=== PATIENT | female | born 1965 | race Caucasian/White ===

== ENCOUNTER → 2017-10-14 | Outpatient (CLI) | payer OTHER ==
[~2017-10-14] MED LIST: BUSP15TA60 PO; GABA-488 PO; HYDR-2856 PO; HYDR1TAB PO; LISI1TAB8 PO; MULT-974 PO; NAPR-243 PO; NAPR-689 PO; NITR-65 PO; OMEG1CAP74 PO
--- NOTE | 2017-10-14 13:56 | Diagnostic Imaging Report ---
PROCEDURE: US left lower extremity venous. TECHNIQUE: Multiple real-time grayscale images were obtained over the left lower extremity in various projections. Additional duplex Doppler and color Doppler images were also obtained. INDICATION: Left leg bruising from recent trauma. There is no evidence of a left lower extremity DVT. Left lower extremity deep venous system demonstrates normal compressibility with normal response to augmentation and Valsalva. There does appear to be a complex fluid collection in the soft tissues of the posterior upper thigh measuring 9.4 x 2.6 x 2.4 cm. No internal vascularity is seen. Findings are most consistent with a hematoma. IMPRESSION: 1. No evidence of left lower extremity DVT. 2. Large soft tissue hematoma posterior upper left thigh. Dictated by: Dictated on workstation # [id number]
== END ==
LOC: RAD 13:05
PROVIDERS: ATTEND Nurse Practitioner Family
DX: S70.12XA Contusion of left thigh, initial encounter (principal)

== ENCOUNTER 2018-07-23 19:33 | Emergency (ER) | payer SELFPAY ==
[~2018-07-23] VITALS: Ht 160 cm; Wt 122.0 kg
[2018-07-23] MEDS ORDERED: ONDANSETRON 4 MG/2 ML (SDV) Z0FRAN ONE (19:37)
[2018-07-23] MEDS ORDERED: NS IV 1000 ML 1,000 ML ONE (19:37)
[2018-07-23] MEDS ORDERED: NS IV 1000 ML 1,000 ML IV STA (19:39)
--- OUTSIDE RECORDS SUMMARY | 2018-07-23 19:40 | XMS REPORT ---
Author Author KHLOE FOX Organization [facility] Address [address] [place] [address] Care Team Providers Care Material Handler Name Role Phone KHLOE FOX Unavailable PROBLEMS Type Condition ICD9-CM Code GWI20-TD Code Onset Dates Condition Status SNOMED Code Problem Bipolar II disorder F31.81 Active 36554264 Problem Essential (primary) hypertension I10 Active 04159457 Problem Mixed hyperlipidemia E78.2 Active 849432846 Problem Abnormal LFTs R94.5 Active 044032891 Problem Essential hypertension I10 Active 52537777 Problem AVILA (generalized anxiety disorder) F41.1 Active 59502663 Problem 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 Active 29204228 Problem Hyperinsulinemia E16.1 Active 98515575 Problem Morbid obesity due to excess calories E66.01 Active 171855472 Problem Simple chronic bronchitis J41.0 Active 26875573 Problem Tobacco abuse Z72.0 Active 719256966 Problem Obstructive sleep apnea syndrome G47.33 Active 43804340 Problem Tremor R25.1 Active 14026666 ALLERGIES No Information ENCOUNTERS Encounter Location Date Diagnosis [facility] [id number] [place] [address] 95904- 4117 Apr, [facility] [id number] [place] [address] 79788- 8813 Mar, [facility] [id number] [place] [address] 63776- 4307 Feb, Bipolar II disorder F31.81 ; AVILA (generalized anxiety disorder) F41.1 and BMI 45.0-49.9, adult Z68.42 [facility] [address] [place] [address] 83901- 7397 Jan, [facility] [address] 92338- 1773 Jan, [facility] [id number] [place] [address] 54195- 3049 November, Abnormal LFTs R94.5 [facility] [id number] [place] [address] 37702- 1957 Oct, [facility] [id number] [place] [address] 63865- 9435 Oct, [facility] [id number] [place] [address] 13502 -2545 Oct, Left hip pain M25.552 ; Left leg pain M79.605 and BMI 45.0- 49.9, adult Z68.42 [facility] [id number] [place] [address] 21877- 8287 Oct, [facility] [address] 14712- 5667 Aug, BMI 45.0-49.9, adult Z68.42 ; Bipolar II disorder F31.81 and AVILA (generalized anxiety disorder) F41.1 [facility] [id number] [place] [address] 41356- 0138 Jul, Abnormal LFTs R94.5 [facility] [id number] [place] [address] 26369- 4550 Jul, Essential (primary) hypertension I10 ; Mixed hyperlipidemia E78.2 and Bipolar II disorder F31.81 [facility] [id number] [place] [address] 79377- 0555 Jul, [facility] [id number] [place] [address] 62784- 9262 Jul, [facility] [id number] [place] [address] 25635- 3297 Jul, [facility] [id number] [place] [address] 68901- 3356 Apr, [facility] [address] [address]- 2365 Mar, [facility] [id number] [place] [address] 40331- 3836 Mar, [facility] [address] [address]- 3518 Feb, [facility] [id number] [place] [address] 15762- 8474 Feb, Bipolar II disorder F31.81 and AVILA (generalized anxiety disorder) F41.1 [facility] [id number] [place] [address] 74637- 0042 Feb, [facility] [id number] [place] [address] 42195- 5139 Jan, Bipolar II disorder F31.81 ; AVILA (generalized anxiety disorder) F41.1 ; Essential hypertension I10 and Encounter for screening mammogram for breast cancer Z12.31 [facility] [address] [place] [address] 42273- 9833 November, AVILA (generalized anxiety disorder) F41.1 [facility] [address] [place] [address] 51976- 5529 November, [facility] [address] [place] [address] 41727- 5307 Sep, [facility] [address] [place] [address] 07674- 2540 Sep, [facility] [address] [place] [address] 51514- 2988 Sep, Hyperinsulinemia E16.1 [facility] [id number] [place] [address] 69414- 0445 Sep, AVILA (generalized anxiety disorder) F41.1 and Hyperinsulinemia E16.1 [facility] [address] [place] [address] 32884- 1326 08 Feb, 2017 Hyperinsulinemia E16.1 [place] [address] [place] [address] 92588- 3987 07 Aug, 2016 Bipolar II disorder F31.81 ; AVILA (generalized anxiety disorder) F41.1 and 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 [place] [id number] [place] [address] 96133- 9443 Jul, Obstructive sleep apnea syndrome G47.33 [place] [address] 80703- 1486 Jul, [place] [address] 44386- 0269 Jul, Hyperinsulinemia E16.1 ; Obstructive sleep apnea syndrome G47.33 and Morbid obesity due to excess calories E66.01 [place] [id number] [place] [address] 41090- 3369 Jul, Morbid obesity due to excess calories E66.01 and Mixed hyperlipidemia E78.2 [place] [id number] [place] [address] 65492- 9838 Jul, Low back pain M54.5 ; Mixed hyperlipidemia E78.2 ; Obstructive sleep apnea syndrome G47.33 and Morbid obesity due to excess calories E66.01 [place] [address] [place] [address] 35380- 7237 Jun, [place] [id number] [place] [address] 32292- 6675 May, [place] [id number] [place] [address] 17778- 2070 Jan, Bipolar II disorder F31.81 ; AVILA (generalized anxiety disorder) F41.1 and 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 [place] [id number] [place] [address] 96090- 1046 Dec, [place] [id number] [place] [address] 62256- 3338 13 Danny, 2016 Tobacco abuse Z72.0 ; Tremor R25.1 ; Simple chronic bronchitis J41.0 ; Mixed hyperlipidemia E78.2 and Essential (primary) hypertension I10 [place] [address] 98917- 2716 November, Establishing care with new doctor, encounter for Z71.89 ; Other emphysema J43.8 ; Tremor R25.1 ; Essential (primary) hypertension I10 ; Mixed hyperlipidemia E78.2 ; 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 ; AVILA ( generalized anxiety disorder) F41.1 and Bipolar II disorder F31.81 [place] [address] 49930- 2863 Oct, Bipolar II disorder F31.81 ; AVILA (generalized anxiety disorder) F41.1 and 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 [place] [address] 21025- 5162 Oct, [place] [address] 98326- 1631 Sep, [place] [address] 60261- 3953 Jun, Essential (primary) hypertension I10 and Mixed hyperlipidemia E78.2 [place] [address] 82849- 9304 Jun, Essential hypertension I10 [place] [address] 07388- 1613 Jun, Bipolar II disorder F31.81 ; AVILA (generalized anxiety disorder) F41.1 and 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 [place] [address] 77210- 7458 May, Essential hypertension I10 [place] [address] 73680- 7738 May, [place] [address] 95230- 1398 Apr, Bipolar II disorder F31.81 ; AVILA (generalized anxiety disorder) F41.1 and 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 [facility] [id number] [place] [address] 59061- 0059 Apr, Generalized anxiety disorder F41.1 and Depressive disorder, not elsewhere classified F32.9 [facility] [address] [place] [address] 64097- 1796 Mar, Dysuria 788.1 and Chronic UTI 599.0 [facility] [id number] [place] [address] 85798- 7846 Mar, Hematuria 599.70 and Chronic UTI 599.0 [facility] [id number] [place] [address] 36587- 3326 Mar, [facility] [id number] [place] [address] 22792- 4068 Feb, Urinary tract infection 599.0 [facility] [id number] [place] [address] 92715- 1850 Feb, Urinary tract infection 599.0 [facility] [address] [place] [address] 32992- 2454 Feb, Dysuria 788.1 [facility] [address] [place] [address] 51860 2546 Feb, Dysuria 788.1 [facility] [address] [place] [address] 29442 2546 Feb, Dysuria 788.1 [facility] [address] [place] [address] 93597- 9706 Feb, Dysuria 788.1 [facility] [address] [place] [address] 33267- 2546 Jan, Dysuria 788.1 [facility] [address] [place] [address] 22161- 8125 Jan, [facility] [place] [address] [facility] [id number] [address]- 4168 15 Dec, 2014 Urinary tract infection 599.0 ; Anxiety state, unspecified 300.00 and Chronic low back pain 724.2 [facility] [address] [facility] [id number] [address]- 6186 08 Dec, 2014 [facility] [address] [facility] [id number] [place] [address], [place] [address]- 3890 November, [facility] [address] [id number] [place] [address]- 5664 Oct, [facility] [address] [facility] [id number] [place] [address], [place] [address]- 2313 Oct, [facility] [address] [place] [address]- 7135 Sep, [facility] [id number] [address]- 3646 Sep, [facility] [id number] [address]- 2223 Jul, [facility] [id number] [address]- 1720 Jul, [facility] [id number] [address]- 8807 Jul, [facility] [address] [facility] [id number] [address]- 0353 Jul, [facility] [address] [facility] [id number] [address]- 1611 Jul, [facility] [address] [facility] [id number] [address]- 8128 Jul, [facility] [address] [facility] [id number] [address]- 7042 Jul, [facility] [address] [address]- 2185 13 Jul, 2014 [facility] [place] [facility] [address] [id number] [place] [address]- 8594 23 Jun, 2014 [facility] [place] [facility] [address] [id number] [place] [address]- 3864 23 Jun, 2014 [facility] [place] [facility] [address] [id number] [place] [address]- 8012 18 Jun, 2014 [facility] [place] [facility] [address] [id number] [place] [address]- 4457 18 Jun, 2014 [facility] [place] [facility] [address] [id number] [place] [address]- 4114 17 Jun, 2014 [facility] [place] [facility] [address] [id number] [place] [address]- 2509 17 Jun, 2014 [facility] [place] [facility] [address] [id number] [place] [address]- 8300 17 Jun, 2014 [facility] [place] [facility] [address] [id number] [place] [address]- 2462 17 Jun, 2014 [facility] [place] [facility] [address] [id number] [place] [address]- 8570 16 Jun, 2014 [facility] [place] [facility] [address] [id number] [place] [address]- 0717 16 Jun, 2014 [facility] [place] [facility] [address] [id number] [place] [address]- 4492 16 Jun, 2014 [facility] [place] [facility] [address] [id number] [place] [address]- 1037 16 Jun, 2014 [facility] [place] [facility] [address] [id number] [place] [address]- 1527 12 Jun, 2014 [facility] [place] [facility] [address] [id number] [place] [address]- 6521 12 Jun, 2014 [facility] [place] [facility] [address] [id number] [place] [address]- 8437 11 Jun, 2014 [facility] [place] [facility] [address] [id number] [place] [address]- 2606 Jun, [facility] [place] [facility] [address] [id number] [place] [address]- 3871 May, [facility] [place] [facility] [address] [id number] [place] [address]- 3874 May, [facility] [place] [facility] [address] [id number] [place] [address]- 1446 May, [facility] [place] [facility] [address] [id number] [place] [address]- 3219 May, [facility] [place] [facility] [address] [id number] [place] 3873 Mar, [facility] [place] [facility] [address] [id number] [place] [address]- 3825 Mar, [facility] [place] [facility] [address] [id number] [place] [address]- 7094 Mar, [facility] [place] [facility] [address] [id number] [place] [address]- 7331 Mar, [facility] [place] [facility] [address] [id number] [place] [address]- 8952 Feb, [facility] [place] [facility] [address] [id number] [place] [address]- 5189 Feb, [facility] [place] [facility] [address] [id number] [place] [address]- 6775 Feb, [facility] [place] [facility] [address] [id number] [place] [address]- 8984 Jan, [facility] [place] [facility] [address] [id number] [place] [address]- 4629 Dec, [facility] [place] [facility] [address] [id number] [place] [address]- 3878 Dec, [facility] [place] [facility] [address] [id number] [place] [address]- 3241 November, [facility] [place] [facility] [address] [id number] [place] [address]- 0055 November, [facility] [place] [facility] [address] [id number] [place] [address]- 4290 November, [facility] [place] [facility] [address] [id number] [place] [address]- 7449 November, [facility] [place] [facility] [address] [id number] [place] [address]- 5720 Oct, [facility] [place] [facility] [address] [id number] [place] [address]- 5383 Oct, [facility] [place] [facility] [address] [id number] [place] [address]- 4766 Sep, [facility] [place] [facility] [address] [id number] [place] [address]- 6155 Sep, [facility] [place] [facility] [address] [id number] [place] [address]- 6052 Sep, [facility] [place] [facility] [address] [id number] [place] [address]- 2870 Sep, [facility] [place] [facility] [address] [id number] [place] [address]- 1336 Aug, [facility] [place] [facility] [address] [id number] [place] [address]- 4834 Aug, [facility] [place] [facility] [address] [id number] [place] [address]- 3851 Aug, [facility] [place] [facility] [address] [id number] [place] [address]- 0190 Aug, [facility] [place] [facility] [address] [id number] [place] [address]- 1741 Aug, [facility] [place] [facility] [address] [id number] [place] 2331 Aug, [facility] [place] [facility] [address] [address]- 5461 Aug, [facility] [address] [address]- 1752 Jul, [facility] [address] [address]- 2994 Jul, [facility] [address] [address]- 0430 Jul, [facility] [address] [address]- 8564 Jul, [facility] [id number] [place] [address] 33391- 6106 Jun, [facility] [address] [address]- 2432 Jun, [facility] [address] [address]- 3144 Jun, [facility] [address] [address]- 0940 Jun, [facility] [address] [address]- 6684 Jun, [facility] [address] [address]- 3099 Jun, [facility] [address], [place] [address]- 7872 Apr, [facility] [id number] [address]- 6369 Apr, IMMUNIZATIONS No Known Immunizations SOCIAL HISTORY Never Assessed REASON FOR VISIT Refill request PLAN OF CARE VITAL SIGNS MEDICATIONS Medication Instructions Dosage Frequency Start Date End Date Duration Status Lisinopril 20 mg Orally Once a day (MUST HAVE APPT FOR REFILL) 1 tablet 30 days Active RESULTS No Results PROCEDURES No Known procedures INSTRUCTIONS MEDICATIONS ADMINISTERED No Known Medications MEDICAL (GENERAL) HISTORY Type Description Date Medical History Hypertension Medical History Post cholecystectomy 1989 Medical History Arthritis Medical History Degenerative disk disease Medical History hand tremor diagnosed in 2016. Was not on a SGA Surgical History section 1992 Surgical History Laparoscopy-cysts on ovaries 1992 Surgical History Elbow and wrist surgery as a child Surgical History Lumpectomy on Left breast-benign 1992 Hospitalization History past surgeries
--- OUTSIDE RECORDS SUMMARY | 2018-07-23 19:40 | XMS REPORT ---
Author Author GRISEL ANTONIO [facility] Address [address] [place] [address] Care Team Providers Care Insurance Premium Auditor Name Role Phone GRISEL ANTONIO Unavailable PROBLEMS Type Condition ICD9-CM Code IOU73-RN Code Onset Dates Condition Status SNOMED Code Problem Bipolar II disorder F31.81 Active 04244917 Problem Essential (primary) hypertension I10 Active 90943038 Problem Mixed hyperlipidemia E78.2 Active 653827275 Problem Abnormal LFTs R94.5 Active 389768162 Problem Essential hypertension I10 Active 63127417 Problem AVILA (generalized anxiety disorder) F41.1 Active 30999603 Problem 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 Active 03909912 Problem Hyperinsulinemia E16.1 Active 01747639 Problem Morbid obesity due to excess calories E66.01 Active 637372555 Problem Simple chronic bronchitis J41.0 Active 70502921 Problem Tobacco abuse Z72.0 Active 135427442 Problem Obstructive sleep apnea syndrome G47.33 Active 20791972 Problem Tremor R25.1 Active 28076956 ALLERGIES No Information ENCOUNTERS Encounter Location Date Diagnosis [facility] [id number] [place] [address] 91269- 8874 Apr, [facility] [id number] [place] [address] 77172- 9500 Mar, [facility] [id number] [place] [address] 83714- 0641 Feb, Bipolar II disorder F31.81 ; AVILA (generalized anxiety disorder) F41.1 and BMI 45.0-49.9, adult Z68.42 [facility] [id number] [place] [address] 83190- 2381 Jan, [facility] [id number] [place] [address] 22535- 6401 Jan, [facility] [id number] [place] [address] 82359- 2209 November, Abnormal LFTs R94.5 [facility] [id number] [place] [address] 20242- 3248 Oct, [facility] [id number] [place] [address] 22922- 8772 Oct, [facility] [address] [address] -[address]11 Oct, Left hip pain M25.552 ; Left leg pain M79.605 and BMI 45.0- 49.9, adult Z68.42 [facility] [address] 05677- 3030 Oct, [facility] [id number] [place] [address] 36970- 4096 Aug, BMI 45.0-49.9, adult Z68.42 ; Bipolar II disorder F31.81 and AVILA (generalized anxiety disorder) F41.1 [facility] [id number] [place] [address] 02503- 0537 Jul, Abnormal LFTs R94.5 [facility] [id number] [place] [address] 79402- 8602 Jul, Essential (primary) hypertension I10 ; Mixed hyperlipidemia E78.2 and Bipolar II disorder F31.81 [facility] [id number] [place] [address] 35821- 9686 Jul, [facility] [id number] [place] [address] 37261- 3588 Jul, [facility] [id number] [place] [address] 57042- 5438 Jul, [facility] [id number] [place] [address] 21455- 9580 Apr, [facility] [id number] [address]- 1253 Mar, [facility] [id number] [place] [address] 28987- 1890 Mar, [facility] [id number] [place] [address] 73698- 3265 Feb, [facility] [id number] [place] [address] 18828- 9356 Feb, Bipolar II disorder F31.81 and AVILA (generalized anxiety disorder) F41.1 [facility] [id number] [place] [address] 90310- 1589 Feb, [facility] [id number] [place] [address] 15668- 6562 Jan, Bipolar II disorder F31.81 ; AVILA (generalized anxiety disorder) F41.1 ; Essential hypertension I10 and Encounter for screening mammogram for breast cancer Z12.31 [facility] [id number] [address] 4077 November, AVILA (generalized anxiety disorder) F41.1 [facility] [id number] [place] [address] 32638- 0948 November, [facility] [id number] [place] [address] 08018- 4931 Sep, [facility] [id number] [place] [address] 97576- 6938 Sep, [facility] [id number] [place] [address] 70555- 3534 Sep, Hyperinsulinemia E16.1 [facility] [id number] [place] [address] 80417- 4045 Sep, AVILA (generalized anxiety disorder) F41.1 and Hyperinsulinemia E16.1 [facility] [address] [address]- 2546 Aug, Hyperinsulinemia E16.1 [facility] [id number] [address] 0324 07 Aug, 2016 Bipolar II disorder F31.81 ; AVILA (generalized anxiety disorder) F41.1 and 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 [facility] [id number] [place] [address] 72160- 2837 Jul, Obstructive sleep apnea syndrome G47.[address] 69932- 6907 Jul, [facility] [id number] [place] [address] 72688- 3793 Jul, Hyperinsulinemia E16.1 ; Obstructive sleep apnea syndrome G47.33 and Morbid obesity due to excess calories E66.01 [address] [address] [id number] [place] [address] 00390- 4910 Jul, Morbid obesity due to excess calories E66.01 and Mixed hyperlipidemia E78.2 [address] [id number] [place] [address] 46438- 0999 Jul, Low back pain M54.5 ; Mixed hyperlipidemia E78.2 ; Obstructive sleep apnea syndrome G47.33 and Morbid obesity due to excess calories E66.01 [facility] [id number] [place] [address] 33123- 5859 Jun, [place] [id number] [place] [address] 44073- 0486 May, [facility] [id number] [place] [address] 82966- 8216 Jan, Bipolar II disorder F31.81 ; AVILA (generalized anxiety disorder) F41.1 and 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 [facility] [id number] [place] [address] 62308- 4881 Dec, [address] [id number] [place] [address] 68680- 8764 Dec, Tobacco abuse Z72.0 ; Tremor R25.1 ; Simple chronic bronchitis J41.0 ; Mixed hyperlipidemia E78.2 and Essential (primary) hypertension I10 [facility] [address] 38006- 8694 November, Establishing care with new doctor, encounter for Z71.89 ; Other emphysema J43.8 ; Tremor R25.1 ; Essential (primary) hypertension I10 ; Mixed hyperlipidemia E78.2 ; 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 ; AVILA ( generalized anxiety disorder) F41.1 and Bipolar II disorder F31.81 [facility] [address] 53649- 1722 Oct, Bipolar II disorder F31.81 ; AVILA (generalized anxiety disorder) F41.1 and 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 [facility] [address] 01936- 3905 Oct, [facility] [address] 42716- 1654 Sep, [facility] [address] 15417- 2862 Jun, Essential (primary) hypertension I10 and Mixed hyperlipidemia E78.2 [facility] [address] 47625- 2866 Jun, Essential hypertension I10 [facility] [address] 31948- 2445 Jun, Bipolar II disorder F31.81 ; AVILA (generalized anxiety disorder) F41.1 and 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 [facility] [address] 59230- 3035 May, Essential hypertension I10 [facility] [id number] [place] [address] 83273- 2432 May, [facility] [address] 33872- 3769 Apr, Bipolar II disorder F31.81 ; AVILA (generalized anxiety disorder) F41.1 and 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 [facility] [id number] [place] [address] 77613- 5686 Apr, Generalized anxiety disorder F41.1 and Depressive disorder, not elsewhere classified F32.9 [facility] [id number] [place] [address] 64289 2546 Mar, Dysuria 788.1 and Chronic UTI 599.0 [facility] [id number] [place] [address] 15187 2546 Mar, Hematuria 599.70 and Chronic UTI 599.0 [facility] [id number] [place] [address] 45085- 5036 Mar, [facility] [id number] [place] [address] 18147- 4082 Feb, Urinary tract infection 599.0 [facility] [id number] [place] [address] 08420 2546 Feb, Urinary tract infection 599.0 [facility] [id number] [place] [address] 50835 2546 Feb, Dysuria 788.1 [facility] [id number] [place] [address] 36906 2546 Feb, Dysuria 788.1 [facility] [id number] [place] [address] 19531 2546 Feb, Dysuria 788.1 [facility] [id number] [place] [address] 02796 2546 Feb, Dysuria 788.1 [facility] [id number] [place] [address] 89803 2546 Jan, Dysuria 788.1 [facility] [id number] [place] [address] 51407 2546 Jan, [facility] [address] [facility] [id number] [place] [address]- 2240 15 Dec, 2014 Urinary tract infection 599.0 ; Anxiety state, unspecified 300.00 and Chronic low back pain 724.2 [facility] [address] [id number] [place] [address]- 0316 08 Dec, 2014 [facility] [address] [facility] [id number] [place] [address]- 1796 November, [facility] [address] [id number] [place] [address]- 5808 Oct, [facility] [address] [facility] [id number] [place] [address]- 8789 Oct, [facility] [address] [facility] [id number] [place] [address]- 0617 Sep, [facility] [id number] [place] [address]- 9765 Sep, [facility] [id number] [place] [address]- 3766 Jul, [facility] [id number] [place] [address]- 7465 Jul, [facility] [id number] [place] [address]- 1284 Jul, [facility] [id number] [place] [address]- 0555 Jul, [facility] [address] [facility] [id number] [address]- 5217 Jul, [facility] [address] [facility] [id number] [place] [address]- 7121 Jul, [facility] [address] [facility] [id number] [place] [address]- 8206 Jul, [facility] [address] [id number] [address]- 9976 13 Jul, 2014 [facility] [place] [facility] [address] [id number] [place] [address]- 0693 23 Jun, 2014 [facility] [place] [facility] [address] [id number] [place] [address]- 9115 23 Jun, 2014 [facility] [place] [facility] [address] [id number] [place] [address]- 4479 18 Jun, 2014 [facility] [place] [facility] [address] [id number] [place] [address]- 4625 18 Jun, 2014 [facility] [place] [facility] [address] [id number] [place] [address]- 6951 17 Jun, 2014 [facility] [place] [facility] [address] [id number] [place] [address]- 7433 17 Jun, 2014 [facility] [place] [facility] [address] [id number] [place] [address]- 3673 17 Jun, 2014 [facility] [place] [facility] [address] [id number] [place] [address]- 1315 17 Jun, 2014 [facility] [place] [facility] [address] [id number] [place] [address]- 2793 16 Jun, 2014 [facility] [place] [facility] [address] [id number] [place] [address]- 3123 16 Jun, 2014 [facility] [place] [facility] [address] [id number] [place] [address]- 3689 16 Jun, 2014 [facility] [place] [facility] [address] [id number] [place] [address]- 1620 16 Jun, 2014 [facility] [place] [facility] [address] [id number] [place] [address]- 6283 12 Jun, 2014 [facility] [place] [facility] [address] [id number] [place] [address]- 3187 12 Jun, 2014 [facility] [place] [facility] [address] [id number] [place] [address]- 1685 11 Jun, 2014 [facility] [place] [facility] [address] [id number] [place] [address]- 2981 Jun, [facility] [place] [facility] [address] [id number] [place] [address]- 4095 May, [facility] [place] [facility] [address] [id number] [place] [address]- 6918 May, [facility] [place] [facility] [address] [id number] [place] [address]- 1227 May, [facility] [place] [facility] [address] [id number] [place] [address]- 6532 May, [facility] [place] [facility] [address] [id number] [place] [address]- 3098 Mar, [facility] [place] [facility] [address] [id number] [place] [address]- 3669 Mar, [facility] [place] [facility] [address] [id number] [place] [address]- 4146 Mar, [facility] [place] [facility] [address] [id number] [place] [address]- 5450 Mar, [facility] [place] [facility] [address] [id number] [place] [address]- 6967 Feb, [facility] [place] [facility] [address] [id number] [place] [address]- 1413 Feb, [facility] [place] [facility] [address] [id number] [place] [address]- 1182 Feb, [facility] [place] [facility] [address] [id number] [place] [address]- 9474 Jan, [facility] [place] [facility] [address] [id number] [place] [address]- 6450 Dec, [facility] [place] [facility] [address] [id number] [place] [address]- 8264 Dec, [facility] [place] [facility] [address] [id number] [place] [address]- 5712 November, [facility] [place] [facility] [address] [id number] [place] [address]- 0879 November, [facility] [place] [facility] [address] [id number] [place] [address]- 9417 November, [facility] [place] [facility] [address] [id number] [place] [address]- 5867 November, [facility] [place] [facility] [address] [id number] [place] [address]- 7150 Oct, [facility] [place] [facility] [address] [id number] [place] [address]- 7200 Oct, [facility] [place] [facility] [address] [id number] [place] [address]- 7315 Sep, [facility] [place] [facility] [address] [id number] [place] [address]- 4722 Sep, [facility] [place] [facility] [address] [id number] [place] [address]- 9719 Sep, [facility] [place] [facility] [address] [id number] [place] [address]- 2663 Sep, [facility] [place] [facility] [address] [id number] [place] [address]- 5434 Aug, [facility] [place] [facility] [address] [id number] [place] [address]- 8435 Aug, [facility] [place] [facility] [address] [id number] [place] [address]- 4967 Aug, [facility] [place] [facility] [address] [id number] [place] [address]- 6852 Aug, [facility] [place] [facility] [address] [id number] [place] [address]- 9580 Aug, [facility] [place] [facility] [address] [id number] [place] [address]- 5309 Aug, [facility] [place] [facility] [id number] [address]- 7296 Aug, [facility] [address] [address]- 9360 Jul, [facility] [id number] [address]- 3758 Jul, [facility] [id number] [address]- 4772 Jul, [facility] [address] [address]- 6786 Jul, [facility] [id number] [place] [address] 45291- 2768 Jun, [facility] [id number] [place] [address] 40700- 3940 Jun, [facility] [id number] [place] [address] 07671- 5994 Jun, [facility] [address] [address]- 0547 Jun, [facility] [id number] [place] [address] 57611- 4980 Jun, [facility] [address], [place] [address]- 6420 Jun, [facility] [id number] [address]- 5903 Apr, [facility] [id number] [address]- 6343 Apr, IMMUNIZATIONS No Known Immunizations SOCIAL HISTORY Never Assessed REASON FOR VISIT PALS PLAN OF CARE VITAL SIGNS MEDICATIONS Unknown Medications RESULTS No Results PROCEDURES No Known procedures [...]
--- OUTSIDE RECORDS SUMMARY | 2018-07-23 19:41 | XMS REPORT ---
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 Role Phone BROOKLYN HASSAN Unavailable PROBLEMS Type Condition ICD9-CM Code ECB92-OG Code Onset Dates Condition Status SNOMED Code Problem Bipolar II disorder F31.81 Active 20956308 Problem Essential (primary) hypertension I10 Active 67730892 Problem Mixed hyperlipidemia E78.2 Active 903443752 Problem Abnormal LFTs R94.5 Active 103385702 Problem Essential hypertension I10 Active 72100080 Problem AVILA (generalized anxiety disorder) F41.1 Active 90663227 Problem 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 Active 25956678 Problem Hyperinsulinemia E16.1 Active 80190737 Problem Morbid obesity due to excess calories E66.01 Active 327005248 Problem Simple chronic bronchitis J41.0 Active 71093043 Problem Tobacco abuse Z72.0 Active 035192598 Problem Obstructive sleep apnea syndrome G47.33 Active 69868979 Problem Tremor R25.1 Active 54414621 ALLERGIES No Information ENCOUNTERS Encounter Location Date Diagnosis [facility], [place] [id number] [place] [address] 82071- 3117 Apr, [facility], [place] [id number] [place] [address] 36789- 4216 Mar, [facility], [place] [id number] [place] [address] 38743- 1125 Feb, Bipolar II disorder F31.81 ; AVILA (generalized anxiety disorder) F41.1 and BMI 45.0-49.9, adult Z68.42 [facility], [place] [id number] [place] [address] 35220- 5895 Jan, [facility], [place] [id number] [place] [address] 77731- 5805 Jan, [facility], [place] [id number] [place] [address] 56188- 4225 November, Abnormal LFTs R94.5 [facility], [place] [id number] [place] [address] 50399- 9734 Oct, [facility], [place] [id number] [place] [address] 18588- 4102 Oct, [facility] [address] [address]09 -3724 Oct, Left hip pain M25.552 ; Left leg pain M79.605 and BMI 45.0- 49.9, adult Z68.42 [facility], [place] [address] 71561- 5700 Oct, [facility], [place] [id number] [place] [address] 61173- 5443 Aug, BMI 45.0-49.9, adult Z68.42 ; Bipolar II disorder F31.81 and AVILA (generalized anxiety disorder) F41.1 [facility], [place] [id number] [place] [address] 26246- 4169 Jul, Abnormal LFTs R94.5 [facility], [place] [id number] [place] [address] 50662- 6066 Jul, Essential (primary) hypertension I10 ; Mixed hyperlipidemia E78.2 and Bipolar II disorder F31.81 [facility], [place] [id number] [place] [address] 71306- 7202 Jul, [facility], [place] [id number] [place] [address] 64013- 9214 Jul, [facility], [place] [id number] [place] [address] 42778- 8612 Jul, [facility], [place] [id number] [place] [address] 13783- 3725 Apr, [facility], [place] [address] [address] 3020 Mar, [facility], [place] [id number] [place] [address] 58849- 1273 Mar, [facility], [place] [id number] [place] [address] 66757- 5086 Feb, [facility], [place] [id number] [place] [address] 54479- 4921 Feb, Bipolar II disorder F31.81 and AVILA (generalized anxiety disorder) F41.1 [facility], [place] [id number] [place] [address] 20580- 8036 Feb, [facility], [place] [id number] [place] [address] 37813- 7696 Jan, Bipolar II disorder F31.81 ; AVILA (generalized anxiety disorder) F41.1 ; Essential hypertension I10 and Encounter for screening mammogram for breast cancer Z12.31 [facility], [place] [id number] [address] 1796 November, AVILA (generalized anxiety disorder) F41.1 [facility], [place] [id number] [place] [address] 10264- 8050 November, [facility], [place] [id number] [place] [address] 67189- 4940 Sep, [facility], [place] [id number] [place] [address] 94103- 5475 Sep, [facility], [place] [id number] [place] [address] 12474- 1531 Sep, Hyperinsulinemia E16.1 [facility], [place] [id number] [place] [address] 61802- 9638 Sep, AVILA (generalized anxiety disorder) F41.1 and Hyperinsulinemia E16.1 [facility], [place] [address] [address]- 2546 Aug, Hyperinsulinemia E16.1 [place] [id number] [address]- 9193 07 Aug, 2016 Bipolar II disorder F31.81 ; AVILA (generalized anxiety disorder) F41.1 and 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 [place] [id number] [place] [address] 04609- 1501 Jul, Obstructive sleep apnea syndrome G47.[address] 00764- 5419 Jul, [place] [facility] [id number] [place] [address] 43875- 6144 Jul, Hyperinsulinemia E16.1 ; Obstructive sleep apnea syndrome G47.33 and Morbid obesity due to excess calories E66.01 [place] [id number] [place] [address] 55248- 4109 Jul, Morbid obesity due to excess calories E66.01 and Mixed hyperlipidemia E78.2 [place] [id number] [place] [address] 96240- 6649 Jul, Low back pain M54.5 ; Mixed hyperlipidemia E78.2 ; Obstructive sleep apnea syndrome G47.33 and Morbid obesity due to excess calories E66.01 [place] [id number] [place] [address] 73901- 9071 Jun, [place] [id number] [place] [address] 28870- 4812 May, [place] [id number] [place] [address] 34890- 2228 Jan, Bipolar II disorder F31.81 ; AVILA (generalized anxiety disorder) F41.1 and 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 [place] [id number] [place] [address] 13783- 7751 Dec, [place] [id number] [place] [address] 81154- 0425 Dec, Tobacco abuse Z72.0 ; Tremor R25.1 ; Simple chronic bronchitis J41.0 ; Mixed hyperlipidemia E78.2 and Essential (primary) hypertension I10 [place] [address] 30471- 4225 November, Establishing care with new doctor, encounter for Z71.89 ; Other emphysema J43.8 ; Tremor R25.1 ; Essential (primary) hypertension I10 ; Mixed hyperlipidemia E78.2 ; 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 ; AVILA ( generalized anxiety disorder) F41.1 and Bipolar II disorder F31.81 [place] [address] 15179- 3821 Oct, Bipolar II disorder F31.81 ; AVILA (generalized anxiety disorder) F41.1 and 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 [place] [address] 32589- 8881 Oct, [place] [address] 05666- 2003 Sep, [place] [address] 58433- 2812 Jun, Essential (primary) hypertension I10 and Mixed hyperlipidemia E78.2 [place] [address] 93030- 0621 Jun, Essential hypertension I10 [place] [address] 17322- 7665 Jun, Bipolar II disorder F31.81 ; AVILA (generalized anxiety disorder) F41.1 and 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 [place] [address] 76408- 7171 May, Essential hypertension I10 [place] [id number] [place] [address] 07012- 5147 May, [place] [address] 40375- 2431 Apr, Bipolar II disorder F31.81 ; AVILA (generalized anxiety disorder) F41.1 and 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 [facility], [place] [id number] [place] [address] 40244- 2036 Apr, Generalized anxiety disorder F41.1 and Depressive disorder, not elsewhere classified F32.9 [facility], [place] [id number] [place] [address] 06394 2546 Mar, Dysuria 788.1 and Chronic UTI 599.0 [facility], [place] [id number] [place] [address] 67860 2546 Mar, Hematuria 599.70 and Chronic UTI 599.0 [facility], [place] [id number] [place] [address] 87412- 6456 Mar, [facility], [place] [id number] [place] [address] 46866- 4889 Feb, Urinary tract infection 599.0 [facility], [place] [id number] [place] [address] 67358 2546 Feb, Urinary tract infection 599.0 [facility], [place] [id number] [place] [address] 94354 2546 Feb, Dysuria 788.1 [facility], [place] [id number] [place] [address] 93426 2546 Feb, Dysuria 788.1 [facility], [place] [id number] [place] [address] 33646 2546 Feb, Dysuria 788.1 [facility], [place] [id number] [place] [address] 74029 2546 Feb, Dysuria 788.1 [facility], [place] [id number] [place] [address] 57486 2546 Jan, Dysuria 788.1 [facility], [place] [id number] [place] [address] 79612 2546 Jan, [facility] [place] [address] [facility] [id number] [place] [address]- 1742 15 Dec, 2014 Urinary tract infection 599.0 ; Anxiety state, unspecified 300.00 and Chronic low back pain 724.2 [facility] [place] [address] [id number] [place] [address]- 9456 08 Dec, 2014 [facility] [place] [address] [facility] [id number] [place] [address]- 2286 November, [facility] [address] [id number] [place] [address]- 4491 Oct, [facility] [address] [facility] [id number] [place] [address]- 6773 Oct, [facility] [place] [address] [facility] [id number] [place] [address]- 8249 Sep, [facility] [place] [id number] [place] [address]- 9746 Sep, [facility] [id number] [place] [address]- 3293 Jul, [facility] [id number] [place] [address]- 9969 Jul, [facility] [place] [id number] [place] [address]- 6423 Jul, [facility] [place] [id number] [place] [address]- 4803 Jul, [facility] [address] [facility] [id number] [address]- 3337 Jul, [facility] [address] [facility] [id number] [place] [address]- 0098 Jul, [facility] [address] [facility] [id number] [place] [address]- 0746 Jul, [facility] [id number] [address]- 9287 13 Jul, 2014 [facility] [place] [facility] [address] [id number] [place] [address]- 2077 23 Jun, 2014 [facility] [place] [facility] [address] [id number] [place] [address]- 6652 23 Jun, 2014 [facility] [place] [facility] [address] [id number] [place] [address]- 2224 18 Jun, 2014 [facility] [place] [facility] [address] [id number] [place] [address]- 5904 18 Jun, 2014 [facility] [place] [facility] [address] [id number] [place] [address]- 4426 17 Jun, 2014 [facility] [place] [facility] [address] [id number] [place] [address]- 3117 17 Jun, 2014 [facility] [place] [facility] [address] [id number] [place] [address]- 3395 17 Jun, 2014 [facility] [place] [facility] [address] [id number] [place] [address]- 9287 17 Jun, 2014 [facility] [place] [facility] [address] [id number] [place] [address]- 2859 16 Jun, 2014 [facility] [place] [facility] [address] [id number] [place] [address]- 5760 16 Jun, 2014 [facility] [place] [facility] [address] [id number] [place] [address]- 0753 16 Jun, 2014 [facility] [place] [facility] [address] [id number] [place] [address]- 9144 16 Jun, 2014 [facility] [place] [facility] [address] [id number] [place] [address]- 2461 12 Jun, 2014 [facility] [place] [facility] [address] [id number] [place] [address]- 8112 12 Jun, 2014 [facility] [place] [facility] [address] [id number] [place] [address]- 5009 11 Jun, 2014 [facility] [place] [facility] [address] [id number] [place] [address]- 6459 Jun, [facility] [place] [facility] [address] [id number] [place] [address]- 4304 May, [facility] [place] [facility] [address] [id number] [place] [address]- 7655 May, [facility] [place] [facility] [address] [id number] [place] [address]- 9602 May, [facility] [place] [facility] [address] [id number] [place] [address]- 5916 May, [facility] [place] [facility] [address] [id number] [place] [address]- 7235 Mar, [facility] [place] [facility] [address] [id number] [place] [address]- 6346 Mar, [facility] [place] [facility] [address] [id number] [place] [address]- 9149 Mar, [facility] [place] [facility] [address] [id number] [place] [address]- 1433 Mar, [facility] [place] [facility] [address] [id number] [place] [address]- 4809 Feb, [facility] [place] [facility] [address] [id number] [place] [address]- 7757 Feb, [facility] [place] [facility] [address] [id number] [place] [address]- 2317 Feb, [facility] [place] [facility] [address] [id number] [place] [address]- 5093 Jan, [facility] [place] [facility] [address] [id number] [place] [address]- 3150 Dec, [facility] [place] [facility] [address] [id number] [place] [address]- 6129 Dec, [facility] [place] [facility] [address] [id number] [place] [address]- 3390 November, [facility] [place] [facility] [address] [id number] [place] [address]- 3965 November, [facility] [place] [facility] [address] [id number] [place] [address]- 3945 November, [facility] [place] [facility] [address] [id number] [place] [address]- 4410 November, [facility] [place] [facility] [address] [id number] [place] [address]- 5022 Oct, [facility] [place] [facility] [address] [id number] [place] [address]- 4538 Oct, [facility] [place] [facility] [address] [id number] [place] [address]- 3405 Sep, [facility] [place] [facility] [address] [id number] [place] [address]- 3799 Sep, [facility] [place] [facility] [address] [id number] [place] [address]- 7534 Sep, [facility] [place] [facility] [address] [id number] [place] [address]- 6179 Sep, [facility] [place] [facility] [address] [id number] [place] [address]- 6503 Aug, [facility] [place] [facility] [address] [id number] [place] [address]- 4799 Aug, [facility] [place] [facility] [address] [id number] [place] [address]- 4610 Aug, [facility] [place] [facility] [address] [id number] [place] [address]- 6854 Aug, [facility] [place] [facility] [address] [id number] [place] [address]- 0223 Aug, [facility] [place] [facility] [address] [id number] [place] [address]- 0402 Aug, [facility] [place] [facility] [id number] [address]- 7482 Aug, [facility] [place] [address] [address]- 5928 Jul, [facility] [place] [address] [address]- 6468 Jul, [facility] [place] [address] [address]- 2684 Jul, [facility] [place] [address] [address]- 3579 Jul, [facility] [place] [id number] [place] [address] 23436- 8539 Jun, [facility] [place] [id number] [place] [address] 57521- 1301 Jun, [facility] [place] [id number] [place] [address] 10037- 0665 Jun, [facility] [place] [address] [address]- 8238 Jun, [facility] [place] [id number] [place] [address] 866885- 9153 Jun, [facility] [place] [id number] [address]- 7491 Jun, [facility] [place] [address] [address]- 5091 Apr, [facility] [place] [address] [address]- 4906 Apr, IMMUNIZATIONS No Known Immunizations SOCIAL HISTORY Never Assessed REASON FOR VISIT PALS-latuda PLAN OF CARE VITAL SIGNS MEDICATIONS Medication Instructions Dosage Frequency Start Date End Date Duration Status Latuda 40 mg Orally Once in the evening with 350 calories 1 tablet Feb 90 days Active RESULTS No Results PROCEDURES No [...]
--- OUTSIDE RECORDS SUMMARY | 2018-07-23 19:41 | XMS REPORT ---
Author Author GRISEL ANTONIO [facility] Address [address] [place] [address] Care Team Providers Care Greenskeeper Supervisor Name Role Phone GRISEL ANTONIO Unavailable PROBLEMS Type Condition ICD9-CM Code HLL90-VD Code Onset Dates Condition Status SNOMED Code Problem Bipolar II disorder F31.81 Active 11358108 Problem Essential (primary) hypertension I10 Active 48283270 Problem Mixed hyperlipidemia E78.2 Active 595349417 Problem Abnormal LFTs R94.5 Active 263509849 Problem Essential hypertension I10 Active 37117570 Problem AVILA (generalized anxiety disorder) F41.1 Active 97288502 Problem 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 Active 54837644 Problem Hyperinsulinemia E16.1 Active 37993124 Problem Morbid obesity due to excess calories E66.01 Active 792645575 Problem Simple chronic bronchitis J41.0 Active 91464769 Problem Tobacco abuse Z72.0 Active 757909608 Problem Obstructive sleep apnea syndrome G47.33 Active 97926391 Problem Tremor R25.1 Active 75360736 ALLERGIES Substance Reaction Event Type Date Status Codeine vomiting Drug Allergy Feb, Active ENCOUNTERS Encounter Location Date Diagnosis [facility] [address] [address] Apr, [facility] [id number] [place] [address]40- 2773 Mar, [facility] [address] [place] [address] 28331- 2321 Feb, Bipolar II disorder F31.81 ; AVILA (generalized anxiety disorder) F41.1 and BMI 45.0-49.9, adult Z68.42 [facility] [address] [address] Jan, [facility] [address] [place] [address] 1980 Jan, [facility] [id number] [place] [address] 92728- 2736 November, Abnormal LFTs R94.5 [facility] [id number] [place] [address] 26887- 3271 Oct, [facility] [id number] [place] [address] 31626- 5883 Oct, [facility] [id number] [place] [address] 49606 -3961 Oct, Left hip pain M25.552 ; Left leg pain M79.605 and BMI 45.0- 49.9, adult Z68.42 [facility] [id number] [place] [address] 25072- 6553 Oct, [facility] [id number] [place] [address] 08837- 5831 Aug, BMI 45.0-49.9, adult Z68.42 ; Bipolar II disorder F31.81 and AVILA (generalized anxiety disorder) F41.1 [facility] [id number] [place] [address] 65608- 2935 Jul, Abnormal LFTs R94.5 [facility] [id number] [place] [address] 55717- 2542 Jul, Essential (primary) hypertension I10 ; Mixed hyperlipidemia E78.2 and Bipolar II disorder F31.81 [facility] [id number] [place] [address] 82409- 3781 Jul, [facility] [id number] [place] [address] 58378- 9594 Jul, [facility] [id number] [place] [address] 82351- 9304 Jul, [facility] [id number] [place] [address] 71415- 3902 Apr, [facility] [address] [address] 1643 Mar, [facility] [id number] [place] [address] 31839- 8976 Mar, [facility] [address] [place] [address] 01478- 8065 Feb, [facility] [id number] [place] [address] 19729- 3292 Feb, Bipolar II disorder F31.81 and AVILA (generalized anxiety disorder) F41.1 [facility] [id number] [place] [address] 20808- 2606 Feb, [facility] [id number] [place] [address] 17034- 8587 Jan, Bipolar II disorder F31.81 ; AVILA (generalized anxiety disorder) F41.1 ; Essential hypertension I10 and Encounter for screening mammogram for breast cancer Z12.31 [facility] [address] [place] [address] 67648- 9061 November, AVILA (generalized anxiety disorder) F41.1 [facility] [address] [place] [address] 12339- 3694 November, [facility] [id number] [place] [address] 15741- 2837 Sep, [facility] [address] [place] [address] 42601- 8133 Sep, [facility] [address] [place] [address] 27955- 5513 Sep, Hyperinsulinemia E16.1 [facility] [address] [place] [address] 48082- 2300 Sep, AVILA (generalized anxiety disorder) F41.1 and Hyperinsulinemia E16.1 [facility] [address] [place] [address] 53755- 7485 08 Aug, 2016 Hyperinsulinemia E16.1 [facility] [address] [place] [address] 86564- 7188 07 Aug, 2016 Bipolar II disorder F31.81 ; AVILA (generalized anxiety disorder) F41.1 and 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 [facility] [id number] [place] [address] 35894- 9074 Jul, Obstructive sleep apnea syndrome G47.33 [facility] [id number] [place] [address] 53955- 2858 Jul, [facility] [id number] [place] [address] 67100- 7275 Jul, Hyperinsulinemia E16.1 ; Obstructive sleep apnea syndrome G47.33 and Morbid obesity due to excess calories E66.01 [facility] [id number] [place] [address] 27143- 2689 Jul, Morbid obesity due to excess calories E66.01 and Mixed hyperlipidemia E78.2 [facility] [id number] [place] [address] 64776- 6895 Jul, Low back pain M54.5 ; Mixed hyperlipidemia E78.2 ; Obstructive sleep apnea syndrome G47.33 and Morbid obesity due to excess calories E66.01 [facility] [address] [place] [address] 28098- 3041 Jun, [facility] [id number] [place] [address] 69216- 7298 May, [facility] [id number] [place] [address] 55613- 7998 Jan, Bipolar II disorder F31.81 ; AVILA (generalized anxiety disorder) F41.1 and 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 [facility] [address] [address]- 0665 Dec, [facility] [id number] [place] [address] 28231- 0177 Dec, Tobacco abuse Z72.0 ; Tremor R25.1 ; Simple chronic bronchitis J41.0 ; Mixed hyperlipidemia E78.2 and Essential (primary) hypertension I10 [facility] [address] 29521- 6638 November, Establishing care with new doctor, encounter for Z71.89 ; Other emphysema J43.8 ; Tremor R25.1 ; Essential (primary) hypertension I10 ; Mixed hyperlipidemia E78.2 ; 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 ; AVILA ( generalized anxiety disorder) F41.1 and Bipolar II disorder F31.81 [facility] [address] 76452- 8537 Oct, Bipolar II disorder F31.81 ; AVILA (generalized anxiety disorder) F41.1 and 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 [facility] [address] 20963- 3711 Oct, [facility] [address] 64565- 5358 Sep, [facility] [address] 50693- 8081 Jun, Essential (primary) hypertension I10 and Mixed hyperlipidemia E78.2 [facility] [address] 34802- 1351 Jun, Essential hypertension I10 [facility] [address] 71579- 2173 Jun, Bipolar II disorder F31.81 ; AVILA (generalized anxiety disorder) F41.1 and 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 [facility] [address] 14932- 0637 May, Essential hypertension I10 [facility] [address] 77788- 9325 May, [facility] [address] 91346- 4623 Apr, Bipolar II disorder F31.81 ; AVILA (generalized anxiety disorder) F41.1 and 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 [facility] [address] [place] [address] 36895- 0838 Apr, Generalized anxiety disorder F41.1 and Depressive disorder, not elsewhere classified F32.9 [facility] [id number] [place] [address] 02732- 2367 16 Mar, 2015 Dysuria 788.1 and Chronic UTI 599.0 [facility] [id number] [place] [address] 99689- 2241 Mar, Hematuria 599.70 and Chronic UTI 599.0 [facility] [id number] [place] [address] 02115- 9465 Mar, [facility] [id number] [place] [address] 08338- 9875 Feb, Urinary tract infection 599.0 [facility] [address] [place] [address] 56564- 0799 Feb, Urinary tract infection 599.0 [facility] [address] [place] [address] 14754- 3636 Feb, Dysuria 788.1 [facility] [address] [place] [address] 36793- 0417 Feb, Dysuria 788.1 [facility] [address] [place] [address] 06038 2540 Feb, Dysuria 788.1 [facility] [id number] [place] [address] 34939- 6801 Feb, Dysuria 788.1 [facility] [address] [place] [address] 44896- 5289 Jan, Dysuria 788.1 [facility] [id number] [place] [address] 45698- 3237 Jan, [facility] [address] [facility] [id number] [address]- 4352 Dec, Urinary tract infection 599.0 ; Anxiety state, unspecified 300.00 and Chronic low back pain 724.2 [facility] [id number] [address]- 9937 Dec, [facility] [address] [facility] [id number], [place] [address]- 0909 November, [facility] [address] [facility] [id number], [place] [address]- 1834 Oct, [facility] [address] [facility] [id number], [place] [address]- 8038 Oct, [facility] [address], [place] [address]- 6742 Sep, [facility] [id number], [place] [address]- 7318 Sep, [facility] [id number], [place] [address]- 1990 Jul, [facility] [id number], [place] [address]- 9249 Jul, [facility] [id number], [place] [address]- 0465 Jul, [facility] [address] [facility] [id number], [place] [address]- 0381 Jul, [facility] [address] [facility] [id number], [place] [address]- 4215 Jul, [facility] [address] [facility] [id number], [place] [address]- 3776 Jul, [facility] [id number], [place] [address]- 1382 Jul, [facility] [address] [facility] [id number] [place] [address]- 3808 13 Jul, 2014 [facility] [address] [id number] [place] [address]- 1732 23 Jun, 2014 [facility] [place] [facility] [address] [id number] [place] [address]- 3018 23 Jun, 2014 [facility] [place] [facility] [address] [id number] [place] [address]- 3296 18 Jun, 2014 [facility] [place] [facility] [address] [id number] [place] [address]- 1447 18 Jun, 2014 [facility] [place] [facility] [address] [id number] [place] [address]- 0677 17 Jun, 2014 [facility] [place] [facility] [address] [id number] [place] [address]- 6182 17 Jun, 2014 [facility] [place] [facility] [address] [id number] [place] [address]- 5297 17 Jun, 2014 [facility] [place] [facility] [address] [id number] [place] [address]- 2685 17 Jun, 2014 [facility] [place] [facility] [address] [id number] [place] [address]- 1359 16 Jun, 2014 [facility] [place] [facility] [address] [id number] [place] [address]- 8632 16 Jun, 2014 [facility] [place] [facility] [address] [id number] [place] [address]- 8846 16 Jun, 2014 [facility] [place] [facility] [address] [id number] [place] [address]- 8874 16 Jun, 2014 [facility] [place] [facility] [address] [id number] [place] [address]- 5500 12 Jun, 2014 [facility] [place] [facility] [address] [id number] [place] [address]- 9541 12 Jun, 2014 [facility] [place] [facility] [address] [id number] [place] [address]- 6055 Jun, [facility] [place] [facility] [address] [id number] [place] [address]- 0401 Jun, [facility] [place] [facility] [address] [id number] [place] 7667 May, [facility] [place] [facility] [address] [id number] [place] [address]- 8732 May, [facility] [place] [facility] [address] [id number] [place] [address]- 9818 May, [facility] [place] [facility] [address] [id number] [place] [address]- 8778 May, [facility] [place] [facility] [address] [id number] [place] [address]- 4106 Mar, [facility] [place] [facility] [address] [id number] [place] [address]- 3657 Mar, [facility] [place] [facility] [address] [id number] [place] [address]- 1028 Mar, [facility] [place] [facility] [address] [id number] [place] [address]- 8409 Mar, [facility] [place] [facility] [address] [id number] [place] [address]- 7825 Feb, [facility] [place] [facility] [address] [id number] [place] [address]- 9276 Feb, [facility] [place] [facility] [address] [id number] [place] [address]- 2559 Feb, [facility] [place] [facility] [address] [id number] [place] [address]- 2760 Jan, [facility] [place] [facility] [address] [id number] [place] [address]- 7136 Dec, [facility] [place] [facility] [address] [id number] [place] [address]- 4745 Dec, [facility] [place] [facility] [address] [id number], [place] [address]- 8206 November, [facility] [place] [facility] [address] [id number] [place] [address]- 0434 November, [facility] [place] [facility] [address] [id number] [place] [address]- 2584 November, [facility] [place] [facility] [address] [id number] [place] [address]- 5174 November, [facility] [place] [facility] [address] [id number] [place] [address]- 7016 Oct, [facility] [place] [facility] [address] [id number] [place] [address]- 1648 Oct, [facility] [place] [facility] [address] [id number] [place] [address]- 0527 Sep, [facility] [place] [facility] [address] [id number] [place] [address]- 0497 Sep, [facility] [place] [facility] [address] [id number] [place] [address]- 3015 Sep, [facility] [place] [facility] [address] [id number] [place] [address]- 7599 Sep, [facility] [place] [facility] [address] [facility] [id number] [place] [address]- 6282 Aug, [facility] [place] [facility] [address] [id number] [place] [address]- 3488 Aug, [facility] [place] [facility] [address] [id number] [place] [address]- 5491 Aug, [facility] [place] [facility] [address] [id number] [place] [address]- 7254 Aug, [facility] [place] [facility] [address] [id number] [place] [address]- 1278 Aug, [facility] [place] [facility] [address] [id number] [place] [address]- 1362 Aug, [facility] [address] [address]- 1311 Aug, [facility] [address], [place] [address]- 6031 Jul, [facility] [address], [place] [address]- 4091 Jul, [facility] [address], [place] [address]- 6409 Jul, [facility] [address], [place] [address]- 1986 Jul, [facility] [address], [place] [address]- 0033 Jun, [facility] [address], [place] [address]- 8072 Jun, [facility] [address], [place] [address]- 9994 Jun, [facility] [address], [place] [address]- 5680 Jun, [facility] [address], [place] [address]- 2966 Jun, [facility] [address], [place] [address]- 1743 Jun, [facility] [address], [place] [address]- 6601 Apr, [facility] [address] [id number], [place] [address]- 2455 Apr, IMMUNIZATIONS No Known Immunizations SOCIAL HISTORY Never Assessed REASON FOR VISIT JEFF f/u Wilfredo PLAN OF CARE Activity Details Follow Up 6 -8 Weeks Reason: VITAL SIGNS Height 64 in 2018-02-09 Weight 273.8 lbs 2018-02-09 Heart Rate 84 bpm 2018-02-09 Respiratory Rate 20 2018-02-09 BMI 46.99 kg/m2 2018-02-09 Blood pressure systolic 138 mmHg 2018-02-09 Blood pressure diastolic 72 mmHg 2018-02-09 MEDICATIONS Medication Instructions Dosage Frequency Start Date End Date Duration Status Naproxen 500 MG TAKE ONE TABLET BY MOUTH TWICE DAILY NEEDED 90 Active Lamotrigine 200 MG TAKE ONE (1) TABLET BY MOUTH ONCE DAILY Active Latuda 40 mg Orally Once in the evening with 350 calories 1 tablet Feb Active Albuterol Sulfate HFA 108 (90 Base) MCG/ACT Inhalation every 4 hrs 2 puffs as needed 4h Dec, 30 Active Toprol XL 50 MG Orally Once a day 1 tablet at bedtime 24h 30 Active BusPIRone HCl 15 mg Orally 1 tablet in AM and 8pm and 2 tabs at 2pm 1 tablet Active Zoloft 100 mg Orally Once a day for depression and anxiety 1.5 tablet Active Lisinopril 20 mg Orally Once a day 1 tablet 24h 30 Active Gabapentin 300 MG Orally 3 times a day 1 capsule 8h 30 Active Hydrochlorothiazide 12.5 MG Orally Once a day 1 capsule 24h 30 Active RESULTS No Results PROCEDURES No Known procedures INSTRUCTIONS MEDICATIONS ADMINISTERED No Known Medications MEDICAL (GENERAL) HISTORY Type Description Date Medical History Hypertension Medical History Post cholecystectomy 1989 Medical History Arthritis Medical History Degenerative disk disease Medical History hand tremor diagnosed in 2015. Was not on a [facility] Surgical History section 1992 Surgical History Laparoscopy-cysts on ovaries 1992 Surgical History Elbow and wrist surgery as a child Surgical History Lumpectomy on Left breast-benign 1992 Hospitalization History past surgeries
--- OUTSIDE RECORDS SUMMARY | 2018-07-23 19:41 | XMS REPORT ---
Author Author BROOKLYN HASSAN [facility] Address [address] [place] [address] Care Team Providers Care Attendance Secretary Name Role Phone BROOKLYN HASSAN Unavailable PROBLEMS Type Condition ICD9-CM Code PDH33-ON Code Onset Dates Condition Status SNOMED Code Problem Bipolar II disorder F31.81 Active 80681253 Problem Essential (primary) hypertension I10 Active 66785230 Problem Mixed hyperlipidemia E78.2 Active 126381341 Problem Abnormal LFTs R94.5 Active 025641767 Problem Essential hypertension I10 Active 55941618 Problem AVILA (generalized anxiety disorder) F41.1 Active 25693160 Problem 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 Active 33456819 Problem Hyperinsulinemia E16.1 Active 13913947 Problem Morbid obesity due to excess calories E66.01 Active 053211902 Problem Simple chronic bronchitis J41.0 Active 78630624 Problem Tobacco abuse Z72.0 Active 716056387 Problem Obstructive sleep apnea syndrome G47.33 Active 81381589 Problem Tremor R25.1 Active 10821167 ALLERGIES No Information ENCOUNTERS Encounter Location Date Diagnosis [facility] [id number] [place] [address] 93250- 8599 Apr, [facility] [id number] [place] [address] 28086- 7252 Feb, Bipolar II disorder F31.81 ; AVILA (generalized anxiety disorder) F41.1 and BMI 45.0-49.9, adult Z68.42 [facility] [id number] [place] [address] 15637- 4850 Jan, [facility] [id number] [place] [address] 41842- 5420 Jan, [facility] [id number] [place] [address] 90038- 2375 November, Abnormal LFTs R94.5 [facility] [id number] [address] 6161 Oct, [facility] [id number] [place] [address] 22262- 4397 Oct, [facility] [id number] [place] [address] 42084 -2823 Oct, Left hip pain M25.552 ; Left leg pain M79.605 and BMI 45.0- 49.9, adult Z68.42 [facility] [id number] [place] [address] 61530- 3252 Oct, [facility] [id number] [place] [address] 44800- 9784 Aug, BMI 45.0-49.9, adult Z68.42 ; Bipolar II disorder F31.81 and AVILA (generalized anxiety disorder) F41.1 [facility] [id number] [place] [address] 04333- 6339 Jul, Abnormal LFTs R94.5 [facility] [id number] [place] [address] 31813- 0511 Jul, Essential (primary) hypertension I10 ; Mixed hyperlipidemia E78.2 and Bipolar II disorder F31.81 [facility] [id number] [place] [address] 54084- 1256 Jul, [facility] [id number] [place] [address] 83042- 4631 Jul, [facility] [id number] [place] [address] 74716- 8862 Jul, [facility] [id number] [place] [address] 44167- 0844 Apr, [facility] [id number] [place] [address] 80365- 3766 Mar, [facility] [address] [address] 7927 Mar, [facility] [id number] [place] [address] 45143- 2762 Feb, [facility] [id number] [place] [address] 84358- 4547 Feb, Bipolar II disorder F31.81 and AVILA (generalized anxiety disorder) F41.1 [facility] [id number] [place] [address] 17726- 9224 Feb, [facility] [id number] [place] [address] 34631- 5332 Jan, Bipolar II disorder F31.81 ; AVILA (generalized anxiety disorder) F41.1 ; Essential hypertension I10 and Encounter for screening mammogram for breast cancer Z12.31 [facility] [id number] [place] [address] 52223- 5815 November, AVILA (generalized anxiety disorder) F41.1 [facility] [id number] [place] [address] 03487- 9830 November, [facility] [id number] [place] [address] 80771- 1376 Sep, [facility] [id number] [place] [address] 07154- 1196 Sep, [facility] [id number] [place] [address] 11964- 8128 Sep, Hyperinsulinemia E16.1 [facility] [id number] [place] [address] 27477- 7705 Sep, AVILA (generalized anxiety disorder) F41.1 and Hyperinsulinemia E16.1 [facility] [id number] [place] [address] 22002- 1866 Aug, Hyperinsulinemia E16.1 [facility] [id number] [place] [address] 27531- 2546 07 Feb, 2017 Bipolar II disorder F31.81 ; AVILA (generalized anxiety disorder) F41.1 and 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 [facility] [address] 16412- 4898 Jul, Obstructive sleep apnea syndrome G47.33 [facility] [address] 49515- 6072 Jul, [facility] [address] 96009- 0824 Jul, Hyperinsulinemia E16.1 ; Obstructive sleep apnea syndrome G47.33 and Morbid obesity due to excess calories E66.01 [facility] [address] 16209- 0368 Jul, Morbid obesity due to excess calories E66.01 and Mixed hyperlipidemia E78.[address] 00830- 9047 Jul, Low back pain M54.5 ; Mixed hyperlipidemia E78.2 ; Obstructive sleep apnea syndrome G47.33 and Morbid obesity due to excess calories E66.01 [facility] [address] 03285- 5345 Jun, [facility] [address] 56312- 0866 May, [facility] [address] 19789- 1452 Jan, Bipolar II disorder F31.81 ; AVILA (generalized anxiety disorder) F41.1 and 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 [facility] [address] 55101- 4273 Dec, [facility] [address] 76841- 8916 Dec, Tobacco abuse Z72.0 ; Tremor R25.1 ; Simple chronic bronchitis J41.0 ; Mixed hyperlipidemia E78.2 and Essential (primary) hypertension I10 [facility] [id number] [place] [address] 82140- 4560 November, Establishing care with new doctor, encounter for Z71.89 ; Other emphysema J43.8 ; Tremor R25.1 ; Essential (primary) hypertension I10 ; Mixed hyperlipidemia E78.2 ; 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 ; AVILA ( generalized anxiety disorder) F41.1 and Bipolar II disorder F31.81 [facility] [address] 86393- 2888 Oct, Bipolar II disorder F31.81 ; AVILA (generalized anxiety disorder) F41.1 and 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 [facility] [id number] [place] [address] 23939- 7492 Oct, [facility] [address] 68044- 4895 Sep, [facility] [address] 58612- 0081 Jun, Essential (primary) hypertension I10 and Mixed hyperlipidemia E78.[address] 41496- 5797 Jun, Essential hypertension I10 [address] [id number] [place] [address] 79573- 4083 Jun, Bipolar II disorder F31.81 ; AVILA (generalized anxiety disorder) F41.1 and 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 [facility] [id number] [place] [address] 70141- 9701 May, Essential hypertension I10 [facility] [id number] [place] [address] 57107- 5692 May, [facility] [id number] [place] [address] 71355- 4074 Apr, Bipolar II disorder F31.81 ; AVILA (generalized anxiety disorder) F41.1 and 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 [facility] [address] [address]- 2647 05 Apr, 2015 Generalized anxiety disorder F41.1 and Depressive disorder, not elsewhere classified F32.9 [facility] [id number] [place] [address] 51853- 8226 16 Mar, 2015 Dysuria 788.1 and Chronic UTI 599.0 [facility] [id number] [place] [address] 55546 2546 Mar, Hematuria 599.70 and Chronic UTI 599.0 [facility] [id number] [place] [address] 74374- 3876 Mar, [facility] [id number] [place] [address] 18648- 4098 Feb, Urinary tract infection 599.0 [facility] [id number] [place] [address] 74256- 7096 Feb, Urinary tract infection 599.0 [facility] [id number] [place] [address] 07667- 9321 Feb, Dysuria 788.1 [facility] [id number] [place] [address] 36169 2546 Feb, Dysuria 788.1 [facility] [address] [address] 2546 Feb, Dysuria 788.1 [facility] [id number] [place] [address] 16335 2546 Feb, Dysuria 788.1 [facility] [id number] [place] [address] 50331- 0046 Jan, Dysuria 788.1 [facility] [address], [place] [address] 2546 Jan, [facility] [id number] [place] [address] 76123- 9254 Dec, Urinary tract infection 599.0 ; Anxiety state, unspecified 300.00 and Chronic low back pain 724.2 [facility] [address] [address]- 6004 08 Dec, 2014 [facility] [address] [facility] [id number] [place] [address]- 0606 November, [facility] [address] [facility] [id number] [place] [address]- 4645 Oct, [facility] [address] [facility] [id number] [place] [address]- 3315 Oct, [facility] [address] [place] [address]- 8955 Sep, [facility] [id number] 7956 Sep, [facility] [address] [place] [address]- 5163 Jul, [facility] [id number] [address]- 9681 Jul, [facility] [address], [place] [address]- 1424 Jul, [facility] [id number] [address]- 3325 Jul, [facility] [id number] [address]- 6764 Jul, [facility] [id number], [place] [address]- 3562 Jul, [facility] [address] 7364 Jul, [facility] [address] [facility] [id number], [place] [address]- 0762 Jul, [facility] [id number], [place] [address]- 2278 23 Jun, 2014 [facility] [place] [facility] [address] [id number] [place] [address]- 5676 23 Jun, 2014 [facility] [place] [facility] [address] [id number] [place] [address]- 3753 18 Jun, 2014 [facility] [place] [facility] [address] [id number] [place] [address]- 7208 18 Jun, 2014 [facility] [place] [facility] [address] [id number] [place] [address]- 1386 17 Jun, 2014 [facility] [place] [facility] [address] [id number] [place] [address]- 5219 17 Jun, 2014 [facility] [place] [facility] [address] [id number] [place] [address]- 1317 17 Jun, 2014 [facility] [place] [facility] [address] [id number] [place] [address]- 1641 17 Jun, 2014 [facility] [place] [facility] [address] [id number] [place] [address]- 6670 16 Jun, 2014 [facility] [place] [facility] [address] [id number] [place] [address]- 6148 16 Jun, 2014 [facility] [place] [facility] [address] [id number] [place] [address]- 4062 16 Jun, 2014 [facility] [place] [facility] [address] [id number] [place] [address]- 4180 16 Jun, 2014 [facility] [place] [facility] [address] [id number] [place] [address]- 8362 12 Jun, 2014 [facility] [place] [facility] [address] [id number] [place] [address]- 5372 12 Jun, 2014 [facility] [place] [facility] [address] [id number] [place] [address]- 9898 11 Jun, 2014 [facility] [place] [facility] [address] [id number] [place] [address]- 9259 11 Jun, 2014 [facility] [place] [facility] [address] [id number] [place] [address]- 1257 May, [facility] [place] [facility] [address] [id number] [place] [address]- 0319 May, [facility] [place] [facility] [address] [id number] [place] [address]- 9524 May, [facility] [place] [facility] [address] [id number] [place] [address]- 8587 May, [facility] [place] [facility] [address] [id number] [place] [address]- 9931 Mar, [facility] [place] [facility] [address] [id number] [place] [address]- 5689 Mar, [facility] [place] [facility] [address] [id number] [place] [address]- 7549 Mar, [facility] [place] [facility] [address] [id number] [place] [address]- 9180 Mar, [facility] [place] [facility] [address] [id number] [place] [address]- 5225 Feb, [facility] [place] [facility] [address] [id number] [place] [address]- 2790 Feb, [facility] [place] [facility] [address] [id number] [place] [address]- 7150 Feb, [facility] [place] [facility] [address] [id number] [place] [address]- 6106 Jan, [facility] [place] [facility] [address] [id number] [place] [address]- 0651 Dec, [facility] [place] [facility] [address] [id number] [place] [address]- 3173 Dec, [facility] [place] [facility] [address] [id number] [place] [address]- 8875 November, [facility] [place] [facility] [address] [id number] [place] [address]- 8928 November, [facility] [place] [facility] [address] [id number] [place] [address]- 8767 November, [facility] [place] [facility] [address] [id number] [place] [address]- 7943 November, [facility] [place] [facility] [address] [id number] [place] [address]- 8866 Oct, [facility] [place] [facility] [address] [id number] [place] [address]- 0601 Oct, [facility] [place] [facility] [address] [id number] [place] [address]- 9165 Sep, [facility] [place] [facility] [address] [id number] [place] [address]- 8290 Sep, [facility] [place] [facility] [address] [id number] [place] [address]- 6911 Sep, [facility] [place] [facility] [address] [id number] [place] [address]- 8730 Sep, [facility] [place] [facility] [address] [id number] [place] [address]- 6448 Aug, [facility] [place] [facility] [address] [id number] [place] [address]- 2427 Aug, [facility] [place] [facility] [address] [id number] [place] [address]- 0687 Aug, [facility] [place] [facility] [address] [id number] [place] [address]- 3418 Aug, [facility] [place] [facility] [address] [id number] [place] [address]- 7202 Aug, [facility] [place] [facility] [address] [id number] [place] [address]- 6509 Aug, [facility] [place] [facility] [address] [id number] [place] [address]- 4554 Aug, [facility] [place] [facility] [address], [place] [address]- 9767 Jul, [facility] [address], [place] [address]- 7801 Jul, [facility] [address], [place] [address]- 1461 Jul, [facility] [address], [place] [address]- 2201 Jul, [facility] [address], [place] [address]- 7537 Jun, [facility] [address] [place] [address] 68600- 6736 Jun, [facility] [address], [place] [address]- 4923 Jun, [facility] [address] [place] [address] 27103- 0569 Jun, [facility] [address], [place] [address]- 6954 Jun, [facility] [address] 4041 Jun, [facility] [address], [place] [address]- 1856 Apr, [facility] [id number] 1953 Apr, IMMUNIZATIONS No Known Immunizations SOCIAL HISTORY Never Assessed [facility] VITAL SIGNS MEDICATIONS Unknown [...]
--- OUTSIDE RECORDS SUMMARY | 2018-07-23 19:42 | XMS REPORT ---
Author [facility] Address [address] [place] [address] Care Team Providers Care Manager Assembly Name Role Phone LUCERO RUSSO Unavailable PROBLEMS Type Condition ICD9-CM Code [id number] Code Onset Dates Condition Status SNOMED Code Problem Bipolar II disorder F31.81 Active 47933252 Problem Essential (primary) hypertension I10 Active 92811958 Problem Mixed hyperlipidemia E78.2 Active 563380238 Problem Abnormal LFTs R94.5 Active 856485378 Problem Essential hypertension I10 Active 59500607 Problem AVILA (generalized anxiety disorder) F41.1 Active 13517180 Problem 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 Active 08625479 Problem Hyperinsulinemia E16.1 Active 61119866 Problem Morbid obesity due to excess calories E66.01 Active 004667582 Problem Simple chronic bronchitis J41.0 Active 58539600 Problem Tobacco abuse Z72.0 Active 622674467 Problem Obstructive sleep apnea syndrome G47.33 Active 34341076 Problem Tremor R25.1 Active 29567374 ALLERGIES No Information ENCOUNTERS Encounter Location Date Diagnosis [facility] [address] [address] Feb, [facility] [address], [place] [address] Jan, [facility] [id number] [place] [address] 00156- 1783 November, Abnormal LFTs R94.5 [facility] [id number] [place] [address] 63258- 8124 Oct, [facility] [address] [address] Oct, [facility] [address] [place] [address]2245 Oct, Left hip pain M25.552 ; Left leg pain M79.605 and BMI 45.0- 49.9, adult Z68.42 [facility] [address] [address] Oct, [facility] [address] [address] Aug, BMI 45.0-49.9, adult Z68.42 ; Bipolar II disorder F31.81 and AVILA (generalized anxiety disorder) F41.1 [facility] [address] [address] 1052 Jul, Abnormal LFTs R94.5 [facility] [address] [address]- 1780 Jul, Essential (primary) hypertension I10 ; Mixed hyperlipidemia E78.2 and Bipolar II disorder F31.81 [facility] [address] [address]- [address] Jul, [facility] [address] 80[address]- 6138 Jul, [facility] [address] 66687- 3131 Jul, [facility] [id number] [place] [address] 61706- 0153 Apr, [facility] [id number] [place] [address] 88427- 4601 Mar, [facility] [address] 10278- 6167 Mar, [facility] [address] 20105- 3977 Feb, [facility] [id number] [place] [address] 17978- 5903 Feb, Bipolar II disorder F31.81 and AVILA (generalized anxiety disorder) F41.1 [facility] [id number] [place] [address] 22090- 0515 Feb, [facility] [id number] [place] [address] 46817- 4650 Jan, Bipolar II disorder F31.81 ; AVILA (generalized anxiety disorder) F41.1 ; Essential hypertension I10 and Encounter for screening mammogram for breast cancer Z12.31 [facility] [address] [address]- 3897 November, AVILA (generalized anxiety disorder) F41.1 [facility] [address] 11159- 6548 November, [facility] [id number] [place] [address] 35263- 8367 Sep, [facility] [address] 32021- 1256 Sep, [facility] [id number] [place] [address] 70769- 9872 Sep, Hyperinsulinemia E16.1 [facility] [id number] [place] [address] 77735- 4202 Sep, AVILA (generalized anxiety disorder) F41.1 and Hyperinsulinemia E16.1 [place] [id number] [place] [address] 26411- 9993 08 Aug, 2016 Hyperinsulinemia E16.1 [facility] [id number] [place] [address] 15106- 5455 07 Aug, 2016 Bipolar II disorder F31.81 ; AVILA (generalized anxiety disorder) F41.1 and 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 [facility] [id number] [place] [address] 53617- 4855 Jul, Obstructive sleep apnea syndrome G47.33 [place] [id number] [place] [address] 13584- 1066 Jul, [facility] [id number] [place] [address] 72692- 8680 Jul, Hyperinsulinemia E16.1 ; Obstructive sleep apnea syndrome G47.33 and Morbid obesity due to excess calories E66.01 [facility] [id number] [place] [address] 49018- 6334 Jul, Morbid obesity due to excess calories E66.01 and Mixed hyperlipidemia E78.2 [facility] [address] 31428- 9861 Jul, Low back pain M54.5 ; Mixed hyperlipidemia E78.2 ; Obstructive sleep apnea syndrome G47.33 and Morbid obesity due to excess calories E66.01 [facility] [id number] [place] [address] 86222- 0056 Jun, [address] 67[address]- 5273 May, [place] [id number] [place] [address] 45028- 4051 Jan, Bipolar II disorder F31.81 ; AVILA (generalized anxiety disorder) F41.1 and 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 [facility] [id number] [place] [address] 86460- 1108 Dec, [place] [id number] [place] [address] 79643- 8740 Dec, Tobacco abuse Z72.0 ; Tremor R25.1 ; Simple chronic bronchitis J41.0 ; Mixed hyperlipidemia E78.2 and Essential (primary) hypertension I10 [place] [id number] [place] [address] 80186- 3153 November, Establishing care with new doctor, encounter for Z71.89 ; Other emphysema J43.8 ; Tremor R25.1 ; Essential (primary) hypertension I10 ; Mixed hyperlipidemia E78.2 ; 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 ; AVILA ( generalized anxiety disorder) F41.1 and Bipolar II disorder F31.81 [facility] [id number] [place] [address] 70524- 4623 Oct, Bipolar II disorder F31.81 ; AVILA (generalized anxiety disorder) F41.1 and 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 [facility] [id number] [place] [address] 80016- 9614 Oct, [facility] [address] 76260- 4167 Sep, [facility] [address] 94515- 2051 Jun, Essential (primary) hypertension I10 and Mixed hyperlipidemia E78.2 [facility] [address] 32356- 0978 Jun, Essential hypertension I10 [facility] [address] 92759- 1895 Jun, Bipolar II disorder F31.81 ; AVILA (generalized anxiety disorder) F41.1 and 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 [facility] [address] 61436- 8590 May, Essential hypertension I10 [facility] [address] 88841- 2305 May, [facility] [address] 29291- 7670 Apr, Bipolar II disorder F31.81 ; AVILA (generalized anxiety disorder) F41.1 and 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 [facility] [address] 92033- 7885 05 Apr, 2015 Generalized anxiety disorder F41.1 and Depressive disorder, not elsewhere classified F32.9 [facility] [id number] [place] [address] 55189- 0202 16 Mar, 2015 Dysuria 788.1 and Chronic UTI 599.0 [facility] [address] [address] 0604 Mar, Hematuria 599.70 and Chronic UTI 599.0 [facility] [address], [place] [address] 2546 Mar, [facility] [address], [place] [address] 2546 Feb, Urinary tract infection 599.0 [facility] [address], [place] [address] 2546 Feb, Urinary tract infection 599.0 [facility] [id number] [place] [address] 85695- 3556 Feb, Dysuria 788.1 [facility] [address], [place] [address] 4865 Feb, Dysuria 788.1 [facility] [id number] [place] [address] 31914- 0117 Feb, Dysuria 788.1 [facility] [address] [place] [address] 38173- 0771 Feb, Dysuria 788.1 [facility] [address], [place] [address]- 9422 Jan, Dysuria 788.1 [facility] [address], [place] [address] 2546 Jan, [facility] [id number] [address]- 254 Dec, Urinary tract infection 599.0 ; Anxiety state, unspecified 300.00 and Chronic low back pain 724.2 [facility] [id number], [place] [address]- 7380 Dec, [facility] [address], [place] [address]- 6869 November, [facility] [address] [id number] [place] [address]- 1608 14 Oct, 2014 [facility] [place] [facility] [address] [id number] [place] [address]- 0676 13 Oct, 2014 [facility] [place] [facility] [address] [id number] [place] [address]- 3446 17 Sep, 2014 [facility] [place] [facility] [address] [id number] [place] [address]- 4933 17 Sep, 2014 [facility] [place] [facility] [address] [id number] [place] [address]- 3168 13 Jul, 2014 [facility] [place] [facility] [address] [id number] [place] [address]- 1893 13 Jul, 2014 [facility] [place] [facility] [address] [id number] [place] [address]- 6312 13 Jul, 2014 [facility] [place] [facility] [address] [id number] [place] [address]- 6379 Jul, [facility] [place] [facility] [address] [id number] [place] [address]- 3639 Jul, [facility] [place] [facility] [address] [id number] [place] [address]- 8697 Jul, [facility] [place] [facility] [address] [id number] [place] [address]- 0367 Jul, [facility] [place] [facility] [address] [id number] [place] [address]- 5963 Jul, [facility] [place] [facility] [address] [id number] [place] [address]- 4602 Jun, [facility] [place] [facility] [address] [id number] [place] [address]- 3690 Jun, [facility] [place] [facility] [address] [id number] [place] [address]- 3296 18 Jun, 2014 [facility] [place] [facility] [address] [id number] [place] [address]- 2018 18 Jun, 2014 [facility] [place] [facility] [address] [id number] [place] [address]- 0981 17 Jun, 2014 [facility] [place] [facility] [address] [id number] [place] [address]- 3743 17 Jun, 2014 [facility] [place] [facility] [address] [id number] [place] 7024 17 Jun, 2014 [facility] [place] [facility] [address] [id number] [place] [address]- 5452 17 Jun, 2014 [facility] [place] [facility] [address] [id number] [place] [address]- 6243 16 Jun, 2014 [facility] [place] [facility] [address] [id number] [place] [address]- 8605 16 Jun, 2014 [facility] [place] [facility] [address] [id number] [place] [address]- 1611 16 Jun, 2014 [facility] [place] [facility] [address] [id number] [place] [address]- 5429 16 Jun, 2014 [facility] [place] [facility] [address] [id number] [place] [address]- 0017 12 Jun, 2014 [facility] [place] [facility] [address] [id number] [place] [address]- 6009 12 Jun, 2014 [facility] [place] [facility] [address] [id number] [place] [address]- 4304 11 Jun, 2014 [facility] [place] [facility] [address] [id number] [address]- 0991 11 Jun, 2014 [facility] [place] [facility] [address] [id number] [place] [address]- 3153 18 May, 2014 [facility] [place] [facility] [address] [id number] [place] [address]- 9766 18 May, 2014 [facility] [place] [facility] [address] [id number] [place] [address]- 8235 18 May, 2014 [facility] [place] [facility] [address] [id number] [place] [address]- 9420 May, [facility] [place] [facility] [address] [id number] [place] [address]- 7848 Mar, [facility] [place] [facility] [address] [id number] [place] [address]- 4636 Mar, [facility] [place] [facility] [address] [id number] [place] [address]- 4348 Mar, [facility] [place] [facility] [address] [id number] [place] [address]- 6813 Mar, [facility] [place] [facility] [address] [id number] [place] [address]- 3377 Feb, [facility] [place] [facility] [address] [id number] [place] [address]- 6828 Feb, [facility] [place] [facility] [address] [id number] [place] [address]- 7058 Feb, [facility] [place] [facility] [address] [id number] [place] [address]- 1884 Jan, [facility] [place] [facility] [address] [id number] [place] [address]- 6081 Dec, [facility] [place] [facility] [address] [id number] [place] [address]- 7866 Dec, [facility] [place] [facility] [address] [id number] [place] [address]- 2998 November, [facility] [place] [facility] [address] [id number] [place] [address]- 3094 November, [facility] [place] [facility] [address] [id number] [place] [address]- 2132 November, [facility] [place] [facility] [address] [id number] [place] [address]- 7768 November, [facility] [place] [facility] [address] [id number] [place] [address]- 4847 Oct, [facility] [place] [facility] [address] [id number] [place] [address]- 7041 Oct, [facility] [place] [facility] [address] [id number] [place] [address]- 0131 Sep, [facility] [place] [facility] [address] [id number] [place] [address]- 5563 Sep, [facility] [place] [facility] [address] [id number] [place] [address]- 9974 Sep, [facility] [place] [facility] [address] [id number] [place] [address]- 3252 Sep, [facility] [place] [facility] [address] [id number] [place] [address]- 9139 Aug, [facility] [place] [facility] [address] [id number] [place] [address]- 0242 Aug, [facility] [place] [facility] [address] [id number] [place] [address]- 7228 Aug, [facility] [place] [facility] [address] [id number] [place] [address]- 8104 Aug, [facility] [place] [facility] [address] [id number] [place] [address]- 4832 Aug, [facility] [place] [facility] [address] [id number] [place] [address]- 5888 Aug, [facility] [place] [facility] [address] [id number] [place] [address]- 6925 Aug, [facility] [place] [facility] [address] [id number] [place] [address]- 7582 Jul, [facility] [place] [facility] [address] [id number] [place] [address]- 8096 Jul, [facility] [place] [facility] [address] [id number] [place] [address]- 1412 Jul, [facility] [place] [facility] [address] [facility] [id number] [address]- 6878 Jul, [facility] [address] [address]30 Jun, [facility] [id number] 6262 Jun, [facility] [address] 4452 Jun, [facility] [address] 0588 Jun, [facility] [address] [place] [address] 284013- 8292 Jun, [facility] [address] 1739 Jun, [facility] [address] 69[address] Apr, [facility] [id number], [place] [address]- 5668 Apr, IMMUNIZATIONS No Known Immunizations SOCIAL HISTORY Never Assessed REASON FOR VISIT lab results PLAN OF CARE VITAL SIGNS MEDICATIONS Unknown [...]
--- OUTSIDE RECORDS SUMMARY | 2018-07-23 19:42 | XMS REPORT ---
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 Name Role Phone KHLOE FOX Unavailable PROBLEMS Type Condition ICD9-CM Code CPO55-NS Code Onset Dates Condition Status SNOMED Code Problem Bipolar II disorder F31.81 Active 25801793 Problem Essential (primary) hypertension I10 Active 52170889 Problem Mixed hyperlipidemia E78.2 Active 620755152 Problem Abnormal LFTs R94.5 Active 447193610 Problem Essential hypertension I10 Active 39426549 Problem AVILA (generalized anxiety disorder) F41.1 Active 02430016 Problem 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 Active 66634684 Problem Hyperinsulinemia E16.1 Active 27885888 Problem Morbid obesity due to excess calories E66.01 Active 314509977 Problem Simple chronic bronchitis J41.0 Active 58309723 Problem Tobacco abuse Z72.0 Active 199589837 Problem Obstructive sleep apnea syndrome G47.33 Active 61457035 Problem Tremor R25.1 Active 96985594 ALLERGIES No Information ENCOUNTERS Encounter Location Date Diagnosis [facility] [address] [address] Feb, [facility] [id number] [place] [address] 37177- 2772 Jan, [facility] [id number] [place] [address] 44675- 7793 Jan, [facility] [id number] [place] [address] 54211- 3003 November, Abnormal LFTs R94.5 [facility] [address] [address] 0562 Oct, [facility] [id number] [place] [address] 29871- 3308 Oct, [facility] [id number] [place] [address] 23836 -6184 Oct, Left hip pain M25.552 ; Left leg pain M79.605 and BMI 45.0- 49.9, adult Z68.42 [facility] [address] [address]- [address] Oct, [facility] [address] 27923- 9108 Aug, BMI 45.0-49.9, adult Z68.42 ; Bipolar II disorder F31.81 and AVILA (generalized anxiety disorder) F41.1 [facility] [address] [address]- 2770 Jul, Abnormal LFTs R94.5 [facility] [address] 54255- 9434 Jul, Essential (primary) hypertension I10 ; Mixed hyperlipidemia E78.2 and Bipolar II disorder F31.81 [facility] [address] 86316- 3599 Jul, [facility] [id number] [place] [address] 49776- 3117 Jul, [facility] [id number] [place] [address] 72002- 7017 Jul, [facility] [id number] [place] [address] 81176- 8761 Apr, [facility] [address] 97285- 0968 Mar, [facility] [address] 00003- 6933 Mar, [facility] [id number] [place] [address] 22832- 1740 Feb, [facility] [id number] [place] [address] 69787- 6785 Feb, Bipolar II disorder F31.81 and AVILA (generalized anxiety disorder) F41.1 [facility] [id number] [place] [address] 51065- 3916 Feb, [facility] [id number] [place] [address] 72822- 1631 Jan, Bipolar II disorder F31.81 ; AVILA (generalized anxiety disorder) F41.1 ; Essential hypertension I10 and Encounter for screening mammogram for breast cancer Z12.31 [facility] [address] 0[address]60- 8824 November, AVILA (generalized anxiety disorder) F41.1 [facility] [id number] [place] [address] 07314- 6884 November, [facility] [address] 26247- 4376 Sep, [facility] [id number] [place] [address] 66933- 5446 Sep, [facility] [id number] [place] [address] 17603- 8191 Sep, Hyperinsulinemia E16.1 [facility] [id number] [place] [address] 67173- 8151 Sep, AVILA (generalized anxiety disorder) F41.1 and Hyperinsulinemia E16.1 [facility] [id number] [place] [address] 72260- 2547 08 Aug, 2016 Hyperinsulinemia E16.1 [facility] [id number] [place] [address] 11155- 1539 07 Aug, 2016 Bipolar II disorder F31.81 ; AVILA (generalized anxiety disorder) F41.1 and 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 [facility] [id number] [place] [address] 43835- 2859 Jul, Obstructive sleep apnea syndrome G47.33 [facility] [id number] [place] [address] 02739- 0231 Jul, [facility] [address] 01637- 8911 Jul, Hyperinsulinemia E16.1 ; Obstructive sleep apnea syndrome G47.33 and Morbid obesity due to excess calories E66.01 [facility] [address] 69855- 2501 Jul, Morbid obesity due to excess calories E66.01 and Mixed hyperlipidemia E78.[address] 91351- 9228 Jul, Low back pain M54.5 ; Mixed hyperlipidemia E78.2 ; Obstructive sleep apnea syndrome G47.33 and Morbid obesity due to excess calories E66.01 [facility] [address] 49460- 2058 Jun, [facility] [id number] [place] [address] 92761- 6161 May, [place] [id number] [place] [address] 92697- 1371 Jan, Bipolar II disorder F31.81 ; AVILA (generalized anxiety disorder) F41.1 and 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 [place] [id number] [place] [address] 22048- 8350 Dec, [place] [id number] [place] [address] 13838- 2922 Dec, Tobacco abuse Z72.0 ; Tremor R25.1 ; Simple chronic bronchitis J41.0 ; Mixed hyperlipidemia E78.2 and Essential (primary) hypertension I10 [place] [id number] [place] [address] 84195- 9223 November, Establishing care with new doctor, encounter for Z71.89 ; Other emphysema J43.8 ; Tremor R25.1 ; Essential (primary) hypertension I10 ; Mixed hyperlipidemia E78.2 ; 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 ; AVILA ( generalized anxiety disorder) F41.1 and Bipolar II disorder F31.81 [facility] [id number] [place] [address] 30734- 1435 Oct, Bipolar II disorder F31.81 ; AVILA (generalized anxiety disorder) F41.1 and 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 [facility] [id number] [place] [address] 83399- 8693 Oct, [facility] [id number] [place] [address] 21128- 4041 Sep, [facility] [id number] [place] [address] 60166- 6866 Jun, Essential (primary) hypertension I10 and Mixed hyperlipidemia E78.2 [facility] [id number] [place] [address] 48980- 7459 Jun, Essential hypertension I10 [facility] [id number] [place] [address] 38045- 4672 Jun, Bipolar II disorder F31.81 ; AVILA (generalized anxiety disorder) F41.1 and 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 [facility] [id number] [place] [address] 02855- 9591 May, Essential hypertension I10 [facility] [id number] [place] [address] 20422- 4532 May, [facility] [id number] [place] [address] 81853- 5436 Apr, Bipolar II disorder F31.81 ; AVILA (generalized anxiety disorder) F41.1 and 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 [facility] [id number] [place] [address] 66485- 1250 05 Apr, 2015 Generalized anxiety disorder F41.1 and Depressive disorder, not elsewhere classified F32.9 [facility] [address] [address] [address]- 4742 Mar, Dysuria 788.1 and Chronic UTI 599.0 [facility] [id number] [place] [address] 45876- 5502 Mar, Hematuria 599.70 and Chronic UTI 599.0 [facility] [id number] [place] [address] 73785- 9318 Mar, [facility] [id number] [place] [address] 22171- 1401 Feb, Urinary tract infection 599.0 [facility] [id number] [place] [address] 28380- 8082 Feb, Urinary tract infection 599.0 [facility] [id number] [place] [address] 81428- 5090 Feb, Dysuria 788.1 [facility] [id number] [place] [address] 07138- 5928 Feb, Dysuria 788.1 [facility] [id number] [place] [address] 19484- 5729 Feb, Dysuria 788.1 [facility] [id number] [place] [address] 11206- 6164 Feb, Dysuria 788.1 [facility] [id number] [place] [address] 14901- 4756 Jan, Dysuria 788.1 [facility] [id number] [place] [address] 46728- 3681 Jan, [facility] [id number] [place] [address] 22608- 5811 Dec, Urinary tract infection 599.0 ; Anxiety state, unspecified 300.00 and Chronic low back pain 724.2 [facility] [address] [address]- 5723 Dec, [facility] [address] [id number] [place] [address]- 0278 November, [facility] [place] [facility] [address] [id number] [place] [address]- 8707 14 Oct, 2014 [facility] [place] [facility] [address] [id number] [place] [address]- 8033 Oct, [facility] [place] [facility] [address] [id number] [place] [address]- 9925 Sep, [facility] [place] [facility] [address] [id number] [place] [address]- 2802 Sep, [facility] [place] [facility] [address] [id number] [place] [address]- 4959 Jul, [facility] [place] [facility] [address] [id number] [place] [address]- 2528 Jul, [facility] [place] [facility] [address] [id number] [place] [address]- 2327 Jul, [facility] [place] [facility] [address] [id number] [place] [address]- 0071 Jul, [facility] [place] [facility] [address] [id number] [place] [address]- 4020 Jul, [facility] [place] [facility] [address] [id number] [place] [address]- 1112 Jul, [facility] [place] [facility] [address] [id number] [place] [address]- 6779 Jul, [facility] [place] [facility] [address] [id number] [place] [address]- 2605 Jul, [facility] [place] [facility] [address] [id number] [place] [address]- 5377 Jun, [facility] [place] [facility] [address] [id number] [place] [address]- 5934 Jun, [facility] [place] [facility] [address] [id number] [place] [address]- 6816 18 Jun, 2014 [facility] [place] [facility] [address] [id number] [place] [address]- 2575 18 Jun, 2014 [facility] [place] [facility] [address] [id number] [place] 5030 17 Jun, 2014 [facility] [place] [facility] [address] [id number] [place] [address]- 9569 17 Jun, 2014 [facility] [place] [facility] [address] [id number] [place] [address]- 8202 17 Jun, 2014 [facility] [place] [facility] [address] [id number] [place] [address]- 0578 17 Jun, 2014 [facility] [place] [facility] [address] [id number] [place] [address]- 4875 16 Jun, 2014 [facility] [place] [facility] [address] [id number] [place] [address]- 8878 16 Jun, 2014 [facility] [place] [facility] [address] [id number] [place] [address]- 2739 16 Jun, 2014 [facility] [place] [facility] [address] [id number] [place] [address]- 3300 16 Jun, 2014 [facility] [place] [facility] [address] [id number] [place] [address]- 2769 12 Jun, 2014 [facility] [place] [facility] [address] [id number] [place] [address]- 8168 12 Jun, 2014 [facility] [place] [facility] [address] [id number] [place] [address]- 7295 11 Jun, 2014 [facility] [place] [facility] [address] [id number] [place] [address]- 3590 11 Jun, 2014 [facility] [place] [facility] [address] [id number] [place] [address]- 4156 18 May, 2014 [facility] [place] [facility] [address] [id number] [place] [address]- 9285 18 May, 2014 [facility] [place] [facility] [address] [id number] [place] [address]- 7410 May, [facility] [place] [facility] [address] [id number] [place] [address]- 5464 May, [facility] [place] [facility] [address] [id number] [place] [address]- 7764 Mar, [facility] [place] [facility] [address] [id number] [place] [address]- 9163 Mar, [facility] [place] [facility] [address] [id number] [place] [address]- 6230 Mar, [facility] [place] [facility] [address] [id number] [place] [address]- 4634 Mar, [facility] [place] [facility] [address] [id number] [place] [address]- 9341 Feb, [facility] [place] [facility] [address] [id number] [place] [address]- 3637 Feb, [facility] [place] [facility] [address] [id number] [place] [address]- 9207 Feb, [facility] [place] [facility] [address] [id number] [place] [address]- 2466 Jan, [facility] [place] [facility] [address] [id number] [place] [address]- 2226 Dec, [facility] [place] [facility] [address] [id number] [place] [address]- 9054 Dec, [facility] [place] [facility] [address] [id number] [place] [address]- 1577 November, [facility] [place] [facility] [address] [id number] [place] [address]- 1897 November, [facility] [place] [facility] [address] [id number] [place] [address]- 8620 November, [facility] [place] [facility] [address] [id number] [place] [address]- 4050 November, [facility] [place] [facility] [address] [id number] [place] [address]- 2726 Oct, [facility] [place] [facility] [address] [id number] [place] [address]- 1371 Oct, [facility] [place] [facility] [address] [id number] [place] [address]- 4533 Sep, [facility] [place] [facility] [address] [id number] [place] [address]- 5749 Sep, [facility] [place] [facility] [address] [id number] [place] [address]- 1730 Sep, [facility] [place] [facility] [address] [id number] [place] [address]- 3380 Sep, [facility] [place] [facility] [address] [facility] [id number] [place] [address]- 4136 Aug, [facility] [place] [facility] [address] [id number] [place] [address]- 6129 Aug, [facility] [place] [facility] [address] [id number] [place] [address]- 4430 Aug, [facility] [place] [facility] [address] [facility] [id number] [place] [address]- 4267 Aug, [facility] [place] [facility] [address] [id number] [place] [address]- 6930 Aug, [facility] [place] [facility] [address] [id number] [address]- 4999 Aug, [facility] [place] [facility] [address] [id number] [place] [address]- 0866 Aug, [facility] [place] [facility] [address] [id number] [place] [address]- 6048 Jul, [facility] [place] [facility] [address] [id number] [place] [address]- 7318 Jul, [facility] [place] [facility] [id number] [address]- 4499 Jul, [facility] [address] [address]- 4521 Jul, [facility] [address] [address]- 1735 Jun, [facility] [id number] [address]- 4241 Jun, [facility] [address] [address]- 0784 Jun, [facility] [id number] [place] [address] 614478- 0210 Jun, [facility] [address] [address]- 3171 Jun, [facility] [address] 9380 Jun, [facility] [address] [address]- 4573 Apr, [facility] [address] [address]- 8453 Apr, IMMUNIZATIONS No Known Immunizations SOCIAL HISTORY Never Assessed REASON FOR VISIT [facility] PLAN OF CARE VITAL SIGNS MEDICATIONS Unknown [...]
--- OUTSIDE RECORDS SUMMARY | 2018-07-23 19:42 | XMS REPORT ---
Author Author KHLOE FOX [facility] Address [address] [place] [address] Care Team Providers Care Plastic Maker Name Role Phone KHLOE FOX Unavailable PROBLEMS Type Condition ICD9-CM Code BRC20-GW Code Onset Dates Condition Status SNOMED Code Problem Bipolar II disorder F31.81 Active 22246930 Problem Essential (primary) hypertension I10 Active 46639289 Problem Mixed hyperlipidemia E78.2 Active 396585031 Problem Abnormal LFTs R94.5 Active 677335248 Problem Essential hypertension I10 Active 67026219 Problem AVILA (generalized anxiety disorder) F41.1 Active 38129862 Problem 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 Active 17281334 Problem Hyperinsulinemia E16.1 Active 34711415 Problem Morbid obesity due to excess calories E66.01 Active 554175236 Problem Simple chronic bronchitis J41.0 Active 32823691 Problem Tobacco abuse Z72.0 Active 511955205 Problem Obstructive sleep apnea syndrome G47.33 Active 34646950 Problem Tremor R25.1 Active 57174918 ALLERGIES No Information ENCOUNTERS Encounter Location Date Diagnosis [place] [id number] [place] [address] 65746- 8574 Apr, [facility] [place] [id number] [place] [address] 72847- 0029 Feb, Bipolar II disorder F31.81 ; AVILA (generalized anxiety disorder) F41.1 and BMI 45.0-49.9, adult Z68.42 [facility] [place] [id number] [place] [address] 61114- 5648 Jan, [facility] [place] [id number] [place] [address] 49274- 9875 Jan, [facility] [place] [address] 38270- 3492 November, Abnormal LFTs R94.5 [facility] [place] [id number] [place] [address] 09223- 5961 Oct, [facility] [place] [id number] [place] [address] 30863- 5107 Oct, [facility] [id number] [place] [address] 39706 -9740 Oct, Left hip pain M25.552 ; Left leg pain M79.605 and BMI 45.0- 49.9, adult Z68.42 [facility] [place] [id number] [place] [address] 29214- 4308 Oct, [facility] [place] [id number] [place] [address] 20479- 5467 Aug, BMI 45.0-49.9, adult Z68.42 ; Bipolar II disorder F31.81 and AVILA (generalized anxiety disorder) F41.1 [facility] [place] [id number] [place] [address] 59849- 6237 Jul, Abnormal LFTs R94.5 [facility] [place] [id number] [place] [address] 71158- 0130 Jul, Essential (primary) hypertension I10 ; Mixed hyperlipidemia E78.2 and Bipolar II disorder F31.81 [facility] [place] [id number] [place] [address] 20512- 8782 Jul, [facility] [place] [id number] [place] [address] 59162- 8170 Jul, [facility] [place] [id number] [place] [address] 47500- 3563 Jul, [facility] [place] [id number] [place] [address] 64464- 5344 Apr, [facility] [place] [id number] [place] [address] 73533- 4995 Mar, [facility] [place] [address] [address]- 1502 Mar, [facility] [place] [id number] [place] [address] 27544- 0936 Feb, [facility] [place] [id number] [place] [address] 41612 2543 Feb, Bipolar II disorder F31.81 and AVILA (generalized anxiety disorder) F41.1 [facility] [place] [id number] [place] [address] 74042- 4092 Feb, [facility] [place] [id number] [place] [address] 90541- 7701 Jan, Bipolar II disorder F31.81 ; AVILA (generalized anxiety disorder) F41.1 ; Essential hypertension I10 and Encounter for screening mammogram for breast cancer Z12.31 [place] [place] [id number] [place] [address] 29094- 6227 November, AVILA (generalized anxiety disorder) F41.1 [facility] [place] [id number] [place] [address] 50316- 1509 November, [facility] [place] [id number] [place] [address] 37574- 9086 Sep, [facility] [place] [id number] [place] [address] 16584- 7709 Sep, [facility] [place] [id number] [place] [address] 15135- 2545 Sep, Hyperinsulinemia E16.1 [facility] [place] [address] [place] [address] 94867- 2542 Sep, AVILA (generalized anxiety disorder) F41.1 and Hyperinsulinemia E16.1 [facility] [place] [id number] [place] [address] 69585- 2546 08 Aug, 2016 Hyperinsulinemia E16.1 [facility] [place] [id number] [place] [address] 68838 2546 07 Aug, 2016 Bipolar II disorder F31.81 ; AVILA (generalized anxiety disorder) F41.1 and 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 [place] [address] 76520- 7971 Jul, Obstructive sleep apnea syndrome G47.33 [place] [address] 62694- 9225 Jul, [place] [address] 33932- 2100 Jul, Hyperinsulinemia E16.1 ; Obstructive sleep apnea syndrome G47.33 and Morbid obesity due to excess calories E66.01 [place] [address] 37628- 7294 Jul, Morbid obesity due to excess calories E66.01 and Mixed hyperlipidemia E78.[address] 14003- 7362 Jul, Low back pain M54.5 ; Mixed hyperlipidemia E78.2 ; Obstructive sleep apnea syndrome G47.33 and Morbid obesity due to excess calories E66.01 [place] [address] 17300- 3582 Jun, [place] [address] 34693- 1388 May, [place] [address] 35784- 1033 Jan, Bipolar II disorder F31.81 ; AVILA (generalized anxiety disorder) F41.1 and 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 [place] [address] 88026- 4543 Dec, [place] [address] 31798- 6324 Dec, Tobacco abuse Z72.0 ; Tremor R25.1 ; Simple chronic bronchitis J41.0 ; Mixed hyperlipidemia E78.2 and Essential (primary) hypertension I10 [place] [id number] [place] [address] 94854- 9905 November, Establishing care with new doctor, encounter for Z71.89 ; Other emphysema J43.8 ; Tremor R25.1 ; Essential (primary) hypertension I10 ; Mixed hyperlipidemia E78.2 ; 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 ; AVILA ( generalized anxiety disorder) F41.1 and Bipolar II disorder F31.81 [place] [address] 97103- 3604 Oct, Bipolar II disorder F31.81 ; AVILA (generalized anxiety disorder) F41.1 and 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 [place] [address] 58037- 6115 Oct, [place] [address] 94772- 7284 Sep, [place] [address] 38499- 5390 Jun, Essential (primary) hypertension I10 and Mixed hyperlipidemia E78.[address] 59281- 0643 Jun, Essential hypertension I10 [place] [address] 78624- 6807 Jun, Bipolar II disorder F31.81 ; AVILA (generalized anxiety disorder) F41.1 and 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 [place] [id number] [place] [address] 52195- 6993 May, Essential hypertension I10 [place] [address] 52186- 8887 May, [place] [address] 28784- 5388 Apr, Bipolar II disorder F31.81 ; AVILA (generalized anxiety disorder) F41.1 and 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 [facility] [place] [address] [address]- 3841 05 Apr, 2015 Generalized anxiety disorder F41.1 and Depressive disorder, not elsewhere classified F32.9 [facility] [place] [id number] [place] [address] 13161 2546 16 Mar, 2015 Dysuria 788.1 and Chronic UTI 599.0 [facility] [place] [id number] [place] [address] 31257 2546 Mar, Hematuria 599.70 and Chronic UTI 599.0 [facility] [place] [id number] [place] [address] 65897 2546 Mar, [facility] [place] [id number] [place] [address] 14690- 7666 Feb, Urinary tract infection 599.0 [facility] [place] [id number] [place] [address] 67339 2546 Feb, Urinary tract infection 599.0 [facility] [place] [id number] [place] [address] 56947 2546 Feb, Dysuria 788.1 [facility] [place] [id number] [place] [address] 78831 2546 Feb, Dysuria 788.1 [facility] [place] [id number] [place] [address] 71608 2546 Feb, Dysuria 788.1 [facility] [place] [id number] [place] [address] 02420 2546 Feb, Dysuria 788.1 [facility] [place] [id number] [place] [address] 36042 2546 Jan, Dysuria 788.1 [facility] [place] [address] [address] 2546 Jan, [facility] [place] [id number] [place] [address] 71896- 0152 Dec, Urinary tract infection 599.0 ; Anxiety state, unspecified 300.00 and Chronic low back pain 724.2 [facility] [address] [address]- 6472 08 Dec, 2014 [facility] [address] [facility] [id number] [address]- 2966 November, [facility] [address] [facility] [id number] [place] [address], [place] [address]- 2970 Oct, [facility] [id number] [place] [address] 26982- 0495 Oct, [facility] [address] [facility] [id number] [place] [address], [place] [address]- 9219 Sep, [facility] [id number] [place] [address]- 2584 Sep, [facility] [id number] [place] [address] 63087- 4807 Jul, [facility] [id number] [address]- 8482 Jul, [facility] [address] [address]- 4109 Jul, [facility] [id number] [address]- 9283 Jul, [facility] [address] [facility] [id number] [address]- 0591 Jul, [facility] [address] [facility] [id number] [address]- 1693 Jul, [facility] [address] [facility] [id number] [place] [address]- 3181 Jul, [facility] [address] [facility] [id number] [address]- 2791 Jul, [facility] [address] [address]- 5607 23 Jun, 2014 [facility] [place] [facility] [address] [id number] [place] [address]- 4643 23 Jun, 2014 [facility] [place] [facility] [address] [id number] [place] [address]- 4080 18 Jun, 2014 [facility] [place] [facility] [address] [id number] [place] [address]- 1563 18 Jun, 2014 [facility] [place] [facility] [address] [id number] [place] [address]- 0882 17 Jun, 2014 [facility] [place] [facility] [address] [id number] [place] [address]- 8847 17 Jun, 2014 [facility] [place] [facility] [address] [id number] [place] [address]- 4926 17 Jun, 2014 [facility] [place] [facility] [address] [id number] [place] [address]- 3018 17 Jun, 2014 [facility] [place] [facility] [address] [id number] [place] [address]- 5975 16 Jun, 2014 [facility] [place] [facility] [address] [id number] [place] [address]- 9103 16 Jun, 2014 [facility] [place] [facility] [address] [id number] [place] [address]- 0214 16 Jun, 2014 [facility] [place] [facility] [address] [id number] [place] [address]- 3882 16 Jun, 2014 [facility] [place] [facility] [address] [id number] [place] [address]- 5013 12 Jun, 2014 [facility] [place] [facility] [address] [id number] [place] [address]- 5715 12 Jun, 2014 [facility] [place] [facility] [address] [id number] [place] [address]- 1107 11 Jun, 2014 [facility] [place] [facility] [address] [id number] [place] [address]- 3330 11 Jun, 2014 [facility] [place] [facility] [address] [id number] [place] [address]- 5562 May, [facility] [place] [facility] [address] [id number] [place] [address]- 9770 May, [facility] [place] [facility] [address] [id number] [place] [address]- 7715 May, [facility] [place] [facility] [address] [id number] [place] [address]- 5020 May, [facility] [place] [facility] [address] [id number] [place] [address]- 4958 Mar, [facility] [place] [facility] [address] [id number] [place] [address]- 9468 Mar, [facility] [place] [facility] [address] [id number] [place] [address]- 3012 Mar, [facility] [place] [facility] [address] [id number] [place] [address]- 6756 Mar, [facility] [place] [facility] [address] [id number] [place] [address]- 6539 Feb, [facility] [place] [facility] [address] [id number] [place] [address]- 7944 Feb, [facility] [place] [facility] [address] [id number] [place] [address]- 1302 Feb, [facility] [place] [facility] [address] [id number] [place] [address]- 3310 Jan, [facility] [place] [facility] [address] [id number] [place] [address]- 0935 Dec, [facility] [place] [facility] [address] [id number] [place] [address]- 4290 Dec, [facility] [place] [facility] [address] [id number] [place] [address]- 9104 November, [facility] [place] [facility] [address] [id number] [place] [address]- 6596 November, [facility] [place] [facility] [address] [id number] [place] [address]- 4925 November, [facility] [place] [facility] [address] [id number] [place] [address]- 4868 November, [facility] [place] [facility] [address] [id number] [place] [address]- 4043 Oct, [facility] [place] [facility] [address] [id number] [place] [address]- 9844 Oct, [facility] [place] [facility] [address] [id number] [place] [address]- 6372 Sep, [facility] [place] [facility] [address] [id number] [place] [address]- 0159 Sep, [facility] [place] [facility] [address] [id number] [place] [address]- 9449 Sep, [facility] [place] [facility] [address] [id number] [place] [address]- 3148 Sep, [facility] [place] [facility] [address] [id number] [place] [address]- 8566 Aug, [facility] [place] [facility] [address] [id number] [place] [address]- 0680 Aug, [facility] [place] [facility] [address] [id number] [place] [address]- 1220 Aug, [facility] [place] [facility] [address] [id number] [place] [address]- 1627 Aug, [facility] [place] [facility] [address] [id number] [place] 7281 Aug, [facility] [place] [facility] [address] [id number] [place] 2680 Aug, [facility] [place] [facility] [address] [id number] [place] [address]- 3724 Aug, [facility] [place] [facility] [address] [address]- 6691 Jul, [facility] [place] [address] [address]- 8192 Jul, [facility] [place] [address] [address]- 1694 Jul, [facility] [place] [address] [address]- 1895 Jul, [facility] [place] [address] [address]- 6907 Jun, [facility] [place] [address] [address]- 1452 Jun, [facility] [place] [address] [address]- 0611 Jun, [facility] [place] [address] [address]- 6711 Jun, [facility] [place] [address] [address]- 4184 Jun, [facility] [place] [address] [address]- 6503 Jun, [facility] [place] [address] [address]- 0201 Apr, [facility] [place] [address] [address] 2935 Apr, IMMUNIZATIONS No Known Immunizations SOCIAL HISTORY Never Assessed REASON FOR VISIT Lab (walk-in) PLAN OF CARE VITAL SIGNS MEDICATIONS Unknown Medications RESULTS No Results PROCEDURES Procedure Date Ordered Result Body Site COMPREHEN METABOLIC PANEL November 04, 2017 INSTRUCTIONS MEDICATIONS ADMINISTERED No Known Medications MEDICAL [...]
--- OUTSIDE RECORDS SUMMARY | 2018-07-23 19:43 | XMS REPORT ---
Author Author LUCERO RUSSO [facility] Address [address] [place] [address] Care Team Providers Care Cotton Factor Name Role Phone KARAN LUCERO Unavailable PROBLEMS Type Condition ICD9-CM Code KSN15-CD Code Onset Dates Condition Status SNOMED Code Problem Bipolar II disorder F31.81 Active 51977340 Problem Essential (primary) hypertension I10 Active 28188312 Problem Mixed hyperlipidemia E78.2 Active 249894295 Problem Abnormal LFTs R94.5 Active 128612733 Problem Essential hypertension I10 Active 49060949 Problem AVILA (generalized anxiety disorder) F41.1 Active 84168467 Problem 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 Active 35792522 Problem Hyperinsulinemia E16.1 Active 51049298 Problem Morbid obesity due to excess calories E66.01 Active 050285545 Problem Simple chronic bronchitis J41.0 Active 67851549 Problem Tobacco abuse Z72.0 Active 260257299 Problem Obstructive sleep apnea syndrome G47.33 Active 61907884 Problem Tremor R25.1 Active 12436533 ALLERGIES Substance Reaction Event Type Date Status Codeine vomiting Drug Allergy Oct, Active ENCOUNTERS Encounter Location Date Diagnosis [facility] [id number], [place] [address] Feb, [facility] [id number] [place] [address]17[address] 7288 Jan, [facility] [id number], [place] [address] November, Abnormal LFTs R94.5 [facility] [address], [place] [address] Oct, [facility] [id number], [place] [address] Oct, [facility] [id number] [place] [address] Oct, Left hip pain M25.552 ; Left leg pain M79.605 and BMI 45.0- 49.9, adult Z68.42 [facility] [id number] [place] [address] 33302- 8474 Oct, [facility] [address] [address] 13 Aug, 2017 BMI 45.0-49.9, adult Z68.42 ; Bipolar II disorder F31.81 and AVILA (generalized anxiety disorder) F41.1 [facility] [address] [address] Jul, Abnormal LFTs R94.5 [facility] [address] [address] Jul, Essential (primary) hypertension I10 ; Mixed hyperlipidemia E78.2 and Bipolar II disorder F31.81 [facility] [id number] [place] [address] 62496- 0867 Jul, [facility] [id number] [place] [address] 57580- 4085 Jul, [facility] [id number] [place] [address] 56061- 5665 Jul, [facility] [id number] [place] [address] 60117- 6569 Apr, [facility] [id number] [place] [address] 98026- 1730 Mar, [facility] [address] 87[address]- 2294 Mar, [facility] [id number] [place] [address] 75086- 3007 Feb, [facility] [address] [address] 3[address] Feb, Bipolar II disorder F31.81 and AVILA (generalized anxiety disorder) F41.1 [facility] [id number] [place] [address] 25499- 8894 Feb, [facility] [id number] [place] [address] 63132- 5013 Jan, Bipolar II disorder F31.81 ; AVILA (generalized anxiety disorder) F41.1 ; Essential hypertension I10 and Encounter for screening mammogram for breast cancer Z12.31 [facility] [id number] [place] [address] 55750- 0329 November, AVILA (generalized anxiety disorder) F41.1 [facility] [id number] [place] [address] 08478- 7710 November, [facility] [id number] [place] [address] 00866- 4134 Sep, [facility] [id number] [place] [address] 34109- 8739 Sep, [facility] [id number] [place] [address] 43137- 9862 Sep, Hyperinsulinemia E16.1 [facility] [id number] [place] [address] 40987- 5693 06 Sep, 2016 AVILA (generalized anxiety disorder) F41.1 and Hyperinsulinemia E16.1 [facility] [id number] [place] [address] 87152- 5047 08 Aug, 2016 Hyperinsulinemia E16.1 [facility] [id number] [place] [address] 08167- 9304 07 Aug, 2016 Bipolar II disorder F31.81 ; AVILA (generalized anxiety disorder) F41.1 and 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 [facility] [id number] [place] [address] 10491- 3060 Jul, Obstructive sleep apnea syndrome G47.33 [facility] [address] [place] [address]- 6253 Jul, [facility] [id number] [place] [address] 05815- 8260 Jul, Hyperinsulinemia E16.1 ; Obstructive sleep apnea syndrome G47.33 and Morbid obesity due to excess calories E66.01 [facility] [id number] [place] [address] 30519- 5469 Jul, Morbid obesity due to excess calories E66.01 and Mixed hyperlipidemia E78.2 [facility] [id number] [place] [address] 85714- 7339 Jul, Low back pain M54.5 ; Mixed hyperlipidemia E78.2 ; Obstructive sleep apnea syndrome G47.33 and Morbid obesity due to excess calories E66.01 [facility] [id number] [place] [address] 76749- 4140 Jun, [facility] [id number] [place] [address] 45454- 1080 May, [facility] [id number] [place] [address] 54113- 9279 Jan, Bipolar II disorder F31.81 ; AVILA (generalized anxiety disorder) F41.1 and 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 [facility] [id number] [place] [address] 45949- 1602 Dec, [id number] [place] [address] 58848- 6042 Dec, Tobacco abuse Z72.0 ; Tremor R25.1 ; Simple chronic bronchitis J41.0 ; Mixed hyperlipidemia E78.2 and Essential (primary) hypertension I10 [id number] [place] [address] 05911- 9085 November, Establishing care with new doctor, encounter for Z71.89 ; Other emphysema J43.8 ; Tremor R25.1 ; Essential (primary) hypertension I10 ; Mixed hyperlipidemia E78.2 ; 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 ; AVILA ( generalized anxiety disorder) F41.1 and Bipolar II disorder F31.81 [facility] [id number] [place] [address] 58445- 6930 Oct, Bipolar II disorder F31.81 ; AVILA (generalized anxiety disorder) F41.1 and 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 [facility] [id number] [place] [address] 83396- 9739 Oct, [facility] [address] 67531- 5130 Sep, [facility] [address] 02994- 4779 Jun, Essential (primary) hypertension I10 and Mixed hyperlipidemia E78.2 [facility] [facility] [address] 80172- 5656 Jun, Essential hypertension I10 [facility] [address] 64459- 6343 Jun, Bipolar II disorder F31.81 ; AVILA (generalized anxiety disorder) F41.1 and 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 [facility] [id number] [place] [address] 75478- 3000 May, Essential hypertension I10 [facility] [id number] [place] [address] 30191- 0808 May, [facility] [facility] [address] 68821- 5716 Apr, Bipolar II disorder F31.81 ; AVILA (generalized anxiety disorder) F41.1 and 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 [facility] [id number] [place] [address] 27116- 2060 05 Apr, 2015 Generalized anxiety disorder F41.1 and Depressive disorder, not elsewhere classified F32.9 [facility] [id number] [place] [address] 78887- 5824 Mar, Dysuria 788.1 and Chronic UTI 599.0 [facility] [address], [place] [address] 3518 Mar, Hematuria 599.70 and Chronic UTI 599.0 [facility] [address], [place] [address] 0946 Mar, [facility] [id number] [place] [address] 14988- 6584 Feb, Urinary tract infection 599.0 [facility] [address], [place] [address]- 8831 Feb, Urinary tract infection 599.0 [facility] [address] [place] [address] 10614- 0223 Feb, Dysuria 788.1 [facility] [address] [place] [address] 92456- 3370 Feb, Dysuria 788.1 [facility] [address], [place] [address]- 5825 Feb, Dysuria 788.1 [facility] [address], [place] [address]- 6146 Feb, Dysuria 788.1 [facility] [address], [place] [address]- 6166 Jan, Dysuria 788.1 [facility] [address], [place] [address]- 5605 Jan, [facility] [id number], [place] [address]- 8873 Dec, Urinary tract infection 599.0 ; Anxiety state, unspecified 300.00 and Chronic low back pain 724.2 [facility] [id number], [place] [address]- 4286 Dec, [facility] [address] [place] [address] 92828- 4816 November, [facility] [place] [facility] [address] [id number] [place] [address]- 6798 14 Oct, 2014 [facility] [place] [facility] [address] [id number] [place] [address]- 6582 Oct, [facility] [place] [facility] [address] [id number] [place] [address]- 7340 Sep, [facility] [place] [facility] [address] [id number] [place] [address]- 7883 17 Sep, 2014 [facility] [place] [facility] [address] [id number] [place] [address]- 3417 Jul, [facility] [place] [facility] [address] [id number] [place] [address]- 3624 Jul, [facility] [place] [facility] [address] [id number] [place] [address]- 7082 Jul, [facility] [place] [facility] [address] [id number] [place] [address]- 2295 Jul, [facility] [place] [facility] [address] [id number] [place] [address]- 4219 Jul, [facility] [place] [facility] [address] [id number] [place] [address]- 2672 Jul, [facility] [place] [facility] [address] [id number], [place] [address]- 6757 Jul, [facility] [place] [facility] [address] [id number], [place] [address]- 6817 Jul, [facility] [place] [facility] [address] [id number] [place] [address]- 2840 Jun, [facility] [place] [facility] [address] [id number] [place] [address]- 1543 Jun, [facility] [place] [facility] [address] [id number] [place] [address]- 7732 Jun, [facility] [place] [facility] [address] [id number] [place] [address]- 5778 18 Jun, 2014 [facility] [address] [id number] [place] [address]- 6752 17 Jun, 2014 [facility] [place] [facility] [address] [id number] [place] [address]- 6989 17 Jun, 2014 [facility] [address] [id number] [place] [address]- 5078 17 Jun, 2014 [facility] [place] [facility] [address] [id number] [place] [address]- 5371 17 Jun, 2014 [facility] [address] [id number] [place] [address]- 9906 16 Jun, 2014 [facility] [place] [facility] [address] [id number] [place] [address]- 1927 16 Jun, 2014 [facility] [place] [facility] [address] [id number] [place] [address]- 1242 16 Jun, 2014 [facility] [place] [facility] [address] [id number] [place] [address]- 9050 16 Jun, 2014 [facility] [place] [facility] [address] [id number] [place] [address]- 9247 12 Jun, 2014 [facility] [address] [id number] [place] [address]- 7518 12 Jun, 2014 [facility] [place] [facility] [address] [id number] [place] [address]- 8119 11 Jun, 2014 [facility] [place] [facility] [address] [id number] [place] [address]- 7041 11 Jun, 2014 [facility] [place] [facility] [address] [id number] [place] [address]- 7077 18 May, 2014 [facility] [place] [facility] [address] [id number] [place] [address]- 9461 18 May, 2014 [facility] [place] [facility] [address] [id number] [place] [address]- 2813 May, [facility] [place] [facility] [address] [id number] [place] [address]- 1588 May, [facility] [place] [facility] [address] [id number] [place] [address]- 8990 Mar, [facility] [place] [facility] [address] [id number] [place] [address]- 0548 Mar, [facility] [place] [facility] [address] [id number] [place] [address]- 1777 Mar, [facility] [place] [facility] [address] [id number] [place] 0193 Mar, [facility] [place] [facility] [address] [id number] [place] [address]- 3046 Feb, [facility] [place] [facility] [address] [id number] [place] [address]- 9848 Feb, [facility] [place] [facility] [address] [id number] [place] [address]- 0257 Feb, [facility] [place] [facility] [address] [id number] [place] [address]- 2907 Jan, [facility] [place] [facility] [address] [id number] [place] [address]- 4765 Dec, [facility] [place] [facility] [address] [id number] [place] [address]- 4639 Dec, [facility] [place] [facility] [address] [id number] [place] [address]- 9707 November, [facility] [place] [facility] [address] [id number] [place] [address]- 3837 November, [facility] [place] [facility] [address] [id number] [place] [address]- 9650 November, [facility] [place] [facility] [address] [id number] [place] 7310 November, [facility] [place] [facility] [address] [id number] [place] [address]- 2293 15 Oct, 2013 [facility] [place] [facility] [address] [id number] [place] [address]- 9469 Oct, [facility] [place] [facility] [address] [id number] [place] [address]- 4563 Sep, [facility] [place] [facility] [address] [facility] [id number] [place] [address]- 2118 Sep, [facility] [place] [facility] [address] [id number] [place] [address]- 8409 Sep, [facility] [place] [facility] [address] [id number] [place] [address]- 1923 Sep, [facility] [place] [facility] [address] [id number] [place] [address]- 5125 Aug, [facility] [place] [facility] [address] [facility] [id number] [place] [address]- 0233 Aug, [facility] [place] [facility] [address] [facility] [id number] [place] [address]- 6314 Aug, [facility] [place] [facility] [address] [facility] [id number] [place] [address]- 2271 Aug, [facility] [place] [facility] [address] [facility] [id number] [place] [address]- 7312 Aug, [facility] [place] [facility] [address] [facility] [id number] [place] [address]- 1916 Aug, [facility] [place] [facility] [address] [facility] [id number] [place] [address]- 7802 Aug, [facility] [place] [facility] [address] [id number] [place] [address]- 6244 Jul, [facility] [place] [facility] [address] [facility] [id number] [place] [address]- 8237 Jul, [facility] [place] [facility] [address] [facility] [id number] [place] [address]- 9494 Jul, [facility] [id number], [place] [address]- 5096 Jul, [facility] [id number], [place] [address]- 5243 Jun, [facility] [id number], [place] [address]- 6683 Jun, [facility] [address], [place] [address]- 5535 Jun, [facility] [address], [place] [address]- 3373 Jun, [facility] [address], [place] [address]- 0369 Jun, [facility] [address], [place] [address]- 9244 Jun, [facility] [address] [place] [address]- 8051 Apr, [facility] [id number], [place] [address]- 4097 Apr, IMMUNIZATIONS No Known Immunizations SOCIAL HISTORY Never Assessed REASON FOR VISIT leg pain Pt c/o L leg pain after falling at [employer] and then again on Thursday when she fell in the tub Pain starts in Hip and radiates down leg DARLENE Sharp PLAN OF CARE Activity Details Follow Up prn Reason: VITAL SIGNS Height 64 in 2017-10-14 Weight 274.2 lbs 2017-10-14 Temperature 96.3 degrees Fahrenheit 2017-10-14 Heart Rate 88 bpm 2017-10-14 Respiratory Rate 20 2017-10-14 BMI 47.06 kg/m2 2017-10-14 Blood pressure systolic 148 mmHg 2017-10-14 Blood pressure diastolic 90 mmHg 2017-10-14 MEDICATIONS Medication Instructions Dosage Frequency Start Date End Date Duration Status Latuda 40 mg Orally Once in the evening with 350 calories 1 tablet Feb Active Lisinopril 20 mg Orally Once a day 1 tablet 24h 30 Active Naproxen 500 MG TAKE ONE TABLET BY MOUTH TWICE DAILY NEEDED 90 Active Toprol XL 50 MG Orally Once a day 1 tablet at bedtime 24h 30 Active Zoloft 100 mg TAKE ONE TABLET BY MOUTH ONCE DAILY FOR DEPRESSION AND ANXIETY Active Gabapentin 300 MG Orally 3 times a day 1 capsule 8h 30 Active BusPIRone HCl 15 mg Orally 1 tablet in AM and 8pm and 2 tabs at 2pm 1 tablet Active Lamotrigine 200 mg TAKE ONE TABLET BY MOUTH ONCE DAILY Active Albuterol Sulfate HFA 108 (90 Base) MCG/ACT Inhalation every 4 hrs 2 puffs as needed 4h 13 Dec, 2015 30 Active Hydrochlorothiazide 12.5 MG Orally Once a day 1 capsule 24h 30 Active RESULTS Name Result Date Reference Range Xray : Hip, Left 2 views (IN HOUSE) 2017-10-14 Ultrasound : Venous Doppler (DVT EVAL) 2017-10-14 PROCEDURES Procedure Date Ordered Result Body Site X-RAY EXAM HIP UNI 2-3 VIEWS October 14, 2017 INSTRUCTIONS MEDICATIONS ADMINISTERED No Known Medications [...]
--- OUTSIDE RECORDS SUMMARY | 2018-07-23 19:43 | XMS REPORT ---
Author Author PHOEBE DON Organization [employer] Address Unknown Phone Unavailable Care Team Providers Care Lay Out Carpenter Name Role Phone PHOEBE DON CP Unavailable Allergies No Known Allergies Problems Problem Type Condition ICD-9 Code Onset Dates Condition Status Problem Anxiety state, unspecified 300.00 Active Problem Sciatica 724.3 Active Problem Rash and other nonspecific skin eruption 782.1 Active Problem Urinary tract infection 599.0 Active Problem Abdominal pain, unspecified site 789.00 Active Problem Dysuria 788.1 Active Problem Need for prophylactic vaccination and inoculation, Influenza V04.81 Active Problem Routine general medical examination at health care facility V70.0 Active Problem Unspecified myalgia and myositis 729.1 Active Problem Unspecified dermatitis due to sun 692.70 Active Assessment Dysuria 788.1 Active Problem Essential hypertension, benign 401.1 Active Assessment Chronic UTI 599.0 Active Problem Special screening examination, human papillomavirus [HPV] V73.81 Active Problem Unspecified breast screening V76.10 Active Problem Lumbago 724.2 Active Problem Routine gynecological examination V72.31 Active Problem Screening for malignant neoplasm of the cervix V76.2 Active Problem Counseling on substance use and abuse V65.42 Active Medications No Known Medications Results No Known Results Summary Purpose [employer] Submission
--- OUTSIDE RECORDS SUMMARY | 2018-07-23 19:43 | XMS REPORT ---
Author Author GRISEL ANTONIO [facility] Address [address] [place] [address] Care Team Providers Care Flue Blower Name Role Phone GRISEL ANTONIO Unavailable PROBLEMS Type Condition ICD9-CM Code NVX52-KN Code Onset Dates Condition Status SNOMED Code Problem Bipolar II disorder F31.81 Active 91255751 Problem Essential (primary) hypertension I10 Active 43316101 Problem Mixed hyperlipidemia E78.2 Active 528254295 Problem Abnormal LFTs R94.5 Active 419675680 Problem Essential hypertension I10 Active 77015004 Problem AVILA (generalized anxiety disorder) F41.1 Active 19138727 Problem 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 Active 93311672 Problem Hyperinsulinemia E16.1 Active 55523530 Problem Morbid obesity due to excess calories E66.01 Active 066690094 Problem Simple chronic bronchitis J41.0 Active 05367312 Problem Tobacco abuse Z72.0 Active 641129072 Problem Obstructive sleep apnea syndrome G47.33 Active 29137267 Problem Tremor R25.1 Active 54916266 ALLERGIES No Information ENCOUNTERS Encounter Location Date Diagnosis [facility] [id number] [place] [address] 53615- 0215 Feb, [facility] [id number] [place] [address] 71492- 0951 Jan, [facility] [id number] [place] [address] 16329- 8370 November, Abnormal LFTs R94.5 [facility] [id number] [place] [address] 47158- 1850 Oct, [facility] [id number] [place] [address] 72924- 0344 Oct, [facility] [id number] [place] [address] 86503 -0109 Oct, Left hip pain M25.552 ; Left leg pain M79.605 and BMI 45.0- 49.9, adult Z68.42 [facility] [id number] [place] [address] 41377- 1095 Oct, [facility] [address] 12880- 0627 Aug, BMI 45.0-49.9, adult Z68.42 ; Bipolar II disorder F31.81 and AVILA (generalized anxiety disorder) F41.1 [facility] [id number] [place] [address] 31837- 7527 Jul, Abnormal LFTs R94.5 [facility] [id number] [place] [address] 13699- 4663 Jul, Essential (primary) hypertension I10 ; Mixed hyperlipidemia E78.2 and Bipolar II disorder F31.81 [facility] [id number] [place] [address] 51963- 4925 Jul, [facility] [id number] [place] [address] 78697- 6672 Jul, [facility] [id number] [place] [address] 19841- 6060 Jul, [facility] [id number] [place] [address] 46836- 2794 Apr, [facility] [id number] [place] [address] 76088- 9612 Mar, [facility] [id number] [place] [address] 61757- 2109 Mar, [facility] [id number] [place] [address] 64166- 6260 Feb, [facility] [id number] [place] [address] 29697- 0484 Feb, Bipolar II disorder F31.81 and AVILA (generalized anxiety disorder) F41.1 [facility] [id number] [place] [address] 26026- 3420 Feb, [facility] [id number] [place] [address] 19054- 0533 Jan, Bipolar II disorder F31.81 ; AVILA (generalized anxiety disorder) F41.1 ; Essential hypertension I10 and Encounter for screening mammogram for breast cancer Z12.31 [facility] [facility] [address] 35428- 5592 November, AVILA (generalized anxiety disorder) F41.1 [facility] [facility] [address] 22846- 2217 November, [facility] [id number] [place] [address] 56456- 4650 Sep, [facility] [facility] [address] 85325- 4680 Sep, [facility] [id number] [place] [address] 65204- 2774 Sep, Hyperinsulinemia E16.1 [facility] [id number] [place] [address] 15050- 3828 Sep, AVILA (generalized anxiety disorder) F41.1 and Hyperinsulinemia E16.1 [place] [id number] [place] [address] 96591- 2849 08 Aug, 2016 Hyperinsulinemia E16.1 [facility] [facility] [id number] [place] [address] 74040- 4651 07 Aug, 2016 Bipolar II disorder F31.81 ; AVILA (generalized anxiety disorder) F41.1 and 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 [facility] [facility] [id number] [place] [address] 70562- 3889 Jul, Obstructive sleep apnea syndrome G47.33 [place] [id number] [place] [address] 47658- 5582 Jul, [facility] [facility] [id number] [place] [address] 12397- 9351 Jul, Hyperinsulinemia E16.1 ; Obstructive sleep apnea syndrome G47.33 and Morbid obesity due to excess calories E66.01 [facility] [facility] [address] [address]- 6485 Jul, Morbid obesity due to excess calories E66.01 and Mixed hyperlipidemia E78.2 [facility] [id number] [place] [address] 42418- 7473 Jul, Low back pain M54.5 ; Mixed hyperlipidemia E78.2 ; Obstructive sleep apnea syndrome G47.33 and Morbid obesity due to excess calories E66.01 [facility] [facility] [id number] [place] [address] 98693- 0284 Jun, [place] [id number] [place] [address] 19369- 0283 May, [place] [id number] [place] [address] 11166- 7825 Jan, Bipolar II disorder F31.81 ; AVILA (generalized anxiety disorder) F41.1 and 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 [address] [place] [address] 10594- 0756 Dec, [place] [id number] [place] [address] 84956- 2675 Dec, Tobacco abuse Z72.0 ; Tremor R25.1 ; Simple chronic bronchitis J41.0 ; Mixed hyperlipidemia E78.2 and Essential (primary) hypertension I10 [place] [id number] [place] [address] 44515- 6951 November, Establishing care with new doctor, encounter for Z71.89 ; Other emphysema J43.8 ; Tremor R25.1 ; Essential (primary) hypertension I10 ; Mixed hyperlipidemia E78.2 ; 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 ; AVILA ( generalized anxiety disorder) F41.1 and Bipolar II disorder F31.81 [facility] [id number] [place] [address] 49937- 3118 Oct, Bipolar II disorder F31.81 ; AVILA (generalized anxiety disorder) F41.1 and 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 [facility] [facility] [id number] [place] [address] 95349- 5052 Oct, [place] [address] 60606- 6718 Sep, [facility] [facility] [address] 88312- 2953 Jun, Essential (primary) hypertension I10 and Mixed hyperlipidemia E78.2 [facility] [facility] [address] 51232- 2442 Jun, Essential hypertension I10 [facility] [facility] [address] 38490- 5697 Jun, Bipolar II disorder F31.81 ; AVILA (generalized anxiety disorder) F41.1 and 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 [facility] [facility] [address] 20034- 3274 May, Essential hypertension I10 [facility] [id number] [place] [address] 01022- 6646 May, [facility] [facility] [address] 08263- 8900 Apr, Bipolar II disorder F31.81 ; AVILA (generalized anxiety disorder) F41.1 and 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 [facility] [id number] [place] [address] 73447- 7712 05 Apr, 2015 Generalized anxiety disorder F41.1 and Depressive disorder, not elsewhere classified F32.9 [facility] [id number] [place] [address] 49016- 8010 16 Mar, 2015 Dysuria 788.1 and Chronic UTI 599.0 [place] [address] [address]- 2896 Mar, Hematuria 599.70 and Chronic UTI 599.0 [facility] [id number] [place] [address] 13101 2546 Mar, [facility] [address] [address]- 6886 Feb, Urinary tract infection 599.0 [facility] [id number] [place] [address] 17991- 9396 Feb, Urinary tract infection 599.0 [facility] [id number] [place] [address] 96003- 7253 Feb, Dysuria 788.1 [facility] [id number] [place] [address] 85330- 2563 Feb, Dysuria 788.1 [facility] [id number] [place] [address] 13463- 8788 Feb, Dysuria 788.1 [facility] [address] [place] [address] 07240- 3466 Feb, Dysuria 788.1 [facility] [address] [address]- 9748 Jan, Dysuria 788.1 [facility] [id number] [place] [address] 36713- 3106 Jan, [facility] [address] [address]- 1284 Dec, Urinary tract infection 599.0 ; Anxiety state, unspecified 300.00 and Chronic low back pain 724.2 [facility] [address] [address]- 9525 Dec, [facility] [address] [address]- 8389 November, [facility] [address] [id number] [place] [address]- 6122 14 Oct, 2014 [facility] [place] [facility] [address] [id number] [place] [address]- 9063 13 Oct, 2014 [facility] [place] [facility] [address] [id number] [place] [address]- 9196 17 Sep, 2014 [facility] [place] [facility] [address] [id number] [place] [address]- 1546 17 Sep, 2014 [facility] [place] [facility] [address] [id number] [place] [address]- 3768 13 Jul, 2014 [facility] [place] [facility] [address] [id number] [place] [address]- 4062 13 Jul, 2014 [facility] [place] [facility] [address] [id number] [place] [address]- 3894 13 Jul, 2014 [facility] [place] [facility] [address] [id number] [place] [address]- 7508 Jul, [facility] [place] [facility] [address] [id number] [place] [address]- 0008 Jul, [facility] [place] [facility] [address] [id number] [place] [address]- 1358 Jul, [facility] [place] [facility] [address] [id number] [place] [address]- 3913 Jul, [facility] [place] [facility] [address] [id number] [place] [address]- 6117 Jul, [facility] [place] [facility] [address] [id number] [place] [address]- 9884 Jun, [facility] [place] [facility] [address] [id number] [place] [address]- 7106 Jun, [facility] [place] [facility] [address] [id number] [place] [address]- 5706 Jun, [facility] [place] [facility] [address] [id number] [place] [address]- 1456 18 Jun, 2014 [facility] [place] [facility] [address] [id number] [place] [address]- 1618 17 Jun, 2014 [facility] [place] [facility] [address] [id number] [place] [address]- 0046 17 Jun, 2014 [facility] [place] [facility] [address] [id number] [place] [address]- 0339 17 Jun, 2014 [facility] [place] [facility] [address] [id number] [place] [address]- 6997 17 Jun, 2014 [facility] [place] [facility] [address] [id number] [place] [address]- 2372 16 Jun, 2014 [facility] [place] [facility] [address] [id number] [place] [address]- 3113 16 Jun, 2014 [facility] [place] [facility] [address] [id number] [place] [address]- 4224 16 Jun, 2014 [facility] [place] [facility] [address] [id number] [place] [address]- 3627 16 Jun, 2014 [facility] [place] [facility] [address] [id number] [place] [address]- 2496 12 Jun, 2014 [facility] [place] [facility] [address] [id number] [place] [address]- 9486 12 Jun, 2014 [facility] [place] [facility] [address] [id number] [place] [address]- 2261 11 Jun, 2014 [facility] [place] [facility] [address] [id number] [place] [address]- 7802 11 Jun, 2014 [facility] [place] [facility] [address] [id number] [place] [address]- 4655 18 May, 2014 [facility] [place] [facility] [address] [id number] [place] [address]- 2568 18 May, 2014 [facility] [place] [facility] [address] [id number] [place] [address]- 9636 18 May, 2014 [facility] [place] [facility] [address] [id number] [place] [address]- 0063 May, [facility] [place] [facility] [address] [id number] [place] [address]- 2983 Mar, [facility] [place] [facility] [address] [id number] [place] [address]- 9436 Mar, [facility] [place] [facility] [address] [id number] [place] [address]- 5036 Mar, [facility] [place] [facility] [address] [id number] [place] [address]- 4277 Mar, [facility] [place] [facility] [address] [id number] [place] [address]- 6247 Feb, [facility] [place] [facility] [address] [id number] [place] [address]- 4003 Feb, [facility] [place] [facility] [address] [id number] [place] [address]- 9682 Feb, [facility] [place] [facility] [address] [id number] [place] [address]- 0913 Jan, [facility] [place] [facility] [address] [id number] [place] [address]- 4572 Dec, [facility] [place] [facility] [address] [id number] [place] [address]- 3923 Dec, [facility] [place] [facility] [address] [id number] [place] [address]- 6220 November, [facility] [place] [facility] [address] [id number] [place] [address]- 7711 November, [facility] [place] [facility] [address] [id number] [place] [address]- 0817 November, [facility] [place] [facility] [address] [id number] [place] [address]- 0849 November, [facility] [place] [facility] [address] [id number] [place] [address]- 1404 Oct, [facility] [place] [facility] [address] [id number] [place] [address]- 2531 Oct, [facility] [place] [facility] [address] [id number] [place] [address]- 5582 Sep, [facility] [place] [facility] [address] [id number] [place] [address]- 4278 Sep, [facility] [place] [facility] [address] [id number] [place] [address]- 6226 Sep, [facility] [place] [facility] [address] [id number] [place] [address]- 4239 Sep, [facility] [place] [facility] [address] [id number] [place] [address]- 0321 Aug, [facility] [place] [facility] [address] [id number] [place] [address]- 3983 Aug, [facility] [place] [facility] [address] [id number] [place] [address]- 0596 Aug, [facility] [place] [facility] [address] [id number] [place] [address]- 8728 Aug, [facility] [place] [facility] [address] [id number] [place] [address]- 7479 Aug, [facility] [place] [facility] [address] [id number] [place] [address]- 3194 Aug, [facility] [place] [facility] [address] [id number] [place] [address]- 0202 Aug, [facility] [place] [facility] [address] [id number] [place] [address]- 7082 Jul, [facility] [place] [facility] [address] [id number] [place] [address]- 5281 Jul, [facility] [place] [facility] [address] [id number] [place] [address]- 4596 Jul, [facility] [place] [facility] [id number] [address]- 1226 Jul, [facility] [id number] [address]- 8185 Jun, [facility] [id number] [address]- 7396 Jun, [facility] [id number] [address]- 7616 Jun, [facility] [address] [place] [address]- 1632 Jun, [facility] [address] [place] [address] 91636- 5136 Jun, [facility] [address] [place] [address]- 6026 Jun, [facility] [address] [place] [address]- 8316 Apr, [facility] [id number] [address]- 9146 Apr, IMMUNIZATIONS No Known Immunizations SOCIAL HISTORY Never Assessed REASON FOR VISIT Medication refill request PLAN OF CARE VITAL SIGNS MEDICATIONS Medication Instructions Dosage Frequency Start Date End Date Duration Status Zoloft 100 mg TAKE ONE TABLET BY MOUTH ONCE DAILY FOR DEPRESSION AND ANXIETY Active BusPIRone HCl 15 mg Orally 1 tablet in AM and 8pm and 2 tabs at 2pm 1 tablet Active Lamotrigine 200 mg TAKE ONE TABLET BY MOUTH ONCE DAILY Active RESULTS No Results PROCEDURES No Known [...]
--- OUTSIDE RECORDS SUMMARY | 2018-07-23 19:44 | XMS REPORT ---
Author Author GRISEL ANTONIO [facility] Address [address] [place] [address] Care Team Providers Care Dental Assistant Instructor Name Role Phone GRISEL ANTONIO Unavailable PROBLEMS Type Condition ICD9-CM Code VKW53-MG Code Onset Dates Condition Status SNOMED Code Problem Bipolar II disorder F31.81 Active 88729113 Problem Essential (primary) hypertension I10 Active 15544584 Problem Mixed hyperlipidemia E78.2 Active 742330102 Problem Abnormal LFTs R94.5 Active 132859839 Problem Essential hypertension I10 Active 88299478 Problem AVILA (generalized anxiety disorder) F41.1 Active 97045615 Problem 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 Active 10441771 Problem Hyperinsulinemia E16.1 Active 90986264 Problem Morbid obesity due to excess calories E66.01 Active 295145889 Problem Simple chronic bronchitis J41.0 Active 96879532 Problem Tobacco abuse Z72.0 Active 434036805 Problem Obstructive sleep apnea syndrome G47.33 Active 37849617 Problem Tremor R25.1 Active 87922887 ALLERGIES No Information ENCOUNTERS Encounter Location Date Diagnosis [facility] [address], [place] [address] Jan, [facility] [id number] [place] [address]5915- 9966 November, Abnormal LFTs R94.5 [facility] [address] [place] [address] 23691- 3555 Oct, [facility] [id number] [place] [address] 99011- 1235 Oct, [facility] [address], [place] [address] Oct, Left hip pain M25.552 ; Left leg pain M79.605 and BMI 45.0- 49.9, adult Z68.42 [facility] [id number] [place] [address] 32742- 2354 Oct, [facility] [address] [address]- [address] Aug, BMI 45.0-49.9, adult Z68.42 ; Bipolar II disorder F31.81 and AVILA (generalized anxiety disorder) F41.1 [facility] [address] [address]227- 7718 Jul, Abnormal LFTs R94.5 [facility] [address] 48322- 4149 Jul, Essential (primary) hypertension I10 ; Mixed hyperlipidemia E78.2 and Bipolar II disorder F31.81 [facility] [address] 79284- 5122 Jul, [facility] [address] 40647- 3051 Jul, [facility] [address] 92318- 5782 Jul, [facility] [id number] [place] [address] 32461- 6137 Apr, [facility] [id number] [place] [address] 16592- 7588 Mar, [facility] [id number] [place] [address] 98336- 8953 Mar, [facility] [id number] [place] [address] 11527- 0234 Feb, [facility] [id number] [place] [address] 83620- 3835 Feb, Bipolar II disorder F31.81 and AVILA (generalized anxiety disorder) F41.1 [facility] [address] 79616- 5891 Feb, [facility] [id number] [place] [address] 11947- 4922 Jan, Bipolar II disorder F31.81 ; AVILA (generalized anxiety disorder) F41.1 ; Essential hypertension I10 and Encounter for screening mammogram for breast cancer Z12.31 [facility] [id number] [place] [address] 19294- 1534 November, AVILA (generalized anxiety disorder) F41.1 [facility] [address] 32674- 4629 November, [facility] [address] 59654- 8851 Sep, [facility] [address] 89047- 8986 Sep, [facility] [address] 38307- 7575 Sep, Hyperinsulinemia E16.1 [facility] [address] 19939- 2813 06 Sep, 2016 AVILA (generalized anxiety disorder) F41.1 and Hyperinsulinemia E16.1 [facility] [id number] [place] [address] 07903- 7006 08 Aug, 2016 Hyperinsulinemia E16.1 [id number] [place] [address] 75448- 3417 07 Aug, 2016 Bipolar II disorder F31.81 ; AVILA (generalized anxiety disorder) F41.1 and 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 [facility] [id number] [place] [address] 78863- 8702 Jul, Obstructive sleep apnea syndrome G47.33 [facility] [id number] [place] [address] 82701- 2263 Jul, [address] 84104- 4346 Jul, Hyperinsulinemia E16.1 ; Obstructive sleep apnea syndrome G47.33 and Morbid obesity due to excess calories E66.01 [facility] [id number] [place] [address] 60561- 2566 Jul, Morbid obesity due to excess calories E66.01 and Mixed hyperlipidemia E78.2 [facility] [address] 74654- 2690 Jul, Low back pain M54.5 ; Mixed hyperlipidemia E78.2 ; Obstructive sleep apnea syndrome G47.33 and Morbid obesity due to excess calories E66.01 [facility] [id number] [place] [address] 77772- 5846 Jun, [facility] [address] 86416- 1525 May, [facility] [address] 97887- 5894 Jan, Bipolar II disorder F31.81 ; AVILA (generalized anxiety disorder) F41.1 and 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 [facility] [address] 24166- 6266 Dec, [facility] [address] 74502- 6934 Dec, Tobacco abuse Z72.0 ; Tremor R25.1 ; Simple chronic bronchitis J41.0 ; Mixed hyperlipidemia E78.2 and Essential (primary) hypertension I10 [facility] [id number] [place] [address] 57231- 7829 November, Establishing care with new doctor, encounter for Z71.89 ; Other emphysema J43.8 ; Tremor R25.1 ; Essential (primary) hypertension I10 ; Mixed hyperlipidemia E78.2 ; 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 ; AVILA ( generalized anxiety disorder) F41.1 and Bipolar II disorder F31.81 [facility] [id number] [place] [address] 17872- 2152 Oct, Bipolar II disorder F31.81 ; AVILA (generalized anxiety disorder) F41.1 and 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 [facility] [id number] [place] [address] 11681- 5357 Oct, [facility] [id number] [place] [address] 38970- 8266 Sep, [facility] [address] 31229- 6333 Jun, Essential (primary) hypertension I10 and Mixed hyperlipidemia E78.2 [facility] [address] 36442- 8826 Jun, Essential hypertension I10 [facility] [address] 62539- 9098 Jun, Bipolar II disorder F31.81 ; AVILA (generalized anxiety disorder) F41.1 and 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 [facility] [id number] [place] [address] 04364- 1710 May, Essential hypertension I10 [facility] [address] 74574- 7839 May, [facility] [id number] [place] [address] 91274- 6529 Apr, Bipolar II disorder F31.81 ; AVILA (generalized anxiety disorder) F41.1 and 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 [facility] [id number] [place] [address] 96696- 5873 05 Apr, 2015 Generalized anxiety disorder F41.1 and Depressive disorder, not elsewhere classified F32.9 [facility] [id number] [place] [address] 56349- 5033 16 Mar, 2015 Dysuria 788.1 and Chronic UTI 599.[address] 48195- 9923 Mar, Hematuria 599.70 and Chronic UTI 599.0 [facility] [address], [place] [address]- 7[address] Mar, [facility] [id number] [place] [address] 60551- 0066 Feb, Urinary tract infection 599.0 [facility] [id number] [place] [address] 48266- 5996 Feb, Urinary tract infection 599.0 [facility] [id number] [place] [address] 28985- 7303 Feb, Dysuria 788.1 [facility] [id number] [place] [address] 18189- 3700 Feb, Dysuria 788.1 [facility] [id number] [place] [address] 82631- 5764 Feb, Dysuria 788.1 [facility] [id number] [place] [address] 67728- 8268 Feb, Dysuria 788.1 [facility] [id number] [place] [address] 10149- 5383 Jan, Dysuria 788.1 [facility] [address] [place] [address] 13251- 4018 Jan, [facility] [address] [place] [address] 39397- 5576 Dec, Urinary tract infection 599.0 ; Anxiety state, unspecified 300.00 and Chronic low back pain 724.2 [facility] [address] [place] [address] 44097- 7903 Dec, [facility] [id number] [place] [address] 28247- 6761 November, [facility] [address] [place] [address] 10500- 3839 Oct, [facility] [address] [id number] [place] [address]- 2546 13 Oct, 2014 [facility] [place] [facility] [address] [id number] [place] [address]- 6526 17 Sep, 2014 [facility] [place] [facility] [address] [id number] [place] [address]- 2546 17 Sep, 2014 [facility] [place] [facility] [address] [id number] [place] [address]- 2936 13 Jul, 2014 [facility] [place] [facility] [address] [id number] [place] [address]- 6386 13 Jul, 2014 [facility] [place] [facility] [address] [id number] [place] [address]- 2409 Jul, [facility] [place] [facility] [address] [id number] [place] [address]- 1366 Jul, [facility] [place] [facility] [address] [id number] [place] [address]- 7386 Jul, [facility] [place] [facility] [address] [id number] [place] [address]- 4139 Jul, [facility] [place] [facility] [address] [id number] [place] [address]- 7664 Jul, [facility] [place] [facility] [address] [id number] [place] [address]- 4265 Jul, [facility] [place] [facility] [address] [id number] [place] [address]- 7383 Jun, [facility] [place] [facility] [address] [id number] [place] [address]- 8996 Jun, [facility] [place] [facility] [address] [id number] [place] [address]- 5226 Jun, [facility] [place] [facility] [address] [id number] [place] [address]- 2546 Jun, [facility] [place] [facility] [address] [id number] [place] [address]- 3780 17 Jun, 2014 [facility] [place] [facility] [address] [id number] [place] [address]- 4477 17 Jun, 2014 [facility] [place] [facility] [address] [id number] [place] [address]- 3769 17 Jun, 2014 [facility] [place] [facility] [address] [id number] [place] [address]- 7841 17 Jun, 2014 [facility] [place] [facility] [address] [id number] [place] [address]- 8108 16 Jun, 2014 [facility] [place] [facility] [address] [id number] [place] [address]- 4217 16 Jun, 2014 [facility] [place] [facility] [address] [id number] [place] [address]- 2316 16 Jun, 2014 [facility] [place] [facility] [address] [id number] [place] [address]- 7469 16 Jun, 2014 [facility] [place] [facility] [address] [id number] [place] [address]- 6824 12 Jun, 2014 [facility] [place] [facility] [address] [id number] [place] [address]- 1987 12 Jun, 2014 [facility] [place] [facility] [address] [id number] [place] [address]- 5947 11 Jun, 2014 [facility] [place] [facility] [address] [id number] [place] [address]- 3527 11 Jun, 2014 [facility] [place] [facility] [address] [id number], [place] [address]- 7755 18 May, 2014 [facility] [place] [facility] [address] [id number] [place] [address]- 1952 18 May, 2014 [facility] [place] [facility] [address] [id number] [place] [address]- 6412 18 May, 2014 [facility] [place] [facility] [address] [id number] [place] [address]- 7600 18 May, 2014 [facility] [place] [facility] [address] [id number] [place] [address]- 8370 25 Mar, 2014 [facility] [place] [facility] [address] [id number] [place] [address]- 0131 25 Mar, 2014 [facility] [place] [facility] [address] [id number] [place] [address]- 9406 Mar, [facility] [place] [facility] [address] [id number] [place] [address]- 0476 Mar, [facility] [place] [facility] [address] [id number] [place] [address]- 3912 Feb, [facility] [place] [facility] [address] [id number] [place] [address]- 9898 Feb, [facility] [place] [facility] [address] [id number] [place] [address]- 0244 Feb, [facility] [place] [facility] [address] [id number] [place] [address]- 4582 Jan, [facility] [place] [facility] [address] [id number] [place] [address]- 8382 Dec, [facility] [place] [facility] [address] [id number] [place] [address]- 2601 Dec, [facility] [place] [facility] [address] [id number] [place] [address]- 8060 November, [facility] [place] [facility] [address] [id number] [place] [address]- 9964 November, [facility] [place] [facility] [address] [id number] [place] [address]- 0052 November, [facility] [place] [facility] [address] [id number] [place] [address]- 6236 November, [facility] [place] [facility] [address] [id number] [place] [address]- 4700 Oct, [facility] [place] [facility] [address] [id number] [place] [address]- 4716 Oct, [facility] [place] [facility] [address] [id number] [place] [address]- 8661 Sep, [facility] [place] [facility] [address] [id number] [place] [address]- 9356 Sep, [facility] [place] [facility] [address] [id number] [place] [address]- 7916 Sep, [facility] [place] [facility] [address] [id number] [place] [address]- 3643 Sep, [facility] [place] [facility] [address] [id number] [place] [address]- 8012 Aug, [facility] [place] [facility] [address] [id number] [place] [address]- 1624 Aug, [facility] [place] [facility] [address] [id number] [place] [address]- 3335 Aug, [facility] [place] [facility] [address] [id number] [place] [address]- 1536 Aug, [facility] [place] [facility] [address] [id number] [place] [address]- 9796 Aug, [facility] [place] [facility] [address] [id number] [place] [address]- 1404 Aug, [facility] [place] [facility] [address] [id number] [place] [address]- 4668 Aug, [facility] [place] [facility] [address] [id number] [place] [address]- 3534 Jul, [facility] [place] [facility] [address] [id number] [place] [address]- 2626 Jul, [facility] [place] [facility] [address] [id number] [place] [address]- 3712 Jul, [facility] [place] [facility] [address] [id number] [place] [address]- 9799 Jul, [facility] [place] [facility] [address] [facility] [id number], [place] [address]- 2776 Jun, [facility] [id number] [address]- 2225 Jun, [facility] [id number] [address]- 3638 Jun, [facility] [id number] [address]- 9526 Jun, [facility] [address] [place] [address]- 2541 Jun, [facility] [address], [place] [address]- 8216 Jun, [facility] [address], [place] [address]- 2468 Apr, [facility] [id number] [address]- 4944 Apr, IMMUNIZATIONS No Known Immunizations SOCIAL HISTORY Never Assessed REASON FOR VISIT Latuda PLAN OF CARE VITAL SIGNS MEDICATIONS Medication Instructions Dosage Frequency Start Date End Date Duration Status Latuda 40 mg Orally Once in the evening with 350 calories 1 tablet Feb 10 days Active RESULTS No Results PROCEDURES No [...]
--- OUTSIDE RECORDS SUMMARY | 2018-07-23 19:44 | XMS REPORT ---
Author Author GRISEL ANTONIO [facility] Address [address] [place] [address] Care Team Providers Care Scientific Diver Name Role Phone MARISELA GRISEL Unavailable PROBLEMS Type Condition ICD9-CM Code SVE75-CQ Code Onset Dates Condition Status SNOMED Code Problem Bipolar II disorder F31.81 Active 40047716 Problem Essential (primary) hypertension I10 Active 71340425 Problem Mixed hyperlipidemia E78.2 Active 555052492 Problem Abnormal LFTs R94.5 Active 464322472 Problem Essential hypertension I10 Active 46161643 Problem AVILA (generalized anxiety disorder) F41.1 Active 19671771 Problem 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 Active 99379592 Problem Hyperinsulinemia E16.1 Active 35259002 Problem Morbid obesity due to excess calories E66.01 Active 388432534 Problem Simple chronic bronchitis J41.0 Active 10087147 Problem Tobacco abuse Z72.0 Active 026397028 Problem Obstructive sleep apnea syndrome G47.33 Active 40364813 Problem Tremor R25.1 Active 10986212 ALLERGIES Substance Reaction Event Type Date Status Codeine vomiting Drug Allergy Aug, Active ENCOUNTERS Encounter Location Date Diagnosis [facility] [address] [address] Jan, [facility] [id number] [place] [address]- 3798 November, Abnormal LFTs R94.5 [facility] [id number] [place] [address] 11519- 1442 Oct, [facility] [id number] [place] [address] 78096- 7337 Oct, [facility] [id number] [address] Oct, Left hip pain M25.552 ; Left leg pain M79.605 and BMI 45.0- 49.9, adult Z68.42 [facility] [address] [address] Oct, [facility] [id number] [place] [address]15- 2801 13 Aug, 2017 BMI 45.0-49.9, adult Z68.42 ; Bipolar II disorder F31.81 and AVILA (generalized anxiety disorder) F41.1 [facility] [address] [address]- [address] Jul, Abnormal LFTs R94.5 [facility] [address] [address]- 4733 Jul, Essential (primary) hypertension I10 ; Mixed hyperlipidemia E78.2 and Bipolar II disorder F31.81 [facility] [address] [address]- [address]60 Jul, [facility] [address] 59279- 7225 Jul, [facility] [id number] [place] [address] 15145- 3941 Jul, [facility] [id number] [place] [address] 81425- 6715 Apr, [facility] [id number] [place] [address] 94008- 0537 Mar, [facility] [id number] [place] [address] 80467- 3672 Mar, [facility] [address] 8[address]- 12[address] Feb, [facility] [id number] [place] [address]80- 0803 Feb, Bipolar II disorder F31.81 and AVILA (generalized anxiety disorder) F41.1 [facility] [id number] [place] [address] 37489- 9978 Feb, [place] [address] 8[address]- 5360 Jan, Bipolar II disorder F31.81 ; AVILA (generalized anxiety disorder) F41.1 ; Essential hypertension I10 and Encounter for screening mammogram for breast cancer Z12.31 [place] [address] 56043- 8953 November, AVILA (generalized anxiety disorder) F41.1 [place] [address] 98803- 2441 November, [place] [address] 56489- 6986 Sep, [place] [address] 88271- 8858 Sep, [place] [address] 06182- 9253 Sep, Hyperinsulinemia E16.1 [place] [address] 04903- 0775 Sep, AVILA (generalized anxiety disorder) F41.1 and Hyperinsulinemia E16.1 [place] [address] 36616- 7932 08 Aug, 2016 Hyperinsulinemia E16.1 [place] [address] 41133- 2694 07 Aug, 2016 Bipolar II disorder F31.81 ; AVILA (generalized anxiety disorder) F41.1 and 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 [place] [address] 33552- 6123 Jul, Obstructive sleep apnea syndrome G47.33 [place] [address] 83345- 9831 Jul, [place] [address] [place] [address] 64[address] Jul, Hyperinsulinemia E16.1 ; Obstructive sleep apnea syndrome G47.33 and Morbid obesity due to excess calories E66.01 [place] [id number] [place] [address] 55274- 1251 Jul, Mixed hyperlipidemia E78.2 and Morbid obesity due to excess calories E66.01 [place] [address] 42392- 7864 Jul, Low back pain M54.5 ; Mixed hyperlipidemia E78.2 ; Obstructive sleep apnea syndrome G47.33 and Morbid obesity due to excess calories E66.01 [place] [address] 15833- 8349 Jun, [place] [address] 41482- 6832 May, [place] [address] 89155- 6840 Jan, Bipolar II disorder F31.81 ; AVILA (generalized anxiety disorder) F41.1 and 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 [place] [id number] [place] [address] 45072- 5044 Dec, [place] [id number] [place] [address] 81275- 0197 Dec, Tobacco abuse Z72.0 ; Tremor R25.1 ; Simple chronic bronchitis J41.0 ; Mixed hyperlipidemia E78.2 and Essential (primary) hypertension I10 [place] [id number] [place] [address] 48003- 0117 November, Establishing care with new doctor, encounter for Z71.89 ; Other emphysema J43.8 ; Tremor R25.1 ; Essential (primary) hypertension I10 ; Mixed hyperlipidemia E78.2 ; 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 ; AVILA ( generalized anxiety disorder) F41.1 and Bipolar II disorder F31.81 [place] [address] [place] [address] 24[address] Oct, Bipolar II disorder F31.81 ; AVILA (generalized anxiety disorder) F41.1 and 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 [place] [id number] [place] [address] 30316- 3715 Oct, [facility] [address] 74040- 0970 Sep, [place] [address] 41425- 8261 Jun, Essential (primary) hypertension I10 and Mixed hyperlipidemia E78.2 [place] [address] 53812- 0837 Jun, Essential hypertension I10 [place] [address] 79442- 0985 Jun, Bipolar II disorder F31.81 ; AVILA (generalized anxiety disorder) F41.1 and 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 [place] [address] 57847- 8466 May, Essential hypertension I10 [place] [address] 62950- 5136 May, [place] [id number] [place] [address] 01215- 9659 Apr, Bipolar II disorder F31.81 ; AVILA (generalized anxiety disorder) F41.1 and 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 [place] [id number] [place] [address] 64729- 4062 05 Apr, 2015 Generalized anxiety disorder F41.1 and Depressive disorder, not elsewhere classified F32.9 [place] [id number] [place] [address] 63280- 7969 16 Mar, 2015 Dysuria 788.1 and Chronic UTI 599.0 [place] [address] 43050- 4785 Mar, Hematuria 599.70 and Chronic UTI 599.0 [facility] [address] [place] [address] 23423- 0953 Mar, [facility] [id number] [place] [address] 08040- 4708 Feb, Urinary tract infection 599.0 [facility] [id number] [place] [address] 52695- 9177 Feb, Urinary tract infection 599.0 [facility] [address] [place] [address] 62043- 1893 Feb, Dysuria 788.1 [facility] [id number] [place] [address] 98245- 7036 Feb, Dysuria 788.1 [facility] [id number] [place] [address] 35485- 0585 Feb, Dysuria 788.1 [facility] [id number] [place] [address] 31397- 5750 Feb, Dysuria 788.1 [facility] [id number] [place] [address] 03471- 9214 Jan, Dysuria 788.1 [facility] [id number] [place] [address] 06684- 4932 Jan, [facility] [address] [place] [address] 23517- 9887 Dec, Anxiety state, unspecified 300.00 ; Urinary tract infection 599.0 and Chronic low back pain 724.2 [facility] [address] [place] [address] 54977- 6505 Dec, [facility] [address] [place] [address] 72315- 0186 November, [facility] [id number] [place] [address] 72947- 4018 14 Oct, 2014 [facility] [place] [facility] [address] [id number] [place] [address]- 7089 13 Oct, 2014 [facility] [place] [facility] [address] [id number] [place] [address]- 6386 17 Sep, 2014 [facility] [place] [facility] [address] [id number] [place] [address]- 7463 17 Sep, 2014 [facility] [place] [facility] [address] [id number] [place] [address]- 4352 13 Jul, 2014 [facility] [place] [facility] [address] [id number] [place] [address]- 3744 Jul, [facility] [place] [facility] [address] [id number] [place] [address]- 8748 Jul, [facility] [place] [facility] [address] [id number] [place] [address]- 8782 Jul, [facility] [place] [facility] [address] [id number] [place] [address]- 2008 Jul, [facility] [place] [facility] [address] [id number] [place] [address]- 0118 Jul, [facility] [place] [facility] [address] [id number] [place] [address]- 0675 Jul, [facility] [place] [facility] [address] [id number] [address]- 8301 Jul, [facility] [place] [facility] [address] [id number] [address]- 3864 Jun, [facility] [place] [facility] [address] [id number] [place] [address]- 8664 Jun, [facility] [place] [facility] [address] [id number] [place] [address]- 4693 Jun, [facility] [place] [facility] [address] [id number] [place] [address]- 4747 Jun, [facility] [place] [facility] [address] [id number] [place] [address]- 1445 17 Jun, 2014 [facility] [address] [id number] [place] [address]- 8121 17 Jun, 2014 [facility] [place] [facility] [address] [id number] [place] [address]- 8463 17 Jun, 2014 [facility] [address] [id number] [place] [address]- 0981 17 Jun, 2014 [facility] [place] [facility] [address] [id number] [place] [address]- 1929 16 Jun, 2014 [facility] [place] [facility] [address] [id number] [place] [address]- 3741 16 Jun, 2014 [facility] [place] [facility] [address] [id number] [place] [address]- 3438 16 Jun, 2014 [facility] [address] [id number] [place] [address]- 7967 16 Jun, 2014 [facility] [place] [facility] [address] [id number] [place] [address]- 8980 12 Jun, 2014 [facility] [place] [facility] [address] [id number] [place] [address]- 8862 12 Jun, 2014 [facility] [place] [facility] [address] [id number] [place] [address]- 0417 11 Jun, 2014 [facility] [place] [facility] [address] [id number] [place] [address]- 2085 11 Jun, 2014 [facility] [place] [facility] [address] [id number] [place] [address]- 8673 18 May, 2014 [facility] [place] [facility] [address] [id number] [place] [address]- 7341 18 May, 2014 [facility] [place] [facility] [address] [id number] [place] [address]- 7458 18 May, 2014 [facility] [place] [facility] [address] [id number] [place] [address]- 5737 May, [facility] [place] [facility] [address] [id number] [place] [address]- 5885 Mar, [facility] [place] [facility] [address] [id number] [place] [address]- 3437 Mar, [facility] [place] [facility] [address] [id number] [place] [address]- 7630 Mar, [facility] [place] [facility] [address] [id number] [place] [address]- 4796 Mar, [facility] [place] [facility] [address] [id number] [place] [address]- 2360 Feb, [facility] [place] [facility] [address] [id number] [place] [address]- 8180 Feb, [facility] [place] [facility] [address] [id number] [place] [address]- 3568 Feb, [facility] [place] [facility] [address] [id number] [place] [address]- 5070 Jan, [facility] [place] [facility] [address] [id number] [place] [address]- 8659 Dec, [facility] [place] [facility] [address] [id number] [place] [address]- 2500 Dec, [facility] [place] [facility] [address] [id number] [place] [address]- 9595 November, [facility] [place] [facility] [address] [id number] [place] [address]- 9644 November, [facility] [place] [facility] [address] [id number] [place] [address]- 2431 November, [facility] [place] [facility] [address] [id number] [place] [address]- 3237 November, [facility] [place] [facility] [address] [id number] [place] [address]- 1881 Oct, [facility] [place] [facility] [address] [id number] [place] [address]- 1731 Oct, [facility] [place] [facility] [address] [id number] [place] [address]- 7981 Sep, [facility] [place] [facility] [address] [id number] [place] [address]- 2998 Sep, [facility] [place] [facility] [address] [id number] [place] [address]- 3766 Sep, [facility] [place] [facility] [address] [id number] [place] [address]- 6855 Sep, [facility] [place] [facility] [address] [id number] [place] [address]- 1373 Aug, [facility] [place] [facility] [address] [id number] [place] [address]- 8028 Aug, [facility] [place] [facility] [address] [facility] [id number] [place] [address]- 4012 Aug, [facility] [place] [facility] [address] [id number] [place] [address]- 9937 Aug, [facility] [place] [facility] [address] [id number] [place] [address]- 6262 Aug, [facility] [place] [facility] [address] [facility] [id number] [place] [address]- 2521 Aug, [facility] [place] [facility] [address] [facility] [id number] [place] [address]- 9501 Aug, [facility] [place] [facility] [address] [id number] [place] [address]- 0486 Jul, [facility] [place] [facility] [address] [id number] [place] [address]- 2222 Jul, [facility] [place] [facility] [address] [facility] [id number] [place] [address]- 4325 Jul, [facility] [place] [facility] [address] [id number] [place] [address]- 3131 Jul, [facility] [id number] 9963 Jun, [facility] [address] [address] 4708 Jun, [facility] [address] [address] 7732 Jun, [facility] [address] [address]- 3415 Jun, [facility] [address] [address]- 3709 Jun, [facility] [address] [address]- 4760 Jun, [facility] [address] [address]- 1434 Apr, [facility] [address] [address]- 7058 Apr, IMMUNIZATIONS No Known Immunizations SOCIAL HISTORY Never Assessed REASON FOR VISIT f/u PLAN OF CARE Activity Details Follow Up 4 Months Reason: VITAL SIGNS Height 64 in 2017-08-18 Weight 267.1 lbs 2017-08-18 Heart Rate 60 bpm 2017-08-18 Respiratory Rate 20 2017-08-18 BMI 45.84 kg/m2 2017-08-18 Blood pressure systolic 140 mmHg 2017-08-18 Blood pressure diastolic 86 mmHg 2017-08-18 MEDICATIONS Medication Instructions Dosage Frequency Start Date [...] a day 1 capsule 8h 30 Active Lamotrigine 200 mg TAKE ONE TABLET BY MOUTH ONCE DAILY Active Latuda 40 mg Orally Once in the evening with 350 calories 1 tablet Feb Active Albuterol Sulfate HFA 108 (90 Base) MCG/ACT Inhalation every 4 hrs 2 puffs as needed 4h Dec, 30 Active BusPIRone HCl 15 mg Orally 1 tablet in AM and 8pm and 2 tabs at 2pm 1 tablet Active Hydrochlorothiazide 12.5 MG Orally Once a day 1 capsule 24h 30 Active Lisinopril 20 mg Orally Once a day 1 tablet 24h 30 Active RESULTS No Results PROCEDURES [...]
--- OUTSIDE RECORDS SUMMARY | 2018-07-23 19:44 | XMS REPORT ---
Author Author PHOEBE DON Organization [employer] Address Unknown Phone Unavailable Care Team Providers Care Fitness Professional Name Role Phone PHOEBE DON CP Unavailable [...] dermatitis due to sun 692.70 Active Assessment Hematuria 599.70 Active Problem Essential hypertension, benign 401.1 Active [...]
--- OUTSIDE RECORDS SUMMARY | 2018-07-23 19:44 | XMS REPORT ---
Author Author KHLOE FOX [facility] Address [address] [place] [address] Care Team Providers Care Revenue Coordinator Name Role Phone KHLOE FOX Unavailable PROBLEMS Type Condition ICD9-CM Code [id number] Code Onset Dates Condition Status SNOMED Code Problem Bipolar II disorder F31.81 Active 74580298 Problem Essential (primary) hypertension I10 Active 99090717 Problem Mixed hyperlipidemia E78.2 Active 851116542 Problem Essential hypertension I10 Active 58379504 Problem AVILA (generalized anxiety disorder) F41.1 Active 91978415 Problem 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 Active 65771727 Problem Hyperinsulinemia E16.1 Active 52213822 Problem Morbid obesity due to excess calories E66.01 Active 041815842 Problem Simple chronic bronchitis J41.0 Active 68184095 Problem Tobacco abuse Z72.0 Active 431606286 Problem Obstructive sleep apnea syndrome G47.33 Active 43312586 Problem Tremor R25.1 Active 54369198 ALLERGIES Unknown Allergies SOCIAL HISTORY No smoking Hx information available PLAN OF CARE VITAL SIGNS MEDICATIONS Unknown Medications RESULTS Name Result Date Reference Range A1C (IN HOUSE) 2016-07-10 A1C IN HOUSE 5.6 4.3 - 5.6 % Previous A1c n/a Lot [id number] Exp date 04/2018 INSULIN LEVEL 2016-07-10 Insulin 32.5 2.6-24.9 LIPID PANEL 2016-07-10 Cholesterol, Total 194 100-199 Triglycerides 180 0-149 HDL Cholesterol 29 >39 VLDL Cholesterol Zain 36 5-40 LDL Cholesterol Calc 129 0-99 CMP 2016-07-10 Glucose, Serum 108 65-99 BUN 8 6-24 Creatinine, Serum 0.78 0.57-1.00 eGFR If NonAfricn Am 90 >59 eGFR If Africn Am 104 >59 BUN/Creatinine Ratio 10 9-23 Sodium, Serum 142 134-144 Potassium, Serum 4.3 3.5-5.2 Chloride, Serum 101 96-106 Carbon Dioxide, Total 25 18-29 Calcium, Serum 9.0 8.7-10.2 Protein, Total, Serum 7.0 6.0-8.5 Albumin, Serum 4.0 3.5-5.5 Globulin, Total 3.0 1.5-4.5 A/G Ratio 1.3 1.1-2.5 Bilirubin, Total 0.3 0.0-1.2 Alkaline Phosphatase, S 74 39-117 AST (SGOT) 32 0-40 ALT (SGPT) 29 0-32 PROCEDURES Procedure Date Ordered Related Diagnosis Body Site ASSAY OF INSULIN Jul 10, 2016 LIPID PANEL Jul 10, 2016 GLYCATED HEMOGLOBIN TEST Jul 10, 2016 COMPREHEN METABOLIC PANEL Jul 10, 2016 VENIPUNCT, ROUTINE* Jul 10, 2016 IMMUNIZATIONS No Known Immunizations
--- OUTSIDE RECORDS SUMMARY | 2018-07-23 19:44 | XMS REPORT ---
Author Author PHOEBE DON [facility] [employer] Address Unknown Phone Unavailable Care Team Providers Care Tank Calibrator Name Role Phone PHOEBE DON CP Unavailable Allergies No Known Allergies Problems Problem Type Condition Code Onset Dates Condition Status Problem Need for prophylactic vaccination and inoculation, Influenza V04.81 Active Assessment Mixed hyperlipidemia E78.2 Active Problem Unspecified dermatitis due to sun 692.70 Active Assessment Essential (primary) hypertension I10 Active Problem Unspecified myalgia and myositis 729.1 Active Problem Urinary tract infection 599.0 Active Problem Abdominal pain, unspecified site 789.00 Active Problem Mixed hyperlipidemia E78.2 Active Problem Bipolar II disorder F31.81 Active Problem Screening for malignant neoplasm of the cervix V76.2 Active Problem Lumbago 724.2 Active Problem Essential (primary) hypertension I10 Active Problem Essential hypertension, benign 401.1 Active Problem Essential hypertension I10 Active Problem Dysuria 788.1 Active Problem AVILA (generalized anxiety disorder) F41.1 Active Problem 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 Active Problem Routine gynecological examination V72.31 Active Problem Counseling on substance use and abuse V65.42 Active Problem Special screening examination, human papillomavirus [HPV] V73.81 Active Problem Unspecified breast screening V76.10 Active Problem Sciatica 724.3 Active Problem Routine general medical examination at health care facility V70.0 Active Problem Anxiety state, unspecified 300.00 Active Problem Rash and other nonspecific skin eruption 782.1 Active Medications No Known Medications Results No Known Results Summary Purpose eClinicalWorks Submission
--- OUTSIDE RECORDS SUMMARY | 2018-07-23 19:44 | XMS REPORT ---
Author GRISEL Gutierrez [employer] Address Unknown Phone Unavailable Care Team Providers Care Marketing Admin Name Role Phone GRISEL ANTONIO CP Unavailable Allergies, Adverse Reactions, Alerts Substance Reaction Event Type Codeine vomiting Drug Allergy Problems Problem Type Condition Code Onset Dates Condition Status Assessment 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 Active Assessment AVILA (generalized anxiety disorder) F41.1 Active Assessment Bipolar II disorder F31.81 Active Problem Essential hypertension, benign 401.1 Active Problem Abdominal pain, unspecified site 789.00 Active Problem Lumbago 724.2 Active Problem Urinary tract infection 599.0 Active Problem Screening for malignant neoplasm of the cervix V76.2 Active Problem Dysuria 788.1 Active Problem 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 Active Problem Essential hypertension I10 Active Problem Tremor R25.1 Active Problem Simple chronic bronchitis J41.0 Active Problem Routine gynecological examination V72.31 Active Problem Unspecified breast screening V76.10 Active Problem Tobacco abuse Z72.0 Active Problem Special screening examination, human papillomavirus [HPV] V73.81 Active Problem Bipolar II disorder F31.81 Active Problem AVILA (generalized anxiety disorder) F41.1 Active Problem Essential (primary) hypertension I10 Active Problem Mixed hyperlipidemia E78.2 Active Problem Rash and other nonspecific skin eruption 782.1 Active Problem Sciatica 724.3 Active Problem Counseling on substance use and abuse V65.42 Active Problem Anxiety state, unspecified 300.00 Active Problem Unspecified dermatitis due to sun 692.70 Active Problem Unspecified myalgia and myositis 729.1 Active Problem Routine general medical examination at health care facility V70.0 Active Problem Need for prophylactic vaccination and inoculation, Influenza V04.81 Active Medications Medication Code System Code Instructions Start Date End Date Status Dosage Naproxen [facility] 21583434577 500 MG Orally 2 times a day 1 tablet as needed One-A-Day Womens Formula [facility] 07461-36178 18 mg iron-400 mcg-500 mg Ca Aug 26, 2013 1 Tablet 1 time per day Zoloft [facility] [address]-66 50 mg Orally Once a day 1 tablet Lamotrigine [facility] [address]-80 200 mg Orally Once a day May 03, 2015 1 tablet Gabapentin [facility] 10821521688 300 MG Orally 3 times a day 1 capsule Lisinopril [facility] [address]-42 20 mg Orally Once a day November 13, 2015 1 tablet Toprol XL [facility] [address]-06 25 MG Orally Once a day at bedtime November 13, 2015 1 tablet Fish Oil [facility] [address]-14 1000 MG Orally Once a day 1 capsule Red Yeast Rice [facility] 75075-42857 600 MG Orally Once a day 2 capsules BusPIRone HCl [facility] [address]-84 15 MG Orally 1 tablet in AM and 8pm and 2 tabs at 2pm 1 tablet Albuterol Sulfate HFA [facility] [address]-38 108 (90 Base) MCG/ACT Inhalation every 4 hrs December 17, 2015 2 puffs as needed Hydrochlorothiazide [facility] 15689620569 12.5 MG Orally Once a day 1 capsule Procedures Procedure Coding System Code Date Office Visit, Est Pt., Level 4 CPT-4 41005 January 22, 2016 Vital Signs Date/Time: January 22, 2016 Cardiac Monitoring Heart Rate 72 bpm Weight 265.2 lbs Height 64 in Blood Pressure Diastolic 66 mmHg Blood Pressure Systolic 104 mmHg Results No Known Results Summary Purpose [employer] Submission
[2018-07-23] MEDS ORDERED: ASPIRIN 81 MG CHEW (CHILDREN'S ASA) PO ONE (19:45)
[2018-07-23] MEDS ORDERED: ONDANSETRON 4 MG/2 ML (SDV) Z0FRAN IVP ONE (19:45)
--- OUTSIDE RECORDS SUMMARY | 2018-07-23 19:45 | XMS REPORT ---
Author GRISEL Gutierrez [employer] Address Unknown Phone Unavailable Care Team Providers Care Cat Operator Name Role Phone GRISEL ANTONIO CP Unavailable Allergies No Known Allergies Problems Problem Type Condition Code Onset Dates Condition Status Assessment 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 Active Problem Need for prophylactic vaccination and inoculation, Influenza V04.81 Active Assessment AVILA (generalized anxiety disorder) F41.1 Active Problem Unspecified dermatitis due to sun 692.70 Active Assessment Bipolar II disorder F31.81 Active Problem Unspecified myalgia and myositis 729.1 [...] other nonspecific skin eruption 782.1 Active Medications Medication Code System Code Instructions Start Date End Date Status Dosage Naproxen [facility] [address]-45 500 MG Orally 2 times a day 1 tablet as needed Zoloft [facility] [address]-05 50 mg Orally Once a day 1 tablet Gabapentin [facility] [address]-43 300 MG Orally 3 times a day 1 capsule One-A-Day Womens Formula [facility] 01554-07924 18 mg iron-400 mcg-500 mg Ca Aug 26, 2013 1 Tablet 1 time per day Lisinopril [facility] [address]-92 30 MG Orally Once a day 1 tablet BusPIRone HCl [facility] [address]-20 15 MG Orally Take 1 tablet in the AM, 12n & 5pm for anxiety 1 tablet Red Yeast Rice [facility] 33664-14426 600 MG Orally Once a day 2 capsules Fish Oil [facility] [address]-24 1000 MG Orally Once a day 1 capsule Lamotrigine [facility] [address]-42 200 MG Orally Once a day May 03, 2015 1 tablet Procedures Procedure Coding System Code Date Office Visit, Est Pt., Level 4 CPT-4 02336 October 30, 2015 Vital Signs Date/Time: October 30, 2015 Cardiac Monitoring Heart Rate 80 bpm Weight 263.2 lbs Height 64 in BMI 45.17 Index Blood Pressure Diastolic 78 mmHg Blood Pressure Systolic 132 mmHg Results No Known Results Summary Purpose [employer] Submission
--- OUTSIDE RECORDS SUMMARY | 2018-07-23 19:45 | XMS REPORT ---
Author Author KHLOE FOX [facility] Address [address] [place] [address] Care Team Providers Care Resource Recovery Specialist Name Role Phone KHLOE FOX Unavailable PROBLEMS Type Condition ICD9-CM Code [id number] Code Onset Dates Condition Status SNOMED Code Problem Bipolar II disorder F31.81 Active 31699800 Problem Essential (primary) hypertension I10 Active 47817478 Problem Mixed hyperlipidemia E78.2 Active 334961781 Problem Essential hypertension I10 Active 89065106 Problem AVILA (generalized anxiety disorder) F41.1 Active 52842736 Problem 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 Active 01514272 Problem Hyperinsulinemia E16.1 Active 93871000 Problem Morbid obesity due to excess calories E66.01 Active 177219025 Problem Simple chronic bronchitis J41.0 Active 64690702 Problem Tobacco abuse Z72.0 Active 130448018 Problem Obstructive sleep apnea syndrome G47.33 Active 09372191 Problem Tremor R25.1 Active 71858298 ALLERGIES Substance Reaction Event Type Date Status Codeine vomiting Drug Allergy Sep, Active SOCIAL HISTORY Never Assessed PLAN OF CARE Activity Details Follow Up 2 Months Reason:hyperinsulin VITAL SIGNS Height 64 in 2016-09-08 Weight 272.3 lbs 2016-09-08 Temperature 98.4 degrees Fahrenheit 2016-09-08 Heart Rate 78 bpm 2016-09-08 Respiratory Rate 20 2016-09-08 Oximetry 94 % 2016-09-08 BMI 46.74 kg/m2 2016-09-08 Blood pressure systolic 128 mmHg 2016-09-08 Blood pressure diastolic 84 mmHg 2016-09-08 MEDICATIONS Medication Instructions Dosage Frequency Start Date End Date Duration Status Hydrochlorothiazide 12.5 MG Orally Once a day 1 capsule 24h 90 Active Lisinopril 20 mg Orally Once a day 1 tablet 24h 30 Active Gabapentin 300 MG Orally 3 times a day 1 capsule 8h 30 Active BusPIRone HCl 15 MG Orally 1 tablet in AM and 8pm and 2 tabs at 2pm 1 tablet Active Naproxen 500 MG Orally 2 times a day 1 tablet as needed 12h 90 Active Toprol XL 50 MG TAKE ONE TABLET BY MOUTH AT BEDTIME Active Zoloft 50 MG Orally Once a day for depression and anxiety 1 tablet Active Albuterol Sulfate HFA 108 (90 Base) MCG/ACT Inhalation every 4 hrs 2 puffs as needed 4h 13 Dec, 2015 Active Trulicity 0.75 MG/0.5ML Subcutaneous Once a day 0.5 ml 24h Jul, 30 day(s) Active Lamotrigine 200 mg Orally Once a day 1 tablet 24h Active RESULTS No Results PROCEDURES Procedure Date Ordered Result Body Site MEASURE BLOOD OXYGEN LEVEL September 08, 2016 IMMUNIZATIONS No Known Immunizations MEDICAL (GENERAL) HISTORY Type Description Date Medical History Hypertension Medical History Post cholecystectomy 1989 Medical History Arthritis Medical History Degenerative disk disease Surgical History section 1992 Surgical History Laparoscopy-cysts on ovaries 1992 Surgical History Elbow and wrist surgery as a child Surgical History Lumpectomy on Left breast-benign 1992 Hospitalization History past surgeries
--- OUTSIDE RECORDS SUMMARY | 2018-07-23 19:45 | XMS REPORT ---
Author Author GRISEL ANTONIO Organization [employer] Address Unknown Phone Unavailable Care Team Providers Care Director Of Early Childhood Education Name Role Phone GRISEL ANTONIO CP Unavailable Allergies No Known Allergies Problems Problem Type Condition Code Onset Dates Condition Status Problem Essential hypertension, benign 401.1 Active Problem [...] Instructions Start Date End Date Status Dosage BusPIRone HCl [facility] [address]-02 15 MG Orally 1 tablet in AM and 8pm and 2 tabs at 2pm 1 tablet Results No Known Results Summary Purpose [employer] Submission
--- OUTSIDE RECORDS SUMMARY | 2018-07-23 19:45 | XMS REPORT ---
Author Author KHLOE FOX [facility] Address [address] [place] [address] Care Team Providers Care Revenue Tax Specialist Name Role Phone KHLOE FOX Unavailable PROBLEMS Type Condition ICD9-CM Code [id number] Code Onset Dates Condition Status SNOMED Code Problem Bipolar II disorder F31.81 Active 44414557 Problem Essential (primary) hypertension I10 Active 12640303 Problem Mixed hyperlipidemia E78.2 Active 159647611 Problem Essential hypertension I10 Active 47045006 Problem AVILA (generalized anxiety disorder) F41.1 Active 77440570 Problem 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 Active 07830506 Problem Hyperinsulinemia E16.1 Active 39453798 Problem Morbid obesity due to excess calories E66.01 Active 763720725 Problem Simple chronic bronchitis J41.0 Active 39106694 Problem Tobacco abuse Z72.0 Active 378303855 Problem Obstructive sleep apnea syndrome G47.33 Active 31330567 Problem Tremor R25.1 Active 39982594 ALLERGIES Unknown Allergies SOCIAL HISTORY No smoking Hx information available PLAN OF CARE VITAL SIGNS MEDICATIONS Unknown Medications RESULTS No Results PROCEDURES No Known procedures IMMUNIZATIONS No Known Immunizations
--- OUTSIDE RECORDS SUMMARY | 2018-07-23 19:45 | XMS REPORT ---
Author Author GRISEL ANTONIO Organization [employer] Address Unknown Phone Unavailable Care Team Providers Care Mine Laborer Name Role Phone GRISEL ANTONIO CP Unavailable Allergies No Known Allergies Problems Problem Type Condition Code Onset Dates Condition Status Problem Anxiety [...] dermatitis due to sun 692.70 Active Problem Essential hypertension, benign 401.1 Active Problem Special screening examination, human papillomavirus [HPV] V73.81 Active Problem Unspecified breast screening V76.10 Active Problem Lumbago 724.2 Active Problem Routine gynecological examination V72.31 Active Problem Screening for malignant neoplasm of the cervix V76.2 Active Problem Counseling on substance use and abuse V65.42 Active Medications Medication Code System Code Instructions Start Date End Date Status Dosage Lamotrigine [facility] [address]-12 25 MG Orally 1 tab at AM for 14 days; On day 15 increase to 2 tabs in the AM and continue for bipolar depression May 03, 2015 3 tablets Results No Known Results Summary Purpose [employer]ClinicalWorks Submission
--- OUTSIDE RECORDS SUMMARY | 2018-07-23 19:45 | XMS REPORT ---
Author Author BROOKLYN HASSAN [facility] Address [address] [place] [address] Care Team Providers Care Store Sales Leader Name Role Phone BROOKLYN HASSAN Unavailable PROBLEMS Type Condition ICD9-CM Code SDT36-CR Code Onset Dates Condition Status SNOMED Code Problem Bipolar II disorder F31.81 Active 97354347 Problem Essential (primary) hypertension I10 Active 17916504 Problem Mixed hyperlipidemia E78.2 Active 091314230 Problem Abnormal LFTs R94.5 Active 699668847 Problem Essential hypertension I10 Active 58918504 Problem AVILA (generalized anxiety disorder) F41.1 Active 09786952 Problem 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 Active 16669665 Problem Hyperinsulinemia E16.1 Active 18771080 Problem Morbid obesity due to excess calories E66.01 Active 686589751 Problem Simple chronic bronchitis J41.0 Active 92324682 Problem Tobacco abuse Z72.0 Active 701395101 Problem Obstructive sleep apnea syndrome G47.33 Active 09157917 Problem Tremor R25.1 Active 31478848 ALLERGIES No Information ENCOUNTERS Encounter Location Date Diagnosis [facility] [place] [id number] [place] [address] 99008- 4087 Dec, [facility] [place] [id number] [place] [address] 73686- 0245 2017 [facility] [place] [id number] [place] [address] 12541- 3536 13 Oct, 2017 [facility] [address] [address] Oct, Left hip pain M25.552 ; Left leg pain M79.605 and BMI 45.0- 49.9, adult Z68.42 [facility] [place] [address] [address]- 66[address] Oct, [facility] [place] [id number] [place] [address] 83009- 5243 Aug, BMI 45.0-49.9, adult Z68.42 ; Bipolar II disorder F31.81 and AVILA (generalized anxiety disorder) F41.1 [facility] [place] [id number] [place] [address] 81579- 2526 Jul, Abnormal LFTs R94.5 [facility] [place] [address] 8[address]05- 1513 Jul, Essential (primary) hypertension I10 ; Mixed hyperlipidemia E78.2 and Bipolar II disorder F31.81 [facility] [place] [address] 93903- 6508 Jul, [facility] [place] [id number] [place] [address] 12515- 3006 Jul, [facility] [place] [address] 62795- 3006 Jul, [facility] [place] [id number] [place] [address] 45863- 0841 Apr, [facility] [place] [id number] [place] [address] 59911- 6954 Mar, [facility] [place] [id number] [place] [address] 73355- 8971 Mar, [facility] [place] [id number] [place] [address] 49145- 9826 Feb, [facility] [place] [id number] [place] [address] 88011- 7796 Feb, Bipolar II disorder F31.81 and AVILA (generalized anxiety disorder) F41.1 [facility] [place] [id number] [place] [address] 74137- 1775 Feb, [facility] [place] [id number] [place] [address] 59160- 4893 Jan, Bipolar II disorder F31.81 ; AVILA (generalized anxiety disorder) F41.1 ; Essential hypertension I10 and Encounter for screening mammogram for breast cancer Z12.31 [place] [id number] [place] [address] 27587- 6936 November, AVILA (generalized anxiety disorder) F41.1 [place] [id number] [place] [address] 32491- 2563 November, [facility] [place] [id number] [place] [address] 51653- 8636 Sep, [place] [id number] [place] [address] 17179- 0429 Sep, [place] [address] 39766- 6596 Sep, Hyperinsulinemia E16.1 [place] [address] 79653- 4939 Sep, AVILA (generalized anxiety disorder) F41.1 and Hyperinsulinemia E16.1 [place] [id number] [place] [address] 44440- 5651 08 Aug, 2016 Hyperinsulinemia E16.1 [place] [id number] [place] [address] 27345- 6984 07 Aug, 2016 Bipolar II disorder F31.81 ; AVILA (generalized anxiety disorder) F41.1 and 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 [place] [id number] [place] [address] 98363- 3455 Jul, Obstructive sleep apnea syndrome G47.33 [place] [id number] [place] [address] 25533- 0888 Jul, [place] [id number] [place] [address] 38140- 4658 Jul, Hyperinsulinemia E16.1 ; Obstructive sleep apnea syndrome G47.33 and Morbid obesity due to excess calories E66.01 [place] [id number] [place] [address]- 0757 Jul, Mixed hyperlipidemia E78.2 and Morbid obesity due to excess calories E66.01 [place] [id number] [place] [address] 45567- 9331 Jul, Low back pain M54.5 ; Mixed hyperlipidemia E78.2 ; Obstructive sleep apnea syndrome G47.33 and Morbid obesity due to excess calories E66.01 [place] [id number] [place] [address] 50113- 2037 Jun, [place] [address] 54421- 2144 May, [place] [id number] [place] [address] 56207- 5964 Jan, Bipolar II disorder F31.81 ; AVILA (generalized anxiety disorder) F41.1 and 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 [address] [id number] [place] [address] 05095- 6644 Dec, [address] 9[address]59- 5220 Dec, Tobacco abuse Z72.0 ; Tremor R25.1 ; Simple chronic bronchitis J41.0 ; Mixed hyperlipidemia E78.2 and Essential (primary) hypertension I10 [address] 43614- 6177 November, Establishing care with new doctor, encounter for Z71.89 ; Other emphysema J43.8 ; Tremor R25.1 ; Essential (primary) hypertension I10 ; Mixed hyperlipidemia E78.2 ; 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 ; AVILA ( generalized anxiety disorder) F41.1 and Bipolar II disorder F31.81 [address] [address] [id number] [place] [address] 80744- 5612 Oct, Bipolar II disorder F31.81 ; AVILA (generalized anxiety disorder) F41.1 and 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 [place] [address] 44147- 8863 Oct, [place] [address] 07968- 5709 Sep, [place] [id number] [place] [address] 51172- 8110 Jun, Essential (primary) hypertension I10 and Mixed hyperlipidemia E78.2 [place] [address] 85992- 7013 Jun, Essential hypertension I10 [place] [id number] [place] [address] 96841- 0538 Jun, Bipolar II disorder F31.81 ; AVILA (generalized anxiety disorder) F41.1 and 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 [place] [id number] [place] [address] 52751- 0845 May, Essential hypertension I10 [place] [address] 03861- 7135 May, [place] [address] 35082- 8931 Apr, Bipolar II disorder F31.81 ; AVILA (generalized anxiety disorder) F41.1 and 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 [place] [id number] [place] [address] 65949- 1825 Apr, Generalized anxiety disorder F41.1 and Depressive disorder, not elsewhere classified F32.9 [place] [id number] [place] [address] 25341- 0497 16 Mar, 2015 Dysuria 788.1 and Chronic UTI 599.0 [place] [id number] [place] [address] 39580- 0305 Mar, Hematuria 599.70 and Chronic UTI 599.0 [place] [id number] [place] [address] 07685- 7238 Mar, [facility] [place] [address] [address]- 3083 Feb, Urinary tract infection 599.0 [facility] [place] [address] 8316 Feb, Urinary tract infection 599.0 [facility] [place] [address] [address]- 5486 Feb, Dysuria 788.1 [facility] [place] [address] [address]- 2996 Feb, Dysuria 788.1 [facility] [place] [address] [place] [address] 43028- 5476 Feb, Dysuria 788.1 [facility] [place] [address] [address]- 5324 Feb, Dysuria 788.1 [facility] [place] [address] [address]- 3819 Jan, Dysuria 788.1 [facility] [place] [address] [address]- 0791 Jan, [facility] [place] [address] [address]- 3468 Dec, Anxiety state, unspecified 300.00 ; Urinary tract infection 599.0 and Chronic low back pain 724.2 [facility] [place] [address] [address]- 5133 Dec, [facility] [place] [address] [address]- 6286 November, [facility] [place] [address] 5010 Oct, [facility] [place] [address] [address]- 1452 Oct, [facility] [place] [id number] [place] [address]- 6021 17 Sep, 2014 [facility] [address] [id number] [place] [address]- 9142 17 Sep, 2014 [facility] [place] [facility] [address] [id number] [place] [address]- 6700 13 Jul, 2014 [facility] [place] [facility] [address] [id number] [place] [address]- 9588 13 Jul, 2014 [facility] [place] [facility] [address] [id number] [place] [address]- 5193 13 Jul, 2014 [facility] [place] [facility] [address] [id number] [place] [address]- 5394 Jul, [facility] [place] [facility] [address] [id number] [place] [address]- 3380 Jul, [facility] [address] [id number] [place] [address]- 3491 Jul, [facility] [place] [facility] [address] [id number] [place] [address]- 4752 Jul, [facility] [place] [facility] [address] [id number] [place] [address]- 2445 Jul, [facility] [place] [facility] [address] [id number] [place] [address]- 9886 Jun, [facility] [place] [facility] [address] [id number] [place] [address]- 6671 Jun, [facility] [place] [facility] [address] [id number] [place] [address]- 7846 18 Jun, 2014 [facility] [place] [facility] [address] [id number] [place] [address]- 0693 Jun, [facility] [place] [facility] [address] [id number] [place] [address]- 0168 Jun, [facility] [place] [facility] [address] [id number] [place] [address]- 8332 Jun, [facility] [place] [facility] [address] [id number] [place] [address]- 7119 17 Jun, 2014 [facility] [place] [facility] [address] [id number] [place] [address]- 1111 17 Jun, 2014 [facility] [place] [facility] [address] [id number] [place] [address]- 3159 16 Jun, 2014 [facility] [place] [facility] [address] [id number] [place] [address]- 2064 16 Jun, 2014 [facility] [place] [facility] [address] [id number] [place] [address]- 9525 16 Jun, 2014 [facility] [place] [facility] [address] [id number] [place] [address]- 9218 Jun, [facility] [place] [facility] [address] [id number] [place] [address]- 9497 12 Jun, 2014 [facility] [place] [facility] [address] [id number] [place] [address]- 4404 12 Jun, 2014 [facility] [place] [facility] [address] [id number] [place] [address]- 0861 Jun, [facility] [place] [facility] [address] [id number] [place] [address]- 3610 Jun, [facility] [place] [facility] [address] [id number] [place] [address]- 2453 18 May, 2014 [facility] [place] [facility] [address] [id number] [place] [address]- 7711 18 May, 2014 [facility] [place] [facility] [address] [id number] [place] [address]- 0808 18 May, 2014 [facility] [place] [facility] [address] [id number] [place] [address]- 0881 18 May, 2014 [facility] [place] [facility] [address] [id number] [place] [address]- 3303 25 Mar, 2014 [facility] [place] [facility] [address] [id number] [place] [address]- 2546 Mar, [facility] [place] [facility] [address] [id number] [place] 2864 Mar, [facility] [place] [facility] [address] [id number] [place] [address]- 8876 Mar, [facility] [place] [facility] [address] [id number] [place] [address]- 9489 Feb, [facility] [place] [facility] [address] [id number] [place] [address]- 0451 Feb, [facility] [place] [facility] [address] [id number] [place] 3746 Feb, [facility] [place] [facility] [address] [id number] [place] [address]- 9008 Jan, [facility] [place] [facility] [address] [id number] [place] [address]- 4029 Dec, [facility] [place] [facility] [address] [id number] [place] [address]- 6352 Dec, [facility] [place] [facility] [address] [id number] [place] [address]- 3176 November, [facility] [place] [facility] [address] [id number] [place] [address]- 9253 November, [facility] [place] [facility] [address] [id number] [place] [address]- 5885 November, [facility] [place] [facility] [address] [id number] [place] [address]- 2181 November, [facility] [place] [facility] [address] [id number] [place] [address]- 1943 Oct, [facility] [place] [facility] [address] [id number] [place] [address]- 9474 Oct, [facility] [place] [facility] [address] [id number] [place] [address]- 9014 Sep, [facility] [place] [facility] [address] [id number] [place] [address]- 9366 Sep, [facility] [place] [facility] [address] [id number] [place] [address]- 2561 Sep, [facility] [place] [facility] [address] [id number] [place] [address]- 3895 Sep, [facility] [place] [facility] [address] [id number] [place] [address]- 0782 Aug, [facility] [place] [facility] [address] [id number] [place] [address]- 2985 Aug, [facility] [place] [facility] [address] [id number] [place] [address]- 7560 Aug, [facility] [place] [facility] [address] [id number] [place] [address]- 7150 Aug, [facility] [place] [facility] [address] [id number] [place] [address]- 1549 Aug, [facility] [place] [facility] [address] [id number] [place] [address]- 0745 Aug, [facility] [place] [facility] [address] [id number] [place] [address]- 4894 Aug, [facility] [place] [facility] [address] [id number] [place] [address]- 7019 Jul, [facility] [place] [facility] [address] [id number] [place] [address]- 2214 Jul, [facility] [place] [facility] [address] [id number] [place] [address]- 8447 Jul, [facility] [place] [facility] [address] [id number] [place] [address]- 3965 Jul, [facility] [place] [facility] [address] [id number] [place] [address]- 0495 Jun, [facility] [place] [facility] [address] [id number], [place] [address]- 9056 Jun, [facility] [place] [address] [facility] [id number], [place] [address]- 1373 Jun, [facility] [place] [address] [facility] [id number], [place] [address]- 2546 Jun, [facility] [place] [address] [facility] [id number], [place] [address]- 2546 Jun, [facility] [place] [address] [facility] [id number], [place] [address]- 2546 Jun, [facility] [place] [address] [facility] [id number], [place] [address]- 6796 Apr, [facility] [place] [address] [facility] [id number], [place] [address]- 6348 Apr, IMMUNIZATIONS No Known Immunizations SOCIAL HISTORY [...]
--- OUTSIDE RECORDS SUMMARY | 2018-07-23 19:45 | XMS REPORT ---
Author PHOEBE Hernandez [facility] [place] e[employer] Address Unknown Phone Unavailable Care Team Providers Care Airport Operations Officer Name Role Phone PHOEBE DON CP Unavailable Allergies, Adverse Reactions, Alerts Substance Reaction Event Type Codeine Info Not Available Drug Allergy Problems Problem Type Condition Code Onset Dates Condition Status Problem Need for prophylactic vaccination and inoculation, Influenza V04.81 Active Problem Unspecified myalgia and myositis 729.1 Active Problem Unspecified dermatitis due to sun 692.70 Active Problem AVILA (generalized anxiety disorder) F41.1 Active Problem Essential hypertension, benign 401.1 Active Problem 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 Active Assessment Essential hypertension I10 Active Problem Bipolar II disorder F31.81 Active Problem Urinary tract infection 599.0 Active Problem Abdominal pain, unspecified site 789.00 Active Problem Essential hypertension I10 Active Problem Dysuria 788.1 Active Problem Special screening examination, human papillomavirus [HPV] V73.81 Active Problem Unspecified breast screening V76.10 Active Problem Lumbago 724.2 Active Problem Screening for malignant neoplasm of the cervix V76.2 Active Problem Anxiety state, unspecified 300.00 Active Problem Rash and other nonspecific skin eruption 782.1 Active Problem Routine gynecological examination V72.31 Active Problem Sciatica 724.3 Active Problem Counseling on substance use and abuse V65.42 Active Problem Routine general medical examination at health care facility V70.0 Active Medications Medication Code System Code Instructions Start Date End Date Status Dosage Gabapentin [facility] [address]-29 300 MG TAKE ONE TABLET BY MOUTH THREE TIMES DAILY Lisinopril [facility] [address]-73 30 MG Orally Once a day May 24, 2015 1 tablet Hydrochlorothiazide [facility] [address]-62 12.5 MG Orally Once a day May 24, 2015 1 tablet Lamotrigine [facility] [address]-58 100 MG Orally Once a day May 03, 2015 1 tablet BusPIRone HCl [facility] [address]-98 15 MG Orally Take 1 tablet in the AM, 12n & 5pm for anxiety 1 tablet One-A-Day Womens Formula [facility] 85947-20696 18 mg iron-400 mcg-500 mg Ca Aug 26, 2013 1 Tablet 1 time per day Fish Oil [facility] [address]-00 1000 MG Orally Once a day 1 capsule Naproxen [facility] [address]-04 500 MG Orally every 12 hrs January 11, 2015 1 tablet as needed Zoloft [facility] [address]-53 50 MG Orally Once a day May 03, 2015 1 tablet Procedures Procedure Coding System Code Date COMPREHEN METABOLIC PANEL CPT-4 43995 Jun 26, 2015 LIPID PANEL CPT-4 21154 Jun 26, 2015 COMPLETE CBC W/AUTO DIFF WBC CPT-4 49429 Jun 26, 2015 Office Visit, Est Pt., Level 3 CPT-4 78593 Jun 26, 2015 ASSAY THYROID STIM HORMONE CPT-4 68424 Jun 26, 2015 VENIPUNCT, ROUTINE* CPT-4 06007 Jun 26, 2015 Vital Signs Date/Time: Jun 26, 2015 Temperature 97.3 F Weight 269.4 lbs Height 64 in BMI 46.24 Index Blood Pressure Diastolic 78 mmHg Blood Pressure Systolic 132 mmHg Cardiac Monitoring Heart Rate 82 bpm Results Name Result Date Reference Range Unit Abnormality Flag ROUTINE VENIPUNCTURE Summary Purpose eClinicalWorks Submission
--- OUTSIDE RECORDS SUMMARY | 2018-07-23 19:45 | XMS REPORT ---
Author Author KHLOE FOX Organization [employer] Address Unknown Phone Unavailable Care Team Providers Care Pulp Bleacher Name Role Phone KHLOE FOX CP Unavailable Allergies No Known Allergies Problems Problem Type Condition Code Onset Dates Condition Status Problem Unspecified myalgia and myositis 729.1 Active Problem Urinary tract infection 599.0 Active Problem Abdominal pain, unspecified site 789.00 Active Problem Mixed hyperlipidemia E78.2 Active Problem Screening for malignant neoplasm of the cervix V76.2 Active Problem Bipolar II disorder F31.81 Active Problem Lumbago 724.2 Active Problem Essential hypertension, benign 401.1 Active Problem Essential (primary) hypertension I10 Active Problem Essential hypertension I10 Active Problem [...] Problem Anxiety state, unspecified 300.00 Active Problem Need for prophylactic vaccination and inoculation, Influenza V04.81 Active Problem Rash and other nonspecific skin eruption 782.1 Active Problem Unspecified dermatitis due to sun 692.70 Active Medications Medication Code System Code Instructions Start Date End Date Status Dosage Hydrochlorothiazide [facility] [address]-97 12.5 MG Orally Once a day 1 capsule Lisinopril [facility] [address]-46 30 MG Orally Once a day 1 tablet Naproxen [facility] [address]-54 500 MG Orally 2 times a day 1 tablet as needed Gabapentin [facility] [address]-58 300 MG Orally 3 times a day 1 capsule Results No Known Results Summary Purpose eClinicalWorks Submission
--- OUTSIDE RECORDS SUMMARY | 2018-07-23 19:46 | XMS REPORT ---
Author Author KHLOE FOX [facility] Address [address] [place] [address] Care Team Providers Care Heavy Equipment Operator Name Role Phone KHLOE FOX Unavailable PROBLEMS Type Condition ICD9-CM Code WLN01-[id number] Code Onset Dates Condition Status SNOMED Code Problem Bipolar II disorder F31.81 Active 09016191 Problem Essential (primary) hypertension I10 Active 97027628 Problem Mixed hyperlipidemia E78.2 Active 485297020 Problem Essential hypertension I10 Active 94503210 Problem AVILA (generalized anxiety disorder) F41.1 Active 76874580 Problem 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 Active 16441457 Problem Hyperinsulinemia E16.1 Active 35365664 Problem Morbid obesity due to excess calories E66.01 Active 897647217 Problem Simple chronic bronchitis J41.0 Active 62588533 Problem Tobacco abuse Z72.0 Active 824067861 Problem Obstructive sleep apnea syndrome G47.33 Active 13953091 Problem Tremor R25.1 Active 41367909 ALLERGIES Unknown Allergies SOCIAL HISTORY No smoking Hx information available PLAN OF CARE VITAL SIGNS MEDICATIONS Medication Instructions Dosage Frequency Start Date End Date Duration Status Trulicity 0.75 MG/0.5ML Subcutaneous Once a day 0.5 ml 24h Jul, 30 day(s) Active RESULTS No Results PROCEDURES No Known procedures IMMUNIZATIONS No Known Immunizations
--- OUTSIDE RECORDS SUMMARY | 2018-07-23 19:46 | XMS REPORT ---
Author Author KHLOE FOX [facility] Address [address] [place] [address] Care Team Providers Care Diesel Fitter Mechanic Name Role Phone KHLOE FOX Unavailable PROBLEMS Type Condition ICD9-CM Code [id number] Code Onset Dates Condition Status SNOMED Code Problem Bipolar II disorder F31.81 Active 46857880 Problem Essential (primary) hypertension I10 Active 48651166 Problem Mixed hyperlipidemia E78.2 Active 182851420 Problem Essential hypertension I10 Active 13318297 Problem AVILA (generalized anxiety disorder) F41.1 Active 93331575 Problem 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 Active 27859335 Problem Hyperinsulinemia E16.1 Active 88619680 Problem Morbid obesity due to excess calories E66.01 Active 573746107 Problem Simple chronic bronchitis J41.0 Active 29405953 Problem Tobacco abuse Z72.0 Active 394667058 Problem Obstructive sleep apnea syndrome G47.33 Active 47591875 Problem Tremor R25.1 Active 99727971 ALLERGIES Substance Reaction Event Type Date Status Codeine vomiting Drug Allergy Jul, Active SOCIAL HISTORY No smoking Hx information available PLAN OF CARE Activity Details Follow Up 2 Weeks Reason:obesity VITAL SIGNS Height 64 in 2016-07-07 Weight 273.5 lbs 2016-07-07 Temperature 97.7 degrees Fahrenheit 2016-07-07 Heart Rate 68 bpm 2016-07-07 Respiratory Rate 20 2016-07-07 BMI 46.94 kg/m2 2016-07-07 Blood pressure systolic 120 mmHg 2016-07-07 Blood pressure diastolic 80 mmHg 2016-07-07 MEDICATIONS Medication Instructions Dosage Frequency Start Date End Date Duration Status BusPIRone HCl 15 MG Orally 1 tablet in AM and 8pm and 2 tabs at 2pm 1 tablet Active One-A-Day Womens Formula 18 mg iron-400 mcg-500 mg Ca 1 Tablet 1 time per day Aug, Active Zoloft 50 MG TAKE ONE TABLET BY MOUTH ONCE DAILY 30 Active Albuterol Sulfate HFA 108 (90 Base) MCG/ACT Inhalation every 4 hrs 2 puffs as needed 4h 13 Dec, 2015 Active Gabapentin 300 MG Orally 3 times a day 1 capsule 8h 30 Active Red Yeast Rice 600 MG Orally Once a day 2 capsules 24h Active Toprol XL 25 MG Orally Once a day at bedtime 1 tablet November, 90 Active Hydrochlorothiazide 12.5 MG Orally Once a day 1 capsule 24h 90 Active Naproxen 500 MG Orally 2 times a day 1 tablet as needed 12h 90 Active Fish Oil 1000 MG Orally Once a day 1 capsule 24h Active Lisinopril 20 mg Orally Once a day 1 tablet 24h November, 30 Active Lamotrigine 200 MG TAKE ONE TABLET BY MOUTH ONCE DAILY 30 Active RESULTS No Results PROCEDURES Procedure Date Ordered Related Diagnosis Body Site Office Visit, Est Pt., Level 3 Jul 07, 2016 IMMUNIZATIONS No Known Immunizations
--- OUTSIDE RECORDS SUMMARY | 2018-07-23 19:46 | XMS REPORT ---
Author Author KHLOE FOX [facility] Address [address] [place] [address] Care Team Providers Care Dolphin Trainer Name Role Phone KHLOE FOX Unavailable PROBLEMS Type Condition ICD9-CM Code [id number] Code Onset Dates Condition Status SNOMED Code Problem Bipolar II disorder F31.81 Active 56334748 Problem Essential (primary) hypertension I10 Active 99469380 Problem Mixed hyperlipidemia E78.2 Active 209873954 Problem Essential hypertension I10 Active 48239846 Problem AVILA (generalized anxiety disorder) F41.1 Active 33506792 Problem 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 Active 52079472 Problem Hyperinsulinemia E16.1 Active 16331386 Problem Morbid obesity due to excess calories E66.01 Active 608019529 Problem Simple chronic bronchitis J41.0 Active 36747665 Problem Tobacco abuse Z72.0 Active 010388372 Problem Obstructive sleep apnea syndrome G47.33 Active 07823366 Problem Tremor R25.1 Active 47500494 ALLERGIES Unknown Allergies SOCIAL HISTORY No smoking Hx information available PLAN OF CARE VITAL SIGNS MEDICATIONS Unknown Medications RESULTS No Results PROCEDURES Procedure Date Ordered Related Diagnosis Body Site SLEEP STUDY ([facility]) 2016-07-30 NOT PERFORMED/SEE INTERNAL NOTES IMMUNIZATIONS No Known Immunizations
--- OUTSIDE RECORDS SUMMARY | 2018-07-23 19:46 | XMS REPORT ---
Author Author KHLOE FOX Organization [facility] Address [address] [place] [address] Care Team Providers Care Occup Ther Name Role Phone KHLOE FOX Unavailable PROBLEMS Type Condition ICD9-CM Code FCE71-MB Code Onset Dates Condition Status SNOMED Code Problem Bipolar II disorder F31.81 Active 04100133 Problem Essential (primary) hypertension I10 Active 84303501 Problem Mixed hyperlipidemia E78.2 Active 408997541 Problem Abnormal LFTs R94.5 Active 694063453 Problem Essential hypertension I10 Active 46394408 Problem AVILA (generalized anxiety disorder) F41.1 Active 86345729 Problem 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 Active 56246259 Problem Hyperinsulinemia E16.1 Active 63969529 Problem Morbid obesity due to excess calories E66.01 Active 965819835 Problem Simple chronic bronchitis J41.0 Active 43823243 Problem Tobacco abuse Z72.0 Active 975520826 Problem Obstructive sleep apnea syndrome G47.33 Active 35977185 Problem Tremor R25.1 Active 90390330 ALLERGIES Substance Reaction Event Type Date Status Codeine vomiting Drug Allergy Jul, Active ENCOUNTERS Encounter Location Date Diagnosis [facility] [address] [address] Jan, [facility] [id number] [place] [address] November, Abnormal LFTs R94.5 [facility] [address], [place] [address] Oct, [facility] [address] [address] Oct, [facility] [id number] [address] Oct, Left hip pain M25.552 ; Left leg pain M79.605 and BMI 45.0- 49.9, adult Z68.42 [facility] [address] [address] Oct, [facility] [address] [address] 13 Aug, 2017 BMI 45.0-49.9, adult Z68.42 ; Bipolar II disorder F31.81 and AVILA (generalized anxiety disorder) F41.1 [facility] [address] [address] Jul, Abnormal LFTs R94.5 [facility] [address] [address]- [address] Jul, Essential (primary) hypertension I10 ; Mixed hyperlipidemia E78.2 and Bipolar II disorder F31.81 [facility] [address] [address] Jul, [facility] [address] [address] Jul, [facility] [address] [address]- [address] Jul, [facility] [id number] [place] [address]- 7014 Apr, [facility] [id number] [place] [address]27- 3912 Mar, [facility] [id number] [place] [address]25- 8716 Mar, [facility] [address] [address]- [address] Feb, [facility] [address] [address]- 4[address] Feb, Bipolar II disorder F31.81 and AVILA (generalized anxiety disorder) F41.1 [place] [id number] [place] [address] 8[address]46- 4[address] Feb, [facility] [id number] [place] [address] 078[address]- 5423 Jan, Bipolar II disorder F31.81 ; AVILA (generalized anxiety disorder) F41.1 ; Essential hypertension I10 and Encounter for screening mammogram for breast cancer Z12.31 [place] [address] [address]- [address] November, AVILA (generalized anxiety disorder) F41.1 [place] [facility] [id number] [place] [address] 49117- 9238 November, [facility] [id number] [place] [address] 12487- 3443 Sep, [facility] [id number] [place] [address] 40533- 0450 Sep, [facility] [id number] [place] [address] 55022- 6500 Sep, Hyperinsulinemia E16.1 [place] [facility] [id number] [place] [address] 04131- 1290 Sep, AVILA (generalized anxiety disorder) F41.1 and Hyperinsulinemia E16.1 [facility] [id number] [place] [address] 96933- 3707 08 Aug, 2016 Hyperinsulinemia E16.1 [facility] [id number] [place] [address] 50950- 4153 07 Aug, 2016 Bipolar II disorder F31.81 ; AVILA (generalized anxiety disorder) F41.1 and 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 [facility] [id number] [place] [address] 05901- 2614 Jul, Obstructive sleep apnea syndrome G47.33 [place] [facility] [id number] [place] [address] 24631- 5419 Jul, [place] [facility] [id number] [place] [address] 32818- 1080 Jul, Hyperinsulinemia E16.1 ; Obstructive sleep apnea syndrome G47.33 and Morbid obesity due to excess calories E66.01 [facility] [id number] [place] [address] 80497- 9860 Jul, Morbid obesity due to excess calories E66.01 and Mixed hyperlipidemia E78.[address] [address]- [address] Jul, Low back pain M54.5 ; Mixed hyperlipidemia E78.2 ; Obstructive sleep apnea syndrome G47.33 and Morbid obesity due to excess calories E66.01 [id number] [place] [address] 48300- 4717 Jun, [id number] [place] [address] 03955- 1578 May, [id number] [place] [address] 13047- 8899 Jan, Bipolar II disorder F31.81 ; AVILA (generalized anxiety disorder) F41.1 and 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 [id number] [place] [address] 740[address]- 1990 Dec, [id number] [place] [address] 97588- 5322 Dec, Tobacco abuse Z72.0 ; Tremor R25.1 ; Simple chronic bronchitis J41.0 ; Mixed hyperlipidemia E78.2 and Essential (primary) hypertension I10 [id number] [place] [address] 26309- 9231 November, Establishing care with new doctor, encounter for Z71.89 ; Other emphysema J43.8 ; Tremor R25.1 ; Essential (primary) hypertension I10 ; Mixed hyperlipidemia E78.2 ; 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 ; AVILA ( generalized anxiety disorder) F41.1 and Bipolar II disorder F31.81 [address] [place] [address]- 94[address] Oct, Bipolar II disorder F31.81 ; AVILA (generalized anxiety disorder) F41.1 and 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 [facility] [id number] [place] [address] 50930- 8132 Oct, [facility] [address] [address]- 82[address] Sep, [facility] [address] 317[address]- 9445 Jun, Essential (primary) hypertension I10 and Mixed hyperlipidemia E78.2 [place] [address] [address]- 4673 Jun, Essential hypertension I10 [place] [address] 21251- 3564 Jun, Bipolar II disorder F31.81 ; AVILA (generalized anxiety disorder) F41.1 and 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 [place] [id number] [place] [address] 24311- 4611 May, Essential hypertension I10 [place] [address] 56557- 0029 May, [place] [id number] [place] [address] 36073- 6995 Apr, Bipolar II disorder F31.81 ; AVILA (generalized anxiety disorder) F41.1 and 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 [place] [id number] [place] [address] 02915- 8656 05 Apr, 2015 Generalized anxiety disorder F41.1 and Depressive disorder, not elsewhere classified F32.9 [place] [id number] [place] [address] 60996- 1151 16 Mar, 2015 Dysuria 788.1 and Chronic UTI 599.0 [place] [address] [address]- 7688 Mar, Hematuria 599.70 and Chronic UTI 599.0 [facility] [address], [place] [address]- 9[address] Mar, [facility] [address], [place] [address]- 3234 Feb, Urinary tract infection 599.0 [facility] [id number] [place] [address] 65170- 3423 Feb, Urinary tract infection 599.0 [facility] [id number] [place] [address] 87028- 6722 Feb, Dysuria 788.1 [facility] [id number] [place] [address] 75650- 0808 Feb, Dysuria 788.1 [facility] [id number] [place] [address] 83427- 1716 Feb, Dysuria 788.1 [facility] [id number] [place] [address] 18221- 9105 Feb, Dysuria 788.1 [facility] [id number] [place] [address] 19751- 4022 Jan, Dysuria 788.1 [facility] [address] [place] [address] 02310- 5494 Jan, [facility] [id number] [place] [address] 86908- 3330 Dec, Urinary tract infection 599.0 ; Anxiety state, unspecified 300.00 and Chronic low back pain 724.2 [facility] [address], [place] [address]- 8251 Dec, [facility] [address], [place] [address]- 5998 November, [facility] [id number] [place] [address] 34354- 2018 14 Oct, 2014 [facility] [place] [facility] [address] [id number] [place] [address]- 7059 13 Oct, 2014 [facility] [place] [facility] [address] [id number] [place] [address]- 8763 17 Sep, 2014 [facility] [place] [facility] [address] [id number] [place] [address]- 9659 17 Sep, 2014 [facility] [place] [facility] [address] [id number] [place] [address]- 7957 13 Jul, 2014 [facility] [place] [facility] [address] [id number] [place] [address]- 6866 Jul, [facility] [place] [facility] [address] [id number] [place] [address]- 8461 Jul, [facility] [place] [facility] [address] [id number] [place] [address]- 8966 Jul, [facility] [place] [facility] [address] [id number] [place] [address]- 3570 Jul, [facility] [place] [facility] [address] [id number] [place] [address]- 9160 Jul, [facility] [place] [facility] [address] [id number] [place] [address]- 8260 Jul, [facility] [place] [facility] [address] [id number] [address]- 6385 Jul, [facility] [place] [facility] [address] [id number] [place] [address]- 7541 Jun, [facility] [place] [facility] [address] [id number] [place] [address]- 1378 Jun, [facility] [place] [facility] [address] [id number] [place] [address]- 0163 Jun, [facility] [place] [facility] [address] [id number] [place] [address]- 5917 Jun, [facility] [place] [facility] [address] [id number] [place] [address]- 7782 17 Jun, 2014 [facility] [place] [facility] [address] [id number] [place] [address]- 5461 17 Jun, 2014 [facility] [place] [facility] [address] [id number] [place] [address]- 3777 17 Jun, 2014 [facility] [place] [facility] [address] [id number] [place] [address]- 2311 17 Jun, 2014 [facility] [place] [facility] [address] [id number] [place] [address]- 9906 16 Jun, 2014 [facility] [place] [facility] [address] [id number] [place] [address]- 4873 16 Jun, 2014 [facility] [place] [facility] [address] [id number] [place] [address]- 7317 16 Jun, 2014 [facility] [place] [facility] [address] [id number] [place] [address]- 1420 16 Jun, 2014 [facility] [place] [facility] [address] [id number] [place] [address]- 4143 12 Jun, 2014 [facility] [place] [facility] [address] [id number] [place] [address]- 2086 12 Jun, [address] [facility] [place] [facility] [address] [id number] [place] [address]- 0072 11 Jun, 2014 [facility] [place] [facility] [address] [id number] [place] [address]- 7885 11 Jun, 2014 [facility] [place] [facility] [address] [id number] [place] [address]- 7356 18 May, 2014 [facility] [place] [facility] [address] [id number] [place] [address]- 6858 18 May, 2014 [facility] [place] [facility] [address] [id number] [place] [address]- 0394 18 May, 2014 [facility] [place] [facility] [address] [id number] [place] [address]- 1195 May, [facility] [place] [facility] [address] [id number] [place] [address]- 3809 Mar, [facility] [place] [facility] [address] [id number] [place] [address]- 3493 Mar, [facility] [place] [facility] [address] [id number] [place] [address]- 1407 Mar, [facility] [place] [facility] [address] [id number] [place] [address]- 7501 Mar, [facility] [place] [facility] [address] [id number] [place] [address]- 2865 Feb, [facility] [place] [facility] [address] [id number] [place] [address]- 9317 Feb, [facility] [place] [facility] [address] [id number] [place] [address]- 9712 Feb, [facility] [place] [facility] [address] [id number] [place] [address]- 9288 Jan, [facility] [place] [facility] [address] [id number] [place] [address]- 3619 Dec, [facility] [place] [facility] [address] [id number] [place] [address]- 9223 Dec, [facility] [place] [facility] [address] [id number] [place] [address]- 1270 November, [facility] [place] [facility] [address] [id number] [place] [address]- 3547 November, [facility] [place] [facility] [address] [id number] [place] [address]- 5545 November, [facility] [place] [facility] [address] [id number] [place] [address]- 3084 November, [facility] [place] [facility] [address] [id number] [place] 3994 Oct, [facility] [place] [facility] [address] [id number] [place] [address]- 9704 Oct, [facility] [place] [facility] [address] [id number] [place] [address]- 7548 Sep, [facility] [place] [facility] [address] [id number] [place] [address]- 7642 Sep, [facility] [place] [facility] [address] [id number] [place] [address]- 2934 Sep, [facility] [place] [facility] [address] [id number] [place] [address]- 9367 Sep, [facility] [place] [facility] [address] [id number] [place] [address]- 9540 Aug, [facility] [place] [facility] [address] [id number] [place] [address]- 5939 Aug, [facility] [place] [facility] [address] [id number] [place] [address]- 5160 Aug, [facility] [place] [facility] [address] [id number] [place] [address]- 3241 Aug, [facility] [place] [facility] [address] [id number] [place] [address]- 7692 Aug, [facility] [place] [facility] [address] [id number] [place] [address]- 2830 Aug, [facility] [place] [facility] [address] [id number] [place] [address]- 5348 Aug, [facility] [place] [facility] [address] [id number] [place] [address]- 2953 Jul, [facility] [place] [facility] [address] [id number] [place] [address]- 5667 Jul, [facility] [place] [facility] [address] [id number] [place] [address]- 7747 Jul, [facility] [place] [facility] [address] [id number] [place] [address]- 3542 Jul, [facility] [id number] [address]- 5243 Jun, [facility] [id number] [address]- 8564 Jun, [facility] [address], [place] [address]- 7970 Jun, [facility] [address] [address]- 5191 Jun, [facility] [id number] [address]- 1730 Jun, [facility] [address] [address] Jun, [facility] [address] [address]- 1858 Apr, [facility] [id number] [address]- 6233 Apr, IMMUNIZATIONS No Known Immunizations SOCIAL HISTORY Never Assessed REASON FOR VISIT Hypertension / Anxiety-Barbi COLON PLAN OF CARE Activity Details Follow Up 6 Months Reason:BP VITAL SIGNS Height 64 in 2017-07-27 Weight 263.6 lbs 2017-07-27 Temperature 97.8 degrees Fahrenheit 2017-07-27 Heart Rate 62 bpm 2017-07-27 Respiratory Rate 18 2017-07-27 BMI 45.24 kg/m2 2017-07-27 Blood pressure systolic 108 mmHg 2017-07-27 Blood pressure diastolic 72 mmHg 2017-07-27 MEDICATIONS Medication Instructions Dosage Frequency Start Date End Date Duration Status BusPIRone HCl 15 MG Orally 1 tablet in AM and 8pm and 2 tabs at 2pm 1 tablet 30 Active Hydrochlorothiazide 12.5 MG Orally Once a day 1 capsule 24h 90 Active Gabapentin 300 MG Orally 3 times a day 1 capsule 8h 30 Active Albuterol Sulfate HFA 108 (90 Base) MCG/ACT Inhalation every 4 hrs 2 puffs as needed 4h 13 Dec, 2015 Active Lamotrigine 200 MG TAKE ONE TABLET BY MOUTH ONCE DAILY 30 Active Toprol XL 50 MG Orally Once a day 1 tablet at bedtime 24h 30 Active Latuda 40 mg Orally Once in the evening with 350 calories 1 tablet Feb 10 days Active Zoloft 100 MG TAKE ONE TABLET BY MOUTH ONCE DAILY FOR DEPRESSION AND ANXIETY 30 Active Naproxen 500 MG TAKE ONE TABLET BY MOUTH TWICE DAILY NEEDED 90 Active Lisinopril 20 mg Orally Once a day 1 tablet 24h 30 Active RESULTS No Results PROCEDURES Procedure Date Ordered Result Body Site COMPREHEN METABOLIC PANEL Jul 27, 2017 LIPID PANEL Jul 27, 2017 VENIPUNCT, ROUTINE* Jul 27, 2017 INSTRUCTIONS MEDICATIONS ADMINISTERED No Known Medications [...]
--- OUTSIDE RECORDS SUMMARY | 2018-07-23 19:46 | XMS REPORT ---
Author GRISEL Gutierrez [employer] Address Unknown Phone Unavailable Care Team Providers Care Coil Strapper Name Role Phone GRISEL ANTONIO CP Unavailable [...] 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 Active Assessment Bipolar II disorder F31.81 Active Assessment AVILA (generalized anxiety disorder) F41.1 Active Problem Bipolar II disorder F31.81 Active [...] examination V72.31 Active Problem Sciatica 724.3 Active Assessment 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 Active Problem Counseling on substance use and abuse V65.42 Active Problem Routine general medical examination at health care facility V70.0 Active Medications Medication Code System Code Instructions Start Date End Date Status Dosage BusPIRone HCl [facility] [address]-63 15 MG Orally Take 1 tablet in the AM, 12n & 5pm for anxiety 1 tablet Lisinopril [facility] [address]-88 30 MG Orally Once a day May 24, 2015 1 tablet Naproxen [facility] [address]-83 500 MG Orally every 12 hrs January 11, 2015 1 tablet as needed One-A-Day Womens Formula [facility] [address] 18 mg iron-400 mcg-500 mg Ca Aug 26, 2013 1 Tablet 1 time per day Zoloft [facility] [address]-88 50 MG Orally Once a day May 03, 2015 1 tablet Hydrochlorothiazide [facility] [address]-70 12.5 MG Orally Once a day May 24, 2015 1 tablet Lamotrigine [facility] [address]-06 100 MG Orally Once a day May 03, 2015 1 tablet Gabapentin [facility] 20860893543 300 MG TAKE ONE CAPSULE BY MOUTH THREE TIMES DAILY Fish Oil [facility] [address]-99 1000 MG Orally Once a day 1 capsule Procedures Procedure Coding System Code Date Office Visit, Est Pt., Level 4 CPT-4 10489 Jun 14, 2015 Vital Signs Date/Time: Jun 14, 2015 Cardiac Monitoring Heart Rate 76 bpm Weight 272.3 lbs Height 64 in BMI 46.74 Index Blood Pressure Diastolic 78 mmHg Blood Pressure Systolic 120 mmHg Results No Known Results Summary Purpose eClinicalWorks Submission
--- OUTSIDE RECORDS SUMMARY | 2018-07-23 19:47 | XMS REPORT ---
Author PHOEBE Hernandez [facility] eClinicalWorks Address Unknown Phone Unavailable Care Team Providers Care Glass Rolling Machine Operator Name Role Phone PHOEBE DON CP Unavailable Allergies, Adverse Reactions, Alerts Substance Reaction Event Type Codeine Info Not Available Drug Allergy Problems Problem Type Condition Code Onset Dates Condition Status Problem Rash and other nonspecific skin eruption 782.1 Active Problem Routine general medical examination at health care facility V70.0 Active Problem Sciatica 724.3 Active Problem Dysuria 788.1 Active Problem Urinary tract infection 599.0 Active Problem Essential hypertension I10 Active Problem Unspecified dermatitis due to sun 692.70 Active Problem Need for prophylactic vaccination and inoculation, Influenza V04.81 Active Problem Abdominal pain, unspecified site 789.00 Active Problem Unspecified myalgia and myositis 729.1 Active Problem Essential hypertension, benign 401.1 Active Problem Lumbago 724.2 Active Assessment Essential hypertension I10 Active Problem Unspecified breast screening V76.10 Active Problem Routine gynecological examination V72.31 Active Problem Screening for malignant neoplasm of the cervix V76.2 Active Problem Counseling on substance use and abuse V65.42 Active Problem Special screening examination, human papillomavirus [HPV] V73.81 Active Problem Anxiety state, unspecified 300.00 Active Medications Medication Code System Code Instructions Start Date End Date Status Dosage BusPIRone HCl [facility] [address]-14 15 MG Orally Take 1 tablet in the AM, 12n & 5pm for anxiety 1 tablet Gabapentin [facility] 57552774677 300 MG TAKE ONE CAPSULE BY MOUTH THREE TIMES DAILY Lamotrigine [facility] [address]-18 25 MG Orally 1 tab at AM for 14 days; On day 15 increase to 2 tabs in the AM and continue for bipolar depression May 03, 2015 3 tablets Lisinopril [facility] [address]-00 30 MG Orally Once a day May 24, 2015 1 tablet Naproxen [facility] [address]-53 500 MG Orally every 12 hrs January 11, 2015 1 tablet as needed Zoloft [facility] [address]-37 50 MG Orally Once a day May 03, 2015 1 tablet Fish Oil [facility] [address]-99 1000 MG Orally Once a day 1 capsule One-A-Day Womens Formula [facility] 29988-57395 18 mg iron-400 mcg-500 mg Ca Aug 26, 2013 1 Tablet 1 time per day Hydrochlorothiazide [facility] [address]-64 12.5 MG Orally Once a day May 24, 2015 1 tablet Procedures Procedure Coding System Code Date Office Visit, Est Pt., Level 3 CPT-4 15358 May 24, 2015 Vital Signs Date/Time: May 24, 2015 Temperature 97.8 F Weight 269.9 lbs Height 64 in BMI 46.32 Index Blood Pressure Diastolic 94 mmHg Blood Pressure Systolic 158 mmHg Cardiac Monitoring Heart Rate 88 bpm Results No Known Results Summary Purpose eClinicalWorks Submission
--- OUTSIDE RECORDS SUMMARY | 2018-07-23 19:47 | XMS REPORT ---
Author Author GRISEL ANTONIO [facility] Address [address] [place] [address] Care Team Providers Care Animal Husbandry Technician Name Role Phone GRISEL ANTONIO Unavailable PROBLEMS Type Condition ICD9-CM Code [id number] Code Onset Dates Condition Status SNOMED Code Problem Bipolar II disorder F31.81 Active 67067909 Problem Essential (primary) hypertension I10 Active 72255762 Problem Mixed hyperlipidemia E78.2 Active 795659797 Problem Abnormal LFTs R94.5 Active 011693082 Problem Essential hypertension I10 Active 40168030 Problem AVILA (generalized anxiety disorder) F41.1 Active 60815277 Problem 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 Active 28084624 Problem Hyperinsulinemia E16.1 Active 13995070 Problem Morbid obesity due to excess calories E66.01 Active 047145915 Problem Simple chronic bronchitis J41.0 Active 19510355 Problem Tobacco abuse Z72.0 Active 204195122 Problem Obstructive sleep apnea syndrome G47.33 Active 58824323 Problem Tremor R25.1 Active 16828321 ALLERGIES No Information ENCOUNTERS Encounter Location Date Diagnosis [facility] [address] [address] Jan, [facility] [id number] [place] [address]87- 7785 November, Abnormal LFTs R94.5 [facility] [address] [place] [address] 87710- 7499 Oct, [facility] [id number] [place] [address] 21744- 7835 Oct, [facility] [address] [address] Oct, Left hip pain M25.552 ; Left leg pain M79.605 and BMI 45.0- 49.9, adult Z68.42 [facility] [id number] [place] [address] 76379- 4394 Oct, [facility] [address] [address]- [address] Aug, BMI 45.0-49.9, adult Z68.42 ; Bipolar II disorder F31.81 and AVILA (generalized anxiety disorder) F41.1 [facility] [address] [address]- 3230 Jul, Abnormal LFTs R94.5 [facility] [address] 0112[address]- 1168 Jul, Essential (primary) hypertension I10 ; Mixed hyperlipidemia E78.2 and Bipolar II disorder F31.81 [facility] [address] 50991- 1585 Jul, [facility] [address] 71561- 2609 Jul, [facility] [address] 6[address]64- 1153 Jul, [facility] [id number] [place] [address] 51868- 0613 Apr, [facility] [id number] [place] [address] 80345- 4938 Mar, [facility] [id number] [place] [address] 46560- 2107 Mar, [facility] [id number] [place] [address] 93068- 5436 Feb, [facility] [id number] [place] [address] 77357- 7610 Feb, Bipolar II disorder F31.81 and AVILA (generalized anxiety disorder) F41.1 [facility] [address] 21170- 1143 Feb, [facility] [id number] [place] [address] 63822- 9735 Jan, Bipolar II disorder F31.81 ; AVILA (generalized anxiety disorder) F41.1 ; Essential hypertension I10 and Encounter for screening mammogram for breast cancer Z12.31 [facility] [id number] [place] [address] 11883- 3017 November, AVILA (generalized anxiety disorder) F41.1 [facility] [address] 67108- 1303 November, [facility] [address] 47964- 8209 Sep, [facility] [address] 57782- 3327 Sep, [facility] [address] 08802- 8923 Sep, Hyperinsulinemia E16.1 [facility] [address] 36795- 8752 06 Sep, 2016 AVILA (generalized anxiety disorder) F41.1 and Hyperinsulinemia E16.1 [facility] [id number] [place] [address] 60031- 2729 08 Aug, 2016 Hyperinsulinemia E16.1 [place] [id number] [place] [address] 63700- 3229 07 Aug, 2016 Bipolar II disorder F31.81 ; AVILA (generalized anxiety disorder) F41.1 and 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 [facility] [id number] [place] [address] 11731- 8241 Jul, Obstructive sleep apnea syndrome G47.33 [facility] [id number] [place] [address] 81035- 7473 Jul, [address] 0[address]39- 8738 Jul, Hyperinsulinemia E16.1 ; Obstructive sleep apnea syndrome G47.33 and Morbid obesity due to excess calories E66.01 [facility] [id number] [place] [address] 30117- 4809 Jul, Morbid obesity due to excess calories E66.01 and Mixed hyperlipidemia E78.2 [facility] [address] 87064- 9198 Jul, Low back pain M54.5 ; Mixed hyperlipidemia E78.2 ; Obstructive sleep apnea syndrome G47.33 and Morbid obesity due to excess calories E66.01 [facility] [id number] [place] [address] 58602- 6892 Jun, [facility] [address] 43558- 9696 May, [facility] [address] 01218- 7103 Jan, Bipolar II disorder F31.81 ; AVILA (generalized anxiety disorder) F41.1 and 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 [facility] [address] 02500- 3674 Dec, [facility] [address] 41120- 2737 Dec, Tobacco abuse Z72.0 ; Tremor R25.1 ; Simple chronic bronchitis J41.0 ; Mixed hyperlipidemia E78.2 and Essential (primary) hypertension I10 [facility] [id number] [place] [address] 00085- 4384 November, Establishing care with new doctor, encounter for Z71.89 ; Other emphysema J43.8 ; Tremor R25.1 ; Essential (primary) hypertension I10 ; Mixed hyperlipidemia E78.2 ; 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 ; AVILA ( generalized anxiety disorder) F41.1 and Bipolar II disorder F31.81 [facility] [id number] [place] [address] 83307- 7855 Oct, Bipolar II disorder F31.81 ; AVILA (generalized anxiety disorder) F41.1 and 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 [facility] [id number] [place] [address] 73063- 9344 Oct, [facility] [id number] [place] [address] 19593- 0445 Sep, [facility] [address] 55896- 8074 Jun, Essential (primary) hypertension I10 and Mixed hyperlipidemia E78.2 [facility] [address] 76788- 4288 Jun, Essential hypertension I10 [facility] [address] 71509- 5849 Jun, Bipolar II disorder F31.81 ; AVILA (generalized anxiety disorder) F41.1 and 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 [facility] [id number] [place] [address] 16579- 8838 May, Essential hypertension I10 [facility] [address] 79338- 9490 May, [facility] [id number] [place] [address] 86904- 6558 Apr, Bipolar II disorder F31.81 ; AVILA (generalized anxiety disorder) F41.1 and 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 [facility] [id number] [place] [address] 86126- 2401 05 Apr, 2015 Generalized anxiety disorder F41.1 and Depressive disorder, not elsewhere classified F32.9 [facility] [id number] [place] [address] 05378- 8199 16 Mar, 2015 Dysuria 788.1 and Chronic UTI 599.[address] 5[address]5- 2609 Mar, Hematuria 599.70 and Chronic UTI 599.0 [facility] [address] [address]- 1147 Mar, [facility] [id number] [place] [address] 65382- 9126 Feb, Urinary tract infection 599.0 [facility] [id number] [place] [address] 38637- 2106 Feb, Urinary tract infection 599.0 [facility] [id number] [place] [address] 75678- 8244 Feb, Dysuria 788.1 [facility] [id number] [place] [address] 37033- 6513 Feb, Dysuria 788.1 [facility] [id number] [place] [address] 32502- 3956 Feb, Dysuria 788.1 [facility] [id number] [place] [address] 54218- 5202 Feb, Dysuria 788.1 [facility] [id number] [place] [address] 18788- 3106 Jan, Dysuria 788.1 [facility] [address] [place] [address] 63621- 1819 Jan, [facility] [address] [place] [address] 86684- 4098 Dec, Urinary tract infection 599.0 ; Anxiety state, unspecified 300.00 and Chronic low back pain 724.2 [facility] [address] [place] [address] 86747- 3265 Dec, [facility] [id number] [place] [address] 00633- 4856 November, [facility] [address] [place] [address] 71098- 4296 Oct, [facility] [address] [id number] [place] [address]- 2546 13 Oct, 2014 [facility] [place] [facility] [address] [id number] [place] [address]- 1196 17 Sep, 2014 [facility] [place] [facility] [address] [id number] [place] [address]- 2546 17 Sep, 2014 [facility] [place] [facility] [address] [id number] [place] [address]- 5596 13 Jul, 2014 [facility] [place] [facility] [address] [id number] [place] [address]- 0976 13 Jul, 2014 [facility] [place] [facility] [address] [id number] [place] [address]- 9698 Jul, [facility] [place] [facility] [address] [id number] [place] [address]- 5756 Jul, [facility] [place] [facility] [address] [id number] [place] [address]- 7298 Jul, [facility] [place] [facility] [address] [id number] [place] [address]- 7879 Jul, [facility] [place] [facility] [address] [id number] [place] [address]- 6946 Jul, [facility] [place] [facility] [address] [id number] [place] [address]- 3914 Jul, [facility] [place] [facility] [address] [id number] [place] [address]- 2753 Jun, [facility] [place] [facility] [address] [id number] [place] [address]- 2886 Jun, [facility] [place] [facility] [address] [id number] [place] [address]- 9036 Jun, [facility] [place] [facility] [address] [id number] [place] [address]- 2546 Jun, [facility] [place] [facility] [address] [id number] [place] [address]- 7772 17 Jun, 2014 [facility] [place] [facility] [address] [id number] [place] [address]- 3783 17 Jun, 2014 [facility] [place] [facility] [address] [id number] [place] [address]- 1772 17 Jun, 2014 [facility] [place] [facility] [address] [id number] [place] [address]- 8017 17 Jun, 2014 [facility] [place] [facility] [address] [id number] [place] [address]- 0974 16 Jun, 2014 [facility] [place] [facility] [address] [id number] [place] [address]- 2946 16 Jun, 2014 [facility] [place] [facility] [address] [id number] [place] [address]- 3618 16 Jun, 2014 [facility] [place] [facility] [address] [id number] [place] [address]- 3018 16 Jun, 2014 [facility] [place] [facility] [address] [id number] [place] [address]- 3160 12 Jun, 2014 [facility] [place] [facility] [address] [id number] [place] [address]- 1347 12 Jun, 2014 [facility] [place] [facility] [address] [id number] [place] [address]- 9811 11 Jun, 2014 [facility] [place] [facility] [address] [id number] [place] [address]- 5346 11 Jun, 2014 [facility] [place] [facility] [address] [id number] [address]- 6546 18 May, 2014 [facility] [place] [facility] [address] [id number] [place] [address]- 7416 18 May, 2014 [facility] [place] [facility] [address] [id number] [place] [address]- 8682 18 May, 2014 [facility] [place] [facility] [address] [id number] [place] [address]- 8561 18 May, 2014 [facility] [place] [facility] [address] [id number] [place] [address]- 4911 25 Mar, 2014 [facility] [place] [facility] [address] [id number] [place] [address]- 3862 25 Mar, 2014 [facility] [place] [facility] [address] [id number] [place] [address]- 2846 Mar, [facility] [place] [facility] [address] [id number] [place] [address]- 8146 Mar, [facility] [place] [facility] [address] [id number] [place] [address]- 4974 Feb, [facility] [place] [facility] [address] [id number] [place] [address]- 5692 Feb, [facility] [place] [facility] [address] [id number] [place] [address]- 5437 Feb, [facility] [place] [facility] [address] [id number] [place] [address]- 4341 Jan, [facility] [place] [facility] [address] [id number] [place] [address]- 7357 Dec, [facility] [place] [facility] [address] [id number] [place] [address]- 2514 Dec, [facility] [place] [facility] [address] [id number] [place] [address]- 7992 November, [facility] [place] [facility] [address] [id number] [place] [address]- 5483 November, [facility] [place] [facility] [address] [id number] [place] [address]- 4215 November, [facility] [place] [facility] [address] [id number] [place] [address]- 8885 November, [facility] [place] [facility] [address] [id number] [place] [address]- 0426 Oct, [facility] [place] [facility] [address] [id number] [place] [address]- 2171 Oct, [facility] [place] [facility] [address] [id number] [place] [address]- 6256 Sep, [facility] [place] [facility] [address] [id number] [place] [address]- 5226 Sep, [facility] [place] [facility] [address] [id number] [place] [address]- 5585 Sep, [facility] [place] [facility] [address] [id number] [place] [address]- 2254 Sep, [facility] [place] [facility] [address] [id number] [place] [address]- 6786 Aug, [facility] [place] [facility] [address] [id number] [place] [address]- 4162 Aug, [facility] [place] [facility] [address] [id number] [place] [address]- 7141 Aug, [facility] [place] [facility] [address] [id number] [place] [address]- 7461 Aug, [facility] [place] [facility] [address] [id number] [place] [address]- 8786 Aug, [facility] [place] [facility] [address] [id number] [place] [address]- 0856 Aug, [facility] [place] [facility] [address] [id number] [place] [address]- 9184 Aug, [facility] [place] [facility] [address] [id number] [place] [address]- 6066 Jul, [facility] [place] [facility] [address] [id number] [place] [address]- 4931 Jul, [facility] [place] [facility] [address] [id number] [place] [address]- 1316 Jul, [facility] [place] [facility] [address] [id number] [place] [address]- 1070 Jul, [facility] [place] [facility] [id number] [address]65 Jun, [facility] [id number] 8162 Jun, [facility] [address] 4779 Jun, [facility] [address] [address]- 1216 Jun, [facility] [address] [place] [address] 80980- 8197 Jun, [facility] [address] [place] [address] 956982- 5869 Jun, [facility] [address] [address]- 6254 Apr, [facility] [address] [address] Apr, IMMUNIZATIONS No Known Immunizations SOCIAL HISTORY Never Assessed REASON FOR VISIT Other PLAN OF CARE VITAL SIGNS MEDICATIONS Unknown [...]
--- OUTSIDE RECORDS SUMMARY | 2018-07-23 19:47 | XMS REPORT ---
Author Author PHOEBE DON [facility] eClinicalWorks Address Unknown Phone Unavailable Care Team Providers Care Optical Fabricator Name Role Phone PHOEBE DON CP Unavailable [...] dermatitis due to sun 692.70 Active Assessment Urinary tract infection 599.0 Active Problem Essential hypertension, benign 401.1 Active Problem Special screening examination, human papillomavirus [HPV] V73.81 Active Problem Unspecified breast screening V76.10 Active Problem Lumbago 724.2 Active Problem Routine gynecological examination V72.31 Active Problem Screening for malignant neoplasm of the cervix V76.2 Active Problem Counseling on substance use and abuse V65.42 Active Medications No Known Medications Procedures Procedure Coding System Code Date URINALYSIS, AUTO, W/O SCOPE CPT-4 72454 Mar 02, 2015 Results No Known Results Summary Purpose eClinicalWorks Submission
--- OUTSIDE RECORDS SUMMARY | 2018-07-23 19:47 | XMS REPORT ---
Author Author KHLOE FOX [facility] Address [address] [place] [address] Care Team Providers Care Line Pilot Name Role Phone KHLOE FOX Unavailable PROBLEMS Type Condition ICD9-CM Code [id number] Code Onset Dates Condition Status SNOMED Code Problem Bipolar II disorder F31.81 Active 69079409 Problem Essential (primary) hypertension I10 Active 95580099 Problem Mixed hyperlipidemia E78.2 Active 295099999 Problem Essential hypertension I10 Active 02754862 Problem AVILA (generalized anxiety disorder) F41.1 Active 18206859 Problem 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 Active 92532443 Problem Hyperinsulinemia E16.1 Active 04731418 Problem Morbid obesity due to excess calories E66.01 Active 662329744 Problem Simple chronic bronchitis J41.0 Active 31651963 Problem Tobacco abuse Z72.0 Active 668478255 Problem Obstructive sleep apnea syndrome G47.33 Active 97852802 Problem Tremor R25.1 Active 01074643 ALLERGIES No Information SOCIAL HISTORY Never Assessed PLAN OF CARE VITAL SIGNS MEDICATIONS Unknown Medications RESULTS No Results PROCEDURES No Known procedures IMMUNIZATIONS No Known Immunizations MEDICAL (GENERAL) HISTORY Type Description Date Medical History Hypertension Medical History Post cholecystectomy 1989 Medical History Arthritis Medical History Degenerative disk disease Surgical History section 1992 Surgical History Laparoscopy-cysts on ovaries 1992 Surgical History Elbow and wrist surgery as a child Surgical History Lumpectomy on Left breast-benign 1992 Hospitalization History past surgeries
--- OUTSIDE RECORDS SUMMARY | 2018-07-23 19:47 | XMS REPORT ---
Author Author KHLOE FOX Organization [facility] Address [address] [place] [address] Care Team Providers Care Certified Orthoptist Name Role Phone KHLOE FOX Unavailable PROBLEMS Type Condition ICD9-CM Code [id number] Code Onset Dates Condition Status SNOMED Code Problem Bipolar II disorder F31.81 Active 93767010 Problem Essential (primary) hypertension I10 Active 02347125 Problem Mixed hyperlipidemia E78.2 Active 063962131 Problem Essential hypertension I10 Active 46983522 Problem AVILA (generalized anxiety disorder) F41.1 Active 03769157 Problem 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 Active 24643240 Problem Hyperinsulinemia E16.1 Active 39600323 Problem Morbid obesity due to excess calories E66.01 Active 444358777 Problem Simple chronic bronchitis J41.0 Active 04483918 Problem Tobacco abuse Z72.0 Active 807446385 Problem Obstructive sleep apnea syndrome G47.33 Active 88704018 Problem Tremor R25.1 Active 76310707 ALLERGIES No Information SOCIAL HISTORY Never Assessed PLAN OF CARE VITAL SIGNS MEDICATIONS Medication Instructions Dosage Frequency Start Date End Date Duration Status Trulicity 0.75 MG/0.5ML Subcutaneous once weekly inject 0.5 ml Jul, 90 days Active RESULTS No Results PROCEDURES [...]
--- OUTSIDE RECORDS SUMMARY | 2018-07-23 19:47 | XMS REPORT ---
Author Author MEENAKSHI PUGH Organization [employer] Address Unknown Phone Unavailable Care Team Providers Care Bookbinder Chief Name Role Phone MEENAKSHI PUGH CP Unavailable Allergies, Adverse Reactions, Alerts Substance [...] dermatitis due to sun 692.70 Active Assessment Generalized anxiety disorder F41.1 Active Problem Essential hypertension, benign 401.1 Active Assessment Depressive disorder, not elsewhere classified F32.9 Active Problem Special screening examination, human papillomavirus [HPV] V73.81 Active Problem Unspecified breast screening V76.10 Active Problem Lumbago 724.2 Active Problem Routine gynecological examination V72.31 Active Problem Screening for malignant neoplasm of the cervix V76.2 Active Problem Counseling on substance use and abuse V65.42 Active Medications No Known Medications Procedures Procedure Coding System Code Date Psych diagnostic evaluation, established patient CPT-4 99157 Apr 09, 2015 Results No Known Results Summary Purpose [employer] Submission
--- OUTSIDE RECORDS SUMMARY | 2018-07-23 19:47 | XMS REPORT ---
Author Author KHLOE FOX [facility] Address [address] [place] [address] Care Team Providers Care Mobile Application Development Lead Name Role Phone KHLOE FOX Unavailable PROBLEMS Type Condition ICD9-CM Code SCO30-XK Code Onset Dates Condition Status SNOMED Code Problem Bipolar II disorder F31.81 Active 90106740 Problem Essential (primary) hypertension I10 Active 79726180 Problem Mixed hyperlipidemia E78.2 Active 485966503 Problem Essential hypertension I10 Active 17595497 Problem AVILA (generalized anxiety disorder) F41.1 Active 51964920 Problem 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 Active 19628872 Problem Hyperinsulinemia E16.1 Active 68926206 Problem Morbid obesity due to excess calories E66.01 Active 170853105 Problem Simple chronic bronchitis J41.0 Active 00512469 Problem Tobacco abuse Z72.0 Active 616542947 Problem Obstructive sleep apnea syndrome G47.33 Active 19691397 Problem Tremor R25.1 Active 61239220 ALLERGIES Substance Reaction Event Type Date Status Codeine vomiting Drug Allergy Jul, Active SOCIAL HISTORY No smoking Hx information available PLAN OF CARE Activity Details Follow Up 4 Weeks Reason:hyperinsulin VITAL SIGNS Height 64 in 2016-07-21 Weight 274.1 lbs 2016-07-21 Temperature 97.6 degrees Fahrenheit 2016-07-21 Heart Rate 72 bpm 2016-07-21 Respiratory Rate 22 2016-07-21 BMI 47.04 kg/m2 2016-07-21 Blood pressure systolic 126 mmHg 2016-07-21 Blood pressure diastolic 86 mmHg 2016-07-21 MEDICATIONS Medication Instructions Dosage Frequency Start Date End Date Duration Status Lamotrigine 200 MG TAKE ONE TABLET BY MOUTH ONCE DAILY 30 Active Albuterol Sulfate HFA 108 (90 Base) MCG/ACT Inhalation every 4 hrs 2 puffs as needed 4h 13 Dec, 2015 Active Hydrochlorothiazide 12.5 MG Orally Once a day 1 capsule 24h 90 Active Gabapentin 300 MG Orally 3 times a day 1 capsule 8h 30 Active Lisinopril 20 mg Orally Once a day 1 tablet 24h November, 30 Active Trulicity 0.75 MG/0.5ML Subcutaneous Once a day 0.5 ml 24h Jul, 15 Aug, 2016 30 day(s) Active Toprol XL 25 MG Orally Once a day at bedtime 1 tablet November, 90 Active Naproxen 500 MG Orally 2 times a day 1 tablet as needed 12h 90 Active BusPIRone HCl 15 MG Orally 1 tablet in AM and 8pm and 2 tabs at 2pm 1 tablet Active Zoloft 50 MG TAKE ONE TABLET BY MOUTH ONCE DAILY 30 Active RESULTS No Results PROCEDURES Procedure Date Ordered Related Diagnosis Body Site Office Visit, Est Pt., Level 3 Jul 21, 2016 IMMUNIZATIONS No Known Immunizations
--- OUTSIDE RECORDS SUMMARY | 2018-07-23 19:48 | XMS REPORT ---
Author Author PHOEBE DON [facility] [employer] Address Unknown Phone Unavailable Care Team Providers Care Integrated Circuit Fabricator Name Role Phone PHOEBE DON CP [...]
--- OUTSIDE RECORDS SUMMARY | 2018-07-23 19:48 | XMS REPORT ---
Author GRISEL Gutierrez [employer] Address Unknown Phone Unavailable Care Team Providers Care Warehouse Inventory Clerk Name Role Phone GRISEL ANTONIO CP Unavailable [...] Problem Essential hypertension, benign 401.1 Active Assessment 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 Active Assessment AVILA (generalized anxiety disorder) F41.1 Active Problem Special screening examination, human papillomavirus [HPV] V73.81 Active Problem Unspecified breast screening V76.10 Active Problem Lumbago 724.2 Active Problem Routine gynecological examination V72.31 Active Problem Screening for malignant neoplasm of the cervix V76.2 Active Problem Counseling on substance use and abuse V65.42 Active Medications Medication Code System Code Instructions Start Date End Date Status Dosage Zoloft [facility] [address]-93 50 MG Orally Once a day May 03, 2015 1 tablet One-A-Day Womens Formula [facility] 63918-62578 18 mg iron-400 mcg-500 mg Ca Aug 26, 2013 1 Tablet 1 time per day Fish Oil [facility] [address]-89 1000 MG Orally Once a day 1 capsule Lamotrigine [facility] [address]-64 25 MG Orally 1 tab at AM for 14 days; On day 15 increase to 2 tabs in the AM and continue for bipolar depression May 03, 2015 3 tablets Lisinopril-Hydrochlorothiazide [facility] [address]-32 20-12.5 MG Orally Once a day- FOLLOW UP FOR REFILLS 1 tablet Naproxen [facility] [address]-30 500 MG Orally every 12 hrs January 11, 2015 1 tablet as needed BusPIRone HCl [facility] [address]-74 15 MG Orally Take 1 tablet in the AM, 12n & 5pm for anxiety 1 tablet Gabapentin [facility] 63035468818 300 MG TAKE ONE CAPSULE BY MOUTH THREE TIMES DAILY Procedures Procedure Coding System Code Date Office Visit, Est Pt., Level 5 CPT-4 04420 May 03, 2015 Vital Signs Date/Time: May 03, 2015 Cardiac Monitoring Heart Rate 96 bpm Weight 273.8 lbs Height 64 in BMI 46.99 Index Blood Pressure Diastolic 93 mmHg Blood Pressure Systolic 150 mmHg Results No Known Results Summary Purpose eClinicalWorks Submission
--- OUTSIDE RECORDS SUMMARY | 2018-07-23 19:49 | XMS REPORT ---
Author Author GRISEL ANTONIO [facility] Address [address] [place] [address] Care Team Providers Care Therapeutic Support Staff Name Role Phone GRISEL ANTONIO Unavailable PROBLEMS Type Condition ICD9-CM Code IBO50-AV Code Onset Dates Condition Status SNOMED Code Problem Bipolar II disorder F31.81 Active 12246719 Problem Essential (primary) hypertension I10 Active 65721793 Problem Mixed hyperlipidemia E78.2 Active 422774009 Problem Abnormal LFTs R94.5 Active 328860798 Problem Essential hypertension I10 Active 54048576 Problem AVILA (generalized anxiety disorder) F41.1 Active 13893719 Problem 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 Active 67715138 Problem Hyperinsulinemia E16.1 Active 29664785 Problem Morbid obesity due to excess calories E66.01 Active 664884527 Problem Simple chronic bronchitis J41.0 Active 22515715 Problem Tobacco abuse Z72.0 Active 556530943 Problem Obstructive sleep apnea syndrome G47.33 Active 33473546 Problem Tremor R25.1 Active 06680317 ALLERGIES No Information ENCOUNTERS Encounter Location Date Diagnosis [facility] [id number] [place] [address] 05842- 9299 Dec, [facility] [id number] [place] [address] 59713- 9919 2017 [facility] [id number] [place] [address] 58500- 1335 13 Oct, 2017 [facility] [address] [address] Oct, Left hip pain M25.552 ; Left leg pain M79.605 and BMI 45.0- 49.9, adult Z68.42 [facility] [address] [address]19- 8514 Oct, [facility] [id number] [place] [address] 65757- 5298 Aug, BMI 45.0-49.9, adult Z68.42 ; Bipolar II disorder F31.81 and AVILA (generalized anxiety disorder) F41.1 [facility] [id number] [place] [address] 40998- 5576 Jul, Abnormal LFTs R94.5 [facility] [address] 25399- 9646 Jul, Essential (primary) hypertension I10 ; Mixed hyperlipidemia E78.2 and Bipolar II disorder F31.81 [facility] [address] 70067- 6913 Jul, [facility] [id number] [place] [address] 06816- 4900 Jul, [facility] [address] 15283- 0979 Jul, [facility] [id number] [place] [address] 36531- 9619 Apr, [facility] [id number] [place] [address] 12557- 6280 Mar, [facility] [id number] [place] [address] 86998- 0799 Mar, [facility] [id number] [place] [address] 93519- 3747 Feb, [facility] [id number] [place] [address] 76493- 8834 Feb, Bipolar II disorder F31.81 and AVILA (generalized anxiety disorder) F41.1 [facility] [id number] [place] [address] 33173- 1153 Feb, [facility] [id number] [place] [address] 62263- 7222 Jan, Bipolar II disorder F31.81 ; AVILA (generalized anxiety disorder) F41.1 ; Essential hypertension I10 and Encounter for screening mammogram for breast cancer Z12.31 [facility] [facility] [id number] [place] [address] 83719- 0014 November, AVILA (generalized anxiety disorder) F41.1 [facility] [facility] [id number] [place] [address] 53464- 4936 November, [facility] [id number] [place] [address] 99114- 5160 Sep, [facility] [facility] [id number] [place] [address] 57814- 0749 Sep, [place] [address] 76631- 7953 Sep, Hyperinsulinemia E16.1 [facility] [facility] [address] 14867- 0689 Sep, AVILA (generalized anxiety disorder) F41.1 and Hyperinsulinemia E16.1 [facility] [facility] [id number] [place] [address] 51614- 3433 08 Aug, 2016 Hyperinsulinemia E16.1 [facility] [id number] [place] [address] 99453- 5011 07 Aug, 2016 Bipolar II disorder F31.81 ; AVILA (generalized anxiety disorder) F41.1 and 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 [facility] [facility] [id number] [place] [address] 78905- 7428 Jul, Obstructive sleep apnea syndrome G47.33 [facility] [facility] [id number] [place] [address] 96180- 6985 Jul, [facility] [id number] [place] [address] 22089- 5945 Jul, Hyperinsulinemia E16.1 ; Obstructive sleep apnea syndrome G47.33 and Morbid obesity due to excess calories E66.01 [place] [id number] [place] [address]- 6791 Jul, Mixed hyperlipidemia E78.2 and Morbid obesity due to excess calories E66.01 [facility] [facility] [id number] [place] [address] 11061- 1292 Jul, Low back pain M54.5 ; Mixed hyperlipidemia E78.2 ; Obstructive sleep apnea syndrome G47.33 and Morbid obesity due to excess calories E66.01 [place] [facility] [id number] [place] [address] 12291- 0750 Jun, [place] [facility] [address] 21088- 9154 May, [id number] [place] [address] 36910- 7924 Jan, Bipolar II disorder F31.81 ; AVILA (generalized anxiety disorder) F41.1 and 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 [id number] [place] [address] 04535- 5825 Dec, [address] [address]40- 5591 Dec, Tobacco abuse Z72.0 ; Tremor R25.1 ; Simple chronic bronchitis J41.0 ; Mixed hyperlipidemia E78.2 and Essential (primary) hypertension I10 [address] 51089- 4091 November, Establishing care with new doctor, encounter for Z71.89 ; Other emphysema J43.8 ; Tremor R25.1 ; Essential (primary) hypertension I10 ; Mixed hyperlipidemia E78.2 ; 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 ; AVILA ( generalized anxiety disorder) F41.1 and Bipolar II disorder F31.81 [id number] [place] [address] 92983- 1517 Oct, Bipolar II disorder F31.81 ; AVILA (generalized anxiety disorder) F41.1 and 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 [place] [address] 86840- 1130 Oct, [place] [address] 31751- 3346 Sep, [place] [id number] [place] [address] 30195- 9687 Jun, Essential (primary) hypertension I10 and Mixed hyperlipidemia E78.2 [place] [address] 32245- 8241 Jun, Essential hypertension I10 [place] [id number] [place] [address] 76633- 1263 Jun, Bipolar II disorder F31.81 ; AVILA (generalized anxiety disorder) F41.1 and 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 [place] [id number] [place] [address] 10325- 0741 May, Essential hypertension I10 [place] [address] 71284- 7380 May, [place] [address] 10637- 9255 Apr, Bipolar II disorder F31.81 ; AVILA (generalized anxiety disorder) F41.1 and 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 [place] [id number] [place] [address] 93858- 0538 Apr, Generalized anxiety disorder F41.1 and Depressive disorder, not elsewhere classified F32.9 [place] [id number] [place] [address] 21676- 7082 16 Mar, 2015 Dysuria 788.1 and Chronic UTI 599.0 [place] [facility] [id number] [place] [address] 61799- 7918 Mar, Hematuria 599.70 and Chronic UTI 599.0 [place] [facility] [id number] [place] [address] 79472- 6473 Mar, [facility] [address] [address]- 9704 Feb, Urinary tract infection 599.0 [facility] [address] 8126 Feb, Urinary tract infection 599.0 [facility] [address] [address]- 9076 Feb, Dysuria 788.1 [facility] [address] [address]- 4606 Feb, Dysuria 788.1 [facility] [id number] [place] [address] 82721- 7186 Feb, Dysuria 788.1 [facility] [address] [address]- 8566 Feb, Dysuria 788.1 [facility] [address] [address]- 8157 Jan, Dysuria 788.1 [facility] [address] [address]- 9235 Jan, [facility] [address] [address]- 8899 Dec, Anxiety state, unspecified 300.00 ; Urinary tract infection 599.0 and Chronic low back pain 724.2 [facility] [address] [address]- 6472 Dec, [facility] [address] [address]- 3177 November, [facility] [address] 6445 Oct, [facility] [address] [address]- 4794 Oct, [facility] [id number] [place] [address]- 1588 17 Sep, 2014 [facility] [address] [id number] [place] [address]- 1455 17 Sep, 2014 [facility] [place] [facility] [address] [id number] [place] [address]- 3564 13 Jul, 2014 [facility] [place] [facility] [address] [id number] [place] [address]- 3014 13 Jul, 2014 [facility] [place] [facility] [address] [id number] [place] [address]- 5407 13 Jul, 2014 [facility] [place] [facility] [address] [id number] [place] [address]- 3062 Jul, [facility] [place] [facility] [address] [id number] [place] [address]- 1654 Jul, [facility] [address] [id number] [place] [address]- 2967 Jul, [facility] [place] [facility] [address] [id number] [place] [address]- 6319 Jul, [facility] [place] [facility] [address] [id number] [place] [address]- 3965 Jul, [facility] [place] [facility] [address] [id number] [place] [address]- 6509 Jun, [facility] [place] [facility] [address] [id number] [place] [address]- 1520 Jun, [facility] [place] [facility] [address] [id number] [place] [address]- 9695 18 Jun, 2014 [facility] [place] [facility] [address] [id number] [place] [address]- 6553 Jun, [facility] [place] [facility] [address] [id number] [place] [address]- 8681 Jun, [facility] [place] [facility] [address] [id number] [place] [address]- 2543 Jun, [facility] [place] [facility] [address] [id number] [place] [address]- 2378 17 Jun, 2014 [facility] [place] [facility] [address] [id number] [place] [address]- 1605 17 Jun, 2014 [facility] [place] [facility] [address] [id number] [place] [address]- 9591 16 Jun, 2014 [facility] [place] [facility] [address] [id number] [place] [address]- 9322 16 Jun, 2014 [facility] [place] [facility] [address] [id number] [place] [address]- 0677 16 Jun, 2014 [facility] [place] [facility] [address] [id number] [place] [address]- 1840 Jun, [facility] [place] [facility] [address] [id number] [place] [address]- 8201 12 Jun, 2014 [facility] [place] [facility] [address] [id number] [place] [address]- 9744 12 Jun, 2014 [facility] [place] [facility] [address] [id number] [place] [address]- 2762 Jun, [facility] [place] [facility] [address] [id number] [place] [address]- 9056 Jun, [facility] [place] [facility] [address] [id number] [place] [address]- 7778 18 May, 2014 [facility] [place] [facility] [address] [id number] [place] [address]- 7522 18 May, 2014 [facility] [place] [facility] [address] [id number] [place] [address]- 1273 18 May, 2014 [facility] [place] [facility] [address] [id number] [place] [address]- 5522 18 May, 2014 [facility] [place] [facility] [address] [id number] [place] [address]- 1787 25 Mar, 2014 [facility] [place] [facility] [address] [id number] [place] [address]- 2546 Mar, [facility] [place] [facility] [address] [id number] [place] [address]21 Mar, [facility] [place] [facility] [address] [id number] [place] [address]- 2506 Mar, [facility] [place] [facility] [address] [id number] [place] [address]- 1653 Feb, [facility] [place] [facility] [address] [id number] [place] [address]- 8699 Feb, [facility] [place] [facility] [address] [id number] [place] [address]602 Feb, [facility] [place] [facility] [address] [id number] [place] [address]- 8582 Jan, [facility] [place] [facility] [address] [id number] [place] [address]- 4427 Dec, [facility] [place] [facility] [address] [id number] [place] [address]- 7354 Dec, [facility] [place] [facility] [address] [id number] [place] [address]- 6419 November, [facility] [place] [facility] [address] [id number] [place] [address]- 1996 November, [facility] [place] [facility] [address] [id number] [place] [address]- 5721 November, [facility] [place] [facility] [address] [id number] [place] [address]- 0206 November, [facility] [place] [facility] [address] [id number] [place] [address]- 0419 Oct, [facility] [place] [facility] [address] [id number] [place] [address]- 8010 Oct, [facility] [place] [facility] [address] [id number] [place] [address]- 6373 Sep, [facility] [place] [facility] [address] [id number] [place] [address]- 0405 Sep, [facility] [place] [facility] [address] [id number] [place] [address]- 8493 Sep, [facility] [place] [facility] [address] [id number] [place] [address]- 4835 Sep, [facility] [place] [facility] [address] [id number] [place] [address]- 4623 Aug, [facility] [place] [facility] [address] [id number] [place] [address]- 4990 Aug, [facility] [place] [facility] [address] [id number] [place] [address]- 2989 Aug, [facility] [place] [facility] [address] [id number] [place] [address]- 6706 Aug, [facility] [place] [facility] [address] [id number] [place] [address]- 8201 Aug, [facility] [place] [facility] [address] [id number] [place] [address]- 1589 Aug, [facility] [place] [facility] [address] [id number] [place] [address]- 2194 Aug, [facility] [place] [facility] [address] [id number] [place] [address]- 6135 Jul, [facility] [place] [facility] [address] [id number] [place] [address]- 6311 Jul, [facility] [place] [facility] [address] [id number] [place] [address]- 4607 Jul, [facility] [place] [facility] [address] [id number] [place] [address]- 9155 Jul, [facility] [place] [facility] [address] [id number] [place] [address]- 7032 Jun, [facility] [place] [facility] [address] [id number], [place] [address]- 7816 Jun, [facility] [address] [facility] [id number], [place] [address]- 5174 Jun, [facility] [id number] [address]- 7796 Jun, [facility] [address] [facility] [id number], [place] [address]- 2546 Jun, [facility] [address] [facility] [id number], [place] [address]- 2546 Jun, [facility] [address] [facility] [id number], [place] [address]- 4308 Apr, [facility] [address] [facility] [id number], [place] [address]- 7717 Apr, IMMUNIZATIONS No Known Immunizations SOCIAL HISTORY Never Assessed REASON FOR VISIT refill request PLAN OF CARE VITAL SIGNS MEDICATIONS Medication Instructions Dosage Frequency Start Date End Date Duration Status BusPIRone HCl 15 mg Orally 4 times a day 1 tablet 6h 30 days Active RESULTS No Results PROCEDURES [...]
[2018-07-23 19:50] LABS: BASOPHILS % (AUTO) 0 % (0-10); EOSINOPHILS % (AUTO) 0 % (0-10); HEMATOCRIT 43 % (35-52); LYMPHOCYTES % (AUTO) 10 % (12-44); MEAN CORPUSCULAR HEMOGLOBIN 26 PG (25-34); MEAN CORPUSCULAR HGB CONC 33 G/DL (32-36); MEAN CORPUSCULAR VOLUME 79 FL (80-99); MEAN PLATELET VOLUME 10.8 FL (7.4-10.4); MONOCYTES # (AUTO) 0.4 X 10^3 (0.0-1.0); MONOCYTES % (AUTO) 4 % (0-12); NEUTROPHILS # (AUTO) 9.1 X 10^3 (1.8-7.8); NEUTROPHILS % (AUTO) 86 % (42-75); PLATELET COUNT 147 10^3/uL (130-400); RED BLOOD COUNT 5.38 10^6/uL (4.35-5.85); RED CELL DISTRIBUTION WIDTH 16.8 % (10.0-14.5); WHITE BLOOD COUNT 10.6 10^3/uL (4.3-11.0)
--- OUTSIDE RECORDS SUMMARY | 2018-07-23 19:50 | XMS REPORT ---
Author Author [facility] Address [address] [place] [address] Care Team Providers Care Cable Weaver Name Role Phone KHLOE FOX Unavailable PROBLEMS Type Condition ICD9-CM Code [id number] Code Onset Dates Condition Status SNOMED Code Problem Bipolar II disorder F31.81 Active 93726510 Problem Essential (primary) hypertension I10 Active 16576746 Problem Mixed hyperlipidemia E78.2 Active 869203005 Problem Essential hypertension I10 Active 23613128 Problem 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 Active 79158421 Problem AVILA (generalized anxiety disorder) F41.1 Active 87307071 Problem Hyperinsulinemia E16.1 Active 40412389 Problem Obstructive sleep apnea syndrome G47.33 Active 14273930 Problem Tremor R25.1 Active 66196815 Problem Simple chronic bronchitis J41.0 Active 49103639 Problem Morbid obesity due to excess calories E66.01 Active 056079246 Problem Tobacco abuse Z72.0 Active 977205013 ALLERGIES Unknown Allergies SOCIAL HISTORY No smoking Hx information available PLAN OF CARE VITAL SIGNS MEDICATIONS Medication Instructions Dosage Frequency Start Date End Date Duration Status Lisinopril 20 mg Orally Once a day 1 tablet 24h November, 30 Active RESULTS No Results PROCEDURES No Known procedures IMMUNIZATIONS No Known Immunizations
--- OUTSIDE RECORDS SUMMARY | 2018-07-23 19:50 | XMS REPORT ---
Author Author KHLOE FOX [facility] Address [address] [place] [address] Care Team Providers Care Distilling Department Supervisor Name Role Phone KHLOE FOX Unavailable PROBLEMS Type Condition ICD9-CM Code [id number] Code Onset Dates Condition Status SNOMED Code Problem Bipolar II disorder F31.81 Active 18859437 Problem Essential (primary) hypertension I10 Active 17833953 Problem Mixed hyperlipidemia E78.2 Active 602634001 Problem Essential hypertension I10 Active 16219602 Problem AVILA (generalized anxiety disorder) F41.1 Active 67451840 Problem 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 Active 69894172 Problem Hyperinsulinemia E16.1 Active 92048391 Problem Morbid obesity due to excess calories E66.01 Active 673930769 Problem Simple chronic bronchitis J41.0 Active 26178244 Problem Tobacco abuse Z72.0 Active 941143393 Problem Obstructive sleep apnea syndrome G47.33 Active 69891650 Problem Tremor R25.1 Active 05781499 ALLERGIES No Information SOCIAL HISTORY Never Assessed [...]
--- OUTSIDE RECORDS SUMMARY | 2018-07-23 19:50 | XMS REPORT ---
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 Role Phone GRISEL ANTONIO Unavailable PROBLEMS Type Condition ICD9-CM Code XIL42-KA Code Onset Dates Condition Status SNOMED Code Problem Bipolar II disorder F31.81 Active 91203484 Problem Essential (primary) hypertension I10 Active 62555210 Problem Mixed hyperlipidemia E78.2 Active 980113209 Problem Abnormal LFTs R94.5 Active 418101788 Problem Essential hypertension I10 Active 19935900 Problem AVILA (generalized anxiety disorder) F41.1 Active 53203446 Problem 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 Active 02444060 Problem Hyperinsulinemia E16.1 Active 43623176 Problem Morbid obesity due to excess calories E66.01 Active 599259082 Problem Simple chronic bronchitis J41.0 Active 06931602 Problem Tobacco abuse Z72.0 Active 292142262 Problem Obstructive sleep apnea syndrome G47.33 Active 09815221 Problem Tremor R25.1 Active 28037648 ALLERGIES No Information ENCOUNTERS Encounter Location Date Diagnosis [facility] [id number] [place] [address] 68283- 8551 Dec, [facility] [id number] [place] [address] 05529- 9384 2017 [facility] [id number] [place] [address] 41905- 7323 13 Oct, 2017 [facility] [address] [address]91 Oct, Left hip pain M25.552 ; Left leg pain M79.605 and BMI 45.0- 49.9, adult Z68.42 [facility] [address] 19248- 1619 Oct, [facility] [id number] [place] [address] 26736- 2274 Aug, BMI 45.0-49.9, adult Z68.42 ; Bipolar II disorder F31.81 and AVILA (generalized anxiety disorder) F41.1 [facility] [id number] [place] [address] 03207- 9086 Jul, Abnormal LFTs R94.5 [facility] [address] 07120- 8445 Jul, Essential (primary) hypertension I10 ; Mixed hyperlipidemia E78.2 and Bipolar II disorder F31.81 [facility] [address] 71925- 5829 Jul, [facility] [id number] [place] [address] 04574- 4269 Jul, [facility] [address] 26696- 5702 Jul, [facility] [id number] [place] [address] 00187- 0215 Apr, [facility] [id number] [place] [address] 93139- 0350 Mar, [facility] [id number] [place] [address] 67000- 4122 Mar, [facility] [id number] [place] [address] 48959- 6474 Feb, [facility] [id number] [place] [address] 28551- 3581 Feb, Bipolar II disorder F31.81 and AVILA (generalized anxiety disorder) F41.1 [facility] [id number] [place] [address] 78208- 6127 Feb, [facility] [id number] [place] [address] 44539- 2760 Jan, Bipolar II disorder F31.81 ; AVILA (generalized anxiety disorder) F41.1 ; Essential hypertension I10 and Encounter for screening mammogram for breast cancer Z12.31 [facility] [id number] [place] [address] 94168- 3272 November, AVILA (generalized anxiety disorder) F41.1 [facility] [id number] [place] [address] 07750- 5655 November, [facility] [id number] [place] [address] 97253- 1350 Sep, [facility] [id number] [place] [address] 29021- 1845 Sep, [facility] [address] 14268- 9205 Sep, Hyperinsulinemia E16.1 [facility] [address] 33233- 9571 Sep, AVILA (generalized anxiety disorder) F41.1 and Hyperinsulinemia E16.1 [facility] [id number] [place] [address] 29094- 5507 08 Aug, 2016 Hyperinsulinemia E16.1 [facility] [id number] [place] [address] 55785- 9652 07 Aug, 2016 Bipolar II disorder F31.81 ; AVILA (generalized anxiety disorder) F41.1 and 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 [facility] [id number] [place] [address] 04479- 3223 Jul, Obstructive sleep apnea syndrome G47.33 [facility] [id number] [place] [address] 87963- 1464 Jul, [facility] [id number] [place] [address] 63736- 3858 Jul, Hyperinsulinemia E16.1 ; Obstructive sleep apnea syndrome G47.33 and Morbid obesity due to excess calories E66.01 [facility] [id number] [place] [address]- 6652 Jul, Mixed hyperlipidemia E78.2 and Morbid obesity due to excess calories E66.01 [facility] [id number] [place] [address] 73712- 8193 Jul, Low back pain M54.5 ; Mixed hyperlipidemia E78.2 ; Obstructive sleep apnea syndrome G47.33 and Morbid obesity due to excess calories E66.01 [facility] [id number] [place] [address] 51344- 4245 Jun, [facility] [address] 69250- 5681 May, [id number] [place] [address] 53351- 8311 Jan, Bipolar II disorder F31.81 ; AVILA (generalized anxiety disorder) F41.1 and 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 [id number] [place] [address] 14000- 2048 Dec, [address] 41397- 3499 Dec, Tobacco abuse Z72.0 ; Tremor R25.1 ; Simple chronic bronchitis J41.0 ; Mixed hyperlipidemia E78.2 and Essential (primary) hypertension I10 [address] 14792- 0349 November, Establishing care with new doctor, encounter for Z71.89 ; Other emphysema J43.8 ; Tremor R25.1 ; Essential (primary) hypertension I10 ; Mixed hyperlipidemia E78.2 ; 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 ; AVILA ( generalized anxiety disorder) F41.1 and Bipolar II disorder F31.81 [id number] [place] [address] 73603- 4097 Oct, Bipolar II disorder F31.81 ; AVILA (generalized anxiety disorder) F41.1 and 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 [place] [address] 45996- 7842 Oct, [facility] [address] 74510- 4379 Sep, [facility] [id number] [place] [address] 32665- 6603 Jun, Essential (primary) hypertension I10 and Mixed hyperlipidemia E78.2 [facility] [address] 72787- 0896 Jun, Essential hypertension I10 [facility] [id number] [place] [address] 51345- 0220 Jun, Bipolar II disorder F31.81 ; AVILA (generalized anxiety disorder) F41.1 and 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 [facility] [id number] [place] [address] 77472- 9666 May, Essential hypertension I10 [facility] [address] 68167- 6381 May, [facility] [address] 74510- 9916 Apr, Bipolar II disorder F31.81 ; AVILA (generalized anxiety disorder) F41.1 and 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 [facility] [id number] [place] [address] 27881- 0776 Apr, Generalized anxiety disorder F41.1 and Depressive disorder, not elsewhere classified F32.9 [facility] [id number] [place] [address] 61694- 2831 16 Mar, 2015 Dysuria 788.1 and Chronic UTI 599.0 [facility] [id number] [place] [address] 57152- 0470 Mar, Hematuria 599.70 and Chronic UTI 599.0 [facility] [id number] [place] [address] 14709- 2466 Mar, [facility] [address] [address]- 0126 Feb, Urinary tract infection 599.0 [facility] [address] 2506 Feb, Urinary tract infection 599.0 [facility] [address] [address]- 1736 Feb, Dysuria 788.1 [facility] [address], [place] [address]- 8946 Feb, Dysuria 788.1 [facility] [id number] [place] [address] 04511- 9486 Feb, Dysuria 788.1 [facility] [address], [place] [address]- 4297 Feb, Dysuria 788.1 [facility] [address], [place] [address]- 2951 Jan, Dysuria 788.1 [facility] [address], [place] [address]- 0452 Jan, [facility] [address], [place] [address]- 0124 Dec, Anxiety state, unspecified 300.00 ; Urinary tract infection 599.0 and Chronic low back pain 724.2 [facility] [address], [place] [address]- 4536 Dec, [facility] [address], [place] [address]- 7617 November, [facility] [address] 4759 Oct, [facility] [address], [place] [address]- 6051 Oct, [facility] [id number] [place] [address]- 7197 17 Sep, 2014 [facility] [address] [id number] [place] [address]- 4270 17 Sep, 2014 [facility] [place] [facility] [address] [id number] [place] [address]- 7183 13 Jul, 2014 [facility] [place] [facility] [address] [id number] [place] [address]- 8043 13 Jul, 2014 [facility] [place] [facility] [address] [id number] [place] [address]- 3606 13 Jul, 2014 [facility] [place] [facility] [address] [id number] [place] [address]- 0915 Jul, [facility] [place] [facility] [address] [id number] [place] [address]- 9511 Jul, [facility] [address] [id number] [place] [address]- 2963 Jul, [facility] [place] [facility] [address] [id number] [place] [address]- 2413 Jul, [facility] [place] [facility] [address] [id number] [place] [address]- 8052 Jul, [facility] [place] [facility] [address] [id number] [place] [address]- 0585 Jun, [facility] [place] [facility] [address] [id number] [place] [address]- 9761 Jun, [facility] [place] [facility] [address] [id number] [place] [address]- 0126 18 Jun, 2014 [facility] [place] [facility] [address] [id number] [place] [address]- 1156 Jun, [facility] [place] [facility] [address] [id number] [place] [address]- 9643 Jun, [facility] [place] [facility] [address] [id number] [place] [address]- 5300 Jun, [facility] [place] [facility] [address] [id number] [place] [address]- 2677 17 Jun, 2014 [facility] [place] [facility] [address] [id number] [place] [address]- 8157 17 Jun, 2014 [facility] [place] [facility] [address] [id number] [place] [address]- 5825 16 Jun, 2014 [facility] [place] [facility] [address] [id number] [place] [address]- 4528 16 Jun, 2014 [facility] [place] [facility] [address] [id number] [place] [address]- 5200 16 Jun, 2014 [facility] [place] [facility] [address] [id number] [place] [address]- 2443 Jun, [facility] [place] [facility] [address] [id number] [place] [address]- 3243 12 Jun, 2014 [facility] [place] [facility] [address] [id number] [place] [address]- 2886 12 Jun, 2014 [facility] [place] [facility] [address] [id number] [place] [address]- 9821 Jun, [facility] [place] [facility] [address] [id number] [place] [address]- 8979 Jun, [facility] [place] [facility] [address] [id number] [place] [address]- 3369 18 May, 2014 [facility] [place] [facility] [address] [id number] [place] [address]- 8371 18 May, 2014 [facility] [place] [facility] [address] [id number] [place] [address]- 3982 18 May, 2014 [facility] [place] [facility] [address] [id number] [place] [address]- 8910 18 May, 2014 [facility] [place] [facility] [address] [id number] [place] [address]- 8889 25 Mar, 2014 [facility] [place] [facility] [address] [id number] [place] [address]- 2546 Mar, [facility] [place] [facility] [address] [id number] [place] 7420 Mar, [facility] [place] [facility] [address] [id number] [place] [address]- 5616 Mar, [facility] [place] [facility] [address] [id number] [place] [address]- 2245 Feb, [facility] [place] [facility] [address] [id number] [place] [address]- 6652 Feb, [facility] [place] [facility] [address] [id number] [place] 1724 Feb, [facility] [place] [facility] [address] [id number] [place] [address]- 9997 Jan, [facility] [place] [facility] [address] [id number] [place] [address]- 1586 Dec, [facility] [place] [facility] [address] [id number] [place] [address]- 4972 Dec, [facility] [place] [facility] [address] [id number] [place] [address]- 6133 November, [facility] [place] [facility] [address] [id number] [place] [address]- 2763 November, [facility] [place] [facility] [address] [id number] [place] [address]- 9868 November, [facility] [place] [facility] [address] [id number] [place] [address]- 4929 November, [facility] [place] [facility] [address] [id number] [place] [address]- 2197 Oct, [facility] [place] [facility] [address] [id number] [place] [address]- 3044 Oct, [facility] [place] [facility] [address] [id number] [place] [address]- 2062 Sep, [facility] [place] [facility] [address] [id number] [place] [address]- 9219 Sep, [facility] [place] [facility] [address] [id number] [place] [address]- 0243 Sep, [facility] [place] [facility] [address] [id number] [place] [address]- 8617 Sep, [facility] [place] [facility] [address] [id number] [place] [address]- 6010 Aug, [facility] [place] [facility] [address] [id number] [place] [address]- 0201 Aug, [facility] [place] [facility] [address] [id number] [place] [address]- 9452 Aug, [facility] [place] [facility] [address] [id number] [place] [address]- 5846 Aug, [facility] [place] [facility] [address] [id number] [place] [address]- 6048 Aug, [facility] [place] [facility] [address] [id number] [place] [address]- 3099 Aug, [facility] [place] [facility] [address] [id number] [place] [address]- 4946 Aug, [facility] [place] [facility] [address] [id number] [place] [address]- 8821 Jul, [facility] [place] [facility] [address] [id number] [place] [address]- 0515 Jul, [facility] [place] [facility] [address] [id number] [place] [address]- 0486 Jul, [facility] [place] [facility] [address] [id number] [place] [address]- 5231 Jul, [facility] [place] [facility] [address] [id number] [place] [address]- 8912 Jun, [facility] [place] [facility] [address] [id number], [place] [address]- 0916 Jun, [facility] [address] [facility] [id number], [place] [address]- 2831 Jun, [facility] [address] [facility] [id number], [place] [address]- 2546 Jun, [facility] [address] [facility] [id number], [place] [address]- 2546 Jun, [facility] [address] [facility] [id number], [place] [address]- 2546 Jun, [facility] [address] [facility] [id number], [place] [address]- 6498 Apr, [facility] [address] [facility] [id number], [place] [address]- 0555 Apr, IMMUNIZATIONS No Known Immunizations SOCIAL HISTORY Never Assessed REASON FOR VISIT Update on Medication PLAN OF CARE VITAL SIGNS MEDICATIONS Medication Instructions Dosage Frequency Start Date End Date Duration Status Latuda 40 MG Orally Once in the evening with 350 calories 1 tablet Feb Active RESULTS No Results PROCEDURES No Known [...]
--- OUTSIDE RECORDS SUMMARY | 2018-07-23 19:50 | XMS REPORT ---
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 Role Phone GRISEL ANTONIO Unavailable PROBLEMS Type Condition ICD9-CM Code DNA33-WN Code Onset Dates Condition Status SNOMED Code Problem Bipolar II disorder F31.81 Active 39664862 Problem Essential (primary) hypertension I10 Active 74310548 Problem Mixed hyperlipidemia E78.2 Active 642048075 Problem Essential hypertension I10 Active 74983474 Problem AVILA (generalized anxiety disorder) F41.1 Active 18717707 Problem 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 Active 14563677 Problem Hyperinsulinemia E16.1 Active 13626886 Problem Morbid obesity due to excess calories E66.01 Active 300281742 Problem Simple chronic bronchitis J41.0 Active 07208443 Problem Tobacco abuse Z72.0 Active 682595927 Problem Obstructive sleep apnea syndrome G47.33 Active 83077631 Problem Tremor R25.1 Active 60547308 ALLERGIES Substance Reaction Event Type Date Status Codeine vomiting Drug Allergy Aug, Active SOCIAL HISTORY Never Assessed PLAN OF CARE Activity Details Follow Up 4 Months Reason: VITAL SIGNS Height 64 in 2016-08-12 Weight 269.5 lbs 2016-08-12 Heart Rate 76 bpm 2016-08-12 Respiratory Rate 20 2016-08-12 BMI 46.25 kg/m2 2016-08-12 Blood pressure systolic 126 mmHg 2016-08-12 Blood pressure diastolic 71 mmHg 2016-08-12 MEDICATIONS Medication Instructions Dosage Frequency Start Date End Date Duration Status BusPIRone HCl 15 MG Orally 1 tablet in AM and 8pm and 2 tabs at 2pm 1 tablet Active Lisinopril 20 mg Orally Once a day 1 tablet 24h 30 Active Naproxen 500 MG Orally 2 times a day 1 tablet as needed 12h 90 Active Albuterol Sulfate HFA 108 (90 Base) MCG/ACT Inhalation every 4 hrs 2 puffs as needed 4h 13 Dec, 2015 Active Hydrochlorothiazide 12.5 MG Orally Once a day 1 capsule 24h 90 Active Trulicity 0.75 MG/0.5ML Subcutaneous Once a day 0.5 ml 24h Jul, 15 Aug, 2016 30 day(s) Active Zoloft 100 MG Orally Once a day for depression and anxiety 1 tablet Active Gabapentin 300 MG Orally 3 times a day 1 capsule 8h 30 Active Lamotrigine 200 mg Orally Once a day 1 tablet 24h Active Toprol XL 25 MG Orally Once a day at bedtime 1 tablet November, 90 Active RESULTS No Results PROCEDURES No Known [...]
--- OUTSIDE RECORDS SUMMARY | 2018-07-23 19:51 | XMS REPORT ---
Author Author BROOKLYN HASSAN [facility] Address [address] [place] [address] Care Team Providers Care Brancher Name Role Phone BROOKLYN HASSAN Unavailable PROBLEMS Type Condition ICD9-CM Code [id number] Code Onset Dates Condition Status SNOMED Code Problem Bipolar II disorder F31.81 Active 53931849 Problem Essential (primary) hypertension I10 Active 46629787 Problem Mixed hyperlipidemia E78.2 Active 550309278 Problem Abnormal LFTs R94.5 Active 651805064 Problem Essential hypertension I10 Active 69044515 Problem AVILA (generalized anxiety disorder) F41.1 Active 21781843 Problem 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 Active 21672002 Problem Hyperinsulinemia E16.1 Active 73862643 Problem Morbid obesity due to excess calories E66.01 Active 824254803 Problem Simple chronic bronchitis J41.0 Active 97532333 Problem Tobacco abuse Z72.0 Active 464380825 Problem Obstructive sleep apnea syndrome G47.33 Active 11683649 Problem Tremor R25.1 Active 99486521 ALLERGIES No Information ENCOUNTERS Encounter Location Date Diagnosis [facility] [facility] [address] [address] Dec, [facility] [facility] [id number] [place] [address] 37618- 8360 November, Abnormal LFTs R94.5 [facility] [place] [facility] [id number] [place] [address] 98858- 4216 Oct, [facility] [place] [facility] [id number] [place] [address] 67762- 1788 Oct, [facility] [address] [address] Oct, Left hip pain M25.552 ; Left leg pain M79.605 and BMI 45.0- 49.9, adult Z68.42 [facility] [place] [facility] [id number] [place] [address] 97066- 6925 Oct, [facility] [facility] [address] [address]- [address]6 Aug, BMI 45.0-49.9, adult Z68.42 ; Bipolar II disorder F31.81 and AVILA (generalized anxiety disorder) F41.1 [facility] [facility] [address] 26789- 7525 Jul, Abnormal LFTs R94.5 [facility] [facility] [address] 72516- 1832 Jul, Essential (primary) hypertension I10 ; Mixed hyperlipidemia E78.2 and Bipolar II disorder F31.81 [facility] [facility] [address] 85851- 5149 Jul, [facility] [place] [facility] [address] 83496- 0712 Jul, [facility] [place] [facility] [address] 92636- 2772 Jul, [facility] [place] [facility] [id number] [place] [address] 51788- 5426 Apr, [facility] [place] [facility] [id number] [place] [address] 12224- 1311 Mar, [facility] [place] [facility] [id number] [place] [address] 75535- 9946 Mar, [facility] [place] [facility] [id number] [place] [address] 47808- 7712 Feb, [facility] [facility] [id number] [place] [address] 89930- 9909 Feb, Bipolar II disorder F31.81 and AVILA (generalized anxiety disorder) F41.1 [facility] [address] 49031- 6780 Feb, [facility] [id number] [place] [address] 61325- 3093 Jan, Bipolar II disorder F31.81 ; AVILA (generalized anxiety disorder) F41.1 ; Essential hypertension I10 and Encounter for screening mammogram for breast cancer Z12.31 [facility] [id number] [place] [address] 29575- 1436 November, AVILA (generalized anxiety disorder) F41.1 [facility] [address] 95812- 9412 November, [facility] [address] 32101- 9690 Sep, [facility] [address] 01050- 7099 Sep, [facility] [address] 93809- 4449 Sep, Hyperinsulinemia E16.1 [facility] [address] 14353- 7636 06 Sep, 2016 AVILA (generalized anxiety disorder) F41.1 and Hyperinsulinemia E16.1 [facility] [id number] [place] [address] 39820- 6457 08 Aug, 2016 Hyperinsulinemia E16.1 [place] [id number] [place] [address] 41768- 0012 07 Aug, 2016 Bipolar II disorder F31.81 ; AVILA (generalized anxiety disorder) F41.1 and 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 [facility] [id number] [place] [address] 70869- 2889 Jul, Obstructive sleep apnea syndrome G47.33 [facility] [id number] [place] [address] 91279- 5313 Jul, [address] 60850- 0256 Jul, Hyperinsulinemia E16.1 ; Obstructive sleep apnea syndrome G47.33 and Morbid obesity due to excess calories E66.01 [facility] [id number] [place] [address] 60849- 6808 Jul, Morbid obesity due to excess calories E66.01 and Mixed hyperlipidemia E78.2 [facility] [address] 70336- 6842 Jul, Low back pain M54.5 ; Mixed hyperlipidemia E78.2 ; Obstructive sleep apnea syndrome G47.33 and Morbid obesity due to excess calories E66.01 [facility] [id number] [place] [address] 87942- 1790 Jun, [facility] [address] 46478- 5733 May, [facility] [facility] [address] 99291- 0600 Jan, Bipolar II disorder F31.81 ; AVILA (generalized anxiety disorder) F41.1 and 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 [place] [address] 16901- 3901 Dec, [facility] [address] 47979- 7680 Dec, Tobacco abuse Z72.0 ; Tremor R25.1 ; Simple chronic bronchitis J41.0 ; Mixed hyperlipidemia E78.2 and Essential (primary) hypertension I10 [facility] [id number] [place] [address] 04787- 4298 November, Establishing care with new doctor, encounter for Z71.89 ; Other emphysema J43.8 ; Tremor R25.1 ; Essential (primary) hypertension I10 ; Mixed hyperlipidemia E78.2 ; 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 ; AVILA ( generalized anxiety disorder) F41.1 and Bipolar II disorder F31.81 [facility] [id number] [place] [address] 38847- 2801 Oct, Bipolar II disorder F31.81 ; AVILA (generalized anxiety disorder) F41.1 and 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 [facility] [id number] [place] [address] 54924- 5438 Oct, [facility] [id number] [place] [address] 58226- 7938 Sep, [place] [address] 09992- 4811 Jun, Essential (primary) hypertension I10 and Mixed hyperlipidemia E78.2 [facility] [address] 76215- 7341 Jun, Essential hypertension I10 [place] [address] 29380- 4427 Jun, Bipolar II disorder F31.81 ; AVILA (generalized anxiety disorder) F41.1 and 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 [facility] [facility] [id number] [place] [address] 14327- 9656 May, Essential hypertension I10 [facility] [address] 56877- 9407 May, [facility] [id number] [place] [address] 62569- 7656 Apr, Bipolar II disorder F31.81 ; AVILA (generalized anxiety disorder) F41.1 and 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 [facility] [id number] [place] [address] 97091- 4310 05 Apr, 2015 Generalized anxiety disorder F41.1 and Depressive disorder, not elsewhere classified F32.9 [place] [id number] [place] [address] 17616- 9064 16 Mar, 2015 Dysuria 788.1 and Chronic UTI 599.[address] 84032- 6694 Mar, Hematuria 599.70 and Chronic UTI 599.0 [facility] [facility] [address] [address]- 3058 Mar, [facility] [id number] [place] [address] 75670- 3866 Feb, Urinary tract infection 599.0 [facility] [id number] [place] [address] 13472- 5516 Feb, Urinary tract infection 599.0 [facility] [id number] [place] [address] 26628- 6474 Feb, Dysuria 788.1 [facility] [id number] [place] [address] 29530- 0019 Feb, Dysuria 788.1 [facility] [id number] [place] [address] 97054- 1870 Feb, Dysuria 788.1 [facility] [id number] [place] [address] 43280- 0123 Feb, Dysuria 788.1 [facility] [id number] [place] [address] 46174- 4401 Jan, Dysuria 788.1 [facility] [id number] [place] [address] 82580- 9972 Jan, [facility] [facility] [id number] [place] [address] 70726- 5981 Dec, Urinary tract infection 599.0 ; Anxiety state, unspecified 300.00 and Chronic low back pain 724.2 [facility] [id number] [place] [address] 96573- 4384 Dec, [facility] [id number] [place] [address] 08674- 3288 November, [facility] [facility] [id number] [place] [address] 58348- 6023 Oct, [facility] [place] [facility] [address] [id number] [place] [address]- 2546 13 Oct, 2014 [facility] [place] [facility] [address] [id number] [place] [address]- 5306 17 Sep, 2014 [facility] [place] [facility] [address] [id number] [place] [address]- 2546 17 Sep, 2014 [facility] [place] [facility] [address] [id number] [place] [address]- 5736 13 Jul, 2014 [facility] [place] [facility] [address] [id number] [place] [address]- 1976 13 Jul, 2014 [facility] [place] [facility] [address] [id number] [place] [address]- 6644 Jul, [facility] [place] [facility] [address] [id number] [place] [address]- 2506 Jul, [facility] [place] [facility] [address] [id number] [place] [address]- 7586 Jul, [facility] [place] [facility] [address] [id number] [place] [address]- 8213 Jul, [facility] [place] [facility] [address] [id number] [place] [address]- 7816 Jul, [facility] [place] [facility] [address] [id number] [place] [address]- 6995 Jul, [facility] [place] [facility] [address] [id number] [place] [address]- 1962 Jun, [facility] [place] [facility] [address] [id number] [place] [address]- 3296 Jun, [facility] [place] [facility] [address] [id number] [place] [address]- 8306 Jun, [facility] [place] [facility] [address] [id number] [place] [address]- 2546 Jun, [facility] [place] [facility] [address] [id number] [place] [address]- 3702 17 Jun, 2014 [facility] [place] [facility] [address] [id number] [place] [address]- 9410 17 Jun, 2014 [facility] [place] [facility] [address] [id number] [place] [address]- 9331 17 Jun, 2014 [facility] [place] [facility] [address] [id number] [place] [address]- 0521 17 Jun, 2014 [facility] [place] [facility] [address] [id number] [place] [address]- 0129 16 Jun, 2014 [facility] [place] [facility] [address] [id number] [place] [address]- 6908 16 Jun, 2014 [facility] [place] [facility] [address] [id number] [place] [address]- 3068 16 Jun, 2014 [facility] [place] [facility] [address] [id number] [place] [address]- 6525 16 Jun, 2014 [facility] [place] [facility] [address] [id number] [place] [address]- 7778 12 Jun, 2014 [facility] [place] [facility] [address] [id number] [place] [address]- 1330 12 Jun, 2014 [facility] [place] [facility] [address] [id number] [place] [address]- 9918 11 Jun, 2014 [facility] [place] [facility] [address] [id number] [place] [address]- 3045 11 Jun, 2014 [facility] [place] [facility] [address] [id number] [address]- 4453 18 May, 2014 [facility] [place] [facility] [address] [id number] [place] [address]- 3129 18 May, 2014 [facility] [place] [facility] [address] [id number] [place] [address]- 2595 18 May, 2014 [facility] [place] [facility] [address] [id number] [place] [address]- 4530 18 May, 2014 [facility] [place] [facility] [address] [id number] [place] [address]- 5647 25 Mar, 2014 [facility] [place] [facility] [address] [id number] [place] [address]- 9773 25 Mar, 2014 [facility] [place] [facility] [address] [id number] [place] [address]- 8766 Mar, [facility] [place] [facility] [address] [id number] [place] [address]- 6746 Mar, [facility] [place] [facility] [address] [id number] [place] [address]- 1228 Feb, [facility] [place] [facility] [address] [id number] [place] [address]- 4993 Feb, [facility] [place] [facility] [address] [id number] [place] [address]- 4342 Feb, [facility] [place] [facility] [address] [id number] [place] [address]- 3156 Jan, [facility] [place] [facility] [address] [id number] [place] [address]- 5905 Dec, [facility] [place] [facility] [address] [id number] [place] [address]- 1358 Dec, [facility] [place] [facility] [address] [id number] [place] [address]- 4002 November, [facility] [place] [facility] [address] [id number] [place] [address]- 9157 November, [facility] [place] [facility] [address] [id number] [place] [address]- 4219 November, [facility] [place] [facility] [address] [id number] [place] [address]- 6711 November, [facility] [place] [facility] [address] [id number] [place] [address]- 6903 Oct, [facility] [place] [facility] [address] [id number] [place] [address]- 7492 Oct, [facility] [place] [facility] [address] [id number] [place] [address]- 1952 Sep, [facility] [place] [facility] [address] [id number] [place] [address]- 0756 Sep, [facility] [place] [facility] [address] [id number] [place] [address]- 8486 Sep, [facility] [place] [facility] [address] [id number] [place] [address]- 5042 Sep, [facility] [place] [facility] [address] [id number] [place] [address]- 1202 Aug, [facility] [place] [facility] [address] [id number] [place] [address]- 4491 Aug, [facility] [place] [facility] [address] [id number] [place] [address]- 2916 Aug, [facility] [place] [facility] [address] [id number] [place] [address]- 7866 Aug, [facility] [place] [facility] [address] [id number] [place] [address]- 5384 Aug, [facility] [place] [facility] [address] [id number] [place] [address]- 2459 Aug, [facility] [place] [facility] [address] [id number] [place] [address]- 9429 Aug, [facility] [place] [facility] [address] [id number] [place] [address]- 7286 Jul, [facility] [place] [facility] [address] [id number] [place] [address]- 9001 Jul, [facility] [place] [facility] [address] [id number] [place] [address]- 0220 Jul, [facility] [place] [facility] [address] [id number] [place] [address]- 7484 Jul, [facility] [place] [facility] [id number] 8901 Jun, [facility] [place] [facility] [id number]- 9127 Jun, [facility] [place] [facility] [id number] 1521 Jun, [facility] [place] [facility] [address] [address]- 1613 Jun, [facility] [place] [facility] [id number] [place] [address] 32358- 5928 Jun, [facility] [place] [facility] [id number] [place] [address] 445843- 1906 Jun, [facility] [place] [facility] [address] [address]- 7928 Apr, [facility] [place] [facility] [address] 3571 Apr, IMMUNIZATIONS No Known Immunizations SOCIAL HISTORY Never Assessed REASON FOR VISIT PALS [facility] PLAN OF CARE VITAL SIGNS MEDICATIONS Unknown [...]
--- OUTSIDE RECORDS SUMMARY | 2018-07-23 19:51 | XMS REPORT | Continuity of Care Document ---
Author Author [facility] Address Unknown Phone Unavailable Allergies Active Description Code Type Severity Reaction Onset Reported/Identified Relationship to Patient Clinical Status Yes CODEINE SULFATE CODEINE SULFATE UNKNOWN Yes CODEINE SULFATE UNKNOWN UNKNOWN Yes codeine Drug Allergy N/A N/A 05/03/2013 Yes CODIENE CODIENE Unknown N/A 12/11/2014 Medications Medication Packaging Start Date Stop Date Route Dosage Sig PROMETHAZINE VIAL INJ 25 MG/CC (PHENERGAN VIAL) MG 10/29/2016 10/29/2016 ONCE&2146 DIAZEPAM SYRINGE INJ 5 MG/CC (VALIUM SYRINGE) MG 10/29/2016 10/29/2016 PRN ONCE DIAZEPAM SYRINGE INJ 5 MG/CC (VALIUM SYRINGE) MG 10/29/2016 10/29/2016 ONCE&2228 ONDANSETRON VIAL INJ 4 MG/2CC (ZOFRAN 2CC VIAL) MG 10/29/2016 10/29/2016 ONCE&2238 NORMAL SALINE 1000CC IV BAG INJ 0.9 % (NS 1000CC IV BAG) ml 10/29/2016 10/29/2016 ONCE&2238 DIAZEPAM SYRINGE INJ 5 MG/CC (VALIUM SYRINGE) MG 10/29/2016 10/29/2016 ONCE&2334 Problems Date Dx Coded Attending Type Code Diagnosis Diagnosed By 12/09/2009 Ot 724.2 LUMBAGO 12/09/2009 Ot 787.03 VOMITING ALONE 05/03/2013 VICENTE WHITING DO 401.1 HYPERTENSION, BENIGN ESSENTIAL 05/03/2013 VICENTE WHITING DO 724.2 LUMBAGO/ LOW BACK PAIN 05/03/2013 ROXANA MCFARLAND APRN 401.1 HYPERTENSION, BENIGN ESSENTIAL 05/03/2013 ROXANA MCFARLAND APRN 724.2 LUMBAGO/ LOW BACK PAIN 05/03/2013 ARVIN DODSON APRN 401.1 HYPERTENSION, BENIGN ESSENTIAL 05/03/2013 ARVIN DODSON APRN 724.2 LUMBAGO/ LOW BACK PAIN 05/03/2013 BARTOLO ALANIZ ROXANA R 401.1 HYPERTENSION, BENIGN ESSENTIAL 05/03/2013 BARTOLO ALANIZ, ROXANA R 724.2 LUMBAGO/ LOW BACK PAIN 05/03/2013 WHITING DO, VICENTE K 401.1 HYPERTENSION, BENIGN ESSENTIAL 05/03/2013 WHITING DO, VICENTE K 724.2 LUMBAGO/ LOW BACK PAIN 05/03/2013 WHITING DO, VICENTE K 401.1 HYPERTENSION, BENIGN ESSENTIAL 05/03/2013 WHITING DO, VICENTE K 724.2 LUMBAGO/ LOW BACK PAIN 05/03/2013 WHITING DO, VICENTE K 401.1 HYPERTENSION, BENIGN ESSENTIAL 05/03/2013 WHITING DO, VICENTE K 724.2 LUMBAGO/ LOW BACK PAIN 05/03/2013 BARTOLO ALANIZ ROXANA R 401.1 HYPERTENSION, BENIGN ESSENTIAL 05/03/2013 BARTOLO ALANIZ ROXANA R 724.2 LUMBAGO/ LOW BACK PAIN 05/03/2013 ALEJANDRA MCFARLAND APRNINA R 401.1 HYPERTENSION, BENIGN ESSENTIAL 05/03/2013 BARTOLO ALANIZ ROXANA R 724.2 LUMBAGO/ LOW BACK PAIN 05/03/2013 WHITING DO, VICENTE K 401.1 HYPERTENSION, BENIGN ESSENTIAL 05/03/2013 WHITING DO, VICENTE K 724.2 LUMBAGO/ LOW BACK PAIN 07/01/2013 BARTOLO ALANIZ ROXANA R 300.00 ANXIETY UNSPEC 07/01/2013 ARVIN DODSON APRN 300.00 ANXIETY UNSPEC 07/01/2013 ALEJANDRA MCFARLAND APRNINA R 300.00 ANXIETY UNSPEC 07/01/2013 WHITING DO, VICENTE K 300.00 ANXIETY UNSPEC 07/01/2013 WHITING DO, VICENTE K 300.00 ANXIETY UNSPEC 07/01/2013 WHITING DO, VICENTE K 300.00 ANXIETY UNSPEC 07/01/2013 BARTOLO ALANIZ ROXANA R 300.00 ANXIETY UNSPEC 07/01/2013 BARTOLO ALANIZ ROXANA R 300.00 ANXIETY UNSPEC 07/01/2013 WHITING DO, VICENTE K 300.00 ANXIETY UNSPEC 08/01/2013 ARVIN DODSON APRN V65.42 COUNSELING - SMOKING CESSATION 08/01/2013 ARVIN DODSON APRN V72.31 HARMONICA MAKER EXAM, ROUTINE 08/01/2013 IVORY SHADE HANGER, ARVIN A V73.81 HPV SCREENING 08/01/2013 IVORYARVIN Swain APRN A V76.10 BREAST CANCER SCREENING 08/01/2013 ARVIN DODSON APRN A V76.2 CERVICAL CANCER SCREENING (PAP SMEAR) 08/01/2013 ROXANA MCFARLAND APRN R V65.42 COUNSELING - SMOKING CESSATION 08/01/2013 BARTOLO SHADE HANGER, ROXANA R V72.31 HARMONICA MAKER EXAM, ROUTINE 08/01/2013 BARTOLO ALANIZ, ROXANA R V73.81 HPV SCREENING 08/01/2013 BARTOLO SHADE HANGER, ROXANA R V76.10 BREAST CANCER SCREENING 08/01/2013 BARTOLO SHADE HANGER, ROXANA R V76.2 CERVICAL CANCER SCREENING (PAP SMEAR) 08/01/2013 JOHANNE WARREN VICENTE K V65.42 COUNSELING - SMOKING CESSATION 08/01/2013 JOHANNE WARREN VICENTE K V72.31 HARMONICA MAKER EXAM, ROUTINE 08/01/2013 JOHANNE WARREN VICENTE K V73.81 HPV SCREENING 08/01/2013 JOHANNE WARREN VICENTE K V76.10 BREAST CANCER SCREENING 08/01/2013 JOHANNE WARREN VICENTE K V76.2 CERVICAL CANCER SCREENING (PAP SMEAR) 08/01/2013 JOHANNE WARREN VICENTE K V65.42 COUNSELING - SMOKING CESSATION 08/01/2013 JOHANNE WARREN VICENTE K V72.31 HARMONICA MAKER EXAM, ROUTINE 08/01/2013 JOHANNE WARREN VICENTE K V73.81 HPV SCREENING 08/01/2013 WHITING DO VICENTE K V76.10 BREAST CANCER SCREENING 08/01/2013 WHITING DO VICENTE K V76.2 CERVICAL CANCER SCREENING (PAP SMEAR) 08/01/2013 JOHANNE WARREN VICENTE K V65.42 COUNSELING - SMOKING CESSATION 08/01/2013 JOHANNE WARREN VICENTE K V72.31 HARMONICA MAKER EXAM, ROUTINE 08/01/2013 WHITING DO VICENTE K V73.81 HPV SCREENING 08/01/2013 WHITING DO VICENTE K V76.10 BREAST CANCER SCREENING 08/01/2013 WHITING DO VICENTE K V76.2 CERVICAL CANCER SCREENING (PAP SMEAR) 08/01/2013 ALEJANDRA MCFARLAND APRNINA R V65.42 COUNSELING - SMOKING CESSATION 08/01/2013 ALEJANDRA MCFARLAND APRNINA R V72.31 HARMONICA MAKER EXAM, ROUTINE 08/01/2013 ALEJANDRA MCFARLAND APRNINA R V73.81 HPV SCREENING 08/01/2013 ALEJANDRA MCFARLAND APRNINA R V76.10 BREAST CANCER SCREENING 08/01/2013 ALEJANDRA MCFARLAND APRNINA R V76.2 CERVICAL CANCER SCREENING (PAP SMEAR) 08/01/2013 ROXANA MCFARLAND APRN R V65.42 COUNSELING - SMOKING CESSATION 08/01/2013 ROXANA MCFARLAND APRN R V72.31 HARMONICA MAKER EXAM, ROUTINE 08/01/2013 ROXANA MCFARLAND APRN R V73.81 HPV SCREENING 08/01/2013 ROXANA MCFARLAND APRN R V76.10 BREAST CANCER SCREENING 08/01/2013 ALEJANDRA MCFARLAND APRNINA R V76.2 CERVICAL CANCER SCREENING (PAP SMEAR) 08/01/2013 LAVON WHITING DOA K V65.42 COUNSELING - SMOKING CESSATION 08/01/2013 LAVON WHITING DOA K V72.31 HARMONICA MAKER EXAM, ROUTINE 08/01/2013 VICENTE WHITING DO V73.81 HPV SCREENING 08/01/2013 LAVON WHITING DOA K V76.10 BREAST CANCER SCREENING 08/01/2013 LAVON WHITING DOA K V76.2 CERVICAL CANCER SCREENING (PAP SMEAR) 12/23/2013 LAVON WHITING DOA K 782.1 RASH 12/23/2013 ALEJANDRA MCFARLAND APRNINA R 782.1 RASH 12/23/2013 ALEJANDRA MCFARLAND APRNINA R 782.1 RASH 12/23/2013 LAVON WHITING DOA K 782.1 RASH 02/09/2014 BARTOLO ALANIZ ROXANA R 692.70 UNSPECIFIED DERMATITIS DUE TO 02/09/2014 BARTOLO ALANIZ ROXANA R 692.70 UNSPECIFIED DERMATITIS DUE TO 02/09/2014 LAVON WHITING DOA K 692.70 UNSPECIFIED DERMATITIS DUE TO 03/11/2014 BARTOLO ALANIZ ROXANA R 729.1 MYALGIA AND MYOSITIS UNSPECIFIED 03/11/2014 BARTOLO ALANIZ ROXANA R 789.00 ABDOMINAL PAIN UNSPECIFIED SITE 03/11/2014 LAVON WHITING DOA K 729.1 MYALGIA AND MYOSITIS UNSPECIFIED 03/11/2014 LAVON WHITING DOA K 789.00 ABDOMINAL PAIN UNSPECIFIED SITE 06/15/2014 LAVON WHITING DOA K 724.3 SCIATICA 06/15/2014 LAVON WHITING DOA Darren V04.81 FLU SHOT 06/15/2014 WHITING DO, VICENTE K V70.0 ROUTINE GENERAL MEDICAL EXAMINATION AT A HEALTH CARE FACILITY 10/23/2014 MARY MENDOZA, RUDOLPH Zazueta Ot 787.01 NAUSEA WITH VOMITING 10/23/2014 MARY MENDOZA, RUDOLPH Zazueta Ot 787.91 DIARRHEA 10/23/2014 MARY MENDOZA, RUDOLPH Zazueta Ot 789.06 ABDOMINAL PAIN, EPIGASTRIC 12/11/2014 ARVIN DODSON A SHADE HANGER Ot V76.12 12/11/2014 SHAREE , JONNATHAN K Ot 300.00 ANXIETY STATE NOS 12/11/2014 SHAREE DO, JONNATHAN K Ot 305.90 DRUG ABUSE NEC-UNSPEC 12/11/2014 SHAREE DO, JONNATHAN K Ot 599.0 URIN TRACT INFECTION NOS 12/11/2014 SHAREE , JONNATHAN K Ot 781.0 ABN INVOLUN MOVEMENT NEC 12/11/2014 SHAREE , JONNATHAN K Ot 790.5 ABN SERUM ENZY LEVEL NEC 12/11/2014 IVORY, ARVIN A SHADE HANGER Ot V76.12 12/27/2014 IVORY, ARVIN A SHADE HANGER Ot V76.12 02/27/2015 IVORY, ARVIN A SHADE HANGER Ot V76.12 07/31/2016 PHOEBE DON SHADE HANGER Ot 599.0 URIN TRACT INFECTION NOS 07/31/2016 PHOEBE DON SHADE HANGER Ot 599.70 HEMATURIA, UNSPECIFIED 10/30/2016 LAN MAY 008.8 INTESTINAL INFECTION DUE TO OTHER ORGANISM, NOT ELSEWHERE CLASSIFIED 10/30/2016 LAN MAY W 787.91 DIARRHEA 10/30/2016 LAN MAY A08.4 VIRAL INTESTINAL INFECTION, UNSPECIFIED 10/30/2016 LAN MAY W R19.7 DIARRHEA, UNSPECIFIED 10/14/2017 PHOEBE DON SHADE HANGER Ot 599.0 URIN TRACT INFECTION NOS 10/14/2017 PHOEBE DON SHADE HANGER Ot 599.70 HEMATURIA, UNSPECIFIED 10/14/2017 PHOEBE DON SHADE HANGER Ot 599.0 URIN TRACT INFECTION NOS 10/14/2017 PHOEBE DON SHADE HANGER Ot 599.70 HEMATURIA, UNSPECIFIED 10/14/2017 PHOEBE DON SHADE HANGER Ot 599.0 URIN TRACT INFECTION NOS 10/14/2017 PHOEBE DON SHADE HANGER Ot 599.70 HEMATURIA, UNSPECIFIED 10/15/2017 LUCERO RUSSO SHADE HANGER Ot S70.12XA CONTUSION OF LEFT THIGH, INITIAL ENCOUNT 12/15/2017 LUCERO RUSSO SHADE HANGER Ot S70.12XA CONTUSION OF LEFT THIGH, INITIAL ENCOUNT 12/15/2017 ARVIN DODSON SHADE HANGER Ot V76.12 OTH SCREEN MAMMO-MALIGN NEOPLASM OF SALMA 12/15/2017 LUCERO RUSSO SHADE HANGER Ot S70.12XA CONTUSION OF LEFT THIGH, INITIAL ENCOUNT 04/21/2018 ARVIN DODSON SHADE HANGER Ot V76.12 OTH SCREEN MAMMO-MALIGN NEOPLASM OF SALMA 04/21/2018 PHOEBE DON SHADE HANGER Ot 599.0 URIN TRACT INFECTION NOS 04/21/2018 PHOEBE DON SHADE HANGER Ot 599.70 HEMATURIA, UNSPECIFIED 04/21/2018 LUCERO RUSSO SHADE HANGER Ot S70.12XA CONTUSION OF LEFT THIGH, INITIAL ENCOUNT 04/21/2018 ARVIN DODSON SHADE HANGER Ot V76.12 OTH SCREEN MAMMO-MALIGN NEOPLASM OF SALMA 04/21/2018 PHOEBE DON SHADE HANGER Ot 599.0 URIN TRACT INFECTION NOS 04/21/2018 PHOEBE DON SHADE HANGER Ot 599.70 HEMATURIA, UNSPECIFIED 07/23/2018 PHOEBE DON SHADE HANGER Ot 599.0 URIN TRACT INFECTION NOS 07/23/2018 PHOEBE DON SHADE HANGER Ot 599.70 HEMATURIA, UNSPECIFIED 07/23/2018 LUCERO RUSSO SHADE HANGER Ot S70.12XA CONTUSION OF LEFT THIGH, INITIAL ENCOUNT Procedures Code Description [place] [address] ROUTINE VENIPUNCTURE 05/03/2013 3586594 GFR CALC (RESULT ONLY) 05/03/2013 10496 CMP 05/03/2013 55757 LIPID PANEL 05/03/2013 81158 CBC 05/03/2013 07450 TSH 05/03/2013 18713 ROUTINE VENIPUNCTURE 07/01/2013 46054 LIPID PANEL 07/01/2013 72539 LIVER PANEL (LFT) 07/01/2013 09797 PAP SMEAR 08/01/2013 Q0091 PAP SMEAR OBTAIN SMEAR 08/01/2013 05982 MAMMOGRAM, SCREENING 08/03/2013 2000F BLOOD PRESSURE CHECK 09/23/2013 65969 XRAY LUMBAR SPINE 2 OR 3 VIEWS 06/15/2014 41452 ROUTINE VENIPUNCTURE 06/16/2014 17712 CBC 06/16/2014 9292450 GFR CALC (RESULT ONLY) 06/16/2014 68323 CMP 06/16/2014 83481 LIPID PANEL 06/16/2014 31631 TSH 06/16/2014 60088 AMERITOX 06/21/2014 Results Test Result Range Comp. Metabolic Panel (14) - 07/10/16 11:57 Glucose, Serum 108 mg/dL 65-99 BUN 8 mg/dL 6-24 Creatinine, Serum 0.78 mg/dL 0.57-1.00 eGFR If NonAfricn Am 90 mL/min/1.73 >59 eGFR If Africn Am 104 mL/min/1.73 >59 BUN/Creatinine Ratio 10 9-23 Sodium, Serum 142 mmol/L 134-144 Potassium, Serum 4.3 mmol/L 3.5-5.2 Chloride, Serum 101 mmol/L 96-106 Carbon Dioxide, Total 25 mmol/L 18-29 Calcium, Serum 9.0 mg/dL 8.7-10.2 Protein, Total, Serum 7.0 g/dL 6.0-8.5 Albumin, Serum 4.0 g/dL 3.5-5.5 Globulin, Total 3.0 g/dL 1.5-4.5 A/G Ratio 1.3 1.1-2.5 Bilirubin, Total 0.3 mg/dL 0.0-1.2 Alkaline Phosphatase, S 74 IU/L 39-117 AST (SGOT) 32 IU/L 0-40 ALT (SGPT) 29 IU/L 0-32 Lipid Panel - 07/10/16 11:57 Cholesterol, Total 194 mg/dL 100-199 Triglycerides 180 mg/dL 0-149 HDL Cholesterol 29 mg/dL >39 VLDL Cholesterol Zain 36 mg/dL 5-40 LDL Cholesterol Calc 129 mg/dL 0-99 Insulin - 07/10/16 11:57 Insulin 32.5 uIU/mL 2.6-24.9 Lipase - 10/29/16 21:30 Lipase 49 U/L 7-59 Urinalysis - 10/29/16 21:59 Icotest Negative Negative Urine Casts Hyaline 2-5 Urine Crystals Uric Acid moderate Urine Volume Urine Volume Sufficient (10mL) Urine Yeast No Yeast present Urine-Appearance Clear Clear Urine-Bacteria Trace Urine-Bilirubin 1+ Negative Urine-Blood Negative Negative Urine-Color Yellow Colorless-Lt. Yellow Urine-Epithelial Cells 10-20/HPF Urine-Glucose Negative Negative Urine-Ketones 3+ Negative Urine-Leukocytes Negative Negative Urine-Mucus 3+ Urine-Nitrite Negative Negative Urine-Other Urine Saved if Culture Needed (48hrs from time of collection) Urine-pH 5.0 5-8.5 Urine-Protein 1+ Negative Urine-RBC Negative Urine-Specific [place] >=1.030 1.000-1.030 Urine-WBC Nothing Seen on Microscopic Urobilinogen 0.2 E.U./dL 0.2-1.0 Rapid Drug Screen,Medical - 10/29/16 22:07 Amphetamine POSITIVE NEGATIVE Barbiturates NEGATIVE NEGATIVE Benzodiazepines NEGATIVE NEGATIVE Cocaine NEGATIVE NEGATIVE Marijuana POSITIVE NEGATIVE Methylenedioxymethamphetamine NEGATIVE NEGATIVE Opiates NEGATIVE NEGATIVE Oxycodone NEGATIVE NEGATIVE Phencyclidine NEGATIVE NEGATIVE Propoxyphene NEGATIVE NEGATIVE Tricyclic Antidepressant NEGATIVE NEGATIVE CMP - 07/27/17 10:50 GLUCOSE 105 mg/dL 65-99 UREA NITROGEN (BUN) 11 mg/dL 7-25 CREATININE 0.81 mg/dL 0.50-1.10 eGFR NON-AFR. EMIRATI 85 mL/min/1.73m2 > OR=60 eGFR 99 mL/min/1.73m2 > OR=60 BUN/CREATININE RATIO NOT APPLICABLE (calc) 6-22 SODIUM 141 mmol/L 135-146 POTASSIUM 3.8 mmol/L 3.5-5.3 CHLORIDE 102 mmol/L 98-110 CARBON DIOXIDE 33 mmol/L 20-31 CALCIUM 9.2 mg/dL 8.6-10.2 PROTEIN, TOTAL 7.1 g/dL 6.1-8.1 ALBUMIN 3.9 g/dL 3.6-5.1 GLOBULIN 3.2 g/dL (calc) 1.9-3.7 ALBUMIN/GLOBULIN RATIO 1.2 (calc) 1.0-2.5 BILIRUBIN, TOTAL 0.3 mg/dL 0.2-1.2 ALKALINE PHOSPHATASE 77 U/L 33-115 AST 44 U/L 10-35 ALT 50 U/L 6-29 CMP - 11/04/17 12:20 GLUCOSE 100 mg/dL 65-99 UREA NITROGEN (BUN) 13 mg/dL 7-25 CREATININE 0.81 mg/dL 0.50-1.05 eGFR NON-AFR. EMIRATI 85 mL/min/1.73m2 > OR=60 eGFR 98 mL/min/1.73m2 > OR=60 BUN/CREATININE RATIO NOT APPLICABLE (calc) 6-22 SODIUM 137 mmol/L 135-146 POTASSIUM 4.2 mmol/L 3.5-5.3 CHLORIDE 101 mmol/L 98-110 CARBON DIOXIDE 29 mmol/L 20-31 CALCIUM 9.6 mg/dL 8.6-10.4 PROTEIN, TOTAL 7.4 g/dL 6.1-8.1 ALBUMIN 4.2 g/dL 3.6-5.1 GLOBULIN 3.2 g/dL (calc) 1.9-3.7 ALBUMIN/GLOBULIN RATIO 1.3 (calc) 1.0-2.5 BILIRUBIN, TOTAL 0.5 mg/dL 0.2-1.2 ALKALINE PHOSPHATASE 74 U/L 33-130 AST 49 U/L 10-35 ALT 38 U/L 6-29 Encounters ACCT No. Visit Date/Time Discharge Status Pt. Type Provider Facility Loc./Unit Complaint [id number] 06/16/2014 10:33:00 06/16/2014 23:59:59 CLS Outpatient VICENTE WHITING DO [id number] 03/11/2014 13:46:00 03/11/2014 23:59:59 CLS Outpatient ROXANA MCFARLAND APRN [id number] 02/09/2014 14:12:00 02/09/2014 23:59:59 CLS Outpatient ROXANA MCFARLAND APRN [id number] 12/23/2013 11:51:00 12/23/2013 23:59:59 CLS Outpatient VICENTE WHITING DO [id number] 11/30/2013 09:46:00 11/30/2013 23:59:59 CLS Outpatient VICENTE WHITING DO [id number] 09/21/2013 10:06:00 09/21/2013 23:59:59 CLS Outpatient VICENTE WHITING DO [id number] 08/26/2013 10:23:00 08/26/2013 23:59:59 CLS Outpatient ROXANA MCFARLAND APRN [id number] 08/01/2013 09:41:00 08/01/2013 23:59:59 CLS Outpatient ARVIN DODSON APRN [id number] 07/01/2013 09:42:00 07/01/2013 23:59:59 CLS Outpatient ROXANA MCFARLAND APRN [id number] 05/03/2013 11:22:00 05/03/2013 23:59:59 CLS Outpatient VICENTE WHITING DO [id number] 02/11/2017 12:55:00 02/11/2017 23:59:00 DIS Outpatient KHLOE FOX [id number] 10/29/2016 21:05:00 10/30/2016 00:00:00 DIS Outpatient [facility] ER [id number] 10/29/2016 21:46:24 Document Registration [id number] 10/14/2017 13:05:00 10/14/2017 23:59:59 CLS Outpatient LUCERO RUSSO APRN [facility] RAD LEFT LEG PAIN [id number] 07/15/2016 09:41:00 07/15/2016 23:59:59 CLS Preadmit KHLOE FOX 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 [facility] REHAB LOW BACK PAIN [id number] 03/19/2015 09:18:00 03/19/2015 23:59:59 CLS Outpatient PHOEBE DON APRN [facility] RAD HEMATURIA,CHRONIC UTI [id number] 12/11/2014 15:48:00 12/11/2014 19:02:00 DIS Emergency JONNATHAN TOLLIVER DO [facility] ER UNCONTROLLABLE SHAKING/ POSSIBLE STROKE [id number] 10/23/2014 03:42:00 10/23/2014 04:33:00 DIS Emergency RUDOLPH HERNANDEZ MD [facility] ER N/V [id number] 08/05/2013 09:37:00 08/05/2013 23:59:59 CLS Outpatient ARVIN DODSON APRN [facility] RAD SCREENING [id number] 07/23/2018 19:35:00 ACT Emergency RUDOLPH HERNANDEZ MD [facility] ER VOMITING, CHEST PAIN [id number] 04/21/2018 01:48:00 Document Registration [id number] 12/09/2009 12:18:00 Document Registration [id number] 02/09/2018 12:00:00 02/09/2018 23:59:59 [facility] Outpatient KHLOE FOX APRN [facility] [id number] 11/04/2017 12:00:00 Document Registration [id number] 07/27/2017 10:00:00 Document Registration [id number] 07/11/2016 13:05:00 Document Registration [id number] 10/29/2016 21:05:00 Document Registration
[2018-07-23 19:59] LABS: BILIRUBIN,URINE NEGATIVE (NEGATIVE); CLARITY,URINE CLEAR; COLOR,URINE YELLOW; GLUCOSE, URINE (UA) NEGATIVE (NEGATIVE); KETONES,URINE 1+ (NEGATIVE); LEUKOCYTE ESTERASE ,URINE 3+ (NEGATIVE); NITRITE,URINE NEGATIVE (NEGATIVE); PH,URINE 5 (5-9); PROTEIN,URINE 1+ (NEGATIVE); UROBILINOGEN,URINE NORMAL (NORMAL)
--- NOTE | 2018-07-23 19:59 | ED Chest Pain ---
General Chief Complaint: Chest Pain Stated Complaint: VOMITING, CHEST PAIN Nursing Triage Note: Vomitting x 3 days that has not improved. The patient advises approximately 1 hour ago she began experiencing chest pain. She believes it is related to her anxiety as she is unable to keep her medications down. Nursing Sepsis Screen: No Definite Risk Source: patient Exam Limitations: no limitations History of Present Illness Date Seen by Provider: Jul 23, 2018 Time Seen by Provider: 19:41 Initial Comments Here with report of vomiting intermittently over the last 3 days that is worse today. Initially stated that an hour ago she started having chest pressure but then states actually that started several hours ago with the vomiting. She states that it feels like her anxiety and she's not necessarily concerned about her chest. She is concerned because of the persistent vomiting. She notes that she has dizziness that has been going on through this time. She states it' s better if she holds herself still. She states that she smokes marijuana daily. Denies dysuria but has had some diarrhea. Denies breathing problems. Timing/Duration: 2-3 days Severity/Quality: moderate, pressure (3-4 hours) Location: central Radiation: no radiation Activities at Onset: none Prior CP/Workup: no prior cardiac workup Modifying Factors: improves with rest ASA po PERFORATOR TYPIST: No NTG SL PERFORATOR TYPIST: No Associated Symptoms: No back pain; dizziness, fatigue; No fever/chills; nausea/ vomiting; No shortness of breath Allergies and Home Medications Allergies Uncoded Allergies: CODIENE (Allergy, Unknown, 12/11/14) Home Medications Buspirone Hcl 15 Mg Tablet, 15 MG PO BID, (Reported) Gabapentin 300 Mg Capsule, 300 MG PO TID, (Reported) Hydroxyzine Hcl 25 Mg Tablet, 25 MG PO TID PRN for PAIN, (Reported) NEEDED FOR ANXIETY Lisinopril/Hydrochlorothiazide 1 Tab Tablet, 1 TAB PO DAILY, (Reported) Multivitamin 1 Each Tablet, 1 EACH PO DAILY, (Reported) Naproxen 500 Mg Tablet, 500 MG PO BID, (Reported) Nitrofurantoin/Nitrofuran Mac 100 Mg Capsule, 1 EACH PO BID FOR INFECTION Prescribed by: JONNATHAN TOLLIVER on 12/11/14 7059 [place]-3/Dha/Epa/Fish Oil 1,000 Mg Capsule, 1,000 MG PO BID, (Reported) Patient Home Medication List Home Medication List Reviewed: Yes Review of Systems Review of Systems Constitutional: see HPI; No chills, No fever EENTM: No Symptoms Reported Respiratory: Denies Shortness of Air, Denies Wheezing Cardiovascular: Chest Pain; Denies Edema, Denies Irregular Heart Rate, Denies Palpitations Gastrointestinal: See HPI, Nausea, Vomiting Genitourinary: Denies Discharge, Denies Pain Musculoskeletal: muscle pain, neck pain Skin: no symptoms reported Psychiatric/Neurological: Anxiety; Denies Depressed All Other Systems Reviewed Negative Unless Noted: Yes Past [place]-Ymjapq-Akeqvy Hx Past Med/Social Hx: Reviewed Nursing Past Med/Soc Hx Patient Social History Alcohol Use: Denies Use Recreational Drug Use: Yes Drug of Choice: THC Smoking Status: Current Everyday Smoker Type Used: Cigarettes 2nd Hand Smoke Exposure: No Recent Foreign Travel: No Contact w/Someone Who Travel: No Recent Infectious Disease Expo: No Recent Hopitalizations: No Seasonal Allergies Seasonal Allergies: No Past Medical History Surgeries: Yes Section, Gallbladder Respiratory: No Cardiac: Yes Hypertension Neurological: No 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 oz. 122.547865zn; BMI Method:Stated General Appearance: WD/WN, Mild Distress, Obese HEENT: PERRL/EOMI, Pharynx Normal Neck: Non Tender, Supple Respiratory: Lungs Clear, Normal Breath Sounds Cardiovascular: Regular Rate, Rhythm, No Murmur Gastrointestinal: Non Tender, Soft; No Guarding, No Rebound, No Tenderness; Other (exam limited due to obesity) Extremity: Normal Range of Motion, Non Tender Neurologic/Psychiatric: Alert, Oriented x3 Skin: Normal Color, Warm/Dry Progress/Results/Core Measures Results/Orders Lab Results Laboratory Tests Test 07/23/18 19:40 07/23/18 19:54 Range/Units White Blood Count 10.6 4.3-11.0 10^3/uL Red Blood Count 5.38 4.35-5.85 10^6/uL Hemoglobin 14.0 11.5-16.0 G/DL Hematocrit 43 35-52 % Mean Corpuscular Volume 79 L 80-99 FL Mean Corpuscular Hemoglobin 26 25-34 PG Mean Corpuscular Hemoglobin Concent 33 32-36 G/DL Red Cell Distribution Width 16.8 H 10.0-14.5 % Platelet Count 147 130-400 10^3/uL Mean Platelet Volume 10.8 H 7.4-10.4 FL Neutrophils (%) (Auto) 86 H 42-75 % Lymphocytes (%) (Auto) 10 L 12-44 % Monocytes (%) (Auto) 4 0-12 % Eosinophils (%) (Auto) 0 0-10 % Basophils (%) (Auto) 0 0-10 % Neutrophils # (Auto) 9.1 H 1.8-7.8 X 10^3 Lymphocytes # (Auto) 1.0 1.0-4.0 X 10^3 Monocytes # (Auto) 0.4 0.0-1.0 X 10^3 Eosinophils # (Auto) 0.0 0.0-0.3 10^3/uL Basophils # (Auto) 0.0 0.0-0.1 10^3/uL Prothrombin Time 13.9 12.2-14.7 SEC INR Comment 1.1 0.8-1.4 Activated Partial Thromboplast Time 36 H 24-35 SEC Sodium Level 136 135-145 MMOL/L Potassium Level 4.4 3.6-5.0 MMOL/L Chloride Level 103 98-107 MMOL/L Carbon Dioxide Level 22 21-32 MMOL/L Anion Gap 11 5-14 MMOL/L Blood Urea Nitrogen 6 L 7-18 MG/DL Creatinine 0.83 0.60-1.30 MG/DL Estimat Glomerular Filtration Rate > 60 BUN/Creatinine Ratio 7 Glucose Level 133 H 70-105 MG/DL Calcium Level 9.6 8.5-10.1 MG/DL Corrected Calcium 9.4 8.5-10.1 MG/DL Magnesium Level 2.2 1.8-2.4 MG/DL Total Bilirubin 0.6 0.1-1.0 MG/DL Aspartate Amino Transf (AST/SGOT) 49 H 5-34 U/L Alanine Aminotransferase (ALT/SGPT) 30 0-55 U/L Alkaline Phosphatase 96 40-136 U/L Myoglobin 32.0 10.0-92.0 NG/ML Troponin I < 0.028 <0.028 NG/ML Total Protein 8.3 H 6.4-8.2 GM/DL Albumin 4.2 3.2-4.5 GM/DL Urine Color YELLOW Urine Clarity CLEAR Urine pH 5 5-9 Urine Specific [place] 1.025 H 1.016-1.022 Urine Protein 1+ H NEGATIVE Urine Glucose (UA) NEGATIVE NEGATIVE Urine Ketones 1+ H NEGATIVE Urine Nitrite NEGATIVE NEGATIVE Urine Bilirubin NEGATIVE NEGATIVE Urine Urobilinogen NORMAL NORMAL MG/DL Urine Leukocyte Esterase 3+ H NEGATIVE Urine RBC (Auto) 2+ H NEGATIVE Urine RBC 0-2 /HPF Urine WBC 10-25 H /HPF Urine Squamous Epithelial Cells 10-25 H /HPF Urine Crystals NONE /LPF Urine Bacteria FEW H /HPF Urine Casts NONE /LPF Urine Mucus LARGE H /LPF Urine Culture Indicated YES My Orders Orders - RUDOLPH HERNANDEZ MD Ondansetron Injection (Zofran Injectio (07/23/18 19:37) Ns Iv 1000 Ml (Sodium Chloride 0.9%) (07/23/18 19:37) Cbc With Automated Diff (07/23/18 19:39) Magnesium (07/23/18 19:39) Chest 1 View, Ap/Pa Only (07/23/18 19:39) Ekg Tracing (07/23/18 19:39) Cardiac Profile 1 (07/23/18 19:39) Comprehensive Metabolic Panel (07/23/18 19:39) Myoglobin Serum (07/23/18 19:39) Protime With Inr (07/23/18 19:39) Partial Thromboplastin Time (07/23/18 19:39) O2 (07/23/18 19:39) Monitor-Rhythm Ecg Trace Only (07/23/18 19:39) Lipid Panel (07/24/18 06:00) Aspirin Chewable Tablet (Baby Aspirin Ch (07/23/18 19:45) Saline Lock/Iv-Start (07/23/18 19:39) Ondansetron Injection (Zofran Injectio (07/23/18 19:45) Ns Iv 1000 Ml (Sodium Chloride 0.9%) (07/23/18 19:39) Ua Culture If Indicated (07/23/18 19:48) Urine Culture (07/23/18 19:54) Rocephin 1g/Ns Iv (07/23/18 20:30) Rx-Ondansetron Po (Rx-Zofran Po) (07/23/18 20:29) Medications Given in ED Current Medications Medications Dose Ordered Sig/Vidya Route Start Time Stop Time Status Last Admin Dose Admin Aspirin 324 mg ONCE ONCE PO 07/23/18 19:45 07/23/18 19:46 DC 07/23/18 19:47 324 MG Ondansetron HCl 4 mg ONCE ONCE IVP 07/23/18 19:45 07/23/18 19:46 DC 07/23/18 20:01 4 MG Vital Signs/I&O 07/23/18 07/23/18 07/23/18 19:45 19:45 19:45 Pulse 75 Resp 14 B/P (MAP) 135/81 (99) Pulse Ox 96 96 O2 Delivery Room Air Room Air Room Air Blood Pressure Mean: 99 Progress Progress Note : Progress Note Seen and evaluated. IV, labs, EKG, chest x-ray, UA, Zofran 4 mg IV and normal saline 1 L bolus. Patient counseled to stop marijuana use as this may be part of the vomiting syndrome. She verbalizes understanding. ASA 324 mg by mouth given after Zofran which did reduce her nausea and vomiting. Monitor patient. 2030: Overall markedly improved. Her vomiting resolved. Urine suspicious for urinary tract infection. Given the recent vomiting we will give a dose of IV antibiotics. Rocephin 1 g IV. We will continue his outpatient with cephalexin. I did discuss with her about continuation and follow-up. She would like to go home at this point and she has appointment with her doctor on Thursday. I will send a copy of the chart for the clinic. She would benefit from further evaluation with cardiology including stress test and this was discussed with the patient. She will talk with her DrYanique on Thursday about this. Patient reports that she will stop marijuana. Discharged home with return precautions. Patient verbalize understanding instructions and agreement with plan. Initial ECG Impression Date: Jul 23, 2018 Initial ECG Impression Time: 19:41 Initial ECG Rate: 85 Initial ECG Rhythm: Normal Sinus Comment Sinus rhythm with normal axis. No evidence of ST elevation [place]. Similar to previous of 11 December 2012. Interpreted by me. Diagnostic Imaging Diagonstic Imaging: Xray Plain Films/CT/US/NM/MRI: chest Comments [facility]. [place], [place] NAME: JULIO CESAR QUINN [facility] REC#: [id number] PT STATUS: REG ER : 1965 PHYSICIAN: RUDOLPH HERNANDEZ MD ADMIT DATE: 07/23/18/ER Draft Date of Exam:07/23/18 CHEST 1 VIEW, AP/PA ONLY INDICATION: Chest pain. COMPARISON: 12/11/2014. FINDINGS: Single view of the chest demonstrates clear lungs bilaterally. The heart is normal. There is no pneumothorax. Osseous structures are normal. IMPRESSION: Negative chest. Dictated on workstation # [id number] Dict: 07/23/181957 Trans: 07/23/182005 [id number] Interpreted by: MARIA A MARIE Electronically signed by: Departure Impression Primary Impression: Nausea and vomiting Qualified Codes: R11.2 - Nausea with vomiting, unspecified Additional Impressions: UTI (urinary tract infection) Qualified Codes: N30.00 - Acute cystitis without hematuria Chest pain Qualified Codes: R07.9 - Chest pain, unspecified Disposition: 01 HOME, SELF-CARE Condition: Improved Departure-Patient Inst. Decision time for Depature: 20:33 Referrals: [facility]/NITHYA (PCP) Primary Care Physician KHLOE FOX (Family) Primary Care Physician Patient Instructions: Chest Pain (DC), Nausea and Vomiting, Adult (DC), Urinary Tract Infection, Adult (DC) Add. Discharge Instructions: All discharge instructions reviewed with patient and/or family. Voiced understanding. Take medications as directed. You may use the ondansetron (Zofran) 1 tablet every 6 hours as needed for nausea and vomiting. Clear liquid diet for the next 12-24 hours and then advance as tolerated. Follow-up with your doctor on Thursday as scheduled. Discussed with your doctor regarding referral for cardiology and/or stress test as needed. Also discussed with your doctor about your blood sugar level. Return for worse pain, fever, vomiting, breathing problems, chest pain, weakness or other concerns as needed. Drink plenty of fluids. Scripts Cephalexin (Cephalexin) 500 Mg Tablet 500 MG PO BID, #10 TAB 0 Refills Prov: RUDOLPH HERNANDEZ MD 07/23/18 Copy Copies To 1: VICENTE WHITING TIMOTHY D MD Jul 23, 2018 19:59
[2018-07-23 20:01] LABS: INR 1.1 (0.8-1.4); PROTHROMBIN TIME PATIENT 13.9 SEC (12.2-14.7)
--- NOTE | 2018-07-23 20:07 | Diagnostic Imaging Report ---
INDICATION: Chest pain. COMPARISON: 12/11/2014. FINDINGS: Single view of the chest demonstrates clear lungs bilaterally. The heart is normal. There is no pneumothorax. Osseous structures are normal. IMPRESSION: Negative chest. Dictated by: Dictated on workstation # [id number]
[2018-07-23 20:08] LABS: ALANINE AMINOTRANSFERASE 30 U/L (0-55); ALBUMIN 4.2 GM/DL (3.2-4.5); ALKALINE PHOSPHATASE 96 U/L (40-136); BILIRUBIN,TOTAL 0.6 MG/DL (0.1-1.0); BUN/CREATININE RATIO 7; CALCIUM 9.6 MG/DL (8.5-10.1); CARBON DIOXIDE 22 MMOL/L (21-32); CHLORIDE 103 MMOL/L (98-107); CREATININE SERUM 0.83 MG/DL (0.60-1.30); GFR ESTIMATED > 60; GLUCOSE 133 MG/DL (70-105); MAGNESIUM 2.2 MG/DL (1.8-2.4); POTASSIUM 4.4 MMOL/L (3.6-5.0); SODIUM 136 MMOL/L (135-145); TOTAL PROTEIN 8.3 GM/DL (6.4-8.2)
[2018-07-23 20:11] LABS: BACTERIA,URINE FEW /HPF; RBC,URINE 0-2 /HPF
[2018-07-23] MEDS ORDERED: RX-ONDANSETRON 4 MG ODT (ZOFRAN) PPK #4 PO STA (20:29)
[2018-07-23] MEDS ORDERED: cefTRIAXone FOR IV USE 1,000 MG in NS (IVPB) 50 ML IV ONE (20:30)
[2018-07-23] MEDS ORDERED: CEPH500T PO (20:34)
[2018-07-23 21:21] VITALS: BP 135/81
== END 2018-07-23 21:21 | disposition home or self-care (01) ==
LOC: EDUNIT# 19:33 → ER 19:35
DX: N39.0 Urinary tract infection, site not specified (principal); R07.9 Chest pain, unspecified; I10 Essential (primary) hypertension; E66.01 Morbid (severe) obesity due to excess calories; F41.9 Anxiety disorder, unspecified; F12.10 Cannabis abuse, uncomplicated; F17.210 Nicotine dependence, cigarettes, uncomplicated; Z88.5 Allergy status to narcotic agent; Z98.890 Other specified postprocedural states; Z98.51 Tubal ligation status; Z68.42 Body mass index [BMI] 45.0-49.9, adult
CPT/HCPCS: 36415; 71045; 80053; 81000; 83735; 83874; 84484; 85025; 85610; 85730; 87088; 93005; 93041

== ENCOUNTER → 2018-10-07 | Outpatient (CLI) | payer SELFPAY ==
[~2018-10-07] MED LIST changes: +CEPH500T PO
--- NOTE | 2018-10-07 14:46 | Diagnostic Imaging Report ---
PROCEDURE: US carotid duplex, bilateral. INDICATION: Dizziness, fatigue, hypertension, shortness of breath. TECHNIQUE: Multiple real-time grayscale images were obtained over the carotid arteries in various projections, bilaterally. Additional spectral analysis and color Doppler duplex images were also obtained. Parameters based on the consensus panel Mcelroy-Scale and Doppler ultrasound criteria published May 2003, Radiology, Volume 229. DOPPLER (peak systolic velocity M/S Right Left CCA 0.78 0.75 ICA Proximal 0.63 0.54 ICA Mid 0.57 1.0 ICA Distal 1.0 0.66 RATIO 1.3 1.3 ECA 1.6 1.3 VERT 0.77 0.70 FINDINGS: Color images demonstrate mild scattered plaque formation. This is most pronounced at the level of the carotid bifurcations. Common carotid arteries: Patent. There are no abnormally elevated velocities to suggest a hemodynamically significant stenosis. Internal carotid arteries: Patent. There are no abnormally elevated velocities to suggest a hemodynamically significant stenosis. External carotid arteries: Patent. Vertebral arteries: Patent and with antegrade direction of flow. IMPRESSION: 1. Carotid Doppler imaging demonstrates no findings to suggest a hemodynamically significant stenosis of the internal carotid arteries at this time. Dictated by: Dictated on workstation # [id number]
== END ==
LOC: RAD 10:20
PROVIDERS: ATTEND Internal Medicine Cardiovascular Disease
DX: E78.2 Mixed hyperlipidemia (principal); I10 Essential (primary) hypertension; R53.83 Other fatigue; Z72.0 Tobacco use
CPT/HCPCS: 93306; 93880

== ENCOUNTER 2020-07-18 01:50 | Emergency (ER) | payer SELFPAY ==
[~2020-07-18] VITALS: Ht 160 cm; Wt 120.6 kg
[2020-07-18 02:19] LABS: BASOPHILS % (AUTO) 0 % (0-10); HEMOGLOBIN 12.2 g/dL (11.5-16.0)
--- NOTE | 2020-07-18 02:20 | ED Abdominal Pain ---
General Chief Complaint: Abdominal/GI Problems Stated Complaint: RT SIDE ABD PAIN Source of Information: Patient History of Present Illness Date Seen by Provider: Jul 18, 2020 Time Seen by Provider: 02:05 Initial Comments PT ARRIVES VIA POV FROM HOME C/O RLQ PAIN SINCE 0800 THIS AM NO RADIATION OF PAIN PUSHING ON IT AND THEN LETTING GO GREATLY WORSENS PAIN MILD NAUSEA, NO VOMITING HAD NORMAL BM TODAY--NO BLACK/BLOODY/TARRY STOOLS NO FEVER NO URINARY SYMPTOMS NO HISTORY OF SIMILAR PT HAS BEEN MENOPAUSAL X 4 YEARS HAS HAD X 1, BTL AND CHOLECYSTECTOMY. PT WAS RECENTLY DX WITH VASCULITIS AT [facility] IN MAY AND TOOK 2 ROUNDS OF STEROIDS, THEN IT GOT WORSE IN JUNE AND TOOK PREDNISONE THE LAST 2 WEEKS OF JUNE. WENT BACK TO [facility] 2 DAYS AGO, FOR CONTINUED PROBLEMS AND WAS GIVEN RX FOR KEFLEX STATES SHE GETS ITCHY BUMPS AND THEN PAINFUL SORES ALL OVER HER ARMS AND LEGS, AND SHE HAS BODY ACHES WITH IT. . 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 USED TO SEE KHLOE FOX, BUT SHE HAS LEFT THE PRACTICE. Allergies and Home Medications Allergies Coded Allergies: codeine (Verified Allergy, Unknown, 07/18/20) Home Medications Buspirone Hcl 15 Mg Tablet, 15 MG PO BID, (Reported) Cephalexin 500 Mg Tablet, 500 MG PO BID Prescribed by: RUDOLPH HERNANDEZ on 07/23/182033 Ciprofloxacin HCl 500 Mg Tablet, 500 MG PO BID Prescribed by: JONNATHAN TOLLIVER on 07/18/20 0557 Gabapentin 300 Mg Capsule, 300 MG PO TID, (Reported) Hydroxyzine Hcl 25 Mg Tablet, 25 MG PO TID PRN for PAIN, (Reported) NEEDED FOR ANXIETY Lisinopril/Hydrochlorothiazide 1 Tab Tablet, 1 TAB PO DAILY, (Reported) Metronidazole 500 Mg Tablet, 500 MG PO QID Prescribed by: JONNATHAN TOLLIVER on 07/18/20 0557 Multivitamin 1 Each Tablet, 1 EACH PO DAILY, (Reported) Naproxen 500 Mg Tablet, 500 MG PO BID, (Reported) Nitrofurantoin/Nitrofuran Mac 100 Mg Capsule, 1 EACH PO BID FOR INFECTION Prescribed by: JONNATHAN TOLLIVER on 12/11/14 185 [place]-3/Dha/Epa/Fish Oil 1,000 Mg Capsule, 1,000 MG PO BID, (Reported) Ondansetron 8 Mg Tab.rapdis, 8 MG PO Q6H Prescribed by: JONNATHAN TOLLIVER on 07/18/20 0557 Patient Home Medication List Home Medication List Reviewed: Yes Review of Systems Review of Systems Constitutional: no symptoms reported; No fever Respiratory: No Symptoms Reported Cardiovascular: No Symptoms Reported Gastrointestinal: See HPI, Abdominal Pain; Denies Diarrhea; Nausea; Denies Vomiting Genitourinary: No Symptoms Reported Musculoskeletal: no symptoms reported Skin: see HPI Psychiatric/Neurological: No Symptoms Reported Endocrine: No Symptoms Reported Hematologic/Lymphatic: No Symptoms Reported Past Hwwbncu-Wuyvly-Pyphni Hx Past Med/Social Hx: Reviewed and Corrections made Patient Social History Alcohol Use: Rarely Uses Drug of Choice: THC DAILY Smoking Status: Current Everyday Smoker (07/07 - PPD) Type Used: Cigarettes 2nd Hand Smoke Exposure: No Recent Hopitalizations: No Seasonal Allergies Seasonal Allergies: No Past Medical History Surgeries: Yes ( X 1; BTL; CHOLECYSTECTOMY) Section, Gallbladder, Tubal Ligation Respiratory: No Cardiac: Yes Hypertension Neurological: No 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 oz. 122.453663ch; BMI Method:Stated General Appearance: WD/WN, no apparent distress, obese (MORBIDLY OBESE), other (WALKS UPRIGHT AND MOVES SLOWLY) Neck: normal inspection Respiratory: normal breath sounds, no respiratory distress, no accessory muscle use Cardiovascular: regular rate, rhythm, no murmur Gastrointestinal: normal bowel sounds, soft; No distended, No guarding; r ebound, tenderness (MODERATE TENDERNESS TO RLQ), hernia (SMALL UMBILICAL HERNIA, NON-TENDER, SOFT, NON-INFLAMED. ) Extremities: no pedal edema, normal capillary refill Back: no CVA tenderness, no vertebral tenderness Neurologic/Psychiatric: no motor/sensory deficits, alert, normal mood/affect, oriented x 3 Skin: normal color, warm/dry, other (MULTIPLE ERYTHEMATOUS PAPULES/NODULES AND MULTIPLE SORES AND SCABBED SORES TO DORSAL ASPECT OF ARMS AND ANTERIOR ASPECT OF LEGS, SOME ON ABDOMEN AND A FEW ON UPPER POSTERIOR SHOULDERS--ALL AREAS WHERE PT CAN REACH. NONE ARE IN PLACES THAT PT CANNOT REACH. ) Progress/Results/Core Measures Results/Orders Lab Results Laboratory Tests Test 07/18/20 02:10 07/18/20 02:15 Range/Units White Blood Count 8.7 4.3-11.0 10^3/uL Red Blood Count 4.02 3.80-5.11 10^6/uL Hemoglobin 12.2 11.5-16.0 g/dL Hematocrit 37 35-52 % Mean Corpuscular Volume 92 80-99 fL Mean Corpuscular Hemoglobin 30 25-34 pg Mean Corpuscular Hemoglobin Concent 33 32-36 g/dL Red Cell Distribution Width 14.6 H 10.0-14.5 % Platelet Count 103 L 130-400 10^3/uL Mean Platelet Volume 11.5 9.0-12.2 fL Immature Granulocyte % (Auto) 1 % Neutrophils (%) (Auto) 79 H 42-75 % Lymphocytes (%) (Auto) 11 L 12-44 % Monocytes (%) (Auto) 8 0-12 % Eosinophils (%) (Auto) 1 0-10 % Basophils (%) (Auto) 0 0-10 % Neutrophils # (Auto) 6.9 1.8-7.8 10^3/uL Lymphocytes # (Auto) 0.9 L 1.0-4.0 10^3/uL Monocytes # (Auto) 0.7 0.0-1.0 10^3/uL Eosinophils # (Auto) 0.1 0.0-0.3 10^3/uL Basophils # (Auto) 0.0 0.0-0.1 10^3/uL Immature Granulocyte # (Auto) 0.1 0.0-0.1 10^3/uL Sodium Level 139 135-145 MMOL/L Potassium Level 3.7 3.6-5.0 MMOL/L Chloride Level 100 98-107 MMOL/L Carbon Dioxide Level 26 21-32 MMOL/L Anion Gap 13 5-14 MMOL/L Blood Urea Nitrogen 8 7-18 MG/DL Creatinine 0.75 0.60-1.30 MG/DL Estimat Glomerular Filtration Rate > 60 BUN/Creatinine Ratio 11 Glucose Level 121 H 70-105 MG/DL Calcium Level 9.0 8.5-10.1 MG/DL Corrected Calcium 9.7 8.5-10.1 MG/DL Total Bilirubin 0.4 0.1-1.0 MG/DL Aspartate Amino Transf (AST/SGOT) 47 H 5-34 U/L Alanine Aminotransferase (ALT/SGPT) 29 0-55 U/L Alkaline Phosphatase 124 40-136 U/L Total Protein 6.8 6.4-8.2 GM/DL Albumin 3.1 L 3.2-4.5 GM/DL Amylase Level 41 25-125 U/L Lipase 67 8-78 U/L Urine Color YELLOW Urine Clarity CLOUDY Urine pH 5.5 5-9 Urine Specific [place] >=1.030 1.016-1.022 Urine Protein NEGATIVE NEGATIVE Urine Glucose (UA) NEGATIVE NEGATIVE Urine Ketones NEGATIVE NEGATIVE Urine Nitrite NEGATIVE NEGATIVE Urine Bilirubin NEGATIVE NEGATIVE Urine Urobilinogen 2.0 < = 1.0 MG/DL Urine Leukocyte Esterase NEGATIVE NEGATIVE Urine RBC (Auto) NEGATIVE NEGATIVE Urine RBC NONE /HPF Urine WBC 0-2 /HPF Urine Squamous Epithelial Cells 5-10 /HPF Urine Crystals NONE /LPF Urine Bacteria TRACE /HPF Urine Casts PRESENT /LPF Urine Hyaline Casts 0-2 H /LPF Urine Mucus NEGATIVE /LPF Urine Culture Indicated NO Urine Opiates Screen NEGATIVE NEGATIVE Urine Oxycodone Screen NEGATIVE NEGATIVE Urine Methadone Screen NEGATIVE NEGATIVE Urine Propoxyphene Screen NEGATIVE NEGATIVE Urine Barbiturates Screen NEGATIVE NEGATIVE Ur Tricyclic Antidepressants Screen NEGATIVE NEGATIVE Urine Phencyclidine Screen NEGATIVE NEGATIVE Urine Amphetamines Screen NEGATIVE NEGATIVE Urine Methamphetamines Screen NEGATIVE NEGATIVE Urine Benzodiazepines Screen NEGATIVE NEGATIVE Urine Cocaine Screen NEGATIVE NEGATIVE Urine Cannabinoids Screen POSITIVE H NEGATIVE My Orders Orders - JONNATHAN TOLLIVER DO Ed Iv/Invasive Line Start (07/18/20 02:07) Amylase (07/18/20 02:07) Cbc With Automated Diff (07/18/20 02:07) Comprehensive Metabolic Panel (07/18/20 02:07) Lipase (07/18/20 02:07) Ua Culture If Indicated (07/18/20 02:07) Drug Screen Stat (Urine) (07/18/20 02:14) Acute Abd Series (07/18/20 02:58) Ct Abd/Pelv W (Appendicitis) (07/18/20 02:58) Ketorolac Injection (Toradol Injection) (07/18/20 02:58) Iohexol Injection (Omnipaque 350 Mg/Ml 1 (07/18/20 04:45) Received Contrast (Hold Metformin- Contr (07/18/20 04:45) Ns (Ivpb) (Sodium Chloride 0.9% Ivpb Bag (07/18/20 04:45) Ciprofloxacin Tablet (Cipro Tablet) (07/18/20 06:00) Metronidazole Tablet (Flagyl Tablet) (07/18/20 06:00) Medications Given in ED Current Medications Medications Dose Ordered Sig/Vidya Route Start Time Stop Time Status Last Admin Dose Admin Iohexol 100 ml ONCE ONCE IV 07/18/20 04:45 07/18/20 04:56 DC 07/18/20 04:47 100 ML Metronidazole 500 mg ONCE ONCE PO 07/18/20 06:00 07/18/20 06:01 DC 07/18/20 06:07 500 MG Sodium Chloride 80 ml ONCE ONCE IV 07/18/20 04:45 07/18/20 04:56 DC 07/18/20 04:47 80 ML Vital Signs/I&O 07/18/20 02:05 Temp 36.7 Pulse 84 Resp 18 B/P (MAP) 188/83 (118) Pulse Ox 95 Progress Progress Note : Progress Note GIVEN IV FLUIDS AND TORADOL SOME IMPROVEMENT IN PAIN WITH TORADOL Diagnostic Imaging Comments ABDOMEN XRAYS--NON SPECIFIC BOWEL GAS PATTERN, PENDING RADIOLOGIST REVIEW CT ABDOMEN/PELVIS--FAT STRANDING AND TRACE FLUID IN RLQ AND INFERIOR TO LIVER. APPENDIX IS NOT VISUALIZED. FAT CONTAINING ULBILICAL AND VENTRAL PELVIC HERNIA. NO BOWEL WALL THICKENING. FATTY LIVER, ENLARGED/CIRRHOTIC LIVER. SPLENOMEGALY. PER [facility] VIA FAX AT [phone] Departure Communication (Admissions) [phone]--SPOKE WITH DR. BALLARD, SURGEON [employer]/TRACK AND FIELD COACH. HE WILL BE IN TO SEE PT. [phone]--DR. BALLARD HERE TO SEE PT. Impression Primary Impression: RLQ abdominal pain Disposition: 01 HOME, SELF-CARE Condition: Stable Departure-Patient Inst. Referrals: [facility]/NITHYA (PCP) Primary Care Physician KHLOE FOX (Family) Primary Care Physician IDA BALLARD DO Patient Instructions: Severe Abdominal Pain, Adult (DC) Add. Discharge Instructions: HOME, REST LOTS OF CLEAR LIQUIDS--WATER, BROTH, JELLO, GATORADE NO FOOD UNTIL YOUR PAIN IS GONE MAY TAKE YOUR HOME NAPROSYN NEEDED FOR PAIN FOLLOW UP WITH DR. BALLARD IN 2-3 DAYS IF NO BETTER, RETURN TO ER IF WORSE. All discharge instructions reviewed with patient and/or family. Voiced understanding. Scripts Ondansetron (Ondansetron Odt) 8 Mg Tab.rapdis 8 MG PO Q6H, #10 TAB Prov: JONNATHAN TOLLIVER DO 07/18/20 Metronidazole (Flagyl) 500 Mg Tablet 500 MG PO QID, #40 TAB Prov: JONNATHAN TOLLIVER DO 07/18/20 Ciprofloxacin HCl (Ciprofloxacin HCl) 500 Mg Tablet 500 MG PO BID, #14 TAB Prov: JONNATHAN TOLLIVER DO 07/18/20 Images Torso/Trunk 1 - Moderate, Tenderness JONNATHAN TOLLIVER DO Jul 18, 2020 02:20
[2020-07-18 02:21] LABS: EOSINOPHILS # (AUTO) 0.1 10^3/uL (0.0-0.3); EOSINOPHILS % (AUTO) 1 % (0-10); HEMATOCRIT 37 % (35-52); LYMPHOCYTES # (AUTO) 0.9 10^3/uL (1.0-4.0); LYMPHOCYTES % (AUTO) 11 % (12-44); MEAN CORPUSCULAR HEMOGLOBIN 30 pg (25-34); MEAN CORPUSCULAR HGB CONC 33 g/dL (32-36); MEAN CORPUSCULAR VOLUME 92 fL (80-99); MEAN PLATELET VOLUME 11.5 fL (9.0-12.2); MONOCYTES # (AUTO) 0.7 10^3/uL (0.0-1.0); MONOCYTES % (AUTO) 8 % (0-12); NEUTROPHILS # (AUTO) 6.9 10^3/uL (1.8-7.8); NEUTROPHILS % (AUTO) 79 % (42-75); WHITE BLOOD COUNT 8.7 10^3/uL (4.3-11.0)
[2020-07-18 02:22] LABS: BILIRUBIN,URINE NEGATIVE (NEGATIVE); CLARITY,URINE CLOUDY; COLOR,URINE YELLOW; GLUCOSE, URINE (UA) NEGATIVE (NEGATIVE); KETONES,URINE NEGATIVE (NEGATIVE); LEUKOCYTE ESTERASE ,URINE NEGATIVE (NEGATIVE); NITRITE,URINE NEGATIVE (NEGATIVE); PH,URINE 5.5 (5-9); PROTEIN,URINE NEGATIVE (NEGATIVE)
[2020-07-18 02:35] LABS: PLATELET COUNT 103 10^3/uL (130-400)
[2020-07-18 02:36] LABS: BACTERIA,URINE TRACE /HPF; HYALINE CASTS, URINE 0-2 /LPF; WBC,URINE 0-2 /HPF
[2020-07-18 02:37] LABS: AMPHETAMINE SCREEN, URINE NEGATIVE (NEGATIVE); BARBITURATE SCREEN URINE NEGATIVE (NEGATIVE); BENZODIAZEPINES SCREEN URINE NEGATIVE (NEGATIVE); CANNABINOID SCREEN, URINE POSITIVE (NEGATIVE); COCAINE SCREEN URINE NEGATIVE (NEGATIVE); METHADONE STAT NEGATIVE (NEGATIVE); METHAMPHETAMINE SCREEN URINE S NEGATIVE (NEGATIVE); OPIATE SCREEN URINE NEGATIVE (NEGATIVE); OXYCODONE STAT NEGATIVE (NEGATIVE); PROPOXYPHENE STAT NEGATIVE (NEGATIVE); TRICYCLIC ANTIDEPRESSANTS SCRE NEGATIVE (NEGATIVE)
[2020-07-18 02:42] LABS: ALBUMIN 3.1 GM/DL (3.2-4.5); CHLORIDE 100 MMOL/L (98-107); POTASSIUM 3.7 MMOL/L (3.6-5.0); SODIUM 139 MMOL/L (135-145)
[2020-07-18 02:43] LABS: AMYLASE 41 U/L (25-125)
[2020-07-18 02:44] LABS: GLUCOSE 121 MG/DL (70-105); TOTAL PROTEIN 6.8 GM/DL (6.4-8.2)
[2020-07-18 02:45] LABS: CARBON DIOXIDE 26 MMOL/L (21-32)
[2020-07-18 02:46] LABS: BILIRUBIN,TOTAL 0.4 MG/DL (0.1-1.0)
[2020-07-18 02:48] LABS: ALKALINE PHOSPHATASE 124 U/L (40-136); CREATININE SERUM 0.75 MG/DL (0.60-1.30); GFR ESTIMATED > 60
[2020-07-18 02:49] LABS: BUN/CREATININE RATIO 11
[2020-07-18 02:51] LABS: ALANINE AMINOTRANSFERASE 29 U/L (0-55); LIPASE 67 U/L (8-78)
[2020-07-18] MEDS ORDERED: KETOROLAC 30 MG/ML VIAL IVP STA (02:58)
[2020-07-18] MEDS ORDERED: HOLD METFORMIN - RECEIVED CONTRAST 20 ML VIAL IV SCH (04:45)
[2020-07-18] MEDS ORDERED: IOHEXOL 350 MG/ML 100 ML (OMNIPAQUE 350) VIAL IV ONE (04:45)
[2020-07-18] MEDS ORDERED: NS 100 ML (IVPB) BAG IV ONE (04:45)
--- NOTE | 2020-07-18 04:52 | NUR ---
RESTING QUIETLY IN ROOM. DR TOLLIVER IN ROOM TO DISCUSS PLAN OF CARE R/T DR BALLARD AND HER RADIOLOGY TESTS. DENIES ADDITIONAL NEEDS AT THIS TIME. MONITORING MAINTAINED, CALL LIGHT IN REACH.
[2020-07-18] MEDS ORDERED: CIPR500T4 PO (05:57)
[2020-07-18] MEDS ORDERED: ONDA8TAB13 PO (05:57)
[2020-07-18] MEDS ORDERED: METR500T PO (05:57)
[2020-07-18] MEDS ORDERED: CIPROFLOXACIN 500 MG (CIPRO) TABLET PO SCH (06:00)
[2020-07-18] MEDS ORDERED: metroNIDAZOLE 500 MG (FLAGYL) TAB PO ONE (06:00)
[2020-07-18 06:12] VITALS: BP 167/94
--- NOTE | 2020-07-18 07:14 | Consultation - Surgery ---
History of Present Illness History of Present Illness Patient Consulted On(olinda/time) 07/18/20 07:07 Date Seen by Provider: Jul 18, 2020 Time Seen by Provider: 05:30 History of Present Illness Consult right sided abdominal pain from Dr. Mcbride Patient is a 54 year old female that began having pain on right side of abdomen 8 am yesterday. 6/10 pain. No radiation. Laying on left side makes better, Worse with sitting up. Had ct scan showing in mild inflammation around right colon, midline hernias cirrhotic appearing liver Allergies and Home Medications Allergies Coded Allergies: codeine (Verified Allergy, Unknown, 07/18/20) Home Medications Buspirone Hcl 15 Mg Tablet, 15 MG PO BID, (Reported) Cephalexin 500 Mg Tablet, 500 MG PO BID Prescribed by: RUDOLPH HERNANDEZ on 07/23/182033 Ciprofloxacin HCl 500 Mg Tablet, 500 MG PO BID Prescribed by: JONNATHAN MCBRIDE on 07/18/20556 Gabapentin 300 Mg Capsule, 300 MG PO TID, (Reported) Hydroxyzine Hcl 25 Mg Tablet, 25 MG PO TID PRN for PAIN, (Reported) NEEDED FOR ANXIETY Lisinopril/Hydrochlorothiazide 1 Tab Tablet, 1 TAB PO DAILY, (Reported) Metronidazole 500 Mg Tablet, 500 MG PO QID Prescribed by: JONNATHAN MCBRIDE on 07/18/20556 Multivitamin 1 Each Tablet, 1 EACH PO DAILY, (Reported) Naproxen 500 Mg Tablet, 500 MG PO BID, (Reported) Nitrofurantoin/Nitrofuran Mac 100 Mg Capsule, 1 EACH PO BID FOR INFECTION Prescribed by: JONNATHAN MCBRIDE on 12/11/141852 [place]-3/Dha/Epa/Fish Oil 1,000 Mg Capsule, 1,000 MG PO BID, (Reported) Ondansetron 8 Mg Tab.rapdis, 8 MG PO Q6H Prescribed by: JONNATHAN MCBRIDE on 07/18/20556 Patient Home Medication List Home Medication List Reviewed: Yes Past Vdtjmjm-Bdukwt-Abonvw Hx Patient Social History Drug of Choice: THC DAILY Smoking Status: Current Everyday Smoker (1/2 - 1 PPD) Type Used: Cigarettes 2nd Hand Smoke Exposure: No Recent Hopitalizations: No Seasonal Allergies Seasonal Allergies: No Surgeries History of Surgeries: Yes ( X 1; BTL; CHOLECYSTECTOMY) Surgeries: Section, Gallbladder, Tubal Ligation Respiratory History of Respiratory Disorde: No Cardiovascular History of Cardiac Disorders: Yes Cardiac Disorders: Hypertension Neurological History of Neurological Disord: No Reproductive System : No Hx Reproductive Disorders: 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, 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 Genitourinary History of Genitourinary Disor: No Gastrointestinal History of Gastrointestinal Di: No Musculoskeletal History of Musculoskeletal Dis: Yes Musculoskeletal Disorders: Degenerate Disk Disease, Arthritis, Chronic Back Pain Endocrine History of Endocrine Disorders: Yes (MORBID OBESITY) HEENT History of HEENT Disorders: No Cancer History of Cancer: No Psychosocial History of Psychiatric Problem: Yes Behavioral Health Disorders: Anxiety Integumentary History of Skin or Integumenta: Yes ("VASCULITIS" ARMS & LEGS-ITCHY BUMPS & PAINFUL SORES ON ARMS & LEGS 05/2020) Skin/Integumentary Disorders: Recent Skin Changes Blood Transfusions History of Blood Disorders: No Adverse Reaction to a Blood Tr: No Reviewed Nursing Assessment Reviewed/Agree w Nursing PMH: Yes Family Medical History Significant Family History: No Pertinent Family Hx Review of Systems-General Constitutional: No chills, No diaphoresis, No fever EENTM: No ear pain, No blurred vision Respiratory: No cough, No dyspnea on exertion Cardiovascular: No chest pain, No edema Genitourinary: No decreased output Musculoskeletal: No back pain, No joint pain Skin: lesions Psychiatric/Neurological: Denies Anxiety, Denies Depressed, Denies Emotional Problems Physical Exam-General Problems Physical Exam Vital Signs Vital Signs - First Documented 07/18/20 02:05 Temp 36.7 Pulse 84 Resp 18 B/P (MAP) 188/83 (118) Pulse Ox 95 Capillary Refill : Less Than 3 Seconds General Appearance: WD/WN, no apparent distress, obese HEENT: PERRL/EOMI, normal ENT inspection Neck: non-tender, full range of motion, supple, normal inspection Respiratory: chest non-tender, no respiratory distress, no accessory muscle use Cardiovascular: regular rate, rhythm, no JVD Gastrointestinal: tenderness (right sided) Rectal: deferred Back: normal inspection, no CVA tenderness Extremities: normal range of motion, non-tender, no pedal edema Neurologic/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: 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, alert, normal mood/affect, oriented x 3 Skin: other (multiple diffuse skin lesions, questionable vasculitis different stages of healing all over body) Lymphatic: no adenopathy Data Review Labs Laboratory Tests 07/18/20 02:10: White Blood Count 8.7, Red Blood Count 4.02, Hemoglobin 12.2, Hematocrit 37, Mean Corpuscular Volume 92, Mean Corpuscular Hemoglobin 30, Mean Corpuscular Hemoglobin Concent 33, Red Cell Distribution Width 14.6H, Platelet Count 103L, Mean Platelet Volume 11.5, Immature Granulocyte % (Auto) 1, Neutrophils (%) (Auto) 79H, Lymphocytes (%) (Auto) 11L, Monocytes (%) (Auto) 8, Eosinophils (%) (Auto) 1, Basophils (%) (Auto) 0, Neutrophils # (Auto) 6.9, Lymphocytes # (Auto) 0.9L, Monocytes # (Auto) 0.7, Eosinophils # (Auto) 0.1, Basophils # (Auto) 0.0, Immature Granulocyte # (Auto) 0.1, Sodium Level 139, Potassium Level 3.7, Chlor ralph Level 100, Carbon Dioxide Level 26, Anion Gap 13, Blood Urea Nitrogen 8, Creatinine 0.75, Estimat Glomerular Filtration Rate > 60, BUN/Creatinine Ratio 11, Glucose Level 121H, Calcium Level 9.0, Corrected Calcium 9.7, Total Bilirub in 0.4, Aspartate Amino Transf (AST/SGOT) 47H, Alanine Aminotransferase (ALT/SGPT) 29, Alkaline Phosphatase 124, Total Protein 6.8, Albumin 3.1L, Amylase Level 41, Lipase 67 07/18/20 02:15: Urine Color YELLOW, Urine Clarity CLOUDY, Urine pH 5.5, Urine Specific Clarence >=1.030, Urine Protein NEGATIVE, Urine Glucose (UA) NEGATIVE, Urine Ketones NEGATIVE, Urine Nitrite NEGATIVE, Urine Bilirubin NEGATIVE, Urine Urobilinogen 2.0, Urine Leukocyte Esterase NEGATIVE, Urine RBC (Auto) NEGATIVE, Urine RBC NONE, Urine WBC 0-2, Urine Squamous Epithelial Cells 5-10, Urine Crystals NONE, Urine Bacteria TRACE, Urine Casts PRESENT, Urine Hyaline Casts 0-2H, Urine Mucus NEGATIVE, Urine Culture Indicated NO, Urine Opiates Screen NEGATIVE, Urine Oxycodone Screen NEGATIVE, Urine Methadone Screen NEGATIVE, Urine Propoxyphene Screen NEGATIVE, Urine Barbiturates Screen NEGATIVE, Ur Tricyclic Antidepressants Screen NEGATIVE, Urine Phencyclidine Screen NEGATIVE, Urine Amphetamines Screen NEGATIVE, Urine Methamphetamines Screen NEGATIVE, Urine Benzodiazepines Screen NEGATIVE, Urine Cocaine Screen NEGATIVE, Urine Cannabinoids Screen POSITIVEH Assessment/Plan Assessment/Plan Assessment/Plan right sided abdominal pain skin lesions cirrhotic appearing liver by ct patient with mild inflammation possible from ascites, appendix not visualized, wbc 8.7 patient was discussed possibility of appendicitis as cause we discussed doing laparoscopic appendectomy and looking for source vs conservative measures she wishes to be placed on antibiotics and clear liquids for 3 days and if worsens will return to er. also discussed skin lesion she has follow with her pcp told her to consider biopsy IDA BALLARD DO Jul 18, 2020 07:14
--- NOTE | 2020-07-18 07:19 | Diagnostic Imaging Report ---
Indication: Abdominal pain FINDINGS: The upright chest shows no abnormality. Supine and upright views of the abdomen show a normal bowel gas pattern with no evidence for obstruction or perforation. There is no mass or abnormal calcification. There is no acute bony abnormality. IMPRESSION: No acute abnormality is seen. Dictated by: Dictated on workstation # [id number]
--- NOTE | 2020-07-18 07:24 | Diagnostic Imaging Report ---
PROCEDURE: CT abdomen and pelvis with contrast, rule out appendicitis. TECHNIQUE: Multiple contiguous axial images were obtained through the abdomen and pelvis after the administration of intravenous contrast. All CT scans use one or more of the following dose optimizing techniques: automated exposure control, MA and/or KvP adjustment based on patient size and exam type or iterative reconstruction. INDICATION: Right lower quadrant pain The lung bases are clear. There is hepatosplenomegaly. Liver has a cephalocaudad length of approximately 23 cm. The spleen has a cephalocaudad length of 18 cm. No focal lesion is seen. The bile ducts are not dilated. Pancreas and adrenals are normal. Kidneys, ureters and bladder are normal. The uterus is heterogeneous in appearance with prominent low-density changes centrally which may be secondary to thickened irregular endometrium which could be evaluated further with ultrasound. There is no adnexal mass. The appendix is not directly visualized. There is a small amount of fluid in the right paracolic gutter with minimal stranding of the peritoneal fat inferior to the enlarged liver. No other ascites is evident. No acute bowel abnormality is evident. There is no free intraperitoneal air. There is no acute bony abnormality. There is a ventral hernia at the level of the umbilicus measuring 4 x 5 cm and contains only fat. IMPRESSION: Hepatosplenomegaly. Some stranding in the right lower quadrant. The appendix is not visualized but these changes may be related to inflammation in the right lower quadrant. The cecum and ascending colon shows no acute abnormality. There is an abnormal appearance to the uterus. There is a ventral hernia at the level of the umbilicus containing only fat. Dictated by: Dictated on workstation # [id number]
== END 2020-07-18 06:12 | disposition home or self-care (01) ==
LOC: EDUNIT# 01:50 → ER 01:54
DX: R10.31 Right lower quadrant pain (principal); F41.9 Anxiety disorder, unspecified; I10 Essential (primary) hypertension; E66.01 Morbid (severe) obesity due to excess calories; F17.210 Nicotine dependence, cigarettes, uncomplicated; Z88.5 Allergy status to narcotic agent; Z68.45 Body mass index [BMI] 70 or greater, adult
CPT/HCPCS: 36415; 74022; 74177; 80053; 80306; 81000; 82150; 83690; 85025

== ENCOUNTER 2020-12-30 00:18 | Emergency (ER) | payer SELFPAY ==
[~2020-12-30] VITALS: Ht 160 cm; Wt 114.0 kg
[~2020-12-30 00:18] MED LIST changes: +CIPR500T5 PO; +METR500T PO; +ONDA8TAB13 PO
--- NOTE | 2020-12-30 00:42 | ED GI ---
General Stated Complaint: N/V/D Source of Information: Patient Exam Limitations: No Limitations History of Present Illness Date Seen by Provider: Dec 30, 2020 Time Seen by Provider: 00:27 Initial Comments Patient presents ER by private conveyance from home with her significant other and chief complaint that since 11:00 this morning she has been having nausea and vomiting. She states she had 2 glasses of orange juice from a new bottle of orange juice yesterday and she is the only one to drink from it and now she is sick so she suspects maybe that is the source. She is been having loose watery stools. She has been trying to drink water and Sprite and immediately vomits it up. She has had no fevers or chills. She is been sweating from the effort and feels sore all over but no abdominal tenderness. She has had her tubes tied as well as a and her gallbladder out historically. She tried to take some Pepto-Bismol which did not help. She had 1 tablet of Zofran which did not help. She denies a history of diabetes dysuria or frequency. Allergies and Home Medications Allergies Coded Allergies: codeine (Verified Allergy, Unknown, 07/18/20) Home Medications Buspirone Hcl 15 Mg Tablet, 15 MG PO BID, (Reported) Cephalexin 500 Mg Tablet, 500 MG PO BID Prescribed by: RUDOLPH HERNANDEZ on 07/23/182033 Ciprofloxacin HCl 500 Mg Tablet, 500 MG PO BID Prescribed by: JONNATHAN TOLLIVER on 07/18/20 0557 Gabapentin 300 Mg Capsule, 300 MG PO TID, (Reported) Hydroxyzine Hcl 25 Mg Tablet, 25 MG PO TID PRN for PAIN, (Reported) NEEDED FOR ANXIETY Lisinopril/Hydrochlorothiazide 1 Tab Tablet, 1 TAB PO DAILY, (Reported) Metronidazole 500 Mg Tablet, 500 MG PO QID Prescribed by: JONNATHAN TOLLIVER on 07/18/20 05 Multivitamin 1 Each Tablet, 1 EACH PO DAILY, (Reported) Naproxen 500 Mg Tablet, 500 MG PO BID, (Reported) Nitrofurantoin/Nitrofuran Mac 100 Mg Capsule, 1 EACH PO BID FOR INFECTION Prescribed by: JONNATHAN TOLLIVER on 12/11/141852 [place]-3/Dha/Epa/Fish Oil 1,000 Mg Capsule, 1,000 MG PO BID, (Reported) Ondansetron 8 Mg Tab.rapdis, 8 MG PO Q6H Prescribed by: JONNATHAN TOLLIVER on 07/18/20 0557 Ondansetron 4 Mg Tab.rapdis, 4 MG PO Q6H PRN for NAUSEA/VOMITING Prescribed by: ALISA MONTES on 12/30/20213 Promethazine HCl 25 Mg Tablet, 25 MG PO Q6H PRN for NAUSEA/VOMITING Prescribed by: ALISA MONTES on 12/30/20213 Patient Home Medication List Home Medication List Reviewed: Yes Review of Systems Review of Systems Constitutional: No chills, No diaphoresis EENTM: No Blurred Vision, No Double Vision Respiratory: Denies Cough, Denies Shortness of Air Cardiovascular: Denies Chest Pain, Denies Lightheadedness Gastrointestinal: See HPI; Denies Abdominal Pain, Denies Constipated; Nausea, Poor Fluid Intake, Vomiting Genitourinary: Denies Burning, Denies Discharge, Denies Frequency Musculoskeletal: No back pain, No joint pain Psychiatric/Neurological: Denies Anxiety, Denies Depressed All Other Systems Reviewed Negative Unless Noted: Yes Past Wutlime-Nuwxyh-Zmusyg Hx Patient Social History Alcohol Use: Denies Use Drug of Choice: THC DAILY Smoking Status: Current Everyday Smoker Type Used: Cigarettes 2nd Hand Smoke Exposure: No Recent Hopitalizations: No Seasonal Allergies Seasonal Allergies: No Past Medical History Surgeries: Yes ( X 1; BTL; CHOLECYSTECTOMY) Section, Gallbladder, Tubal Ligation Respiratory: No Cardiac: Yes Hypertension Neurological: No Reproductive Disorders: 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, 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 Genitourinary: No Gastrointestinal: No Musculoskeletal: Yes Degenerate Disk Disease, Arthritis, Chronic Back Pain Endocrine: Yes (MORBID OBESITY) HEENT: No Cancer: No Psychosocial: Yes Anxiety Integumentary: Yes ("VASCULITIS" ARMS & LEGS-ITCHY BUMPS & PAINFUL SORES ON ARMS & LEGS 05/2020) Recent Skin Changes Blood Disorders: No Adverse Reaction/Blood Tranf: No Family Medical History No Pertinent Family Hx Physical Exam Vital Signs Vital Signs - First Documented 12/30/20 12/30/20 00:30 01:20 Temp 36.4 Pulse 88 Resp 28 B/P (MAP) 167/118 (134) Pulse Ox 94 O2 Delivery Room Air O2 Flow Rate 2.00 Capillary Refill : Height/Weight/BMI Height: 5'3.00" Weight: 269lbs. oz. 122.390686xj; 47.00 BMI Method:Stated General Appearance: mild distress, obese HEENT: PERRL/EOMI, pharynx normal Neck: full range of motion, normal inspection Respiratory: lungs clear, normal breath sounds, no respiratory distress, no accessory muscle use Cardiovascular: normal peripheral pulses, regular rate, rhythm, no edema Gastrointestinal: normal bowel sounds, non tender, soft, no organomegaly Neurologic/Psychiatric: alert, normal mood/affect, oriented x 3 Skin: normal color, warm/dry Progress/Results/Core Measures Results/Orders Lab Results Laboratory Tests Test 12/30/20 00:40 Range/Units White Blood Count 11.4 H 4.3-11.0 10^3/uL Red Blood Count 5.17 H 3.80-5.11 10^6/uL Hemoglobin 15.5 11.5-16.0 g/dL Hematocrit 46 35-52 % Mean Corpuscular Volume 89 80-99 fL Mean Corpuscular Hemoglobin 30 25-34 pg Mean Corpuscular Hemoglobin Concent 34 32-36 g/dL Red Cell Distribution Width 15.2 H 10.0-14.5 % Platelet Count 89 L 130-400 10^3/uL Mean Platelet Volume 11.4 9.0-12.2 fL Immature Granulocyte % (Auto) 0 % Neutrophils (%) (Auto) 93 H 42-75 % Lymphocytes (%) (Auto) 4 L 12-44 % Monocytes (%) (Auto) 3 0-12 % Eosinophils (%) (Auto) 0 0-10 % Basophils (%) (Auto) 0 0-10 % Neutrophils # (Auto) 10.6 H 1.8-7.8 10^3/uL Lymphocytes # (Auto) 0.5 L 1.0-4.0 10^3/uL Monocytes # (Auto) 0.3 0.0-1.0 10^3/uL Eosinophils # (Auto) 0.0 0.0-0.3 10^3/uL Basophils # (Auto) 0.0 0.0-0.1 10^3/uL Immature Granulocyte # (Auto) 0.0 0.0-0.1 10^3/uL Neutrophils % (Manual) 90 % Lymphocytes % (Manual) 7 % Monocytes % (Manual) 3 % Blood Morphology Comment NORMAL Sodium Level 139 135-145 MMOL/L Potassium Level 4.0 3.6-5.0 MMOL/L Chloride Level 102 98-107 MMOL/L Carbon Dioxide Level 18 L 21-32 MMOL/L Anion Gap 19 H 5-14 MMOL/L Blood Urea Nitrogen 15 7-18 MG/DL Creatinine 0.94 0.60-1.30 MG/DL Estimat Glomerular Filtration Rate > 60 BUN/Creatinine Ratio 16 Glucose Level 217 H 70-105 MG/DL Calcium Level 9.9 8.5-10.1 MG/DL Corrected Calcium 10.0 8.5-10.1 MG/DL Magnesium Level 1.3 L 1.6-2.4 MG/DL Total Bilirubin 1.2 H 0.1-1.0 MG/DL Aspartate Amino Transf (AST/SGOT) 36 H 5-34 U/L Alanine Aminotransferase (ALT/SGPT) 39 0-55 U/L Alkaline Phosphatase 106 40-136 U/L C-Reactive Protein High Sensitivity 1.25 H 0.00-0.50 MG/DL Total Protein 7.9 6.4-8.2 GM/DL Albumin 3.9 3.2-4.5 GM/DL Lipase 20 8-78 U/L My Orders Orders - ALISA MONTES Ondansetron Injection (Zofran Injectio (12/30/20 00:45) Ed Iv/Invasive Line Start (12/30/20 00:37) Lactated Ringers (Lr 1000 Ml Iv Solution (12/30/20 00:45) Magnesium (12/30/20 00:37) Cbc With Automated Diff (12/30/20 00:37) Comprehensive Metabolic Panel (12/30/20 00:37) Hs C Reactive Protein (12/30/20 00:37) Lipase (12/30/20 00:37) Promethazine Injection (Phenergan Injec (12/30/20 01:00) Manual Differential (12/30/20 00:40) Orphenadrine Inj (Ed Only) (Norflex Inje (12/30/20 01:15) Magnesium 1 Gm/100 Ml Ivpb (Magnesium Aucna (12/30/20 01:30) O2 (12/30/20 01:21) Rx-Ondansetron Po (Rx-Zofran Po) (12/30/20 02:25) Medications Given in ED Vital Signs/I&O 12/30/20 12/30/20 12/30/20 00:30 01:20 03:20 Temp 36.4 36.4 Pulse 88 80 Resp 28 18 B/P (MAP) 167/118 (134) 168/64 (134) Pulse Ox 94 94 O2 Delivery Room Air Room Air O2 Flow Rate 2.00 Progress Progress Note #1: Time: 00:41 Progress Note Viral, toxin or cannabis hyperemesis syndrome? Plan to get some labs and urine and give her a liter of fluids as well as 8 of Zofran to start. Progress Note #2: Time: :21 Progress Note Zofran gave marginal benefit so a dose of Phenergan was given. Patient states she took some meclizine earlier in the day also. Her nausea became under contr ol however she became somnolent and her oxygen saturation dipped down to 78% while sleeping. She denies having any history of sleep apnea. We will put her on 2 L and this brought her oxygen saturation up to 94%. Her magnesium is a little on the low side so we will give her a gram IV. She has a marginal elevation in bilirubin which is probably because of her retching. She had a nontender, nonsurgical abdominal exam and still has the same exam at this time. Lungs are still clear to auscultation without wheezing. We will continue to monitor her until her fluids are done. Departure Impression Primary Impression: Gastroenteritis and colitis, viral Disposition: 01 HOME, SELF-CARE Condition: Improved Departure-Patient Inst. Decision time for Depature: 02:30 Referrals: [facility] [place] Primary Care Physician Patient Instructions: Viral Gastroenteritis, Adult (DC) Add. Discharge Instructions: Drink plenty of fluids. Sports drinks are encouraged. Zofran 1 to 2 tablets every 6 hours as needed for nausea and/or vomiting. Phenergan 1 tablet every 6 hours as necessary for breakthrough nausea and vomiting. Imodium 2 tablets followed by 1 tablet every 4 hours afterwards that you are still having loose, watery diarrhea. Tylenol and ibuprofen as necessary for body aches pain or fever. Expect symptoms to resolve in 3 to 5 days. Follow-up with your primary care doctor if you are not seeing improvement. Return to the nearest ER if you are having difficulty controlling your nausea or other worrisome symptoms. Scripts Promethazine HCl (Promethazine Tablet) 25 Mg Tablet 25 MG PO Q6H PRN for NAUSEA/VOMITING, #10 TAB 0 Refills Prov: ALISA MONTES 12/30/20 Ondansetron (Ondansetron Odt) 4 Mg Tab.rapdis 4 MG PO Q6H PRN for NAUSEA/VOMITING, #15 TAB 0 Refills Prov: ALISA MONTES 12/30/20 Work/School Note: Work Release Form Date Seen in the Emergency Department: Dec 30, 2020 Return to Work: Jan 01, 2021 Restrictions: No Restrictions ALISA MONTES Dec 30, 2020 00:42
[2020-12-30] MEDS ORDERED: ONDANSETRON 4 MG/2 ML (SDV) Z0FRAN IVP ONE (00:45)
[2020-12-30] MEDS ORDERED: LACTATED RINGERS 1,000 ML IV ONE (00:45)
[2020-12-30 00:49] LABS: BASOPHILS % (AUTO) 0 % (0-10); EOSINOPHILS % (AUTO) 0 % (0-10); HEMATOCRIT 46 % (35-52); HEMOGLOBIN 15.5 g/dL (11.5-16.0); LYMPHOCYTES # (AUTO) 0.5 10^3/uL (1.0-4.0); LYMPHOCYTES % (AUTO) 4 % (12-44); MEAN CORPUSCULAR HEMOGLOBIN 30 pg (25-34); MEAN CORPUSCULAR HGB CONC 34 g/dL (32-36); MEAN CORPUSCULAR VOLUME 89 fL (80-99); MEAN PLATELET VOLUME 11.4 fL (9.0-12.2); MONOCYTES # (AUTO) 0.3 10^3/uL (0.0-1.0); MONOCYTES % (AUTO) 3 % (0-12); NEUTROPHILS # (AUTO) 10.6 10^3/uL (1.8-7.8); NEUTROPHILS % (AUTO) 93 % (42-75); PLATELET COUNT 89 10^3/uL (130-400); WHITE BLOOD COUNT 11.4 10^3/uL (4.3-11.0)
[2020-12-30 01:00] LABS: ALBUMIN 3.9 GM/DL (3.2-4.5)
[2020-12-30] MEDS ORDERED: PROMETHAZINE INJ 25 MG/ML (PHENERGAN) AMP IVP ONE (01:00)
[2020-12-30 01:01] LABS: CHLORIDE 102 MMOL/L (98-107); SODIUM 139 MMOL/L (135-145)
[2020-12-30 01:02] LABS: CALCIUM 9.9 MG/DL (8.5-10.1)
[2020-12-30 01:03] LABS: GLUCOSE 217 MG/DL (70-105); TOTAL PROTEIN 7.9 GM/DL (6.4-8.2)
[2020-12-30 01:04] LABS: CARBON DIOXIDE 18 MMOL/L (21-32)
[2020-12-30 01:05] LABS: BILIRUBIN,TOTAL 1.2 MG/DL (0.1-1.0)
[2020-12-30 01:07] LABS: ALKALINE PHOSPHATASE 106 U/L (40-136); CREATININE SERUM 0.94 MG/DL (0.60-1.30); GFR ESTIMATED > 60
[2020-12-30 01:08] LABS: BUN/CREATININE RATIO 16
[2020-12-30 01:10] LABS: ALANINE AMINOTRANSFERASE 39 U/L (0-55); MAGNESIUM 1.3 MG/DL (1.6-2.4)
[2020-12-30 01:11] LABS: LIPASE 20 U/L (8-78)
[2020-12-30 01:13] LABS: LYMPHOCYTES % (MANUAL) 7 %; MONOCYTES % (MANUAL) 3 %; NEUTROPHILS % (MANUAL) 90 %
[2020-12-30 01:14] LABS: RBC MORPH NORMAL
[2020-12-30] MEDS ORDERED: ORPHENADRINE 60 MG/2 ML (NORFLEX) AMP (ED ONLY) IV ONE (01:15)
[2020-12-30] MEDS ORDERED: MAGNESIUM 1 GM/100 ML IVPB 100 ML IV ONE (01:30)
[2020-12-30] MEDS ORDERED: ONDA4TAB11 PO (02:14)
[2020-12-30] MEDS ORDERED: PROM25TA14 PO (02:14)
[2020-12-30] MEDS ORDERED: RX-ONDANSETRON 4 MG ODT (ZOFRAN) PPK #4 PO STA (02:25)
[2020-12-30 03:20] VITALS: BP 168/64
== END 2020-12-30 03:20 | disposition home or self-care (01) ==
LOC: EDUNIT# 00:18 → ER 00:20
DX: A08.4 Viral intestinal infection, unspecified (principal); E66.01 Morbid (severe) obesity due to excess calories; F41.9 Anxiety disorder, unspecified; I10 Essential (primary) hypertension; F17.210 Nicotine dependence, cigarettes, uncomplicated; Z68.42 Body mass index [BMI] 45.0-49.9, adult; Z79.899 Other long term (current) drug therapy
CPT/HCPCS: 36415; 80053; 83690; 83735; 85007; 85027; 86141; 96361; 96374; 96375

== ENCOUNTER 2021-06-14 05:35 | Outpatient (RCR) | payer OTHER ==
[~2021-06-14] VITALS: Ht 160 cm; Wt 113.6 kg
[~2021-06-14 05:35] MED LIST changes: +ASPI-999 PO; +CHOL500049 PO; +FERR-84 PO; +GABA300S2 PO; +HYDR-700 PO; +LAMO200T5 PO; +LISI1TAB46 PO; +METO-333 PO; +NAPR-1070 PO; +OMEG1CAP58 PO; +ONDA4TAB11 PO; +PROM25TA14 PO; +[UNRECOGNIZED DRUG - CODE] MC
== END 2021-06-14 09:43 | disposition home or self-care (01) ==
LOC: PREOP 05:35
PROVIDERS: ATTEND Surgery
DX: Z01.812 Encounter for preprocedural laboratory examination (principal); Z12.11 Encounter for screening for malignant neoplasm of colon; K21.9 Gastro-esophageal reflux disease without esophagitis; Z20.822 Contact with and (suspected) exposure to COVID-19
CPT/HCPCS: 87635

== ENCOUNTER 2021-06-17 07:24 | Day surgery (SDC) | payer OTHER ==
[~2021-06-17] VITALS: Ht 160 cm; Wt 113.6 kg
[2021-06-17] MEDS ORDERED: LACTATED RINGERS 1,000 ML IV STA (07:25)
[2021-06-17] MEDS ORDERED: LACTATED RINGERS 1,000 ML IV ONE (07:29)
[2021-06-17] MEDS ORDERED: HURRICAINE EXT TUBE (BENZOCAINE) XX PRN (07:30)
[2021-06-17] MEDS ORDERED: ONDANSETRON 4 MG/2 ML (SDV) Z0FRAN ONE (07:34)
[2021-06-17] MEDS ORDERED: MIDAZOLAM 2 MG/2 ML (VERSED) VIAL ONE (07:37)
[2021-06-17] MEDS ORDERED: PROPOFOL INJECTION 50 ML IV ONE (07:38)
[2021-06-17] MEDS ORDERED: ONDANSETRON 4 MG/2 ML (SDV) Z0FRAN IVP ONE (07:45)
[2021-06-17 07:47] VITALS: BP 147/84
--- NOTE | 2021-06-17 08:19 | Progress Note-Pre Operative ---
Pre-Operative Progress Note H&P Reviewed The H&P was reviewed, patient examined and no changes noted. Time Seen by Provider: 08:14 Date H&P Reviewed: Jun 17, 2021 Time H&P Reviewed: 08:14 Pre-Operative Diagnosis: GERD, Screening colon JENNIFER ARELLANO DO Jun 17, 2021 08:19
--- NOTE | 2021-06-17 08:52 | Progress Note-Post Operative ---
Post-Operative Progess Note Surgeon (s)/Travel Specialist (s) Surgeon JENNIFER ARELLANO DO Travel Specialist: Jovany Cazares, MSIII Pre-Operative Diagnosis GERD, Screening colon Post-Operative Diagnosis Gastritis Hiatal hernia int hemorrhoids Procedure & Operative Findings Date of Procedure 06/17/21 Procedure Performed/Findings EGD with bx Colonoscopy PROCEDURE NOTE: After informed consent was obtained, the patient was brought to the endoscopy suite, placed in bed in left lateral decubitus position. She was administered IV sedation by the EVENT SALES REPRESENTATIVE who then monitored vitals the entire time, heart rate, blood pressure and pulse ox and the scope was inserted down the mouth through the esophagus into the stomach. On the way down, noted some mild esophagitis, took a picture, pushed into the stomach, pushed past the antrum into the duodenum. Duodenum looked good. Pulled back and did a biopsy of antrum, then retroflexed the scope, saw beginnings of small hiatal hernia, took a picture of this and then did a biopsy of the body of the stomach. Pulled the scope into the GE junction and then did a biopsy of the GE junction. Pushed the scope back into the stomach, suctioned all the air out of the stomach. At this point pulled the scope up the esophagus and out the mouth. Switched camera, switched gloves, went down below, started the colonoscopy. Pushed all the way into about 140 cm to get all the way to cecum, took a picture of the appendiceal orifice, noted the ileocecal valve and then slowly withdrew the scope, insufflating to look circumferentially at the rosado looking the cecum, up the ascending colon to the hepatic flexure, then down the transverse colon, splenic flexure, into the descending colon, down into the sigmoid and finally into the rectum, retroflexed in the rectal vault, saw some minimal internal hemorrhoids and took a picture of this. The patient tolerated the procedure and she recovered in the endoscopy suite. Anesthesia Type IV sedation by EVENT SALES REPRESENTATIVE Estimated Blood Loss Estimated blood loss (mL): scant Specimens/Packing Specimens Removed antral bx body of stomach bx GE jxn bx JENNIFER ARELLANO DO Jun 17, 2021 08:52
--- NOTE | 2021-06-17 08:54 | Endoscopy Discharge Instruct ---
Endo Procedure/Findings Findings 1.: Gastritis 2.: Hiatal Hernia 3.: Internal Hemorrhoids Discharge Instructions - Activity: You might feel a little sleepy until tomorrow. This is due to the medicine you received to relax you. Until tomorrow, you should: NOT drive a car, operate machinery or power tools. NOT drink any alcoholic beverages. NOT make any important decisions or sign importortant papers. Do not return to work until tomorrow, unless otherwise instructed. Resume previous activities tomorrow. Diet: Start by taking liquids. If you tolerate liquids, advance to solid food. 1.: EGD in 3 years 2.: Colonscopy in 10 years Notify Physician - If you experience excessive bleeding, unusual abdominal pain, fever, or chest pain, contact your doctor immediately. JENNIFER ARELLANO DO Jun 17, 2021 08:54
[2021-06-17 08:55] VITALS: BP 146/82
[2021-06-17 08:57] VITALS: BP 139/75
[2021-06-17 09:00] VITALS: BP 139/75
[2021-06-17 09:20] VITALS: BP 139/75
--- NOTE | 2021-06-17 12:33 | Anesthesia-General Post-Op ---
MAC Patient Condition Mental Status/LOC: Same as Preop Cardiovascular: Satisfactory Nausea/Vomiting: Absent Respiratory: Satisfactory Pain: Controlled Complications: Absent Post Op Complications Complications None Follow Up Care/Instructions Patient Instructions None needed. Anesthesiology Discharge Order Discharge Order Patient is doing well, no complaints, stable vital signs, no apparent adverse anesthesia problems. No complications reported per nursing. GARRETT IRVING CRNA Jun 17, 2021 12:33
== END 2021-06-17 09:30 | disposition home or self-care (01) ==
LOC: ENDO 07:24
PROVIDERS: ATTEND Surgery
DX: Z12.11 Encounter for screening for malignant neoplasm of colon (principal); K29.50 Unspecified chronic gastritis without bleeding; K44.9 Diaphragmatic hernia without obstruction or gangrene; K64.8 Other hemorrhoids; K21.9 Gastro-esophageal reflux disease without esophagitis; F17.210 Nicotine dependence, cigarettes, uncomplicated; E66.9 Obesity, unspecified; I10 Essential (primary) hypertension; J44.9 Chronic obstructive pulmonary disease, unspecified; F32.A Depression, unspecified; F41.9 Anxiety disorder, unspecified; L40.0 Psoriasis vulgaris; K42.9 Umbilical hernia without obstruction or gangrene; Z68.41 Body mass index [BMI] 40.0-44.9, adult; Z79.899 Other long term (current) drug therapy; Z79.82 Long term (current) use of aspirin; Z90.49 Acquired absence of other specified parts of digestive tract
CPT/HCPCS: 88305; 88342

== ENCOUNTER → 2022-03-04 | Outpatient (CLI) | payer OTHER ==
[~2022-03-04] MED LIST changes: +GADOTERATE 0.5 MMOL/ML (CLARISCAN) 20 ML VIAL IV ONE
--- NOTE | 2022-03-04 16:05 | Diagnostic Imaging Report ---
EXAMINATION: MRI of the abdomen with and without contrast. TECHNIQUE: Multiplanar, multisequence MR images of the abdomen were obtained with and without intravenous contrast. HISTORY: Pancreatic lesion evaluation COMPARISON: 07/18/2020 FINDINGS: Liver: There is mildly decreased signal on out of phase images compatible with hepatic steatosis. No suspicious liver lesion. Gallbladder and Bile Ducts: The gallbladder is surgically absent. No biliary ductal dilatation or filling defect. Pancreas: The pancreas is normal in volume, signal intensity and enhancement. There is no dilation of the main pancreatic duct. No focal lesion is seen. Kidneys: There is no hydronephrosis. Adrenal glands: There is no adrenal gland nodule or thickening. Spleen: The spleen is normal in size without focal lesion. Lymph Nodes: There is no suspicious lymphadenopathy. Other: There is no ascites. IMPRESSION: 1. No visualized pancreatic lesion. 2. Hepatic steatosis. 3. Otherwise unremarkable MRI of the abdomen. Dictated by: Dictated on workstation # [id number]
== END ==
LOC: RAD 02-19 11:11
PROVIDERS: ATTEND Pediatrics
DX: K76.0 Fatty (change of) liver, not elsewhere classified (principal); K86.89 Other specified diseases of pancreas; Z90.49 Acquired absence of other specified parts of digestive tract
CPT/HCPCS: 74183